=== PATIENT | female | born 1945 | race Caucasian/White ===

== ENCOUNTER → 2018-09-03 | Outpatient (REF) ==
[2018-09-03 14:37] LABS: RUBELLA IgG QUALITATIVE IMMUNE (IMMUNE)
== END ==
LOC: M LAB 13:37
PROVIDERS: ATTEND Nurse Practitioner Adult Health
DX: Z00.00 Encounter for general adult medical examination without abnormal findings (principal)

== ENCOUNTER → 2021-02-22 | Outpatient (REF) | payer MEDICARE, BC ==
[~2021-02-22] MED LIST: ATEN50TA2 PO; CALC-356 PO; CEFD1CAP8 PO; CIDA500T2 PO; ECOT81TA5 PO; FERR325T82 PO; LEVO50TA5 PO; NABU-71 PO; ROSU5TAB5 PO; VITA500T41 PO; VITMTA PO; tylenol pm PO
[2021-02-22 17:29] LABS: PLATELET COUNT, AUTOMATED 425 10^3/uL (150-450)
[2021-02-22 17:40] LABS: INR 0.93; PROTHROMBIN TIME 12.9 SECONDS (12.7-14.5)
[2021-02-22 17:41] LABS: PARTIAL THROMBOPLASTIN TIME 29.1 SECONDS (25.9-37.0)
== END ==
LOC: M LAB REF 16:45
PROVIDERS: ATTEND Internal Medicine Pulmonary Disease
DX: Z01.812 Encounter for preprocedural laboratory examination (principal); J90 Pleural effusion, not elsewhere classified

== ENCOUNTER 2021-02-24 12:32 | Day surgery (SDC) | payer MEDICARE, BC ==
[~2021-02-24] VITALS: Ht 152.4 cm; Wt 78.0 kg
[2021-02-24 13:22] LABS: BASO # 0.1 10^3/uL (0.0-0.2); BASO % 0.7 % (0.0-1.0); EOS # 0.2 10^3/uL (0.0-0.5); EOS % 1.8 % (0.0-3.0); HEMATOCRIT 39.1 % (36.0-47.0); HEMOGLOBIN 12.8 g/dl (12.0-15.5); LYMPH # 1.4 10^3/uL (1.5-5.0); LYMPH % 12.9 % (24.0-44.0); MEAN CORPUSCULAR HEMOGLOBIN 29.2 pg (27.0-33.0); MEAN CORPUSCULAR HGB CONC 32.7 g/dl (32.0-36.5); MEAN CORPUSCULAR VOLUME 89.1 fl (80.0-96.0); MONO # 0.7 10^3/uL (0.0-0.8); MONO % 6.7 % (2.0-8.0); NEUTROPHILS # 8.6 10^3/uL (1.5-8.5); NEUTROPHILS % 77.5 % (36.0-66.0); PLATELET COUNT, AUTOMATED 412 10^3/uL (150-450); RED BLOOD COUNT 4.39 10^6/uL (4.00-5.40); WHITE BLOOD COUNT 11.1 10^3/uL (4.0-10.0)
[2021-02-24 13:45] LABS: ALBUMIN 2.8 GM/DL (3.2-5.2); ALT/SGPT 30 U/L (12-78); BILIRUBIN,TOTAL 0.5 MG/DL (0.2-1.0); BLOOD UREA NITROGEN 10 MG/DL (7-18); CALCIUM LEVEL 9.2 MG/DL (8.8-10.2); CARBON DIOXIDE LEVEL 27 MEQ/L (21-32); CHLORIDE LEVEL 106 MEQ/L (98-107); CREATININE FOR GFR 0.64 MG/DL (0.55-1.30); GLOMERULAR FILTRATION RATE > 60.0 (>39); GLUCOSE, FASTING 82 MG/DL (70-100); LDH LACTATE DEHYDROGENASE 376 U/L (84-246); POTASSIUM SERUM 4.1 MEQ/L (3.5-5.1); SODIUM LEVEL 141 MEQ/L (136-145); TOTAL PROTEIN 5.9 GM/DL (6.4-8.2)
[2021-02-24] MEDS ORDERED: LIDOCAINE 1% MDV 20ML VIAL As Ordered ONE (14:00)
[2021-02-24 14:57] LABS: PH BODY FLUID 7.443 UNITS (NOT ESTABLISHED); SOURCE, BODY FLUID pH PLEURAL
--- NOTE | 2021-02-24 14:59 | REP ---
INDICATION: post thoracentesis right side. COMPARISON: 02/17/2021 TECHNIQUE: Portable FINDINGS: The technique utilized in obtaining the radiograph has magnified the cardiac silhouette and accentuated the interstitial markings. Cardiomediastinal silhouette is unchanged. The right lower lung field opacity may have decreased slightly. There is no significant change, however. Left lung field is unchanged. There are nodules status quo. IMPRESSION: Likely malignant effusion no significant change as described above. <Electronically signed by Fred Roberto > 02/24/21 [id number]
[2021-02-24 15:09] LABS: APPEARANCE, BODY FLUID HAZY (CLEAR); PLEURAL FL COLOR PALE YELLOW (COLORLESS); SOURCE, BODY FLUID PLEURAL
[2021-02-24 15:20] VITALS: BP 167/82
[2021-02-24 15:30] LABS: AMYLASE, BODY FLUID 150 U/L (NOT ESTABLISHED); CHOLESTEROL, BODY FLUID 57 MG/DL (NOT ESTABLISHED); LDH, BODY FLUID 264 U/L (NOT ESTABLISHED); SOURCE, BODY FLUID ALBUMIN PLEURAL; SOURCE, BODY FLUID AMYLASE PLEURAL; SOURCE, BODY FLUID CHOL PLEURAL; SOURCE, BODY FLUID GLUCOSE PLEURAL; SOURCE, BODY FLUID LDH PLEURAL; SOURCE, BODY FLUID TOT PROTEIN PLEURAL; SOURCE, BODY FLUID TRIG PLEURAL; TOTAL PROTEIN, BODY FLUID 3.6 G/DL (NOT ESTABLISHED); TRIGLYCERIDE, BODY FLUID 24 MG/DL (NOT ESTABLISHED)
--- NOTE | 2021-02-24 15:38 | ROOPDOC ---
[facility] Report Of Operation Report of Operation INDICATION: pleural effusion PROCEDURE: right sided US guided thoracentesis PROCEDURE PHOTOGRAPHIC PLATEMAKER: Dr Alvarado CONSENT: Consent was obtained prior to the procedure. Indications, risks, and benefits were explained at length. PROCEDURE SUMMARY: A time out was performed and the chest x-ray was reviewed, the appropriate side was confirmed and marked. My hands were washed immediately prior to the procedure. I wore a surgical cap, mask with protective eyewear, sterile gown and sterile gloves throughout the procedure. The patient was prepped and draped in a sterile manner using chlorhexidine scrub after the appropriate level was confirmed by ultrasound. 1% lidocaine was used to anesthesize the skin, subcutaneous tissue, superior aspect of the rib periosteum and parietal pleura. A 10-blade scalpel was used to nate the skin at the insertion site. A finder needle was then introduced over the superior aspect of the rib to locate the ple ural fluid; yellow colored fluid was aspirated. The needle was then introduced through the skin incision into the pleural space using negative aspiration pressure. The thoracentesis catheter was then threaded without difficulty. In total 1540cc of fluid was removed without difficulty. The catheter was then removed. No immediate complications were noted during the procedure. A post- procedure chest x-ray did not reveal pneumotyhorax, there is right base opacity/atelectasis. The fluid will be sent for cytology, cell counts and lytes Estimated blood loss is 5cc ERASTO ALVARADO MD Feb 24, 2021 15:38
== END 2021-02-24 15:31 | disposition home or self-care (01) ==
LOC: M OPP 12:32
PROVIDERS: ATTEND Internal Medicine Pulmonary Disease
DX: C34.90 Malignant neoplasm of unspecified part of unspecified bronchus or lung (principal); J91.0 Malignant pleural effusion; R05 Cough; R06.00 Dyspnea, unspecified; I31.3 Pericardial effusion (noninflammatory); E03.9 Hypothyroidism, unspecified; I10 Essential (primary) hypertension
CPT/HCPCS: 32555; 36415; 71045; 80053; 82042; 82150; 82465; 82945; 83615; 83986; 84157; 84478; 85025; 87070; 87075; 87116; 87205; 87206; 88108; 88305; 88313; 88341; 88342; 89051; U0002

== ENCOUNTER 2021-03-08 13:18 | Inpatient (IN) | payer MEDICARE, BC ==
[2021-03-08] VITALS (18 sets, daily range): BP systolic 109–148; BP diastolic 58–73
[~2021-03-08 13:18] MED LIST changes: -ACET1TAB55 PO; -ACET25TA12 PO; -DOCU100C16 PO; -OXYC-517 PO; -TRAM50TA2 PO; -VIAC1CHW PO
[2021-03-08] MEDS ORDERED: flumazeniL 0.5 MG/5 ML VIAL As Ordered ONE (13:24)
[2021-03-08] MEDS ORDERED: MIDAZOLAM INJ 2MG/2ML VIAL (J2250 PER 1MG) As Ordered ONE (13:25)
[2021-03-08] MEDS ORDERED: LIDOCAINE 1% MDV 20ML VIAL As Ordered ONE (13:26)
[2021-03-08] MEDS ORDERED: MOM 30ML SUSPENSION UDC PO PRN (14:15)
[2021-03-08] MEDS ORDERED: MAALOX 30 ML SUSP *UDC PO PRN (14:15)
--- NOTE | 2021-03-08 14:40 | HPEPDOC ---
[facility] Medical History & Physical Date of Admission Mar 08, 2021 Date of Service: Mar 08, 2021 History and Physical Chief complaint: Patient was sent in as a direct admission from pulmonologys office for shortness of breath History of present illness: Patient is a 75-year-old female with a PMHx of HTN, DLP, Hypothyroidism, Osteoarthritis, Gastric bypass (2003) who presented to the [facility] as a direct admission for shortness of breath with exertion. Patient reports that since . Shes been treated for bronchitis with multiple antibiotics and she has failed to improve. Patient had seen pulmonology and had a CT scan completed on 02/17 which revealed evidence of a large right pleural effusion, dense consolidation in the right lower lobe. Findings concer carlitos for possible underlying endobronchial lesion and lymphadenopathy. Patient underwent thoracentesis on 02/24 and fluid was sent for cytology which resulted positive for adenocarcinoma. Patient had followed up with pulmonology today and was noted to have recurrence of her right-sided pleural effusion. Patient denies any chest pain, but they do report shortness of breath with exertion. Reports a nonproductive cough. Denies any fevers or chills. Patient reports some nausea without vomiting. Denies any abdominal discomfort. Denies any constipation. Reports some diarrhea with loose/watery bowel movements. Last bowel movement was this morning. Denies any urinary discomfort. Reports a poor appetite and has experience approximately a 3 pound weight loss over one week. Past Medical History: HTN DLP Hypothyroidism Osteoarthritis Gastric bypass (2003) Hx of COVID 19 infection (03/2020); was asymptomatic Past Surgical History: Gastric bypass 2003 Right knee arthroplasty 10/2020 Hysterectomy 1989 Dilation and curettage 1988 Hernia repair Left ankle fracture s/p repair, 1978 Right foot surgery 1993 Allergies: See below Medications: See below Family History: - Father with a history of chronic kidney disease and bladder cancer - Mother with a history of coronary artery disease and chronic kidney disease - No history of malignancies Social History: - Denies the use of tobacco or illicit drugs; patient reports the social use of alcohol - Denies recent travel or sick contacts; although she did travel to [place] February 06- - Lives with - 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 No wheezing, crackles or rhonchi noted - Abdomen: Soft, Non-distended, Non-tender - Extremities: No lower extremity edema, No calf tenderness - Neuro: No focal motor or sensory deficit - Skin: No visible rashes Labs: See below Imaging: CT Chest 02/17: Large right pleural effusion and dense consolidation in the right lower lobe. The findings are concerning for possible underlying endobronchial lesion. Small pericardial effusion noted and mediastinal adenopathy with the pretracheal node measuring 2.5 cm and 2.3 cm subcarinal node. Bilateral calcified hilar nodes. Multiple nodules in the left upper lobe concerning for possible metastasis versus nodular infiltrates. CXR 03/08: Large right pleural effusion near completely opacifying the right hemithorax with underlying collapse/consolidations. EKG: See below Assessment and Plan: Shortness of breath - likely 2/2 recurrent right sided pleural effusion - likely 2/2 malignancy 2/2 adenocarcinoma - Patient presented to [facility] as a direct admission for recurrent pleural effusion - Patient recently had a thoracentesis completed on 02/24; findings were consistent with adenocarcinoma - Diminished lung sounds at right lung base, however she is saturating well on room air - Hemodynamically stable and afebrile - Imaging noted above - Currently does reveal large right-sided pleural effusion - Cardiothoracic surgery has been called on consultation and case has been discussed; will evaluate today for intervention HTN - BP well controlled - c/w Atenolol with holding parameters DLP - c/w ASA 81 and Rosuvastatin Hypothyroidism - c/w Levothyroxine Osteoarthritis - c/w Tylenol PRN Hx of COVID 19 infection - Diagnosed 03/2020 - Currently patient is asymptomatic was asymptomatic / saturating well on room air DVT prophylaxis - Will start Heparin SQ Disposition: - Anticipate to midnight stay - Awaiting clinical improvement Vital Signs Vital Signs Date Time Temp Pulse Resp B/P (MAP) Pulse Ox O2 Delivery O2 Flow Rate FiO2 03/08/21 14:28 98.3 83 20 148/71 (96) 91 Room Air Home Medications Scheduled Aspirin (Ecotrin) 81 Mg Tablet.dr, 81 MG PO DAILY Atenolol (Atenolol) 50 Mg Tablet, 50 MG PO DAILY Calcium Carbonate/Vitamin D3 (Calcium 600 mg-Vit D3 10Mcg Tb) 600 Mg-400 Tablet, 2 EACH PO DAILY Cefdinir (Cefdinir) 300 Mg Capsule, 300 MG PO BID Cyanocobalamin (Vitamin B-12) (Vitamin B-12) 500 Mcg Tablet, 500 MCG PO 3XW Ferrous Sulfate (Iron) 325 Mg Tablet, 325 MG PO BID Glucosamine/Chondr Sparrow A Sod (Cidaflex Tablet) 1 Each Tablet, 1 TAB PO DAILY Levothyroxine Sodium (Levothyroxine Sodium) 50 Mcg Tablet, 50 MCG PO DAILY Multivitamins (Thera M Plus Tablet) 1 Each Tablet, 1 TAB PO BID Nabumetone (Nabumetone) 500 Mg Tablet, 500 MG PO BID Rosuvastatin Calcium (Rosuvastatin Calcium) 5 Mg Tablet, 5 MG PO DAILY [tylenol pm] , 1,000 MG PO QHS Allergies Coded Allergies: hydrocodone (Verified Adverse Reaction, Mild, n/v, 03/08/21) oxycodone (Verified Adverse Reaction, Mild, n/v, 03/08/21) NANCY LARSEN MD Mar 08, 2021 14:39
[2021-03-08] MEDS ORDERED: ACET25TA12 PO (14:51)
[2021-03-08] MEDS ORDERED: VIAC1CHW PO (14:51)
[2021-03-08 14:52] LABS: HEMATOCRIT 42.8 % (36.0-47.0); HEMOGLOBIN 13.9 g/dl (12.0-15.5); MEAN CORPUSCULAR HEMOGLOBIN 28.5 pg (27.0-33.0); MEAN CORPUSCULAR HGB CONC 32.5 g/dl (32.0-36.5); MEAN CORPUSCULAR VOLUME 87.9 fl (80.0-96.0); PLATELET COUNT, AUTOMATED 444 10^3/uL (150-450); RED BLOOD COUNT 4.87 10^6/uL (4.00-5.40); WHITE BLOOD COUNT 14.8 10^3/uL (4.0-10.0)
[2021-03-08] MEDS ORDERED: HOME MED LIST COMPLETE! XX SCH (14:55)
[2021-03-08 15:03] LABS: INR 0.99; PROTHROMBIN TIME 13.5 SECONDS (12.7-14.5)
[2021-03-08] MEDS ORDERED: MIDAZOLAM INJ 2MG/2ML VIAL (J2250 PER 1MG) IV ONE ×2 (15:03→15:09)
[2021-03-08] MEDS ORDERED: PILL CUTTER 1 EACH XX PRN (15:25)
[2021-03-08 15:27] LABS: ALBUMIN 2.8 GM/DL (3.2-5.2); ALT/SGPT 39 U/L (12-78); BILIRUBIN,TOTAL 0.5 MG/DL (0.2-1.0); BLOOD UREA NITROGEN 14 MG/DL (7-18); CALCIUM LEVEL 9.2 MG/DL (8.8-10.2); CARBON DIOXIDE LEVEL 27 MEQ/L (21-32); CHLORIDE LEVEL 103 MEQ/L (98-107); CREATININE FOR GFR 0.78 MG/DL (0.55-1.30); GLOMERULAR FILTRATION RATE > 60.0 (>39); GLUCOSE, FASTING 99 MG/DL (70-100); POTASSIUM SERUM 4.6 MEQ/L (3.5-5.1); SODIUM LEVEL 137 MEQ/L (136-145); TOTAL PROTEIN 6.3 GM/DL (6.4-8.2)
--- NOTE | 2021-03-08 15:51 | REP ---
INDICATION: pigtail placement COMPARISON: 03/08/2021 at 12:07 p.m. TECHNIQUE: Portable AP view of the chest FINDINGS: Evaluation is somewhat limited by technique and poor inspiratory effort. Current examination now demonstrates chest tube extending to the right apex with mildly decreased right hydropneumothorax. Subtle left lower lobe airspace disease/atelectasis cannot be excluded. Visualized portions of the cardiac silhouette remains stable. Skeletal structures intact. IMPRESSION: Right chest tube placement with right hydropneumothorax demonstrating mildly decreased fluid. <Electronically signed by Abdelrahman Wang > 03/08/21 1544
--- NOTE | 2021-03-08 15:51 | ROOPDOC ---
[facility] Report Of Operation Report of Operation DATE OF PROCEDURE: 03/08/21 PREOPERATIVE DIAGNOSIS: recurrent malignant pleural effusion POSTOPERATIVE DIAGNOSIS: same PROCEDURE PERFORMED: right side PleurX catheter placement. SURGEON: Kt Alvarado ANESTHESIA: Local with IV sedation versed 2mg COMPLICATIONS: None. OPERATIVE FINDINGS: The right chest was opacified on preoperative chest x-ray, and 1L liters of serous fluid was withdrawn. There were no bleeding c omplications, and the fluid was not blood tinged. DESCRIPTION OF PROCEDURE: Procedure was done at bedside. Patient placed supine position. Intravenous sedation was administered without complications. The patient was then positioned with the head up and a roll under the right shoulder. The right chest and upper abdomen were prepped and draped in the usual sterile fashion. Lidocaine 1% was used to infiltrate two areas; one in the right upper quadrant where the tube would exit and the other along the anterior axillary line in the seventh intercostal space. A small counterincision was made in the right upper quadrant area. Through the anterior axillary line area, the pleural space was accessed by Seldinger technique. The counterincision was made around the guidewire and then the PleurX catheter was tunneled from the right upper quadrant small incision to the one overlying the ribs. A sheath introducer was then passed over the wire and then the PleurX catheter was placed through the sheath introducer. There was good return of fluid. 1 liters of serous fluid was withdrawn slowly as the small counterincision was closed with Monocryl stitch. The catheter was capped off, and sterile dressings were applied. The patient tolerated the procedure well without any complications. Sponge and needle count was correct at the end of the case. CXR is pending. KT ALVARADO MD Mar 08, 2021 15:51
[2021-03-08] MEDS ORDERED: LIDOCAINE 1% MDV 20ML VIAL SC ONE (16:20)
[2021-03-08 16:52] LABS: LDH LACTATE DEHYDROGENASE 621 U/L (84-246)
[2021-03-08 17:13] LABS: PH BODY FLUID 7.492 UNITS (NOT ESTABLISHED); SOURCE, BODY FLUID pH PLEURAL
[2021-03-08 17:20] LABS: APPEARANCE, BODY FLUID HAZY (CLEAR); PLEURAL FL COLOR YELLOW (COLORLESS); SOURCE, BODY FLUID PLEURAL
[2021-03-08 18:24] LABS: AMYLASE, BODY FLUID 169 U/L (NOT ESTABLISHED); CHOLESTEROL, BODY FLUID 65 MG/DL (NOT ESTABLISHED); LDH, BODY FLUID 400 U/L (NOT ESTABLISHED); SOURCE, BODY FLUID ALBUMIN PLEURAL; SOURCE, BODY FLUID AMYLASE PLEURAL; SOURCE, BODY FLUID CHOL PLEURAL; SOURCE, BODY FLUID GLUCOSE PLEURAL; SOURCE, BODY FLUID LDH PLEURAL; SOURCE, BODY FLUID TOT PROTEIN PLEURAL; SOURCE, BODY FLUID TRIG PLEURAL; TOTAL PROTEIN, BODY FLUID 3.9 G/DL (NOT ESTABLISHED); TRIGLYCERIDE, BODY FLUID 28 MG/DL (NOT ESTABLISHED)
[2021-03-08] MEDS: DOCUSATE SODIUM 100MG CAPSULE PO SCH ×2 (20:18→20:28)
[2021-03-08] MEDS: FERROUS SULFATE 325MG TAB PO SCH (20:19)
[2021-03-08] MEDS: ACETAMINOPHEN TAB 650MG DOSE (2X325MG) PO PRN (20:20)
[2021-03-08] MEDS: MULTIVITAMINS/MINERALS THERAP 1 TAB PO SCH (20:27)
[2021-03-08] MEDS: HEPARIN SOD (PORCINE) 5000UNITS/ML 1ML VIAL/SYRINGE SC SCH (20:28)
[2021-03-08] MEDS ORDERED: ROSUVASTATIN 10 MG TAB (CRESTOR) PO SCH (21:00)
[2021-03-08] MEDS ORDERED: atenoloL 50 MG TAB PO SCH (21:00)
[2021-03-09] VITALS: BP_SYST 106; BP_SYST 161; BP_DIAS 63; BP_DIAS 75
[2021-03-09] MEDS: ACETAMINOPHEN TAB 650MG DOSE (2X325MG) PO PRN ×2 (00:27→09:54)
[2021-03-09 04:00] VITALS: BP 105/61
[2021-03-09 04:27] LABS: BASO # 0.1 10^3/uL (0.0-0.2); BASO % 0.6 % (0.0-1.0); EOS # 0.3 10^3/uL (0.0-0.5); HEMOGLOBIN 12.2 g/dl (12.0-15.5); LYMPH # 1.7 10^3/uL (1.5-5.0); LYMPH % 13.4 % (24.0-44.0); MEAN CORPUSCULAR HEMOGLOBIN 28.5 pg (27.0-33.0); MEAN CORPUSCULAR VOLUME 86.4 fl (80.0-96.0); MONO # 1.2 10^3/uL (0.0-0.8); MONO % 9.6 % (2.0-8.0); NEUTROPHILS # 9.4 10^3/uL (1.5-8.5); NEUTROPHILS % 73.8 % (36.0-66.0); PLATELET COUNT, AUTOMATED 361 10^3/uL (150-450); RED BLOOD COUNT 4.28 10^6/uL (4.00-5.40); WHITE BLOOD COUNT 12.7 10^3/uL (4.0-10.0)
[2021-03-09 04:50] LABS: BLOOD UREA NITROGEN 16 MG/DL (7-18); CALCIUM LEVEL 9.1 MG/DL (8.8-10.2); CARBON DIOXIDE LEVEL 28 MEQ/L (21-32); CHLORIDE LEVEL 105 MEQ/L (98-107); GLOMERULAR FILTRATION RATE > 60.0 (>39); GLUCOSE, FASTING 106 MG/DL (70-100); MAGNESIUM LEVEL 1.9 MG/DL (1.8-2.4); POTASSIUM SERUM 4.5 MEQ/L (3.5-5.1); SODIUM LEVEL 138 MEQ/L (136-145)
[2021-03-09] MEDS: HEPARIN SOD (PORCINE) 5000UNITS/ML 1ML VIAL/SYRINGE SC SCH ×2 (05:35→15:30)
[2021-03-09] MEDS ORDERED: LEVOTHYROXINE 50MCG TABLET (0.05MG) PO SCH (06:00)
[2021-03-09 08:00] VITALS: BP 116/63
[2021-03-09] MEDS ORDERED: ASPIRIN 81MG ENTERIC TABLET PO SCH (09:00)
[2021-03-09] MEDS ORDERED: FLUBLOK(EGG FREE)(QUAD)INFLUENZA VACC 0.5ML SYRINGE 18YRS & OLDER IM ONE (09:00)
--- NOTE | 2021-03-09 09:48 | REP ---
INDICATION: pleural effusion COMPARISON: 03/08/2021. TECHNIQUE: PA/Lateral FINDINGS: A chest tube is seen inferiorly on the right. Previously noted large right effusion has decreased. There is consolidation in the right lung base. There is a small right apical pneumothorax. Left perihilar patchy parenchymal opacities are unchanged IMPRESSION: Right chest tube in place, small right apical pneumothorax. Consolidation right lung base. <Electronically signed by Palomo Guerra > 03/09/21 0923
[2021-03-09] MEDS: MULTIVITAMINS/MINERALS THERAP 1 TAB PO SCH (09:53)
[2021-03-09] MEDS: FERROUS SULFATE 325MG TAB PO SCH (09:53)
[2021-03-09] MEDS: DOCUSATE SODIUM 100MG CAPSULE PO SCH (09:54)
[2021-03-09 12:00] VITALS: BP 132/70
--- NOTE | 2021-03-09 12:21 | IPNPDOC ---
Date Seen The patient was seen on 03/09/21. Progress Note SUBJECTIVE: Seen examined at bedside. Saturating 95% on 1 L via nasal cannula. Denies acute shortness of breath. States discomfort at site of Pleurx catheter. Denies any chest pain palpitations nausea vomiting diarrhea. Afebrile OBJECTIVE PHYSICAL EXAMINATION: VITAL SIGNS: please see below General: NAD, comfortable HEENT: PERRLA, EOMI, sclerae clear Neck: supple, normal ROM, no JVD Respiratory: dimished breath sounds R lung base. pleurX cath in place. CVS: RRR, normal S1, S2, no murmurs Abdo: soft, no masses, no hepatosplenomegaly, BS+, no rebound tenderness Extremities: no edema, pulses 2+ MSK: no joint deformities, normal ROM Neuro: no focal neuro deficits, moving all 4 extremities, CN2-12 intact. Strength 5/5 in all 4 extremities. No nystagmus. Psych: calm, cooperative, AAO x 3 LABORATORY DATA, IMAGING STUDIES, MICROBIOLOGY: Please see below. CXR (03/09/21): IMPRESSION: Right chest tube in place, small right apical pneumothorax. Consolidation right lung base. CT Chest 02/17: Large right pleural effusion and dense consolidation in the right lower lobe. The findings are concerning for possible underlying endobronchial lesion. Small pericardial effusion noted and mediastinal adenopathy with the pretracheal node measuring 2.5 cm and 2.3 cm subcarinal node. Bilateral calcified hilar nodes. Multiple nodules in the left upper lobe concerning for possible metastasis versus nodular infiltrates. DVT prophylaxis ordered?: heparin 5000 units SC q8h. ASSESSMENT AND PLAN: Pleasant 75-year-old female with a past medical history of hypertension depressed lipidemia hypothyroidism osteoarthritis gastric bypass and recent diagnosis of lung adenocarcinoma after thoracentesis on 02/24. Patient has been complaining of shortness of breath and cough treated for bronchitis with multiple antibiotics and failure to improve. Patient was found to have a large right-sided pleural effusion via CT scan on 02/17. Patient had a Pleurx catheter placed by pulmonology on 03/08/2021. PROBLEMS: Shortness of breath - likely 2/2 recurrent right sided pleural effusion - likely 2/2 malignancy 2/2 adenocarcinoma - Patient presented to [facility] as a direct admission for recurrent pleural effusion - Patient recently had a thoracentesis completed on 02/24; findings were consistent with adenocarcinoma - Diminished lung sounds at right lung base, however she is saturating well on room air - Hemodynamically stable and afebrile - Imaging noted above - Currently does reveal large right-sided pleural effusion - PleurX catheter placed by rivet hole puncher Dr. Alvarado. - pleural fluid cultures are pending. - Thoracic surgery Dr. Nunez has been consulted, for assistance in management of pleural effusion. HTN - BP well controlled - c/w Atenolol with holding parameters DLP - c/w ASA 81 and Rosuvastatin Hypothyroidism - c/w Levothyroxine Osteoarthritis - c/w Tylenol PRN Hx of COVID 19 infection - Diagnosed 03/2020 - Currently patient is asymptomatic was asymptomatic / saturating well on room air DVT prophylaxis - Will start Heparin SQ Disposition: - Anticipate to midnight stay - Awaiting clinical improvement VS, I&O, 24H, Fishbone Vital Signs/I&O Vital Signs Date Time Temp Pulse Resp B/P (MAP) Pulse Ox O2 Delivery O2 Flow Rate FiO2 03/09/21 08:00 97.3 74 18 116/63 (80) 95 Nasal Cannula 1.0 I&O- Last 24 Hours up to 6 AM 03/09/21 05:59 Intake Total 0 ml Output Total 1125 ml Balance -1125 ml Laboratory Data 24H LABS Laboratory Tests 2 03/08/21 14:31: Nucleated Red Blood Cells % (auto) 0.0, Prothrombin Time 13.5, Prothromb Time International Ratio 0.99, Anion Gap 7L, Glomerular Filtration Rate > 60.0, Lactic Acid Level 1.4, Calcium Level 9.2, Total Bilirubin 0.5, Aspartate Amino Transf (AST/SGOT) 70H, Alanine Aminotransferase (ALT/SGPT) 39, Alkaline Phosphatase 155H, Lactate Dehydrogenase 621H, Total Protein 6.3L, Albumin 2.8L, Albumin/Globulin Ratio 0.8L, Procalcitonin 0.09 03/08/21 15:48: Coronavirus (COVID-19)(PCR) NEGATIVE, Methicillin-Resist S.aureus DNA PCR NOT DETECTED 03/08/21 15:54: Body Fluid pH 7.492, Body Fluid pH Source PLEURAL, Body Fluid WBC (Auto) 1095H, Body Fluid RBC (Auto) < 2, Body Fluid Mononuclear Cells % Auto 99.0H, Fluid Polymorphonuclear Cell % Auto 1.0H, Body Fluid Glucose Source PLEURAL, Body Fluid Glucose 103, Body Fluid Protein Source PLEURAL, Body Fluid Total Protein 3.9, Body Fluid Albumin Source PLEURAL, Body Fluid Albumin 2.0, Body Fluid LDH Source PLEURAL, Body Fluid Lactate Dehydrogenase 400, Body Fluid Amylase Source PLEURAL, Body Fluid Amylase 169, Body Fluid Cholesterol 65, Body Fluid Cholesterol Source PLEURAL, Body Fluid Triglyceride Source PLEURAL, Body Fluid Triglycerides 28, Pleural Fluid Source PLEURAL, Pleural Fluid Color YELLOW, Pleural Fluid Appearance HAZY 03/08/21 21:20: Urine Color ALEXIA, Urine Appearance HAZY, Urine pH 5.0, Urine Specific [place] 1.032, Urine Protein 1+H, Urine Glucose (UA) NEGATIVE, Urine Ketones TRACEH, Urine Blood NEGATIVE, Urine Nitrite NEGATIVE, Urine Bilirubin NEGATIVE, Urine Urobilinogen 2.0H, Urine Leukocyte Esterase 2+H, Urine WBC (Auto) 27H, Urine RBC (Auto) 5H, Urine Hyaline Casts (Auto) 7, Urine Bacteria (Auto) 1+H, Urine Squamous Epithelial Cells 2, Urine Mucus (Auto) SMALL, Urine Sperm (Auto) 03/09/21 04:09: Immature Granulocyte % (Auto) 0.6, Neutrophils (%) (Auto) 73.8H, Lymphocytes (%) (Auto) 13.4L, Monocytes (%) (Auto) 9.6H, Eosinophils (%) (Auto) 2.0, Basophils (%) (Auto) 0.6, Neutrophils # (Auto) 9.4H, Lymphocytes # (Auto) 1.7, Monocytes # (Auto) 1.2H, Eosinophils # (Auto) 0.3, Basophils # (Auto) 0.1, Nucleated Red Blood Cells % (auto) 0.0, Anion Gap 5L, Glomerular Filtration Rate > 60.0, Calcium Level 9.1, Magnesium Level 1.9 CBC/BMP Laboratory Tests 03/08/21 14:31 03/09/21 04:09 Microbiology Microbiology 03/08/21 Urine Culture, Received Pending 03/08/21 Blood Culture, Received Pending 03/08/21 Acid Fast Stain, Received Pending 03/08/21 Mycobacterial Culture, Received Pending 03/08/21 Gram Stain - Final, Resulted 03/08/21 Anaerobic Culture, Resulted Pending 03/08/21 Body Fluid Culture, Received Pending 03/08/21 Blood Culture, Received Pending POLINKEVYCH,SONAM MD Mar 09, 2021 12:21
--- NOTE | 2021-03-09 13:01 | REP ---
INDICATION: left sided pleural effusion post PleurX COMPARISON: 02/17/2021 TECHNIQUE: Axial noncontrast images from the thoracic inlet to the upper abdomen with coronal and sagittal reformations. This CT examination was performed using the following dose reduction techniques: Automated exposure control, adjustment of mA and/or kv according to the patient's size, and use of iterative reconstruction technique. FINDINGS: Chest tube at the right base is identified with complex hydropneumothorax. Large area of right-sided consolidation with air bronchograms and scattered calcifications. Innumerable bilateral pulmonary nodules and mass lesions and chronic calcified lymph nodes along with significant mediastinal and hilar adenopathy noted. With the exception of decreased right pleural fluid, the remainder of the above mentioned findings are essentially unchanged. Thoracic aorta, pulmonary vasculature, and heart/pericardium remains stable. Small pericardial effusion again noted. Musculoskeletal structures are intact and without obvious acute focal osseous abnormality. IMPRESSION: 1. Chest tube at the right base now demonstrating complex hydropneumothorax with decreased pleural fluid as compared to prior examination. 2. Remainder of the above mentioned findings including large right lower lobe presumed malignant consolidation, active adenopathy, and innumerable pulmonary nodule/mass lesions essentially unchanged. <Electronically signed by Abdelrahman Wang > 03/09/21 1257
[2021-03-09] MEDS ORDERED: OXYC-517 PO (13:03)
[2021-03-09] MEDS ORDERED: ACET1TAB55 PO (13:03)
[2021-03-09] MEDS ORDERED: DOCU100C16 PO (13:03)
--- NOTE | 2021-03-09 13:53 | DS.PDOC ---
Discharge Summary General Date of Admission Mar 08, 2021 at 13:47 Date of Discharge 03/09/21 Discharge Summary PROCEDURES PERFORMED DURING STAY: [None]. ADMITTING DIAGNOSES: Shortness of breath likely 2/2 R sided pleural effusion (malignancy, adenocarcinoma) Hx of HTN Hx of DLP Hx of Hypothyroidism Hx of Covid-19 infection DISCHARGE DIAGNOSES: Shortness of breath likely 2/2 R sided pleural effusion (malignancy, adenocarcinoma) Hx of HTN Hx of DLP Hx of Hypothyroidism Hx of Covid-19 infection COMPLICATIONS/CHIEF COMPLAINT: Recurrent Malignent Flouro-Injection. HISTORY OF PRESENT ILLNESS: Obtained from H&P: "Patient is a 75-year-old female with a PMHx of HTN, DLP, Hypothyroidism, Osteoarthritis, Gastric bypass (2003) who presented to the [facility] as a direct admission for shortness of breath with exertion. Patient reports that since . Shes been treated for bronchitis with multiple antibiotics and she has failed to improve. Patient had seen pulmonology and had a CT scan completed on 02/17 which revealed evidence of a large right pleural effusion, dense consolidation in the right lower lobe. Findings concerning for possible underlying endobronchial lesion and lymphadenopathy. Patient underwent thoracentesis on 02/24 and fluid was sent for cytology which resulted positive for adenocarcinoma. Patient had followed up with pulmonology today and was noted to have recurrence of her right-sided pleural effusion. Patient denies any chest pain, but they do report shortness of breath with exertion. Reports a nonproductive cough. Denies any fevers or chills. Patient reports some nausea without vomiting. Denies any abdominal discomfort. Denies any constipation. Reports some diarrhea with loose/watery bowel movements. Last bowel movement was this morning. Denies any urinary discomfort. Reports a poor appetite and has experience approximately a 3 pound weight loss over one week." HOSPITAL COURSE: Shortness of breath - likely 2/2 recurrent right sided pleural effusion - likely 2/2 malignancy 2/2 adenocarcinoma - Patient presented to [facility] as a direct admission for recurrent pleural effusion - Patient recently had a thoracentesis completed on 02/24; findings were consistent with adenocarcinoma - Diminished lung sounds at right lung base, however she is saturating well on room air. - Hemodynamically stable and afebrile - Imaging noted above - Currently does reveal large right-sided pleural effusion - PleurX catheter placed by health safety engineer Dr. Alvarado. - Cytology positive for malignancy. - pleural fluid cultures and AFB to followed up as outpatient. - Pulmonary service has been consulted, for assistance in management of pleural effusion. - D/w Dr. Alvarado, patient cleared for DC with outpatient follow up. No need for antibiotics per pulm service. Heme onc referral to be issues by PCP. HTN - BP well controlled - c/w Atenolol with holding parameters DLP - c/w ASA 81 and Rosuvastatin Hypothyroidism - c/w Levothyroxine Osteoarthritis - c/w Tylenol PRN Hx of COVID 19 infection - Diagnosed 03/2020 - Currently patient is asymptomatic was asymptomatic / saturating well on room air DISCHARGE MEDICATIONS: Please see below. ALLERGIES: Please see below. PHYSICAL EXAMINATION ON DISCHARGE: VITAL SIGNS: please see below General: NAD, comfortable HEENT: PERRLA, EOMI, sclerae clear Neck: supple, normal ROM, no JVD Respiratory: dimished breath sounds R lung base. pleurX cath in place. CVS: RRR, normal S1, S2, no murmurs Abdo: soft, no masses, no hepatosplenomegaly, BS+, no rebound tenderness Extremities: no edema, pulses 2+ MSK: no joint deformities, normal ROM Neuro: no focal neuro deficits, moving all 4 extremities, CN2-12 intact. Strength 5/5 in all 4 extremities. No nystagmus. Psych: calm, cooperative, AAO x 3 LABORATORY DATA: Please see below. IMAGIND echo (03/08/21): CONCLUSIONS: 1. Study is of acceptable technical quality. Underlying sinus rhythm. 2. Normal LV size with preserved LV systolic function and grade 1 diastolic dysfunction. 3. No significant valvular disease. 4. Unable to estimate central venous pressure and pulmonary artery pressure. 5. No obvious explanation for etiology of dyspnea. CXR (03/09/21): IMPRESSION: Right chest tube in place, small right apical pneumothorax. Consolidation right lung base. CT Chest 02/17: Large right pleural effusion and dense consolidation in the right lower lobe. The findings are concerning for possible underlying endobronchial lesion. Small pericardial effusion noted and mediastinal adenopathy with the pretracheal node measuring 2.5 cm and 2.3 cm subcarinal node. Bilateral calcified hilar nodes. Multiple nodules in the left upper lobe concerning for possible metastasis versus nodular infiltrates. CXR 03/08: Large right pleural effusion near completely opacifying the right hemithorax with underlying collapse/consolidations. PROGNOSIS: good ACTIVITY: [As tolerated]. DIET: as tolerated DISCHARGE PLAN: d/w Dr. Ureña, apical pneumothorax is stable, will perist after drainage of pleural effusion. Recommends DC home. To drain no more than 500 cc every 2 days from pleurX. Follow up with Dr. Springer in 1-2 weeks. DISPOSITION: DC with home health DISCHARGE INSTRUCTIONS: F/u PCP 3-5 days F/u Pulmonology in 1-2 weeks. Please obtain referral to hematology/oncology from PCP office PleurX cath to be drained every 2 days, no more than 500 cc each time If you develop worsening shortness of breath, chest pain, palpitations, fever or otherwise worsening of your symptoms, please call 911 or return to ER. ITEMS TO FOLLOW UP: AFB, cultures from thoracentesis. DISCHARGE CONDITION: [Stable]. TIME SPENT ON DISCHARGE: 35 minutes Vital Signs/I&Os Vital Signs Date Time Temp Pulse Resp B/P (MAP) Pulse Ox O2 Delivery O2 Flow Rate FiO2 03/09/21 12:00 97.8 78 18 132/70 (90) 94 Nasal Cannula 1.0 I&O- Last 24 Hours up to 6 AM 03/09/21 06:00 Intake Total 0 ml Output Total 1125 ml Balance -1125 ml Laboratory Data Labs 24H Laboratory Tests 2 03/08/21 14:31: Nucleated Red Blood Cells % (auto) 0.0, Prothrombin Time 13.5, Prothromb Time International Ratio 0.99, Anion Gap 7L, Glomerular Filtration Rate > 60.0, Lactic Acid Level 1.4, Calcium Level 9.2, Total Bilirubin 0.5, Aspartate Amino Transf (AST/SGOT) 70H, Alanine Aminotransferase (ALT/SGPT) 39, Alkaline Phosphatase 155H, Lactate Dehydrogenase 621H, Total Protein 6.3L, Albumin 2.8L, Albumin/Globulin Ratio 0.8L, Procalcitonin 0.09 03/08/21 15:48: Coronavirus (COVID-19)(PCR) NEGATIVE, Methicillin-Resist S.aureus DNA PCR NOT DETECTED 03/08/21 15:54: Body Fluid pH 7.492, Body Fluid pH Source PLEURAL, Body Fluid WBC (Auto) 1095H, Body Fluid RBC (Auto) < 2, Body Fluid Mononuclear Cells % Auto 99.0H, Fluid Polymorphonuclear Cell % Auto 1.0H, Body Fluid Glucose Source PLEURAL, Body Fluid Glucose 103, Body Fluid Protein Source PLEURAL, Body Fluid Total Protein 3.9, Body Fluid Albumin Source PLEURAL, Body Fluid Albumin 2.0, Body Fluid LDH S ource PLEURAL, Body Fluid Lactate Dehydrogenase 400, Body Fluid Amylase Source PLEURAL, Body Fluid Amylase 169, Body Fluid Cholesterol 65, Body Fluid Cholesterol Source PLEURAL, Body Fluid Triglyceride Source PLEURAL, Body Fluid Triglycerides 28, Pleural Fluid Source PLEURAL, Pleural Fluid Color YELLOW, Pleural Fluid Appearance HAZY 03/08/21 21:20: Urine Color ALEXIA, Urine Appearance HAZY, Urine pH 5.0, Urine Specific [place] 1.032, Urine Protein 1+H, Urine Glucose (UA) NEGATIVE, Urine Ketones TRACEH, Urine Blood NEGATIVE, Urine Nitrite NEGATIVE, Urine Bilirubin NEGATIVE, Urine Urobilinogen 2.0H, Urine Leukocyte Esterase 2+H, Urine WBC (Auto) 27H, Urine RBC (Auto) 5H, Urine Hyaline Casts (Auto) 7, Urine Bacteria (Auto) 1+H, Urine Squamous Epithelial Cells 2, Urine Mucus (Auto) SMALL, Urine Sperm (Auto) 03/09/21 04:09: Immature Granulocyte % (Auto) 0.6, Neutrophils (%) (Auto) 73.8H, Lymphocytes (%) (Auto) 13.4L, Monocytes (%) (Auto) 9.6H, Eosinophils (%) (Auto) 2.0, Basophils (%) (Auto) 0.6, Neutrophils # (Auto) 9.4H, Lymphocytes # (Auto) 1.7, Monocytes # (Auto) 1.2H, Eosinophils # (Auto) 0.3, Basophils # (Auto) 0.1, Nucleated Red Blood Cells % (auto) 0.0, Anion Gap 5L, Glomerular Filtration Rate > 60.0, Calcium Level 9.1, Magnesium Level 1.9 CBC/BMP Laboratory Tests 03/08/21 14:31 03/09/21 04:09 Microbiology Microbiology 03/08/21 Urine Culture, Received Pending 03/08/21 Blood Culture, Received Pending 03/08/21 Acid Fast Stain, Received Pending 03/08/21 Mycobacterial Culture, Received Pending 03/08/21 Gram Stain - Final, Resulted 03/08/21 Anaerobic Culture, Resulted Pending 03/08/21 Body Fluid Culture, Received Pending 03/08/21 Blood Culture, Received Pending Discharge Medications Scheduled Acetaminophen/Diphenhydramine (Acetaminophen Pm Caplet) 1 Each Tablet, 2 TAB PO QHS, (Reported) Alectinib HCl (Alecensa) 150 Mg Capsule, 600 MG PO BID Aspirin (Ecotrin) 81 Mg Tablet.dr, 81 MG PO DAILY, (Reported) Atenolol (Atenolol) 50 Mg Tablet, 50 MG PO QHS, (Reported) Calcium Carb/Vitamin D3/Vit K1 (Viactiv 650 mg-12.5 Mcg Chew) 1 Each Tab.chew, 2 EACH PO DAILY, (Reported) Cyanocobalamin (Vitamin B-12) (Vitamin B-12) 500 Mcg Tablet, 500 MCG PO 3XW, (Reported) MON, MON, MON Docusate Sodium (Docusate Sodium) 100 Mg Capsule, 100 MG PO BID Ferrous Sulfate (Iron) 325 Mg Tablet, 325 MG PO BID, (Reported) Glucosamine/Chondr Sparrow A Sod (Cidaflex Tablet) 1 Each Tablet, 1 TAB PO DAILY, (Reported) Levothyroxine Sodium (Levothyroxine Sodium) 50 Mcg Tablet, 50 MCG PO DAILY, (Reported) Multivitamins (Thera M Plus Tablet) 1 Each Tablet, 1 TAB PO BID, (Reported) Nabumetone (Nabumetone) 500 Mg Tablet, 500 MG PO BID, (Reported) Rosuvastatin Calcium (Rosuvastatin Calcium) 5 Mg Tablet, 5 MG PO QHS, (Reported) Scheduled PRN Acetaminophen (Acetaminophen) 325 Mg Tablet, 650 MG PO Q4H PRN for MILD PAIN or TEMP > 101 Tramadol HCl (Tramadol HCl) 50 Mg Tablet, 50 MG PO TIDP PRN for pain Miscellaneous Medications Ondansetron HCl (Ondansetron HCl) 4 Mg Tablet, (Reported) Allergies Coded Allergies: hydrocodone (Verified Adverse Reaction, Mild, n/v, 03/08/21) oxycodone (Verified Adverse Reaction, Mild, n/v, 03/08/21) SONAM CHONG MD Mar 09, 2021 13:53
[2021-03-09] MEDS ORDERED: TRAM50TA2 PO (14:44)
[2021-03-09] MEDS ORDERED: ONDANSETRON 4MG/2ML VIAL IV ONE (15:45)
--- NOTE | 2021-03-09 22:01 | ECHO ---
ECHOCARDIOGRAM DATE OF PROCEDURE: 03/09/2021 Age: 75 Gender: Female Height: 152 cm Weight: 73 kilograms REFERRING PHYSICIAN: Dr. Brian Flowers INDICATION: Dyspnea MEASUREMENTS: IVS 0.9 cm LV 4.6 cm LVPW 0.9 cm LA 3.0 cm Aorta 3.4 cm Left atrial volume index 22 Mitral E-wave velocity 50 A wave 83 E prime septal 4.9 E prime lateral 7.2\ FINDINGS: The study is of acceptable technical quality. Patient is in sinus rhythm. Left ventricle has normal size and normal systolic function with estimated EF around 60%-65%. No segmental wall motion abnormalities are appreciated. The right ventricle is also normal size and systolic function. Both atria appear normal. Aortic, mitral and tricuspid valves appear grossly normal. Pulmonic valve was poorly visualized, but also appears grossly within normal limits. No pericardial effusion is noted. Inferior vena cava is not well seen. Aortic root and aortic arch appear normal. Abdominal aorta was not well visualized. Doppler interrogation reveals competent aortic valve. There is trace mitral and trace tricuspid insufficiency. Unfortunately quality of TR jet was not sufficient to estimate pulmonary artery pressure. Trace pulmonic insufficiency is also visualized. Mitral inflow pattern and tissue Doppler imaging of mitral annulus revealed grade 1 diastolic dysfunction. CONCLUSIONS: 1. Study is of acceptable technical quality. Underlying sinus rhythm. 2. Normal LV size with preserved LV systolic function and grade 1 diastolic dysfunction. 3. No significant valvular disease. 4. Unable to estimate central venous pressure and pulmonary artery pressure. 5. No obvious explanation for etiology of dyspnea.
[2021-03-10] MEDS ORDERED: CYANOCOBALAMIN 500 MCG TAB PO SCH (09:00)
[2021-03-17] MEDS ORDERED: ONDA-83 PO (14:16)
[2021-03-19] MEDS ORDERED: ALEC150C PO (16:22)
== END 2021-03-09 17:04 | disposition home health service (06) | DRG 181 ==
LOC: M PCU 13:47
PROVIDERS: ADMIT Internal Medicine; ATTEND Family Medicine
PROC: 0W9930Z Drainage of Right Pleural Cavity with Drainage Device, Percutaneous Approach (ICD-10-PCS; principal; 2021-03-08)
DX: C34.90 Malignant neoplasm of unspecified part of unspecified bronchus or lung (principal); J90 Pleural effusion, not elsewhere classified; J91.0 Malignant pleural effusion; Z86.16 Personal history of COVID-19; I10 Essential (primary) hypertension; E03.9 Hypothyroidism, unspecified; M19.90 Unspecified osteoarthritis, unspecified site; Z79.899 Other long term (current) drug therapy; Z79.82 Long term (current) use of aspirin; Z88.5 Allergy status to narcotic agent

== ENCOUNTER → 2021-03-08 | Outpatient (CLI) | payer MEDICARE, BC ==
[~2021-03-08] MED LIST changes: +ACET1TAB55 PO; +ACET25TA12 PO; +DOCU100C16 PO; +OXYC-517 PO; +TRAM50TA2 PO; +VIAC1CHW PO
--- NOTE | 2021-03-08 12:14 | REP ---
INDICATION: PLEURAL EFFUSION, NOT ELSEWHERE CLASSIFIED COMPARISON: 02/24/2021 TECHNIQUE: PA and lateral. FINDINGS: Large right pleural effusion with underlying pulmonary parenchymal consolidations/collapse increased from prior examination. Left hemithorax suggests chronic changes including suspected calcified pleural plaques. IMPRESSION: Large right pleural effusion near completely opacifying the right hemithorax with underlying collapse/consolidations. <Electronically signed by Abdelrahman Wang > 03/08/21 1217
== END ==
LOC: M PLAIMG 11:29
DX: J90 Pleural effusion, not elsewhere classified (principal)

== ENCOUNTER → 2021-03-22 | Outpatient (CLI) | payer MEDICARE, BC ==
[~2021-03-22] MED LIST changes: +ACET1TAB55 PO; +ACET25TA12 PO; +ALEC150C PO; +DOCU100C16 PO; +ONDA-83; +OXYC-517 PO; +TRAM50TA2 PO; +VIAC1CHW PO
--- NOTE | 2021-03-22 15:06 | REP ---
INDICATION: MALIGNANT PLEURAL EFFUSION. COMPARISON: Multiple the latest 03/09/2021 TECHNIQUE: PA and lateral FINDINGS: A new opacity has developed in the medial right lung apex. Chronic left lower lobe opacities are noted and appear more dense. The right-sided thoracotomy tube is unchanged. There is no significant change in appearance the left lung. The cardiomediastinal silhouette appears stable. The osseous structures appear stable IMPRESSION: 1. New right upper lobe opacity. Consider chest CT. 2. Increased density in the right lower lobe opacity. 3. Other findings as described above. <Electronically signed by Fred Roberto > 03/22/21 [id number]
== END ==
LOC: M PLAIMG 12:17
PROVIDERS: ATTEND Internal Medicine Pulmonary Disease
DX: R06.02 Shortness of breath (principal); J91.0 Malignant pleural effusion

== ENCOUNTER → 2021-03-24 | Outpatient (CLI) | payer MEDICARE, BC ==
--- NOTE | 2021-03-24 12:56 | REP ---
INDICATION: LUNG CA, NEW MASS COMPARISON: 03/09/2021 and 11/17/2020 TECHNIQUE: Standard helical technique without intravenous contrast. FINDINGS: The mediastinum and pulmonary sierra are unchanged. There is mediastinal and hilar adenopathy status quo. There is a small pericardial effusion status quo. There is a loculated right pleural effusion which has increased. There is a right-sided thoracotomy tube the tip of which is in the right lower lobe regions status quo. There is no significant change in appearance of the imaged upper abdomen or imaged osseous structures. Evaluation of the lung christensen shows numerous spiculated left lung nodules unchanged from the prior exams. Numerous right lung nodules are again noted. Increased parenchymal density is seen in the aerated portion of the right lung which has diminished in size compared to the prior exam due to the increasing loculated effusion. There is evidence of scattered right lung subsegmental atelectatic change and focal areas of consolidation all increased from the prior exam. IMPRESSION: 1. Increased loculated right pleural effusion. 2. Evidence of patchy areas of lung consolidation on the right suspicious for atelectatic change and/or pneumonia. This should be evaluated clinically with appropriate follow-up if necessary. 3. Pulmonary metastatic disease as described above. 4. Adenopathy. 5. Right-sided thoracotomy tube. 6. Other findings as described above. <Electronically signed by Fred Roberto > 03/24/21 [id number]
== END ==
LOC: M RAD 10:38
PROVIDERS: ATTEND Internal Medicine Pulmonary Disease
DX: C34.90 Malignant neoplasm of unspecified part of unspecified bronchus or lung (principal)

== ENCOUNTER 2021-03-26 10:36 | Inpatient (IN) | payer MEDICARE, BC ==
[~2021-03-26] VITALS: Ht 152.4 cm; Wt 73.9 kg
[~2021-03-26 10:36] MED LIST changes: +CYANOCOBALAMIN 500 MCG TAB PO SCH; -ONDA-83; +ONDA-83 PO
--- OUTSIDE RECORDS SUMMARY | 2021-03-26 10:45 | CCD | Continuity of Care Document ---
Author Author Rhea ALVARADO M.D. 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 AUTM [phone] AUTM Unavailable Problems Description No Information Available Social History Type Date Description Comments Sex Unknown Tobacco Use Start: Unknown Patient has never smoked Smoking Status Reviewed: 03/22/21 Patient has never smoked Allergies and adverse reactions Active Allergies Criticality Reaction | Severity Comments Date Percocet Unable to assess criticality Nausea 02/22/2021 Vicodin Unable to assess criticality Nausea 02/22/2021 Medications Active Medications SIG Qnty Indications Ordering Provide r Date Tramadol HCL 50mg Tablets 1 tab by mouth every 8 hours as needed 30tabs J91.0 Kt Alvarado M.D. 1 Zofran 4mg Tablets 1 tab by mouth three times a day as needed 30tabs J91.0 Kt Alvarado M.D. Levothyroxine Sodium 50mcg Tablets 1 tab by mouth every day Unknown Nabumetone 500mg Tablets 1 tab by mouth twice a day Unknown Atenolol 50mg Tablets 1 tab by mouth every day Unknown Rosuvastatin Calcium 5mg Tablets 1 tab by mouth every day Unknown Glucosamine Chondroitin 1500 Complex Max imum Strength 1500Com Capsules 1 tab by mouth every day Unknown Ferrous Gluconate 324(38Fe) mg Tab lets 1 tab by mouth twice a day Unknown 000 Vitamin B-12 500mcg Tablets 1 tab by mouth three times a week Unknown Multivitamin Adults 50+ Adlt 50+ T ablets 1 tab by mouth twice a day Unknown 000 Viactiv Calcium Plus D 650-12.5-40mg-mcg Chewtabs 1 tab by mouth twice a day Unknown 0 Tylenol PM Extra Strength 500-25mg Tablets 2 tabs by mouth every day Unknown Aspirin [address] 1 tab by mouth every day Unknown Ondansetron HCL 4mg Tablets Take One Tablet By Mouth Every 6 Hours as Needed For Nausea Unknown Tramadol HCL 50mg Tablets Take One Tablet By Mouth Three Times A Day as Needed For Pain Maximum Daily Dose Unknown Immunizations CPT Code Status Date Vaccine Lot # [id number] Given 07/10/2020 Moderna Covid-19 vaccine, mRNA, LNP-S, PF, 100 mcg/ 0.5 mL [id number] Given 06/12/2020 Moderna Covid-19 vaccine, mRNA, LNP-S, PF, 100 mcg/ 0.5 mL Vital Signs Date Vital Result Comment 03/22/2021 1:23pm BP Systolic 132 mmHg BP Diastolic 72 mmHg Heart Rate 94 /min O2 % BldC Oximetry 92 % Room Air Height 61 inches 5'1" Weight 156.00 lb BMI (Body Mass Index) 29.5 kg/m2 [place] Body Weight 105 lb Weight 70.762 kg BSA (Body Surface Area) 1.70 m2 03/08/2021 12:12pm BP Systolic 102 mmHg BP Diastolic 70 mmHg Heart Rate 86 /min O2 % BldC Oximetry 92 % Room Air Height 61 inches 5'1" Weight 164.00 lb BMI (Body Mass Index) 31.0 kg/m2 [place] Body Weight 105 lb Weight 74.390 kg BSA (Body Surface Area) 1.74 m2 Results Test Acquired Date Facility Test Result H/L Range Note Laboratory test finding 02/24/2021 [facility] [address] [place] [address] [phone] Pathology Request For Service (SEE NOTE) 1 Laboratory test finding 02/24/2021 [facility] [address] [place] [address] [phone] Pathology Request For Service (SEE NOTE) 2 Laboratory test finding 02/24/2021 [facility] [address] [place] [address] [phone] Non Spa Receptionist/Cytology Req For Servi (SEE NOTE) 3 1 Addendum 1 Entered: The addendum is being issued to report additional molecular testing: PD-L1 mutation (IHC): No expression (<1%) Additional molecular testing results are pending and will be reported in an addendum. Please see the scanned documentation for the full [facility] report (DOS 03/04/2021). 03/05/2021836 Addendum Signed____ ELY HERNÁNDEZ MD 03/05/2021836 FINAL DIAGNOSIS Pleural effusion, cell block: Non-small cell carcinoma, favor adenocarcinoma. -4/TR See comment. Comment: The H&E stained slides show groups of tumor cells with pleomorphic cells, arranged in a glandular patterns. Immunostains show these tumor cells are highlighted by Vickey-EP4; they are negative for TTF-1, PAX-8 and RENETTA-3. Few background mesothelial cells are highlighted by calretinin. The differential diagnosis for metastatic adenocarcinoma is wide, however, gynecologic and breast primary are lower on the list. Lung, gastrointestinal, and pancreatic-biliary primary are not ruled out, and clinical and radiologic correlation is recommended. Per clinical history, a lung primary is suspected, and the case will be sent for molecular testing for non-small cell lung carcinoma; results to follow in an addendum. 03/01/20211106 CLINICAL DIAGNOSIS Pleural effusion 02/25/20211250 GROSS DIAGNOSIS Received 1,400 ml of yellow pleural fluid submitted for cell block. -SV 02/25/20211250 Signed ELY HERNÁNDEZ MD 03/01/20211106 2 Addendum 2 Entered: The addendum is being issued to report additional molecular testing: ALK gene mutation (FISH): POSITIVE EGFR mutations (PCR): Negative ROS1 gene mutation (FISH): Negative [id number] mutation (PCR): Negative Please see the scanned documentation for the full molecular diagnostics reports from [facility]. 03/19/2021827 Addendum Signed____ ELY HERNÁNDEZ MD 03/19/2021827 Addendum 1 Entered: 03/05/2021-0837 The addendum is being issued to report additional molecular testing: PD-L1 mutation (IHC): No expression (<1%) Additional molecular testing results are pending and will be reported in an addendum. Please see the scanned documentation for the full Integrated On[facility] report (DOS 03/04/2021). 03/05/2021836 Addendum Signed____ ELY HERNÁNDEZ MD 03/05/2021836 FINAL DIAGNOSIS Pleural effusion, cell block: Non-small cell carcinoma, favor adenocarcinoma. -4/TR See comment. Comment: The H&E stained slides show groups of tumor cells with pleomorphic cells, arranged in a glandular patterns. Immunostains show these tumor cells are highlighted by Vickey-EP4; they are negative for TTF-1, PAX-8 and RENETTA-3. Few background mesothelial cells are highlighted by calretinin. The differential diagnosis for metastatic adenocarcinoma is wide, however, gynecologic and breast primary are lower on the list. Lung, gastrointestinal, and pancreatic-biliary primary are not ruled out, and clinical and radiologic correlation is recommended. Per clinical history, a lung primary is suspected, and the case will be sent for molecular testing for non-small cell lung carcinoma; results to follow in an addendum. 03/01/20211106 CLINICAL DIAGNOSIS Pleural effusion 02/25/20211250 GROSS DIAGNOSIS Received 1,400 ml of yellow pleural fluid submitted for cell block. -SV 02/25/20211250 Signed ELY HERNÁNDEZ MD 03/01/20211106 3 SPECIMEN: Pleural fluid 1400 ml yellow SPECIMEN ADEQUACY: Satisfactory for evaluation CATEGORIZATION: Positive for Malignancy DESCRIPTIONS: Specimen consists of abundant clusters of malignant cells in a background of blood elements. COMMENTS: Also see case [id number]. 03/01/20211107 Signed DAWIT ANDUJAR CT (ASCP) 02/25/2021 0953 (Prelim) Signed ELY HERNÁNDEZ MD 03/01/20211107 Procedures Date Code Description Status 03/08/2021 79136 Office/Outpatient Established Hi gh MDM 40-54 Min Completed 02/24/2021 91734 Thoracentesis W/ Img Guidance Co mpleted 02/22/2021 67241 Office/Outpatient New Moderate M DM 45-59 Minutes Completed Medical Devices Description No Information Available Encounters Type Date Location Provider Dx Diagnosis Office Visit 03/08/2021 3:15p [facility] Melissa Alvarado M.D. C34.90 Malignant neoplasm of unsp p art of unsp bronchus or lung J91.0 Malignant pleural effusion R06.02 Shortness of breath Office Visit 02/22/2021 1:15p [facility] Melissa Alvarado M.D. J90 Pleural effusion, not elsewh ere classified Z01.812 Encounter for preprocedural laboratory examination Assessments Date Code Description Provider 03/22/2021 J91.0 Malignant pleural effusion Kt Alvarado M.D. 03/08/2021 C34.90 Malignant neoplasm o f unspecified part of unspecified bronchus or lung Kt Alvarado M.D. 03/08/2021 J91.0 Malignant pleural effusion Kt Alvarado M.D. 03/08/2021 R06.02 Shortness of breath Kt toth M.D. 02/24/2021 J90 Pleural effusion, not elsewhere classified Kt Alvarado M.D. 02/22/2021 J90 Pleural effusion, not elsewhere classified Kt Alvarado M.D. 02/22/2021 Z01.812 Encounter for preprocedural labo ratory examination Kt Alvarado M.D. Plan of Treatment 03/22/2021 - Kt Alvarado M.D.* J91.0 Malignant pleural effusion* New Medication:* Tramadol HCL 50 mg * Zofran 4 mg * New Xrays:* Ultrasound Chest, Ordered: 03/22/21 Functional Status Description No Information Available Mental Status Description No Information Available Referrals Refer to Dr Reason for Referral Status Appt Date Harlan Darnell M.D. new diagnosis stage 4 lung adenocarcinoma C losed 03/17/2021 [facility] [address] [place] [address] [phone] Kt Alvarado M.D. LARGE PLEURAL EFFUSION Closed 02/22/2021 [facility] [address] [place] [phone]
--- OUTSIDE RECORDS SUMMARY | 2021-03-26 10:45 | CCD | Continuity of Care Document ---
Author Author Rhea ALVARADO M.D. Organization Unknown Address [address] [place] [address] Phone [phone] Care Team Providers Care Coal Crusher Operator Name Role Phone Akil Gibbs D.O. AUTM [phone] AUTM Unavailable Problems Description No Information Available Social History Type Date Description Comments Sex Unknown Tobacco Use Start: Unknown Patient has never smoked Smoking Status Reviewed: 03/08/21 Patient has never smoked Allergies and adverse reactions Active Allergies Criticality Reaction | Severity Comments Date Percocet Unable to assess criticality Nausea 02/22/2021 Vicodin Unable to assess criticality Nausea 02/22/2021 Medications Active Medications SIG Qnty Indications Ordering Provide r Date Levothyroxine Sodium 50mcg Tablets 1 tab by mouth every day Unknown Nabumetone 500mg Tablets 1 tab by mouth twice a day Unknown Atenolol 50mg Tablets 1 tab by mouth every day Unknown Rosuvastatin Calcium 5mg Tablets 1 tab by mouth every day Unknown Glucosamine Chondroitin 1500 Complex Max imum Strength 1500Com Capsules tab by mouth twice a day Unknown Ferrous Gluconate 324(38Fe) mg Tab [...] 1 tab by mouth every day Unknown Immunizations CPT Code Status Date Vaccine Lot # [id number] Given 07/10/2020 Moderna Covid-19 vaccine, mRNA, LNP-S, PF, 100 mcg/ 0.5 mL 11913 Given 06/12/2020 Moderna Covid-19 vaccine, mRNA, LNP-S, PF, 100 mcg/ 0.5 mL Vital Signs Date Vital Result Comment 03/08/2021 12:12pm BP Systolic 102 mmHg BP Diastolic 70 mmHg Heart Rate 86 /min O2 % BldC Oximetry 92 % Room Air Height 61 inches 5'1" Weight 164.00 lb BMI (Body Mass Index) 31.0 kg/m2 [place] Body Weight 105 lb Weight 74.390 kg BSA (Body Surface Area) 1.74 m2 02/22/2021 12:58pm BP Systolic 124 mmHg BP Diastolic 74 mmHg Heart Rate 80 /min O2 % BldC Oximetry 92 % Room Air Height 61 inches 5'1" Weight 173.00 lb BMI (Body Mass Index) 32.7 kg/m2 [place] Body Weight 105 lb Weight 78.473 kg BSA (Body Surface Area) 1.78 m2 Results Test Acquired Date Facility Test Result H/L Range Note Laboratory test finding 02/24/2021 [facility] Main Lab [address] [place] [address] [phone] Pathology Request For Service (SEE NOTE) 1 Laboratory test finding 02/24/2021 [facility] Main Lab [address] [place] [address] [phone] Non Client Partner/Cytology Req For Servi (SEE NOTE) 2 1 Addendum 1 Entered: 40 The addendum is being issued to report [...] 02/25/20211250 Signed ELY HERNÁNDEZ MD 03/01/20211106 2 SPECIMEN: Pleural fluid 1400 ml yellow SPECIMEN ADEQUACY: Satisfactory for evaluation CATEGORIZATION: Positive for Malignancy DESCRIPTIONS: Specimen consists of abundant clusters of malignant cells in a background of blood elements. COMMENTS: Also see case [id number]. 03/01/20211107 Signed DAWIT ANDUJAR CT (ASCP) 02/25/2021 0953 (Prelim) Signed ELY HERNÁNDEZ MD 03/01/20211107 Procedures Date Code Description Status 02/24/2021 18252 Thoracentesis W/ Img Guidance Co mpleted 02/22/2021 57241 Office/Outpatient New Moderate M DM 45-59 Minutes Completed Medical Devices Description No Information Available Encounters Type Date Location Provider Dx Diagnosis Office Visit 02/22/2021 1:15p [facility] Melissa Alvarado M.D. J90 Pleural effusion, not elsewh ere classified Z01.812 Encounter for preprocedural laboratory examination Assessments Date Code Description Provider 02/24/2021 J90 Pleural effusion, not elsewhere classified Kt Alvarado M.D. 02/22/2021 J90 Pleural effusion, not elsewhere classified Kt Alvarado M.D. 02/22/2021 Z01.812 Encounter for preprocedural labo ratory examination Kt Alvarado M.D. Plan of Treatment 03/08/2021 - Kt Alvarado M.D.* * New Xrays:* Chest, 2 Views, PA & Lat, Ordered: 03/08/21 * Referral:* Harlan Darnell M.D., Hematology:Internal Med Functional Status Description No Information Available Mental Status Description No Information Available Referrals Refer to Dr Reason for Referral Status Appt Date Harlan Darnell M.D. new diagnosis stage 4 lung adenocarcinoma C reated [facility] [address] [place] [address] [phone] Kt Alvarado M.D. LARGE PLEURAL EFFUSION Closed 02/22/2021 [facility] [address] [place] [address] [phone]
--- OUTSIDE RECORDS SUMMARY | 2021-03-26 10:45 | CCD | Continuity of Care Document ---
Author Author Rhea ALVARADO M.D. Organization Unknown Address [address] [place] [address] Phone [phone] Care Team Providers Care Sales Department Clerk Name Role Phone Akil Gibbs D.O. AUTM [phone] AUTM Unavailable Problems Description No Information Available [...] CPT Code Status Date Vaccine Lot # [id number] Given 07/10/2020 Moderna Covid-19 vaccine, mRNA, LNP-S, PF, 100 mcg/ 0.5 mL 11974 Given 06/12/2020 Moderna Covid-19 vaccine, mRNA, LNP-S, PF, 100 mcg/ 0.5 mL Vital Signs Date Vital Result Comment 03/22/2021 1:23pm BP Systolic 132 mmHg BP Diastolic 72 mmHg Heart Rate 94 /min O2 % BldC Oximetry 92 % Room Air Height 61 inches 5'1" Weight 156.00 lb BMI (Body Mass Index) 29.5 kg/m2 [place] Body Weight 105 lb Weight 70.762 kg BSA (Body Surface Area) 1.70 m2 03/08/2021 12:12pm BP Systolic 102 mmHg BP Diastolic 70 mmHg Heart Rate 86 /min O2 % BldC Oximetry 92 % Room Air Height 61 inches 5'1" Weight 164.00 lb BMI (Body Mass Index) 31.0 kg/m2 [place] Body Weight 105 lb Weight 74.390 kg BSA (Body Surface Area) 1.74 m2 Results Test Acquired Date Facility Test Result H/L Range Note Laboratory test finding 02/24/2021 [facility] Main Lab [address] [place] [address] [phone] Pathology Request For Service (SEE NOTE) 1 Laboratory test finding 02/24/2021 [facility] Main Lab [address] [place] [address] [phone] Pathology Request For Service (SEE NOTE) 2 Laboratory test finding 02/24/2021 [facility] Main Lab [address] [place] [address] [phone] Non Venetian Blind Assembler/Cytology Req For Servi (SEE NOTE) 3 1 [...] (PCR): Negative ROS1 gene mutation (FISH): Negative [id number] mutation (PCR): Negative Please see the scanned documentation for the full molecular diagnostics reports from [facility]. 03/19/2021827 Addendum Signed____ ELY HERNÁNDEZ MD 03/19/2021827 [...] of blood elements. COMMENTS: Also see case [id number]. 03/01/20211107 Signed DAWIT ANDUJAR CT (ASCP) 02/25/2021 0953 (Prelim) Signed ELY HERNÁNDEZ MD 03/01/20211107 Procedures Date Code Description Status 03/22/2021 54823 Office/Outpatient Established Mo d MDM 30-39 Min Completed 03/08/2021 09544 Office/Outpatient Established Hi gh MDM 40-54 Min Completed 02/24/2021 27119 Thoracentesis W/ Img Guidance Co mpleted 02/22/2021 90892 Office/Outpatient New Moderate M DM 45-59 Minutes Completed Medical Devices Description No Information Available Encounters Type Date Location Provider Dx Diagnosis Office Visit 03/22/2021 1:00p [facility] Melissa Alvarado M.D. 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 new diagnosis stage 4 lung adenocarcinoma C losed 03/17/2021 [facility] [address] [place], [place] [phone] Kt Alvarado M.D. LARGE PLEURAL EFFUSION Closed 02/22/2021 [facility] [address] [place] [address] [phone]
--- OUTSIDE RECORDS SUMMARY | 2021-03-26 10:45 | CCD | Continuity of Care Document ---
Author Author Rhea ALVARADO M.D. Organization Unknown Address [address] [place] [address] Phone [phone] Care Team Providers Care Claims Adjuster Supervisor Name Role Phone Akil Gibbs D.O. AUTM [phone] AUTM Unavailable Problems Description No Information Available [...] CPT Code Status Date Vaccine Lot # [id number] Given 07/10/2020 Moderna Covid-19 vaccine, mRNA, LNP-S, PF, 100 mcg/ 0.5 mL 07361 Given 06/12/2020 Moderna Covid-19 vaccine, mRNA, LNP-S, PF, 100 mcg/ 0.5 mL Vital Signs Date Vital Result Comment 03/08/2021 12:12pm BP Systolic 102 mmHg BP Diastolic 70 mmHg Heart Rate 86 /min O2 % BldC Oximetry 92 % Room Air Height 61 inches 5'1" Weight 164.00 lb BMI (Body Mass Index) 31.0 kg/m2 [place] Body Weight 105 lb Weight 74.390 kg BSA (Body Surface Area) 1.74 m2 02/22/2021 12:58pm BP Systolic 124 mmHg BP Diastolic 74 mmHg Heart Rate 80 /min O2 % BldC Oximetry 92 % Room Air Height 61 inches 5'1" Weight 173.00 lb BMI (Body Mass Index) 32.7 kg/m2 [place] Body Weight 105 lb Weight 78.473 kg BSA (Body Surface Area) 1.78 m2 Results Test Acquired Date Facility Test Result H/L Range Note Laboratory test finding 02/24/2021 [facility] Main Lab [address] [place] [address] [phone] Pathology Request For Service (SEE NOTE) 1 Laboratory test finding 02/24/2021 [facility] Main Lab [address] [place] [address] [phone] Non Deputy Sheriff/Investigator/Cytology Req For Servi (SEE NOTE) 2 1 Addendum 1 Entered: 71 The addendum is being issued to report [...] of blood elements. COMMENTS: Also see case [id number]. 03/01/20211107 Signed DAWIT ANDUJAR CT (ASCP) 02/25/2021 0953 (Prelim) Signed ELY HERNÁNDEZ MD 03/01/20211107 Procedures Date Code Description Status 02/24/2021 50588 Thoracentesis W/ Img Guidance Co mpleted 02/22/2021 59628 Office/Outpatient New Moderate M DM 45-59 Minutes Completed Medical Devices Description No Information Available Encounters Type Date Location Provider Dx Diagnosis Office Visit 02/22/2021 1:15p [facility] Melissa Alvarado M.D. J90 Pleural effusion, [...] diagnosis stage 4 lung adenocarcinoma C reated [facility] [address] [place] [address] [phone] Kt Alvarado M.D. LARGE PLEURAL EFFUSION Closed 02/22/2021 [facility] [address] [place] [address] [phone]
--- OUTSIDE RECORDS SUMMARY | 2021-03-26 10:45 | CCD | Continuity of Care Document ---
Author Author Rhea ALVARADO M.D. Organization Unknown Address [address] [place] [address] Phone [phone] Care Team Providers Care Base Cloth Inspector Name Role Phone Akil Gibbs D.O. AUTM [phone] AUTM Unavailable Problems Description No Information Available [...] CPT Code Status Date Vaccine Lot # [id number] Given 07/10/2020 Moderna Covid-19 vaccine, mRNA, LNP-S, PF, 100 mcg/ 0.5 mL 83353 Given 06/12/2020 Moderna Covid-19 vaccine, mRNA, LNP-S, PF, 100 mcg/ 0.5 mL Vital Signs Date Vital Result Comment 03/08/2021 12:12pm BP Systolic 102 mmHg BP Diastolic 70 mmHg Heart Rate 86 /min O2 % BldC Oximetry 92 % Room Air Height 61 inches 5'1" Weight 164.00 lb BMI (Body Mass Index) 31.0 kg/m2 [place] Body Weight 105 lb Weight 74.390 kg BSA (Body Surface Area) 1.74 m2 02/22/2021 12:58pm BP Systolic 124 mmHg BP Diastolic 74 mmHg Heart Rate 80 /min O2 % BldC Oximetry 92 % Room Air Height 61 inches 5'1" Weight 173.00 lb BMI (Body Mass Index) 32.7 kg/m2 [place] Body Weight 105 lb Weight 78.473 kg BSA (Body Surface Area) 1.78 m2 Results Test Acquired Date Facility Test Result H/L Range Note Laboratory test finding 02/24/2021 [facility] Main Lab [address] [place] [address] [phone] Pathology Request For Service (SEE NOTE) 1 Laboratory test finding 02/24/2021 [facility] Main Lab [address] [place] [address] [phone] Non Naphthalene Still Operator/Cytology Req For Servi (SEE NOTE) 2 1 Addendum 1 Entered: 07 The addendum is being issued to report [...] of blood elements. COMMENTS: Also see case [id number]. 03/01/20211107 Signed DAWIT ANDUJAR CT (ASCP) 02/25/2021 0953 (Prelim) Signed ELY HERNÁNDEZ MD 03/01/20211107 Procedures Date Code Description Status 03/08/2021 32543 Office/Outpatient Established Ri gh MDM 40-54 Min Completed 02/24/2021 00330 Thoracentesis W/ Img Guidance Co mpleted 02/22/2021 81828 Office/Outpatient [place] M DM 45-59 Minutes Completed Medical Devices Description No Information Available Encounters Type Date Location Provider Dx Diagnosis Office Visit 03/08/2021 3:15p [facility] Melissa Alvarado M.D. 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 J90 Pleural effusion, not elsewh ere classified Z01.812 Encounter for preprocedural laboratory examination Assessments Date Code Description Provider 03/08/2021 C34.90 Malignant neoplasm o f unspecified [...] of Treatment 03/08/2021 - Kt Alvarado M.D.* C34.90 Malignant neoplasm of unspecified part of unspecified bronchus or lung * J91.0 Malignant pleural effusion * R06.02 Shortness of breath * Functional Status Description No Information Available Mental Status Description No Information Available Referrals Refer to Reason for Referral Status Appt Date Harlan Darnell M.D. new diagnosis stage 4 lung adenocarcinoma C losed 03/17/2021 [facility] [address] [place], [place] [phone] Kt Alvarado M.D. LARGE PLEURAL EFFUSION Closed 02/22/2021 [facility] [address] [place] [address] [phone]
--- OUTSIDE RECORDS SUMMARY | 2021-03-26 10:45 | CCD | Continuity of Care Document ---
Author Author Rhea ALVARADO M.D. Organization Unknown Address [address] [place] [address] Phone [phone] Care Team Providers Care Supervisor Insulation Name Role Phone Akil Gibbs D.O. AUTM [phone] AUTM Unavailable Problems Description No Information Available Social History Type Date Description Comments Sex Unknown Tobacco Use Start: Unknown Patient has never smoked Smoking Status Reviewed: 02/22/21 Patient has never smoked Allergies and adverse [...] 50+ T ablets 1 tab by mouth every day Unknown 0 Viactiv Calcium Plus D 650-12.5-40mg-mcg Chewtabs 1 tab by mouth twice a day Unknown 0 Tylenol PM Extra Strength 500-25mg Tablets 2 tabs by mouth every day Unknown Benzonatate 200mg Capsules 2 tabs by mouth three times a day Unknown Aspirin [address] 1 tab by mouth every day Unknown Immunizations CPT Code Status Date Vaccine Lot # [id number] Given 07/10/2020 Moderna Covid-19 vaccine, mRNA, LNP-S, PF, 100 mcg/ 0.5 mL 67948 Given 06/12/2020 Moderna Covid-19 vaccine, mRNA, LNP-S, PF, 100 mcg/ 0.5 mL Vital Signs Date Vital Result Comment 02/22/2021 12:58pm BP Systolic 124 mmHg BP Diastolic 74 mmHg Heart Rate 80 /min O2 % BldC Oximetry 92 % Room Air Height 61 inches 5'1" Weight 173.00 lb BMI (Body Mass Index) 32.7 kg/m2 [place] Body Weight 105 lb Weight 78.473 kg BSA (Body Surface Area) 1.78 m2 Results Test Acquired Date Facility Test Result H/L Range Note Laboratory test finding 02/24/2021 [facility] Main Lab [address] [place] [address] [phone] Pathology Request For Service (SEE NOTE) 1 Laboratory test finding 02/24/2021 [facility] Lab [address] [place] [address] [phone] Non Pecan Mallow Dipper/Cytology Req For Servi (SEE NOTE) 2 1 Addendum 1 Entered: 33 The addendum is being issued to report [...] of blood elements. COMMENTS: Also see case [id number]. 03/01/20211107 Signed DAWIT ANDUJAR CT (ASCP) 02/25/2021 0953 (Prelim) Signed ELY HERNÁNDEZ MD 03/01/20211107 Procedures Date Code Description Status 02/24/2021 12165 Thoracentesis W/ Img Guidance Co mpleted 02/22/2021 42033 Office/Outpatient New Moderate M DM 45-59 Minutes Completed Medical Devices Description No Information Available Encounters Type Date Location Provider Dx Diagnosis Office Visit 02/22/2021 1:15p [facility] Melissa Alvarado M.D. J90 Pleural effusion, not elsewh ere classified Z01.812 Encounter for preprocedural laboratory examination Assessments Date Code Description Provider 02/24/2021 J90 Pleural effusion, not elsewhere classified Kt Alvarado M.D. 02/22/2021 J90 Pleural effusion, not elsewhere classified Kt Alvarado M.D. 02/22/2021 Z01.812 Encounter for preprocedural labo ratory examination Kt Alvarado M.D. Plan of Treatment 02/22/2021 - Kt Alvarado M.D.* J90 Pleural effusion, not elsewhere classified * Z01.812 Encounter for preprocedural laboratory examination * * New Orders:* Chest Tube Thoracostomy/Thoracentesis, Scheduled: 02/24/21 * Comments:* 1. The patient was instructed not to lift or strain for 24 hours after the procedure. 2. The patient was instructed to call the office with any increased shortness of breath or chest discomfort. 3. She is to report to the closest emergency room with any sudden onset of shortness of breath or chest pain.4. The risks and benefits of the procedure were reviewed with the patient. Such risks include, but are not limited to, pneumothorax, bleeding, infection, pain and shortness of breath. * Follow up:* 1. Follow up one week after the procedure 1. Follow up one week after the procedure Functional Status Description No Information Available Mental Status Description No Information Available Referrals Refer to Reason for Referral Status Appt Date Kt Alvarado M.D. LARGE PLEURAL EFFUSION Scheduled 02/22/2021 [facility] [address] [place] [address] [phone]
--- OUTSIDE RECORDS SUMMARY | 2021-03-26 10:45 | CCD | Continuity of Care Document ---
Author Author Rhea ALVARADO M.D. Organization Unknown Address [address] [place] [address] Phone [phone] Care Team Providers Care Liquefaction Plant Operator Name Role Phone Akil Gibbs D.O. AUTM [phone] AUTM Unavailable Problems Description No Information Available [...] CPT Code Status Date Vaccine Lot # [id number] Given 07/10/2020 Moderna Covid-19 vaccine, mRNA, LNP-S, PF, 100 mcg/ 0.5 mL 23867 Given 06/12/2020 Moderna Covid-19 vaccine, mRNA, LNP-S, PF, 100 mcg/ 0.5 mL Vital Signs Date Vital Result Comment 02/22/2021 12:58pm BP Systolic 124 mmHg BP Diastolic 74 mmHg Heart Rate 80 /min O2 % BldC Oximetry 92 % Room Air Height 61 inches 5'1" Weight 173.00 lb BMI (Body Mass Index) 32.7 kg/m2 [place] Body Weight 105 lb Weight 78.473 kg BSA (Body Surface Area) 1.78 m2 Results Test Acquired Date Facility Test Result H/L Range Note Laboratory test finding 02/24/2021 [facility] Main Lab [address] [place] [address] [phone] Pathology Request For Service (SEE NOTE) 1 Laboratory test finding 02/24/2021 [facility] [address] [place] [address] [phone] Non Aerospace Mechanic/Cytology Req For Servi (SEE NOTE) 2 1 Addendum 1 Entered: 42 The addendum is being issued to report [...] of blood elements. COMMENTS: Also see case [id number]. 03/01/20211107 Signed DAWIT ANDUJAR CT (ASCP) 02/25/2021 0953 (Prelim) Signed ELY HERNÁNDEZ MD 03/01/20211107 Procedures Date Code Description Status 02/24/2021 21463 Thoracentesis W/ Img Guidance Co mpleted 02/22/2021 82920 Office/Outpatient New Moderate M DM 45-59 Minutes Completed Medical Devices Description No Information Available Encounters Type Date Location Provider Dx Diagnosis Office Visit 02/22/2021 1:15p [facility] Melissa Alvarado M.D. J90 Pleural effusion, [...] Alvarado M.D. LARGE PLEURAL EFFUSION Scheduled 02/22/2021 [facility] [address] [place] [address] [phone]
--- OUTSIDE RECORDS SUMMARY | 2021-03-26 10:45 | CCD | Continuity of Care Document ---
Author Author Rhea ALVARADO M.D. Organization Unknown Address [address] [place] [address] Phone [phone] Care Team Providers Care Cash Applications Clerk Name Role Phone Akil Gibbs D.O. AUTM [phone] AUTM Unavailable Problems Description No Information Available [...] CPT Code Status Date Vaccine Lot # [id number] Given 07/10/2020 Moderna Covid-19 vaccine, mRNA, LNP-S, PF, 100 mcg/ 0.5 mL 56043 Given 06/12/2020 Moderna Covid-19 vaccine, mRNA, LNP-S, PF, 100 mcg/ 0.5 mL Vital Signs Date Vital Result Comment 03/08/2021 12:12pm BP Systolic 102 mmHg BP Diastolic 70 mmHg Heart Rate 86 /min O2 % BldC Oximetry 92 % Room Air Height 61 inches 5'1" Weight 164.00 lb BMI (Body Mass Index) 31.0 kg/m2 [place] Body Weight 105 lb Weight 74.390 kg BSA (Body Surface Area) 1.74 m2 02/22/2021 12:58pm BP Systolic 124 mmHg BP Diastolic 74 mmHg Heart Rate 80 /min O2 % BldC Oximetry 92 % Room Air Height 61 inches 5'1" Weight 173.00 lb BMI (Body Mass Index) 32.7 kg/m2 [place] Body Weight 105 lb Weight 78.473 kg BSA (Body Surface Area) 1.78 m2 Results Test Acquired Date Facility Test Result H/L Range Note Laboratory test finding 02/24/2021 [facility] Lab [address] [place] [address] [phone] Pathology Request For Service (SEE NOTE) 1 Laboratory test finding 02/24/2021 [facility] Main Lab [address] [place] [address] [phone] Non Linotype Operator/Cytology Req For Servi (SEE NOTE) 2 1 Addendum 1 Entered: 26 The addendum is being issued to report [...] of blood elements. COMMENTS: Also see case [id number]. 03/01/20211107 Signed DAWIT ANDUJAR CT (ASCP) 02/25/2021 0953 (Prelim) Signed ELY HERNÁNDEZ MD 03/01/20211107 Procedures Date Code Description Status 02/24/2021 70344 Thoracentesis W/ Img Guidance Co mpleted 02/22/2021 12821 Office/Outpatient New Moderate M DM 45-59 Minutes [...] diagnosis stage 4 lung adenocarcinoma C reated [facility] [address] [place] [address] [phone] Kt Alvarado M.D. LARGE PLEURAL EFFUSION Closed 02/22/2021 [facility] [address] [place] [address] [phone]
--- OUTSIDE RECORDS SUMMARY | 2021-03-26 10:45 | CCD | Continuity of Care Document ---
Author Author Rhea ALVARADO M.D. Organization Unknown Address [address] [place] [address] Phone [phone] Care Team Providers Care Route Carrier Name Role Phone Akil Gibbs D.O. AUTM [phone] AUTM Unavailable Problems Description No Information Available [...] CPT Code Status Date Vaccine Lot # [id number] Given 07/10/2020 Moderna Covid-19 vaccine, mRNA, LNP-S, PF, 100 mcg/ 0.5 mL 80865 Given 06/12/2020 Moderna Covid-19 vaccine, mRNA, LNP-S, PF, 100 mcg/ 0.5 mL Vital Signs Date Vital Result Comment 03/08/2021 12:12pm BP Systolic 102 mmHg BP Diastolic 70 mmHg Heart Rate 86 /min O2 % BldC Oximetry 92 % Room Air Height 61 inches 5'1" Weight 164.00 lb BMI (Body Mass Index) 31.0 kg/m2 [place] Body Weight 105 lb Weight 74.390 kg BSA (Body Surface Area) 1.74 m2 02/22/2021 12:58pm BP Systolic 124 mmHg BP Diastolic 74 mmHg Heart Rate 80 /min O2 % BldC Oximetry 92 % Room Air Height 61 inches 5'1" Weight 173.00 lb BMI (Body Mass Index) 32.7 kg/m2 [place] Body Weight 105 lb Weight 78.473 kg BSA (Body Surface Area) 1.78 m2 Results Test Acquired Date Facility Test Result H/L Range Note Laboratory test finding 02/24/2021 [facility] Main Lab [address] [place] [address] [phone] Pathology Request For Service (SEE NOTE) 1 Laboratory test finding 02/24/2021 [facility] Main Lab [address] [place] [address] [phone] Pathology Request For Service (SEE NOTE) 2 Laboratory test finding 02/24/2021 [facility] Main Lab [address] [place] [address] [phone] Non Shaker Tender/Cytology Req For Servi (SEE NOTE) 3 1 Addendum 1 Entered: [phone] The addendum is being issued to report [...] (PCR): Negative ROS1 gene mutation (FISH): Negative [id number] mutation (PCR): Negative Please see the scanned documentation for the full molecular diagnostics reports from [facility]. 03/19/2021827 Addendum Signed_ELY GLASER MD 03/19/2021827 Addendum 1 Entered: 03/05/2021-0837 The [...] block. -SV 02/25/20211250 Signed ELY HERNÁNDEZ MD 03/01/20211 3 SPECIMEN: Pleural fluid 1400 ml yellow SPECIMEN ADEQUACY: Satisfactory for evaluation CATEGORIZATION: Positive for Malignancy DESCRIPTIONS: Specimen consists of abundant clusters of malignant cells in a background of blood elements. COMMENTS: Also see case [id number]. 03/01/2021 - [address] (ASCP) 02/25/2021 0953 (Prelim) Signed ELY HERNÁNDEZ MD 03/01/2021 1108 Procedures Date Code Description Status 03/08/2021 03062 Office/Outpatient Established Hi gh MDM 40-54 Min Completed 02/24/2021 19213 Thoracentesis W/ Img Guidance Co mpleted 02/22/2021 52004 Office/Outpatient New Moderate M DM 45-59 Minutes [...] stage 4 lung adenocarcinoma C losed 03/17/2021 [facility] [address] [place] [address] [phone] Kt Alvarado M.D. LARGE PLEURAL EFFUSION Closed 02/22/2021 [facility] [address] [place] [address] [phone]
--- OUTSIDE RECORDS SUMMARY | 2021-03-26 10:45 | CCD | Continuity of Care Document ---
Author Author Rhea ALVARADO M.D. Organization Unknown Address [address] [place] [address] Phone [phone] Care Team Providers Care Cattle Farmer Name Role Phone Akil Gibbs D.O. AUTM [phone] AUTM Unavailable Problems Description No Information Available [...] CPT Code Status Date Vaccine Lot # [id number] Given 07/10/2020 Moderna Covid-19 vaccine, mRNA, LNP-S, PF, 100 mcg/ 0.5 mL 50859 Given 06/12/2020 Moderna Covid-19 vaccine, mRNA, LNP-S, PF, 100 mcg/ 0.5 mL Vital Signs Date Vital Result Comment 02/22/2021 12:58pm BP Systolic 124 mmHg BP Diastolic 74 mmHg Heart Rate 80 /min O2 % BldC Oximetry 92 % Room Air Height 61 inches 5'1" Weight 173.00 lb BMI (Body Mass Index) 32.7 kg/m2 [place] Body Weight 105 lb Weight 78.473 kg BSA (Body Surface Area) 1.78 m2 Results Test Acquired Date Facility Test Result H/L Range Note Laboratory test finding 02/24/2021 [facility] Main Lab [address] [place] [address] [phone] Pathology Request For Service (SEE NOTE) 1 Laboratory test finding 02/24/2021 [facility] Lab [address] [place] [address] [phone] Non Field Foreman/Cytology Req For Servi (SEE NOTE) 2 1 Addendum 1 Entered: 10 The addendum is being issued to report [...] of blood elements. COMMENTS: Also see case [id number]. 03/01/20211107 Signed DAWIT ANDUJAR CT (ASCP) 02/25/2021 0953 (Prelim) Signed ELY HERNÁNDEZ MD 03/01/20211107 Procedures Date Code Description Status 02/24/2021 87040 Thoracentesis W/ Img Guidance Co mpleted 02/22/2021 03939 Office/Outpatient New Moderate M DM 45-59 Minutes Completed Medical Devices Description No Information Available Encounters Type Date Location Provider Dx Diagnosis Office Visit 02/22/2021 1:15p [facility] Melisas Alvarado M.D. J90 Pleural effusion, not elsewh [...] Alvarado M.D. LARGE PLEURAL EFFUSION Scheduled 02/22/2021 [facility] [address] [place] [address] [phone]
--- OUTSIDE RECORDS SUMMARY | 2021-03-26 10:46 | CCD | Continuity of Care Document ---
Author Author Rhea ALVARADO M.D. Organization Unknown Address [address] [place] [address] Phone [phone] Care Team Providers Care Filler Picker Name Role Phone Akil Gibbs D.O. AUTM [phone] AUTM Unavailable Problems Description No Information Available Social History Type Date Description Comments Sex Unknown Tobacco Use Start: Unknown Patient has never smoked Smoking Status Reviewed: 02/22/21 Patient has never smoked Allergies, Adverse Reactions, Alerts Active Allergies Criticality Reaction | Severity Comments [...] by mouth three times a day Unknown Cefdinir 300mg Capsules 1 tab by mouth twice a day Unknown Aspirin [address] 1 tab by mouth every day Unknown Immunizations CPT Code Status Date Vaccine Lot # [id number] Given 07/10/2020 Moderna Covid-19 vaccine, mRNA, LNP-S, PF, 100 mcg/ 0.5 mL 05313 Given 06/12/2020 Moderna Covid-19 vaccine, mRNA, LNP-S, PF, 100 mcg/ 0.5 mL Vital Signs Date Vital Result Comment 02/22/2021 12:58pm BP Systolic 124 mmHg BP Diastolic 74 mmHg Heart Rate 80 /min O2 % BldC Oximetry 92 % Room Air Height 61 inches 5'1" Weight 173.00 lb BMI (Body Mass Index) 32.7 kg/m2 [place] Body Weight 105 lb Weight 78.473 kg BSA (Body Surface Area) 1.78 m2 Results Test Acquired Date Facility Test Result H/L Range Note Laboratory test finding 02/24/2021 [facility] Main Lab [address] [place] [address] [phone] Pathology Request For Service (SEE NOTE) 1 Laboratory test finding 02/24/2021 [facility] Main Lab [address] [place] [address] [phone] Non Insurance Rater/Cytology Req For Servi (SEE NOTE) 2 Coag Panel For Procedures 02/22/2021 [facility] Main Lab [address] [place] [address] [phone] Platelet Count, Automated <pending> Partial Thromboplastin Time <pending> 1 FINAL DIAGNOSIS Pleural effusion, cell block: Non-small cell carcinoma, favor adenocarcinoma. -4/TR See comment. Comment: The H&E stained slides show groups of tumor cells with pleomorphic cells, arranged in a glandular patterns. Immunostains show these tumor cells are highlighted by Viceky-EP4; they are negative for TTF-1, PAX-8 and [...] of blood elements. COMMENTS: Also see case [id number]. 03/01/20211107 Signed DAWIT ANDUJAR CT (ASCP) 02/25/2021 0953 (Prelim) Signed ELY HERNÁNDEZ MD 03/01/20211107 Procedures Date Code Description Status 02/22/2021 01171 Office/Outpatient New Moderate M DM 45-59 Minutes Completed Medical Devices Description No Information Available Encounters Type Date Location Provider Dx Diagnosis Office Visit 02/22/2021 1:15p [facility]Th[facility] M tamara Alvarado M.D. J90 Pleural effusion, not elsewh ere classified Z01.812 Encounter for preprocedural laboratory examination Assessments Date Code Description Provider 02/22/2021 J90 Pleural effusion, not elsewhere classified Kt Alvarado M.D. 02/22/2021 Z01.812 Encounter for preprocedural labo ratory examination Kt Alvarado M.D. Plan of Treatment Future Appointment(s):* 03/08/2021 3:15 pm - Kt Alvarado M.D. at [facility]/Thoracic 02/22/2021 - Kt Alvarado M.D.* J90 Pleural [...] Alvarado M.D. LARGE PLEURAL EFFUSION Scheduled 02/22/2021 [facility] [address] [place] [address] [phone]
--- OUTSIDE RECORDS SUMMARY | 2021-03-26 10:46 | CCD | Continuity of Care Document ---
Author Author Rhea ALVARADO MD Organization Unknown Address [address] [place] [address] Phone [phone] Care Team Providers Care Asphalt Heater Tender Name Role Phone Reason, Akil Hale AUTM [phone] AUTM Unavailable Problems Description No Information Available [...] CPT Code Status Date Vaccine Lot # [id number] Given 07/10/2020 Moderna Covid-19 vaccine, mRNA, LNP-S, PF, 100 mcg/ 0.5 mL 64063 Given 06/12/2020 Moderna Covid-19 vaccine, mRNA, LNP-S, PF, 100 mcg/ 0.5 mL Vital Signs Date Vital Result Comment 02/22/2021 12:58pm BP Systolic 124 mmHg BP Diastolic 74 mmHg Heart Rate 80 /min O2 % BldC Oximetry 92 % Room Air Height 61 inches 5'1" Weight 173.00 lb BMI (Body Mass Index) 32.7 kg/m2 [place] Body Weight 105 lb Weight 78.473 kg BSA (Body Surface Area) 1.78 m2 Results Test Acquired Date Facility Test Result H/L Range Note Coag Panel For Procedures 02/22/2021 [facility] Main Lab [address] [place] [address] [phone] Platelet Count, Automated <pending> Partial Thromboplastin Time <pending> Procedures Description No Information Available Medical Devices Description No Information Available Encounters Description No Information Available Assessments Date Code Description Provider 02/22/2021 J90 Pleural effusion, not elsewhere classified Kt Alvarado MD Plan of Treatment Future Appointment(s):* 03/08/2021 3:15 pm - Kt Alvarado MD at [facility] Pulmonary/Thoracic 02/22/2021 - Kt Alvarado MD* J90 Pleural effusion, not elsewhere classified * * New Orders:* Chest Tube Thoracostomy/Thoracentesis, Ordered: 02/22/21 * Comments:* 1. The patient was instructed [...] for Referral Status Appt Date Kt Alvarado MD LARGE PLEURAL EFFUSION Scheduled [address] [place] [address] [phone]
--- OUTSIDE RECORDS SUMMARY | 2021-03-26 10:46 | CCD | Continuity of Care Document ---
Author Author Rhea ALVARADO MD Organization Unknown Address [address] [place] [address] Phone [phone] Care Team Providers Care Content Management Consultant Name Role Phone Reason, Akil Hale AUTM [phone] AUTM Unavailable Problems Description No Information Available [...] CPT Code Status Date Vaccine Lot # [id number] Given 07/10/2020 Moderna Covid-19 vaccine, mRNA, LNP-S, PF, 100 mcg/ 0.5 mL 99183 Given 06/12/2020 Moderna Covid-19 vaccine, mRNA, LNP-S, PF, 100 mcg/ 0.5 mL Vital Signs Date Vital Result Comment 02/22/2021 12:58pm BP Systolic 124 mmHg BP Diastolic 74 mmHg Heart Rate 80 /min O2 % BldC Oximetry 92 % Room Air Height 61 inches 5'1" Weight 173.00 lb BMI (Body Mass Index) 32.7 kg/m2 [place] Body Weight 105 lb Weight 78.473 kg BSA (Body Surface Area) 1.78 m2 Results Test Acquired Date Facility Test Result H/L Range Note Coag Panel For Procedures 02/22/2021 [facility] Main Lab [address] [place] [address] [phone] Platelet Count, Automated <pending> Partial Thromboplastin Time <pending> Procedures Date Code Description Status 02/22/2021 38089 Office/Outpatient New Moderate M DM 45-59 Minutes Completed Medical Devices Description No Information Available Encounters Type Date Location Provider Dx Diagnosis Office Visit 02/22/2021 1:15p [facility] Pulmonary/Thoracic M tamara Alvarado MD J90 Pleural effusion, not elsewh ere classified Z01.812 Encounter for preprocedural laboratory examination Assessments Date Code Description Provider 02/22/2021 J90 Pleural effusion, not elsewhere classified Kt Alvarado MD 02/22/2021 Z01.812 Encounter for preprocedural labo ratory examination Kt Alvarado MD Plan of Treatment Future Appointment(s):* 03/08/2021 3:15 pm - Kt Alvarado MD at [facility] Pulmonary/Thoracic 02/22/2021 - Kt Alvarado MD* J90 [...] EFFUSION Scheduled [address] [place] [address] [phone]
--- OUTSIDE RECORDS SUMMARY | 2021-03-26 10:46 | CCD | Continuity of Care Document ---
Author Author Rhea STORY MD Organization Unknown Address [address] [place] [address], [address] [place] [address] Phone [phone] Care Team Providers Care Oracle Drm Consultant Name Role Phone Reason, Akil DO AUTM [phone] Problems Active Problems Provider Date Osteoarthritis of knee Onset: 03/19/1999 Social History Type Date Description Comments Sex Unknown ETOH Use Rarely consumes alcohol Tobacco Use Start: Unknown Patient has never smoked Allergies, Adverse Reactions, Alerts Description No Known Drug Allergies Medications Active Medications SIG Qnty Indications Ordering Provide r Date Tramadol HCL 50mg Tablets 1 every 6 hours as needed pain 40tabs Z47.1 Godfrey Martinez MD 11/26/2020 Nystatin-Triamcinolone 506101-2.1Unit/GM-% Cream apply one finger tip unit to affected area bid 30gm Akil Story MD 11/16/2020 Hydrocodone-Acetaminophen 5-325mg Tablets 1-2 tabs by mouth every 4 to 6 hours as needed / post surgical pain (do not fill until 11/18) 40tabs Akil Story MD 10/27/2020 Mupirocin 2% Ointment apply a pea sized amount to the nasal passages 3 times a day for 5 days prior to surgery 22gm Akil Story MD 09/29/2020 Hibiclens 4% Liquid use in shower once daily for 5 days before surgery 1units Akil Story MD 09/29/2020 Xarelto 10mg Tablets 1 tab by mouth once daily for post op knee surgery for 14 days. 14tabs Josh Story MD 09/29/2020 Euflexxa 20mg/2ML Soln Prefill Syr cisco rt knee #1 bms/hd 4/22/2, right knee #2 bms/ag 09/24/2020, rt knee #3 bms/sh 10/01/20 M17.11 Godfrey Martinez MD 07/10/2019 Edaxsquu-Aafyraoln-IT 1% Solution Instill 2 Drops To Affected Ear S Four Times A Day For 7 Days Unknown Tylenol PM Extra Strength 500-25mg Tablets 2 by mouth every night at bedtime as needed Unknown Glucosamine Chondroitin 1500 Complex 1500Com Capsules 1 by mouth every day Unknown 000 Osteo Bi-Flex Advanced With Joint Shield Tablets Unknown Womens 50+ Advanced Capsules Unknown Vitamin B12 500mcg Tablets 1 by mouth every day Unknown Calcium 600+D 600-800 Tablets Unknown Ferrous Gluconate 324(38Fe) mg Tablets Unknown Atenolol 50mg Tablets Unknown Rosuvastatin Calcium 5mg Tablets Unknown Nabumetone 500mg Tablets 1 by mouth twice a day with meals, may increase to 2 tabs by mouth twice a day as needed Unknown Aspirin [address] 1 by mouth every day Unknown Levothyroxine Sodium 50mcg Tablets 1 by mouth every day Unknown Immunizations Description No Information Available Vital Signs Date Vital Result Comment 11/26/2020 11:04am Body Temperature 97.5 F 11/16/2020 9:48am BP Systolic 120 mmHg BP Diastolic 80 mmHg Heart Rate 39 /min Body Temperature 97.5 F Height 59.50 inches 4'11.50" Weight 170.00 lb BMI (Body Mass Index) 33.8 kg/m2 Respiratory Rate 14 /min Results Test Acquired Date Facility Test Result H/L Range Note Complete Blood Count 11/22/2020 [facility] [address] [place] [address] WBC 10.19 x10E3/uL Normal 4.0-10.5 RBC 2.80 x10E6/uL Low 4.20-5.40 Hemoglobin 8.7 g/dL Low 12.0-16.0 Hematocrit 25.9 % Low 37.0-47.0 MCV 92.5 fL Normal 81.0-99.0 MCH 31.1 pg High 27.0-31.0 MCHC 33.6 g/dL Normal 32.7-35.6 RDW 12.6 % Normal 11.5-14.0 Platelet count 236 x10E3/uL Normal 150-450 MPV 11.1 fl High 6.9-9.5 Neutrophils 66.8 % High 34-64 Lymphocytes 21.6 % Low 25-45 Monocytes 8.4 % Normal 1.7-10.6 Eosinophils 2.2 % Normal 0.4-7.0 Basophils 0.6 % Normal 0.1-2.0 Imm. Gran. 0.4 % Normal 0.1-2.0 Abs. Neutro. 6.81 x10E3/uL Normal 1.2-7.6 Abs. Lymph. 2.20 x10E3/uL Normal 1.0-3.5 Abs. Beaver. 0.86 x10E3/uL Normal 0.1-1.0 Abs. Eosin. 0.22 x10E3/uL Normal 0.1-0.7 Abs. Baso. 0.06 x10E3/uL Normal 0.0-0.1 Abs. Imm. Gran. 0.04 x10E3/uL Normal 0.0-0.1 Anrbc% 0 % Normal 0 Laboratory test finding 11/22/2020 [facility] [address] [place] [address] LMG 2.1 mg/dL Normal 1.6-2.6 Comprehensive Metabolic Prof 11/22/2020 [facility] [address] [place] [address] Glu 94 mg/dL Normal 70-110 1 BUN 12 mg/dL Normal 7-23 Cre 0.555 mg/dL Normal 0.500-1.300 GFR > 60 mL/min Normal Chloride 105 mmol/L Normal 99-110 Na 142 mmol/L Normal 136-147 Potassium 4.1 mmol/L Normal 3.5-5.1 Tco2 32 mmol/L Normal 20-33 Anion Gap 9.1 Low 10.0-20.0 CA 9.5 mg/dL Normal 8.3-10.7 Alkaline Phos 67 U/L Normal 45-117 TP 6.0 g/dL Normal 6.0-7.8 Alb 2.6 g/dL Low 3.5-5.0 2 GL 3.4 g/dL Normal 2.3-3.5 A/G 0.8 Low 1.0-2.5 T. Bilirubin 0.7 mg/dL Normal 0.1-1.1 3 Alti 12 U/L Normal 6-54 4 Ast 14 U/L Normal 6-38 5 Complete Blood Count 11/21/2020 [facility] [address] [place] [address] WBC 10.37 x10E3/uL Normal 4.0-10.5 RBC 2.83 x10E6/uL Low 4.20-5.40 Hemoglobin 8.7 g/dL Low 12.0-16.0 Hematocrit 26.6 % Low 37.0-47.0 MCV 94.0 fL Normal 81.0-99.0 MCH 30.7 pg Normal 27.0-31.0 MCHC 32.7 g/dL Normal 32.7-35.6 RDW 12.8 % Normal 11.5-14.0 Platelet count 198 x10E3/uL Normal 150-450 MPV 11.3 fl High 6.9-9.5 Neutrophils 70.3 % High 34-64 Lymphocytes 18.7 % Low 25-45 Monocytes 9.0 % Normal 1.7-10.6 Eosinophils 1.0 % Normal 0.4-7.0 Basophils 0.4 % Normal 0.1-2.0 Imm. Gran. 0.6 % Normal 0.1-2.0 Abs. Neutro. 7.30 x10E3/uL Normal 1.2-7.6 Abs. Lymph. 1.94 x10E3/uL Normal 1.0-3.5 Abs. Beaver. 0.93 x10E3/uL Normal 0.1-1.0 Abs. Eosin. 0.10 x10E3/uL Normal 0.1-0.7 Abs. Baso. 0.04 x10E3/uL Normal 0.0-0.1 Abs. Imm. Gran. 0.06 x10E3/uL Normal 0.0-0.1 Anrbc% 0 % Normal 0 Comprehensive Metabolic Prof 11/21/2020 [facility] [address] [place] [address] Glu 95 mg/dL Normal 70-110 6 BUN 11 mg/dL Normal 7-23 Cre 0.616 mg/dL Normal 0.500-1.300 GFR > 60 mL/min Normal Chloride 106 mmol/L Normal 99-110 Na 143 mmol/L Normal 136-147 Potassium 4.4 mmol/L Normal 3.5-5.1 Tco2 31 mmol/L Normal 20-33 Anion Gap 10.4 Normal 10.0-20.0 CA 8.8 mg/dL Normal 8.3-10.7 Alkaline Phos 68 U/L Normal 45-117 TP 5.4 g/dL Low 6.0-7.8 Alb 2.7 g/dL Low 3.5-5.0 7 GL 2.7 g/dL Normal 2.3-3.5 A/G 1.0 Normal 1.0-2.5 T. Bilirubin 0.6 mg/dL Normal 0.1-1.1 8 Alti 12 U/L Normal -54 9 Ast 14 U/L Normal - 10 Comprehensive Metabolic Prof 11/20/2020 [facility] [address] [place] [address] Glu 109 mg/dL Normal 70-110 11 BUN 12 mg/dL Normal 7-23 Cre 0.620 mg/dL Normal 0.500-1.300 GFR > 60 mL/min Normal Chloride 106 mmol/L Normal 99-110 Na 141 mmol/L Normal 136-147 Potassium 4.3 mmol/L Normal 3.5-5.1 Tco2 29 mmol/L Normal 20-33 Anion Gap 10.3 Normal 10.0-20.0 CA 9.0 mg/dL Normal 8.3-10.7 Alkaline Phos 65 U/L Normal 45-117 TP 5.2 g/dL Low 6.0-7.8 Alb 2.8 g/dL Low 3.5-5.0 12 GL 2.4 g/dL Normal 2.3-3.5 A/G 1.2 Normal 1.0-2.5 T. Bilirubin 0.6 mg/dL Normal 0.1-1.1 13 Alti 13 U/L Normal 6-54 14 Ast 14 U/L Normal - 15 Comprehensive Metabolic Prof 11/19/2020 [facility] [address] [place] [address] Glu 117 mg/dL High 70-110 16 BUN 15 mg/dL Normal 7-23 Cre 0.850 mg/dL Normal 0.500-1.300 GFR > 60 mL/min Normal Chloride 108 mmol/L Normal 99-110 Na 143 mmol/L Normal 136-147 Potassium 4.2 mmol/L Normal 3.5-5.1 Tco2 29 mmol/L Normal 20-33 Anion Gap 10.2 Normal 10.0-20.0 CA 8.7 mg/dL Normal 8.3-10.7 Alkaline Phos 62 U/L Normal 45-117 TP 5.1 g/dL Low 6.0-7.8 Alb 2.8 g/dL Low 3.5-5.0 17 GL 2.3 g/dL Normal 2.3-3.5 A/G 1.2 Normal 1.0-2.5 T. Bilirubin 0.5 mg/dL Normal 0.1-1.1 18 Alti 15 U/L Normal 6-54 19 Ast 14 U/L Normal 6-38 20 Laboratory test finding 11/13/[address] [address] Bretype AB NEGATIVE Normal Type&Screen 11/13/2020 [facility] [address] [place] [address] Blood Type AB NEGATIVE Normal Antibody Screen NEGATIVE Normal Laboratory test finding 11/13/[address] [address] [id number] Rheonix Negative Normal Negative 21 1 Patients taking Sulfasalazin e may have falsely depressed Glucose levels. Patients taking Sulfapyridine may have falsely elevated Glucose levels. Patients should be drawn for Glucose before the initial administration of either drug. 2 ESRD Dialysis patient Albumi n reference range: 2.9-4.4 g/dL 3 The Dimension Hyampom Total Bi lirubin is not recommended for patients undergoing treatment with eltrombopag (Promacta) due to the potential for falsely elevated results. 4 Patients taking Sulfasalazin e and/or Sulfapyridine may have falsely depressed ALT levels. Patients should be drawn for ALT before the initial administration of either drug. 5 Patients taking Sulfasalazin e and/or Sulfapyridine may have falsely depressed AST levels. Patients should be drawn for AST before the initial administration of either drug. 6 Patients taking Sulfasalazin e may have falsely depressed Glucose levels. Patients taking Sulfapyridine may have falsely elevated Glucose levels. Patients should be drawn for Glucose before the initial administration of either drug. 7 ESRD Dialysis patient Albumi n reference range: 2.9-4.4 g/dL 8 The Dimension Hyampom Total Bi lirubin is not recommended for patients undergoing treatment with eltrombopag (Promacta) due to the potential for falsely elevated results. 9 Patients taking Sulfasalazin e and/or Sulfapyridine may have falsely depressed ALT levels. Patients should be drawn for ALT before the initial administration of either drug. 10 Patients taking Sulfasalazin e and/or Sulfapyridine may have falsely depressed AST levels. Patients should be drawn for AST before the initial administration of either drug. 11 Patients taking Sulfasalazin e may have falsely depressed Glucose levels. Patients taking Sulfapyridine may have falsely elevated Glucose levels. Patients should be drawn for Glucose before the initial administration of either drug. 12 ESRD Dialysis patient Albumi n reference range: 2.9-4.4 g/dL 13 The Dimension Hyampom Total Bi lirubin is not recommended for patients undergoing treatment with eltrombopag (Promacta) due to the potential for falsely elevated results. 14 Patients taking Sulfasalazin e and/or Sulfapyridine may have falsely depressed ALT levels. Patients should be drawn for ALT before the initial administration of either drug. 15 Patients taking Sulfasalazin e and/or Sulfapyridine may have falsely depressed AST levels. Patients should be drawn for AST before the initial administration of either drug. 16 Patients taking Sulfasalazin e may have falsely depressed Glucose levels. Patients taking Sulfapyridine may have falsely elevated Glucose levels. Patients should be drawn for Glucose before the initial administration of either drug. 17 ESRD Dialysis patient Albumi n reference range: 2.9-4.4 g/dL 18 The Dimension Hyampom Total Bi lirubin is not recommended for patients undergoing treatment with eltrombopag (Promacta) due to the potential for falsely elevated results. 19 Patients taking Sulfasalazin e and/or Sulfapyridine may have falsely depressed ALT levels. Patients should be drawn for ALT before the initial administration of either drug. 20 Patients taking Sulfasalazin e and/or Sulfapyridine may have falsely depressed AST levels. Patients should be drawn for AST before the initial administration of either drug. 21 The Rheonix COVID-19 MDx Ass ay is an endpoint RT-PCR assay intended for the qualitative detection of nucleic acid from SARS-CoV-2 virus. Positive results are indicative of the presence of SARS-CoV-2 RNA; clinical correlation with patient history and other diagnostic information is necessary to determine patient infection status. Negative results do not preclude SARS-CoV-2 infection and should not be used as the sole basis for patient management decisions. The GI-View MDx Assay is only for use under the Food and Drug Administration's Emergency Use Authorization. Procedures Date Code Description Status 12/25/2020 83159 X-Ray Knee Ap & Lateral W/Obliqu es Three Views Completed 11/18/2020 50041 Arthroplasty "Total Knee" Medial & Lateral W/ Or W/O Patella Resu Completed 10/01/202015811 Inject/Drain Joint/Bursa Major C ompleted 09/24/202015615 Inject/Drain Joint/Bursa Major C ompleted 09/17/2020 20578 Office/Outpatient Established Mo d MDM 30-39 Min Completed 09/17/202073916 Inject/Drain Joint/Bursa Major C ompleted 08/07/2020 71299 Office/Outpatient Established Hi gh MDM 40-54 Min Completed 08/07/202060726 Inject/Drain Joint/Bursa Major C ompleted 07/27/2020 06359 Office/Outpatient Established Hi MDM 40-54 Min Completed Medical Devices Description No Information Available Encounters Type Date Location Provider Dx Diagnosis Office Visit 12/25/2020 1:00p [facility] Akil Story MD Z96.651 Presence of right artificial knee joint Z47.1 Aftercare following joint re placement surgery Office Visit 12/01/2020 3:00p [facility] Nurses Z48.02 Encou nter for removal of sutures Office Visit 11/26/2020 11:00a [facility] Akil Story MD Z47.1 Aftercare following joint replacement surgery Z96.651 Presence of right artificial knee joint Office Visit 11/16/2020 9:30a [facility] Rhoda Guzman PA-C Z0 1.818 Encounter for other preprocedural examination M17.11 Unilateral primary osteoarth ritis, right knee R21 Rash and other nonspecific s kin eruption Office Visit 10/01/2020 10:15a Kellysmiley Guzman PA-C M1 7.11 Unilateral primary osteoarthritis, right knee Office Visit 09/24/2020 9:00a Kellysmiley Guzman PA-C M1 7.11 Unilateral primary osteoarthritis, right knee Office Visit 09/17/2020 10:15a Kellysmiley Guzman PA-C M1 7.11 Unilateral primary osteoarthritis, right knee Office Visit 08/07/2020 1:15p Kellysmiley Story MD M17.11 Unilateral primary osteoarthritis, right knee Office Visit 07/27/2020 3:00p Kellysmiley Story PA-C M17.0 Bilateral primary osteoarthritis of knee Assessments Date Code Description Provider 12/25/2020 Z96.651 Presence of right artificial kne e joint Akil Story MD 12/25/2020 Z47.1 Aftercare following joint replac ement surgery Akil Story MD 12/01/2020 Z48.02 Encounter for removal of sutures Akil Story MD 12/01/2020 Z48.02 Encounter for removal of sutures Nurses 11/26/2020 Z47.1 Aftercare following joint replac ement surgery Akil Story MD 11/26/2020 Z96.651 Presence of right artificial kne e joint Akil Story MD 11/18/2020 M17.11 Unilateral primary osteoarthriti s, right knee Akil Story MD 11/16/2020 Z01.818 Encounter for other preprocedura l examination Rhoda Guzman PA-C 11/16/2020 M17.11 Unilateral primary osteoarthriti s, right knee Rhoda Guzman PA-C 11/16/2020 R21 Rash and other nonspecific skin eruption Rhoda Guzman PA-C 10/01/2020 M17.11 Unilateral primary osteoarthriti s, right knee Rhoda Guzman PA-C 09/24/2020 M17.11 Unilateral primary osteoarthriti s, right knee Rhoda Guzman PA-C 09/17/2020 M17.11 Unilateral primary osteoarthriti s, right knee Stephenie Story PA-C 09/17/2020 M17.11 Unilateral primary osteoarthriti s, right knee Rhoda Guzman PA-C 08/07/2020 M17.11 Unilateral primary osteoarthriti s, right knee Akil Story MD 07/27/2020 M17.0 Bilateral primary osteoarthritis of knee Stephenie Story PA-C Plan of Treatment 12/25/2020 - Akil Story MD* Z96.651 Presence of right artificial knee joint * Follow up:* 3 months with [facility] for rt knee re-check * Z47.1 Aftercare following joint replacement surgery Functional Status Description No Information Available Mental Status Description No Information Available Referrals Refer to Dr Reason for Referral Status Appt Date Stephenie Story PA-C SURGERY PER MARK[facility] AT [facility] H DEPT APPROVAL FOR RT TOTAL KNEE(12538) TO BE DONE SAME DAY TO SURGERY NT-- 11/13/20 RECEIVED WRITTEN AUTH Created [address] [place] [phone] Rhoda Guzman PA-C Right knee Euflexxa- No auth orization req. Passing to scheduling. Created [address] [place] [address] [phone]
--- OUTSIDE RECORDS SUMMARY | 2021-03-26 10:46 | CCD | Continuity of Care Document ---
Author Author Rhea ALVARADO M.D. Organization Unknown Address [address] [place] [address] Phone [phone] Care Team Providers Care Classified Advertising Clerk Name Role Phone Akil Gibbs D.O. AUTM [phone] AUTM Unavailable Problems Description No Information Available [...] CPT Code Status Date Vaccine Lot # [id number] Given 07/10/2020 Moderna Covid-19 vaccine, mRNA, LNP-S, PF, 100 mcg/ 0.5 mL 40044 Given 06/12/2020 Moderna Covid-19 vaccine, mRNA, LNP-S, PF, 100 mcg/ 0.5 mL Vital Signs Date Vital Result Comment 02/22/2021 12:58pm BP Systolic 124 mmHg BP Diastolic 74 mmHg Heart Rate 80 /min O2 % BldC Oximetry 92 % Room Air Height 61 inches 5'1" Weight 173.00 lb BMI (Body Mass Index) 32.7 kg/m2 [place] Body Weight 105 lb Weight 78.473 kg BSA (Body Surface Area) 1.78 m2 Results Test Acquired Date Facility Test Result H/L Range Note Laboratory test finding 02/24/2021 [facility] [address] [place] [address] [phone] Pathology Request For Service (SEE NOTE) 1 Laboratory test finding 02/24/2021 [facility] [address] [place] [address] [phone] Non Manager Multicultural/Cytology Req For Servi (SEE NOTE) 2 1 Addendum 1 Entered: The addendum is [...] carcinoma; results to follow in an addendum. 03/01/2021 - 1106 CLINICAL DIAGNOSIS Pleural effusion 02/25/20211250 GROSS DIAGNOSIS Received 1,400 ml of yellow pleural fluid submitted for cell block. 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 COMMENTS: Also see case [id number]. 03/01/20211107 Signed DAWIT ANDUJAR CT (ASCP) 02/25/2021 0953 (Prelim) Signed ELY HERNÁNDEZ MD 03/01/20211107 Procedures Date Code Description Status 02/24/2021 22112 Thoracentesis W/ Img Guidance Co mpleted 02/22/2021 30874 Office/Outpatient New Moderate M DM 45-59 Minutes Completed Medical Devices Description No Information Available Encounters Type Date Location Provider Dx Diagnosis Office Visit 02/22/2021 1:15p [facility] Melissa Alvarado M.D. J90 Pleural effusion, [...] Alvarado M.D. LARGE PLEURAL EFFUSION Scheduled 02/22/2021 [facility] [address] [place] [address] [phone]
--- OUTSIDE RECORDS SUMMARY | 2021-03-26 10:47 | CCD ---
Author Author [facility] Organization [facility] Address Unknown Phone Unavailable Care Team Providers Care Web Development Intern Name Role Phone Fish, B Tremaine PANTOJA Unavailable Unavailable Fish, B Tremaine PANTOJA Unavailable Unavailable Fish, B Tremaine PANTOJA Unavailable Unavailable Fish, B Tremaine PANTOJA Unavailable Unavailable Fish, B Tremaine PANTOJA Unavailable Unavailable Fish, B Tremaine PANTOJA Unavailable Unavailable Fish, B Tremaine PANTOJA Unavailable Unavailable Fish, B Tremaine PANTOJA Unavailable Unavailable Fish, B Tremaine PANTOJA Unavailable Unavailable Fish, B Tremaine PANTOJA Unavailable Unavailable Fish, B Tremaine PANTOJA Unavailable Unavailable Fish, B Tremaine PANTOJA Unavailable Unavailable Fish, B Tremaine PANTOJA Unavailable Unavailable Fish, B Tremaine PANTOJA Unavailable Unavailable Fish, B Tremaine PANTOJA Unavailable Unavailable Fish, B Tremaine PANTOJA Unavailable Unavailable Fish, B Tremaine PANTOJA Unavailable Unavailable Fish, B Tremaine PANTOJA Unavailable Unavailable Fish, B Tremaine PANTOJA Unavailable Unavailable Fish, B Tremaine PANTOJA Unavailable Unavailable Fish, B Tremaine PANTOJA Unavailable Unavailable Fish, B Tremaine PANTOJA Unavailable Unavailable Fish, B Tremaine PANTOJA Unavailable Unavailable Fish, B Tremaine PANTOJA Unavailable Unavailable Fish, B Tremaine PANTOJA Unavailable Unavailable Fish, B Tremaine PANTOJA Unavailable Unavailable Fish, B Tremaine PANTOJA Unavailable Unavailable Fish, B Tremaine PANTOJA Unavailable Unavailable Fish, B Tremaine PANTOJA Unavailable Unavailable Fish, B Tremaine PANTOJA Unavailable Unavailable Fish, B Tremaine PANTOJA Unavailable Unavailable Fish, B Tremaine PANTOJA Unavailable Unavailable Fish, B Tremaine PANTOJA Unavailable Unavailable Fish, B Tremaine PANTOJA Unavailable Unavailable Fish, B Tremaine PANTOJA Unavailable Unavailable Fish, B Tremaine PANTOJA Unavailable Unavailable Fish, B Tremaine PANTOJA Unavailable Unavailable Fish, B Tremaine PANTOJA Unavailable Unavailable Fish, B Tremaine PANTOJA Unavailable Unavailable Fish, B Tremaine PANTOJA Unavailable Unavailable Fish, B Tremaine PANTOJA Unavailable Unavailable Fish, B Tremaine PANTOJA Unavailable Unavailable Fish, B Tremaine PANTOJA Unavailable Unavailable Fish, B Tremaine PANTOJA Unavailable Unavailable Fish, B Tremaine PANTOJA Unavailable Unavailable Fish, B Tremaine PANTOJA Unavailable Unavailable Fish, B Tremaine PANTOJA Unavailable Unavailable Fish, B Tremaine PANTOJA Unavailable Unavailable Fish, B Tremaine PANTOJA Unavailable Unavailable Fish, B Tremaine PANTOJA Unavailable Unavailable Fish, B Tremaine PANTOJA Unavailable Unavailable Fish, B Tremaine PANTOJA Unavailable Unavailable Fish, B Tremaine PANTOJA Unavailable Unavailable Fish, B Tremaine PANTOJA Unavailable Unavailable Fish, B Tremaine PANTOJA Unavailable Unavailable Fish, B Tremaine PANTOJA Unavailable Unavailable Fish, [facility], PA-C Unavailable Unavailabl e Fish, [facility], PA-C Unavailable Unavailabl e Fish, [facility], PA-C Unavailable Unavailabl e Fish, [facility], PA-C Unavailable Unavailabl e Fish, [facility], PA-C Unavailable Unavailabl e Fish, [facility], PA-C Unavailable Unavailabl e Fish, [facility], PA-C Unavailable Unavailabl e Fish, [facility], PA-C Unavailable Unavailabl e Fish, [facility], PA-C Unavailable Unavailabl e Fish, [facility], PA-C Unavailable Unavailabl e Fish, [facility], PA-C Unavailable Unavailabl e Fish, [facility], PA-C Unavailable Unavailabl e Fish, [facility], PA-C Unavailable Unavailabl e Fish, [facility], PA-C Unavailable Unavailabl e Fish, [facility], PA-C Unavailable Unavailabl e Fish, [facility], PA-C Unavailable Unavailabl e Fish, [facility], PA-C Unavailable Unavailabl e Fish, Pattie Stephenie MPAS, PA-C Unavailable Unavailabl e Fish, [facility], PA-C Unavailable Unavailabl e Fish, [facility], PA-C Unavailable Unavailabl e Fish, [facility], PA-C Unavailable Unavailabl e Fish, [facility], PA-C Unavailable Unavailabl e Fish, [facility], PA-C Unavailable Unavailabl e Fish, [facility], PA-C Unavailable Unavailabl e Fish, [facility], PA-C Unavailable Unavailabl e Fish, [facility], PA-C Unavailable Unavailabl e Fish, [facility], PA-C Unavailable Unavailabl e Fish, [facility], PA-C Unavailable Unavailabl e Fish, [facility], PA-C Unavailable Unavailabl e Fish, [facility], PA-C Unavailable Unavailabl e Fish, [facility], PA-C Unavailable Unavailabl e Fish, [facility], PA-C Unavailable Unavailabl e Fish, [facility], PA-C Unavailable Unavailabl e Fish, [facility], PA-C Unavailable Unavailabl e Fish, [facility], PA-C Unavailable Unavailabl e Fish, [facility], PA-C Unavailable Unavailabl e Hadian, Mario Unavailable Unavailable Hadian, Mario Unavailable Unavailable Hadian, Mario Unavailable Unavailable Hadian, Mario Unavailable Unavailable Hadian, Mario Unavailable Unavailable Hadian, Mario Unavailable Unavailable Hadian, Mario Unavailable Unavailable Hadian, Mario Unavailable Unavailable Hadian, Mario Unavailable Unavailable Hadian, Mario Unavailable Unavailable Hadian, Mario Unavailable Unavailable Hadian, Mario Unavailable Unavailable Hadian, Mario Unavailable Unavailable Hadian, Mario Unavailable Unavailable Hadian, Mario Unavailable Unavailable Hadian, Mario Unavailable Unavailable Hadian, Mario Unavailable Unavailable Hadian, Mario Unavailable Unavailable Hadian, Mario Unavailable Unavailable Hadian, Mario Unavailable Unavailable Hadian, Mario Unavailable Unavailable Hadian, Mario Unavailable Unavailable Hadian, Mario Unavailable Unavailable Hadian, Mario Unavailable Unavailable Hadian, Mario Unavailable Unavailable Hadian, Mario Unavailable Unavailable Hadian, Mario Unavailable Unavailable Hadian, Mario Unavailable Unavailable Hadian, Mario Unavailable Unavailable Hadian, Mario Unavailable Unavailable Hadian, Mario Unavailable Unavailable Hadian, Mario Unavailable Unavailable Hadian, Mario Unavailable Unavailable Hadian, Mario Unavailable Unavailable Hadian, Mario Unavailable Unavailable Hadian, Mario Unavailable Unavailable Hadian, Mario Unavailable Unavailable Hadian, Mario Unavailable Unavailable Hadian, Mario Unavailable Unavailable Hadian, Mario Unavailable Unavailable Hadian, Mario Unavailable Unavailable Hadian, Mario Unavailable Unavailable Cathy, B Julio C FINE GRADE BULLDOZER OPERATOR Unavailable Unavailable Cathy, B Julio C FINE GRADE BULLDOZER OPERATOR Unavailable Unavailable Cathy, B Julio C FINE GRADE BULLDOZER OPERATOR Unavailable Unavailable Cathy, B Julio C FINE GRADE BULLDOZER OPERATOR Unavailable Unavailable Cathy, B Julio C FINE GRADE BULLDOZER OPERATOR Unavailable Unavailable Cathy, B Julio C FINE GRADE BULLDOZER OPERATOR Unavailable Unavailable Cathy, B Julio C FINE GRADE BULLDOZER OPERATOR Unavailable Unavailable Cathy, B Julio C FINE GRADE BULLDOZER OPERATOR Unavailable Unavailable Cathy, B Julio C FINE GRADE BULLDOZER OPERATOR Unavailable Unavailable Cathy, B Julio C FINE GRADE BULLDOZER OPERATOR Unavailable Unavailable Guzman, M Barratt PA Unavailable Unavailable Guzman, M Barratt PA Unavailable Unavailable Guzman, M Barratt PA Unavailable Unavailable Guzman, M Barratt PA Unavailable Unavailable Guzman, M Barratt PA Unavailable Unavailable Guzman, M Barratt PA Unavailable Unavailable Guzman, M Barratt PA Unavailable Unavailable Guzman, M Barratt PA Unavailable Unavailable Guzman, M Barratt PA Unavailable Unavailable Guzman, M Barratt PA Unavailable Unavailable Guzman, M Barratt PA Unavailable Unavailable Guzman, M Barratt PA Unavailable Unavailable Guzman, M Barratt PA Unavailable Unavailable Guzman, M Barratt PA Unavailable Unavailable Guzman, M Barratt PA Unavailable Unavailable Guzman, M Barratt PA Unavailable Unavailable Guzman, M Barratt PA Unavailable Unavailable Guzman, M Barratt PA Unavailable Unavailable Guzman, M Barratt PA Unavailable Unavailable Guzman, M Barratt PA Unavailable Unavailable Guzman, M Barratt PA Unavailable Unavailable Guzman, M Barratt PA Unavailable Unavailable Guzman, M Barratt PA Unavailable Unavailable Guzman, M Barratt PA Unavailable Unavailable Guzman, M Barratt PA Unavailable Unavailable Guzman, M Barratt PA Unavailable Unavailable Guzman, M Barratt PA Unavailable Unavailable Guzman, M Barratt PA Unavailable Unavailable Guzman, M Barratt PA Unavailable Unavailable Estrella MORENO MD Unavailable Unavailable Estrella MORENO MD Unavailable Unavailable [facility]_991, NA Unavailable [phone] UNKNOWN Unavailable Unavailable REASON, L EDWARD DO Unavailable Unavailable REASON, L EDWARD DO Unavailable Unavailable REASON, L EDWARD DO Unavailable Unavailable REASON, L EDWARD DO Unavailable Unavailable REASON, L EDWARD DO Unavailable Unavailable REASON, L EDWARD DO Unavailable Unavailable REASON, L EDWARD DO Unavailable Unavailable REASON, L EDWARD DO Unavailable Unavailable REASON, L EDWARD DO Unavailable Unavailable REASON, L EDWARD DO Unavailable Unavailable REASON, L EDWARD DO Unavailable Unavailable REASON, L EDWARD DO Unavailable Unavailable REASON, L EDWARD DO Unavailable Unavailable REASON, L EDWARD DO Unavailable Unavailable REASON, L EDWARD DO Unavailable Unavailable REASON, L EDWARD DO Unavailable Unavailable REASON, L EDWARD DO Unavailable Unavailable REASON, L EDWARD DO Unavailable Unavailable REASON, L EDWARD DO Unavailable Unavailable REASON, L EDWARD DO Unavailable Unavailable REASON, L EDWARD DO Unavailable Unavailable REASON, L EDWARD DO Unavailable Unavailable REASON, L EDWARD DO Unavailable Unavailable REASON, L EDWARD DO Unavailable Unavailable REASON, L EDWARD DO Unavailable Unavailable REASON, L EDWARD DO Unavailable Unavailable REASON, L EDWARD DO Unavailable Unavailable REASON, L EDWARD DO Unavailable Unavailable REASON, L EDWARD DO Unavailable Unavailable REASON, L EDWARD DO Unavailable Unavailable REASON, L EDWARD DO Unavailable Unavailable REASON, L EDWARD DO Unavailable Unavailable REASON, L EDWARD DO Unavailable Unavailable REASON, L EDWARD DO Unavailable Unavailable REASON, L EDWARD DO Unavailable Unavailable REASON, L EDWARD DO Unavailable Unavailable REASON, L EDWARD DO Unavailable Unavailable REASON, L EDWARD DO Unavailable Unavailable REASON, L EDWARD DO Unavailable Unavailable REASON, L EDWARD DO Unavailable Unavailable REASON, L EDWARD DO Unavailable Unavailable REASON, L EDWARD DO Unavailable Unavailable REASON, L EDWARD DO Unavailable Unavailable REASON, L EDWARD DO Unavailable Unavailable REASON, L EDWARD DO Unavailable Unavailable REASON, L EDWARD DO Unavailable Unavailable REASON, L EDWARD DO Unavailable Unavailable REASON, L EDWARD DO Unavailable Unavailable REASON, L EDWARD DO Unavailable Unavailable REASON, L EDWARD DO Unavailable Unavailable REASON, L EDWARD DO Unavailable Unavailable REASON, L EDWARD DO Unavailable Unavailable REASON, L EDWARD DO Unavailable Unavailable REASON, L EDWARD DO Unavailable Unavailable REASON, L EDWARD DO Unavailable Unavailable REASON, L EDWARD DO Unavailable Unavailable REASON, L EDWARD DO Unavailable Unavailable REASON, L EDWARD DO Unavailable Unavailable REASON, L EDWARD DO Unavailable Unavailable REASON, L EDWARD DO Unavailable Unavailable REASON, L EDWARD DO Unavailable Unavailable REASON, L EDWARD DO Unavailable Unavailable REASON, L EDWARD DO Unavailable Unavailable REASON, L EDWARD DO Unavailable Unavailable REASON, L EDWARD DO Unavailable Unavailable REASON, L EDWARD DO Unavailable Unavailable REASON, L EDWARD DO Unavailable Unavailable REASON, L EDWARD DO Unavailable Unavailable REASON, L EDWARD DO Unavailable Unavailable REASON, L EDWARD DO Unavailable Unavailable REASON, L EDWARD DO Unavailable Unavailable REASON, L EDWARD DO Unavailable Unavailable REASON, L EDWARD DO Unavailable Unavailable REASON, L EDWARD DO Unavailable Unavailable REASON, L EDWARD DO Unavailable Unavailable REASON, L EDWARD DO Unavailable Unavailable REASON, L EDWARD DO Unavailable Unavailable REASON, L EDWARD DO Unavailable Unavailable REASON, L EDWARD DO Unavailable Unavailable REASON, L EDWARD DO Unavailable Unavailable REASON, L EDWARD DO Unavailable Unavailable REASON, L EDWARD DO Unavailable Unavailable REASON, L EDWARD DO Unavailable Unavailable REASON, L EDWARD DO Unavailable Unavailable REASON, L EDWARD DO Unavailable Unavailable REASON, L EDWARD DO Unavailable Unavailable REASON, L EDWARD DO Unavailable Unavailable REASON, L EDWARD DO Unavailable Unavailable REASON, L EDWARD DO Unavailable Unavailable REASON, L EDWARD DO Unavailable Unavailable REASON, L EDWARD DO Unavailable Unavailable REASON, L EDWARD DO Unavailable Unavailable REASON, L EDWARD DO Unavailable Unavailable REASON, L EDWARD DO Unavailable Unavailable REASON, L EDWARD DO Unavailable Unavailable REASON, L EDWARD DO Unavailable Unavailable REASON, L EDWARD DO Unavailable Unavailable REASON, L EDWARD DO Unavailable Unavailable REASON, L EDWARD DO Unavailable Unavailable REASON, L EDWARD DO Unavailable Unavailable REASON, L EDWARD DO Unavailable Unavailable REASON, L EDWARD DO Unavailable Unavailable REASON, L EDWARD DO Unavailable Unavailable REASON, L EDWARD DO Unavailable Unavailable REASON, L EDWARD DO Unavailable Unavailable REASON, L EDWARD DO Unavailable Unavailable REASON, L EDWARD DO Unavailable Unavailable REASON, L EDWARD DO Unavailable Unavailable REASON, L EDWARD DO Unavailable Unavailable REASON, L EDWARD DO Unavailable Unavailable REASON, L EDWARD DO Unavailable Unavailable REASON, L EDWARD DO Unavailable Unavailable REASON, L EDWARD DO Unavailable Unavailable REASON, L EDWARD DO Unavailable Unavailable REASON, L EDWARD DO Unavailable Unavailable REASON, L EDWARD DO Unavailable Unavailable REASON, L EDWARD DO Unavailable Unavailable REASON, L EDWARD DO Unavailable Unavailable REASON, L EDWARD DO Unavailable Unavailable REASON, L EDWARD DO Unavailable Unavailable REASON, L EDWARD DO Unavailable Unavailable REASON, L EDWARD DO Unavailable Unavailable REASON, L EDWARD DO Unavailable Unavailable REASON, L EDWARD DO Unavailable Unavailable REASON, L EDWARD DO Unavailable Unavailable REASON, L EDWARD DO Unavailable Unavailable REASON, L EDWARD DO Unavailable Unavailable REASON, L EDWARD DO Unavailable Unavailable REASON, L EDWARD DO Unavailable Unavailable REASON, L EDWARD DO Unavailable Unavailable REASON, L EDWARD DO Unavailable Unavailable REASON, L EDWARD DO Unavailable Unavailable REASON, L EDWARD DO Unavailable Unavailable REASON, L EDWARD DO Unavailable Unavailable Re-disclosure Warning The records that you are about to access may contain information from federally-assisted alcohol or drug abuse programs. If such information is present, then the following federally mandated warning applies: This information has been disclosed to you from records protected by federal confidentiality rules (42 CFR part 2). The federal rules prohibit you from making any further disclosure of this information unless further disclosure is expressly permitted by the written consent of the person to whom it pertains or as otherwise permitted by 42 CFR part 2. A general authorization for the release of medical or other information is NOT sufficient for this purpose. The Federal rules restrict any use of the information to criminally investigate or prosecute any alcohol or drug abuse patient.The records that you are about to access may contain highly sensitive health information, the redisclosure of which is protected by Article 27-F of the [facility] Public Health law. If you continue you may have access to information: Regarding HIV / AIDS; Provided by facilities licensed or operated by the [facility] Office of Mental Health; or Provided by the [facility] Office for People With Developmental Disabilities. If such information is present, then the following [facility] mandated warning applies: This information has been disclosed to you from confidential records which are protected by state law. State law prohibits you from making any further disclosure of this information without the specific written consent of the person to whom it pertains, or as otherwise permitted by law. Any unauthorized further disclosure in violation of state law may result in a fine or fci sentence or both. A general authorization for the release of medical or other information is NOT sufficient authorization for further disc losure. Allergies and Adverse Reactions Type Description Substance Reaction Status Data Source(s ) Drug allergy No Known Drug Allergies No Known Drug Allergies [facility] Drug allergy No Known Allergies No Known Allergies [facility] Encounters Encounter Providers Location Date Indications Data Source(s ) Outpatient Attender: ERASTO Ponce/Breanne/Horace/ Rigoberto 03/22/2021 01:00:00 PM EDT [facility] ([facility] Outpatient Attender: ERASTO Ponce/Breanne/Horace/ Reindl 03/08/2021 03:15:00 PM EDT [facility] ([facility]) Outpatient Admitter: EDWARD REASON DOReferrer: AKIL TARIQ Kennedy DO 03/03/2021 12:00:00 AM EDT Malignant neoplasm of unspecified part o f unspecified bronchus or lung [facility] Malignant neoplasm of unspecified part o f unspecified bronchus or lung Outpatient Attender: ERASTO Ponce/Breanne/Horace/ Reindl 02/22/2021 01:15:00 PM EDT [facility] ([facility]) Outpatient Attender: AKIL RICCI DO ED-LAB 02/17 10:24:00 AM EDT - 02/17/2021 10:25:00 AM EDT I10 R06.02 R05 [facility] I10 R06.02 R05 Patient discharged. Office Visit Attender: Tremaine Olivera MD Physical Therapy 2020 01:00:00 PM EDT [facility] ([facility]) Office Visit Attender: NA [facility]_991 Physical Therapy 021 03:00:00 PM EDT [facility] ([facility]) Office Visit Attender: Tremaine Olivera MD Physical Therapy 2020 11:00:00 AM EDT [facility] ([facility]) Inpatient Attender: Tremaine Olivera MDAdmitter: Julio C Morgan NP ER-2EAST 11/18/2020 06:14:00 AM EDT - 11/22/2020 02:32:00 PM EDT [facility] Patient discharged. Office Visit Attender: Rhoda PERALES Physical Therapy 09:30:00 AM EDT [facility] ([facility]) Outpatient Attender: Tremaine Olivera MD ER-OPS 11/13/2020 09:30:00 AM T [facility] Outpatient Attender: Tremaine Olivera MD ER-LAB 11/13/2020 04:33:00 AM T [facility] Outpatient Attender: AKIL RICCI DO ED-LAB 10/27 09:01:00 AM EDT - 10/27/2020 09:02:00 AM EDT PRE OP [facility] PRE OP Patient discharged. Office Visit Attender: Rhoda PERALES Physical Therapy 10:15:00 AM EDT [facility] ([facility]) Office Visit Attender: Rhoda PERALES Physical Therapy 09:00:00 AM EDT [facility] ([facility]) Outpatient Attender: Rhoda PERALES Physical Therapy 10:15:00 AM EDT [facility] ([facility]) Outpatient Attender: Tremaine Olivera MD Physical Therapy 08/07/2020 1 2:15:00 PM EST [facility] ([facility]) Outpatient Attender: CAROL CPSROSELINE-LABEJN 07/30/2020 09:41:00 AM E [facility] Outpatient Attender: EDWARD REASON DO ED-LAB 07/30 09:00:00 AM EST - 07/30/2020 09:01:00 AM EST [id number] [id number] [facility] E039 [id number] [id number] Patient discharged. Outpatient Attender: Stephenie LUNA PA-C Physical Therapy 07/27/2020 02:00:00 PM EST [facility] ([facility]) Outpatient Attender: EDWARD REASON DO ED-IMAG 07/17 10:41:00 AM EST - 07/17/2020 10:42:00 AM EST SCREENING MAMMO [facility] SCREENING MAMMO [facility]2020 08:07:00 PM [facility] Outpatient Attender: Mario Gomes ED-LABPNP 02:50:00 PM EST - 04/27/2020 02:51:00 PM EST POS EXPOSURE [facility] POS EXPOSURE Patient discharged. Immunizations Vaccine Date Status Description Data Source(s) Moderna Covid-19 vaccine, mRNA, LNP-S, PF, 100 mcg/ 0. 5 mL 07/10/2020 12:15:00 PM EST completed [facility] ([facility], ) COVID-19 VACCINE Moderna 07/10/2020 12:00:00 AM EST completed [facility] Vaccine Series Complete: YESThis Data wa s Submitted to [facility] Via [employer]. COVID-19 VACCINE, MRNA-1273, LNP-S (MODERNA)/PF 07/10/2020 1 2:00:00 AM EST completed [facility] Moderna Covid-19 vaccine, mRNA, LNP-S, PF, 100 mcg/ 0. 5 mL 06/12/2020 12:15:00 PM EST completed [facility] ([facility], ) COVID-19 VACCINE, MRNA-1273, LNP-S (MODERNA)/PF 06/12/2020 1 2:00:00 AM EST completed [facility] COVID-19 VACCINE Moderna 06/12/2020 12:00:00 AM EST completed [facility] Vaccine Series Complete: NOThis Data was Submitted to [facility] Via [employer]. Medications Medication Brand Name Start Date Product Form Dose Route Admi nistrative Instructions Pharmacy Instructions Status Indications Reaction Description Data Source(s) 50 mg 03/23/2021 12:00:00 AM EDT tablet 30 TAKE ONE TABLET BY MOUTH EVERY 8 HOURS NEEDED MAXIMUM DAILY DOSE = 3 TAKE ONE TABLET BY MOUTH EVERY 8 HOURS A S NEEDED MAXIMUM DAILY DOSE = 3 SOLD: 03/23/2021 [facility] 4 mg 03/23/2021 12:00:00 AM EDT tablet 30 TAKE ONE TABLET BY MOUTH THREE TIMES A DAY NEEDED TAKE ONE TABLET BY MOUTH THREE TIMES A DAY NEEDED S OLD: 03/23/2021 [facility] tramadol hydrochloride 50 MG Oral Tablet Tramadol HCL 03/22/2021 12:00:00 AM EDT ORAL active [facility] ([facility], ) Ondansetron 4 MG Oral Tablet [Zofran] Zofran 03/22/2021 12:00:00 AM EDT ORAL active [facility] ([facility], ) 50 mg 03/09/2021 12:00:00 AM EDT tablet 15 TAKE ONE TABLET BY MOUTH THREE TIMES A DAY NEEDED FOR PAIN MAXIMUM DAILY DOSE = 3 TAKE ONE TABLET BY MOUTH THREE TIMES A DAY NEEDED FOR PAIN MAXIMUM DAILY DOSE = 3 SOLD: 03/09/2021 [facility] 300 mg 02/16/2021 12:00:00 AM EDT capsule 14 TAKE ONE CAPSULE BY MOUTH EVERY 12 HOURS TAKE ONE CAPSULE BY MOUTH EVERY 12 HOURS SOLD: 02/17/2021 [facility] 200 mg 01/29/2021 12:00:00 AM EDT capsule 60 TAKE ONE CAPSULE BY MOUTH THREE TIMES A DAY FOR COUGH OR DIRECTED TAKE ONE CAPSULE BY MOUTH THREE TIMES A DAY FOR COUGH OR DIRECTED SOLD: 01/30/2021 [facility] 200 mg 01/27/2021 12:00:00 AM EDT capsule 30 TAKE ONE CAPSULE BY MOUTH THREE TIMES A DAY FOR COUGH TAKE ONE CAPSULE BY MOUTH THREE TIMES A DAY FOR COUGH SOLD: 01/28/2021 [facility] 500 mg 01/08/2021 12:00:00 AM EDT tablet 3 TAKE ONE TABLET BY MOUTH EVERY DAY FOR 3 DAYS TAKE ONE TABLET BY MOUTH EVERY DAY FOR 3 DAYS SOLD: 01/08/2021 [facility] 500 mg 01/08/2021 12:00:00 AM EDT tablet 3 TAKE ONE TABLET BY MOUTH EVERY DAY FOR 3 DAYS TAKE ONE TABLET BY MOUTH EVERY DAY FOR 3 DAYS SOLD: 01/12/2021 [facility] 200 mg 01/08/2021 12:00:00 AM EDT capsule 30 TAKE ONE CAPSULE BY MOUTH THREE TIMES A DAY TAKE ONE CAPSULE BY MOUTH THREE TIMES A DAY SOLD: 01/08/2021 [facility] 10-100 mg/5 mL 01/08/2021 12:00:00 AM EDT liquid 240 TAKE 1-2 TEASPOONFUL BY MOUTH FOUR TIMES A DAY NEEDED FOR COUGH OR DIRECTED MAXIMUM DAILY DOSE = 8 TEASPOONFULS TAKE 1-2 TEASPOONFUL BY MOUTH FOUR TIMES A DAY NEEDED FOR COUGH OR DIRECTED MAXIMUM DAILY DOSE = 8 TEASPOONFULS SOLD: 01/22/2021 [facility] 200 mg 01/08/2021 12:00:00 AM EDT capsule 30 TAKE ONE CAPSULE BY MOUTH THREE TIMES A DAY TAKE ONE CAPSULE BY MOUTH THREE TIMES A DAY SOLD: 01/17/2021 [facility] 10-100 mg/5 mL 01/08/2021 12:00:00 AM EDT liquid 240 TAKE 1-2 TEASPOONFUL BY MOUTH FOUR TIMES A DAY NEEDED FOR COUGH OR DIRECTED MAXIMUM DAILY DOSE = 8 TEASPOONFULS TAKE 1-2 TEASPOONFUL BY MOUTH FOUR TIMES A DAY NEEDED FOR COUGH OR DIRECTED MAXIMUM DAILY DOSE = 8 TEASPOONFULS SOLD: 01/08/2021 [facility] 50 mg 12/10/2020 12:00:00 AM EDT tablet 40 TAKE ONE TABLET BY MOUTH EVERY 6 HOURS NEEDED FOR PAIN MAXIMUM DAILY DOSE = 5 TAKE ONE TABLET BY MOUTH EVERY 6 HOURS NEEDED FOR PAIN MAXIMUM DAILY DOSE = 5 SOLD: 12/11/2020 [facility] 50 mg 11/26/2020 12:00:00 AM EDT tablet 40 TAKE ONE TABLET BY MOUTH EVERY 6 HOURS NEEDED FOR PAIN MAXIMUM DAILY DOSE = 5 TAKE ONE TABLET BY MOUTH EVERY 6 HOURS NEEDED FOR PAIN MAXIMUM DAILY DOSE = 5 SOLD: 11/27/2020 [facility] tramadol hydrochloride 50 MG Oral Tablet Tramadol HCL 11/26/2020 12:00:00 AM EDT active [facility] ([facility]) 50 mg 11/22/2020 12:00:00 AM EDT tablet 20 TAKE ONE TABLET BY MOUTH EVERY 6 HOURS NEEDED FOR PAIN MAXIMUM DAILY DOSE = 4 TABLETS TAKE ONE TABLET BY MOUTH EVERY 6 HOURS NEEDED FOR PAIN MAXIMUM DAILY DOSE = 4 TABLETS SOLD: 11/22/2020 [facility] 4 mg 11/22/2020 12:00:00 AM EDT tablet 20 TAKE ONE TABLET BY MOUTH EVERY 6 HOURS NEEDED FOR NAUSEA TAKE ONE TABLET BY MOUTH EVERY 6 HOURS A S NEEDED FOR NAUSEA SOLD: 11/22/2020 [facility] Acetaminophen 325 MG / Hydrocodone Bitartrate 5 MG Ora l Tablet 5-325 mg HYDROCODONE/ACETAMINOPHEN 11/18/2020 12:00:00 AM EDT tablet 40 TAKE 1-2 TABLETS BY MOUTH EVERY 4 TO 6 HOURS NEEDED FOR POST SURGICAL PAIN MAXIMUM DAILY DOSE = EIGHT TABLETS TAKE 1-2 TABLETS BY MOUTH EVERY 4 TO 6 H OURS NEEDED FOR POST SURGICAL PAIN MAXIMUM DAILY DOSE = EIGHT TABLETS SOLD: 11/20/2020 [facility] Nystatin 789646 UNT/ML / Triamcinolone A cetonide 1 MG/ML Topical Cream 100,000- 0.1 unit/g-% NYSTATIN/TRIAMCIN 11/16/2020 12:00:00 AM EDT cream 30 APPLY TO AFFECTED AREA(S) TWO TIMES A DAY APPLY TO AFFECTED AREA(S) TWO TIMES A DAY SOLD: 11/17/2020 [facility] Nystatin 095366 UNT/ML / Triamcinolone Acetonide 1 MG/ ML Topical Cream Nystatin-Triamcinolone 11/16/2020 12:00:00 AM EDT active [facility] ([facility]) 2 % 11/12/2020 12:00:00 AM EDT ointment 22 APPLY A PEA SIZED AMOUNT TO THE NASAL PASSAGES THREE TIMES A DAY FOR 5 DAYS PRIOR TO SURGERY APPLY A PEA SIZED AMOUNT TO THE NASAL PASSAGES THREE TIMES A DAY FOR 5 DAYS PRIOR TO SURGERY SOLD: 11/13/2020 [facility] 10 mg 11/12/2020 12:00:00 AM EDT tablet 14 TAKE ONE TABLET BY MOUTH EVERY DAY FOR 14 DAYS TAKE ONE TABLET BY MOUTH EVERY DAY FOR 14 DAYS SOLD: 021 [facility] Cephalexin 500 MG Oral Capsule CEPHALEXIN 10/29/2020 12:00:00 AM EDT capsule 28 TAKE ONE TABLET BY MOUTH FOUR TIMES A DAY TAKE ONE TAB LET BY MOUTH FOUR TIMES A DAY SOLD: 10/29/2020 [facility] Betamethasone 0.5 MG/ML / Clotrimazole 10 MG/ML Topica l Cream 1-0.05 % CLOTRIMAZOLE/BETAMETHASONE DIP 10/27/2020 12:00:00 AM EDT cream 45 APPLY TOPICALLY TO LEG RASH TWICE DAILY FOR 1-2 WEEKS APPLY TOPICALLY TO LEG RASH TWICE DAILY FOR 1-2 WEEKS SOLD: 10/27/2020 [facility] Acetaminophen 325 MG / Hydrocodone Bitartrate 5 MG Ora l Tablet Hydrocodone-Acetaminophen 10/27/2020 12:00:00 AM EDT ORAL active [facility] ([facility]) Betamethasone 0.5 MG/ML / Clotrimazole 10 MG/ML Topica l Cream 1-0.05 % CLOTRIMAZOLE/BETAMETHASONE DIP 10/27/2020 12:00:00 AM EDT cream 45 APPLY TOPICALLY TO LEG RASH TWICE DAILY FOR 1-2 WEEKS APPLY TOPICALLY TO LEG RASH TWICE DAILY FOR 1-2 WEEKS SOLD: 11/08/2020 [facility] Mupirocin 0.02 MG/MG Topical Ointment Mupirocin 09/29/2020 12:00:00 AM EDT active [facility] ([facility]) chlorhexidine gluconate 40 MG/ML Medicated Liquid Soap [Hibi clens] Hibiclens 09/29/2020 12:00:00 AM EDT active [facility] ([facility]) rivaroxaban 10 MG Oral Tablet [Xarelto] Xarelto 09/29/2020 12:00:0 0 AM EDT ORAL active [facility] ([facility]) Atenolol 50 MG Oral Tablet ATENOLOL 06/23/2020 12:00:00 AM EST tablet 7 TAKE ONE TABLET BY MOUTH EVERY DAY DIRECTED TAKE ONE TABLET BY MOUTH EVERY DAY DIRECTED SOLD: 06/23/2020 [facility] 3.5-10,000-1 mg/mL-unit/mL-% 04/03/2020 12:00:00 AM EST solu tion 10 INSTILL 2 DROPS TO AFFECTED EAR(S) FOUR TIMES A DAY FOR 7 DAYS INSTILL 2 DROPS TO AFFECTED EAR(S) FOUR TIMES A DAY FOR 7 DAYS SOLD: 04/04/2020 [facility] Insurance Providers Payer name Policy type / Coverage type Policy ID Covered libertarian ID Covered libertarian's relationship to ramirez Policy Ramirez Plan Information MEDICARE A [id number] Self [id number] EXCELLUS H [id number] Self [id number] [place] 306/806 [id number] SP [id number] [place] 306/806 [id number] SP [id number] MEDICARE [id number] S [id number] [place] [id number] S [id number] BLUE CROSS [id number] S [id number] MCRB [id number] S [id number] MEDICARE [id number] S [id number] MEDICARE [id number] S [id number] [place] [id number] S [id number] [place] [id number] S [id number] MEDICARE -O/P [id number] 18 [id number] RESOLVE -O/P [id number] 18 [id number] A BCBS [place] PPO 302/307 [id number] SP [id number] MEDICARE [id number] SP [id number] Problems, Conditions, and Diagnoses Code Display Name Description Problem Type Effective Dates Data Source(s) C34.90 Malignant neoplasm of unspecified part o f unspecified bronchus or lung Malignant neoplasm of unspecified part of unspecified bronchus or lung Diagnosis 03/03/2021 08:16:00 AM [facility] I10 Essential (primary) hypertension ESSENTIAL (PRIMARY) H YPERTENSION Diagnosis 02/17/2021 10:24:00 AM EDT [facility] Z98.84 Bariatric surgery status BARIATRIC SURGERY STATUS Diag nosis 11/19/2020 05:16:00 PM EDT [facility] E78.5 Hyperlipidemia, unspecified HYPERLIPIDEMIA, UNSPECIFIE D Diagnosis 11/19/2020 05:16:00 PM EDT [facility] I10 Essential (primary) hypertension ESSENTIAL (PRIMARY) H YPERTENSION Diagnosis 11/19/2020 05:16:00 PM EDT [facility] R26.81 Unsteadiness on feet UNSTEADINESS ON FEET Diagnosis 11/19/2020 05:16:00 PM T [facility] R42 Dizziness and giddiness DIZZINESS AND GIDDINESS Diagno sis 11/19/2020 05:16:00 PM EDT [facility] G89.18 Other acute postprocedural pain OTHER ACUTE POST PROCEDURAL PAIN Diagnosis 11/19/2020 05:16:00 PM EDT [facility] T41.205A Adverse effect of unspecified general an esthetics, initial encounter ADVERSE EFFECT OF UNSP GENERAL ANESTHETICS, INIT E Diagnosis 05:16:00 PM EDT [facility] R11.0 Nausea NAUSEA Diagnosis 11/19/2020 05:16:00 PM ED T [facility] E78.00 PURE HYPERCHOLESTEROLEMIA, UNSPECIFIED P URE HYPERCHOLESTEROLEMIA, UNSPECIFIED Diagnosis 11/19/2020 05:16:00 PM EDT [facility] J84.10 Pulmonary fibrosis, unspecified PULMONARY FIBROS IS, UNSPECIFIED Diagnosis 11/13/2020 10:56:00 AM [facility] M17.11 Unilateral primary osteoarthritis, right knee UNILATERAL PRIMARY OSTEOARTHRITIS, RIGHT KNEE Diagnosis 11/13/2020 10:56:00 AM T [facility] M17.0 Bilateral primary osteoarthritis of knee BILATERAL PRIMARY OSTEOARTHRITIS OF KNEE Diagnosis 11/13/2020 10:56:00 AM T [facility] Z01.818 Encounter for other preprocedural examin ation ENCOUNTER FOR OTHER PREPROCEDURAL EXAMINATION Diagnosis 11/13/2020 10:56:00 AM [facility] Z20.822 CONTACT WITH AND (SUSPECTED) EXPOSURE TO COVID-19 CONTACT WITH AND (SUSPECTED) EXPOSURE TO COVID-19 Diagnosis 11/13/2020 04:33:00 AM [facility] Z01.812 Encounter for preprocedural laboratory e xamination ENCOUNTER FOR PREPROCEDURAL LABORATORY EXAMINATION Diagnosis 11/13/2020 04:33:00 AM [facility] Z01.810 Encounter for preprocedural cardiovascul ar examination ENCOUNTER FOR PREPROCEDURAL CARDIOVASCULAR EXAMINATION Diagnosis 10/27/2020 09:01:00 AM [facility] 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, 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 POSTSURGICAL MALABSORPTION, NOT ELSEWHERE CLASSIFIED Diagnosis 07/30/2020 09:00:00 AM [facility] E03.9 Hypothyroidism, unspecified HYPOTHYROIDISM, UNSPECIFIE D Diagnosis 07/30/2020 09:00:00 AM [facility] Z12.31 Encounter for screening mammogram for ma lignant neoplasm of breast ENCNTR SCREEN MAMMOGRAM FOR MALIGNANT NEOPLASM OF BREAST Diagnosis 10:41:00 AM [facility] Z20.828 Contact with and (suspected) exposure to other viral communicable diseases CONTACT W AND EXPOSURE TO OTH VIRAL COMMUNICABLE DISEASES Di agnosis 04/27/2020 02:50:00 PM [facility] Surgeries/Procedures Procedure Description Date Indications Data Source(s) OFFICE OUTPATIENT VISIT 25 MINUTES 03/22/2021 12:00:00 AM [facility] ([facility], ) OFFICE OUTPATIENT VISIT 40 MINUTES 03/08/2021 12:00:00 AM EDT [facility] ([facility]) Thoracentesis W/ Img Guidance 02/24/2021 12:00:00 AM E DT [facility] ([facility]) OFFICE OUTPATIENT NEW 45 MINUTES 02/22/2021 12:00:00 A M EDT [facility] ([facility], ) RADIOLOGIC EXAMINATION KNEE 3 VIEWS 12/25/2020 12:00:0 0 AM EDT [facility] ([facility]) ARTHRP KNE CONDYLE&PLATU MEDIAL&LAT CMPRTS 11/18/2020 12:00:00 AM EDT [facility] ([facility]) Replacement of Right Knee Joint with Syn thetic Substitute, Cemented, Open Approach 11/18/2020 12:00:00 AM EDT [facility] ARTHROCENTESIS ASPIR&/INJECTION MAJOR JT/BURSA 021 12:00:00 AM EDT [facility] ([facility]) ARTHROCENTESIS ASPIR&/INJECTION MAJOR JT/BURSA 021 12:00:00 AM EDT [facility] ([facility]) ARTHROCENTESIS ASPIR&/INJECTION MAJOR JT/BURSA 021 12:00:00 AM EDT [facility] ([facility]) OFFICE OUTPATIENT VISIT 25 MINUTES 09/17/2020 12:00:00 AM EDT [facility] ([facility]) ARTHROCENTESIS ASPIR&/INJECTION MAJOR JT/BURSA 021 12:00:00 AM EST [facility] ([facility]) OFFICE OUTPATIENT VISIT 40 MINUTES 08/07/2020 12:00:00 AM EST [facility] ([facility]) OFFICE OUTPATIENT VISIT 40 MINUTES 07/27/2020 12:00:00 AM EST [facility] ([facility]) [id number] SARS-COV-2 COVID-19 AMP PRB 04/27/2020 12:00:00 AM [facility] Results ID Date Data Source [id number] 03/08/2021 03:48:00 PM EDT [facility] Name Value Range Interpretation Code Description Data Rylie rce(s) Supporting Document(s) SARS coronavirus 2 RNA [Presence] in Res piratory specimen by TAMIKA with probe detection NEGATIVE [facility] This lab was ordered by [facility] a nd reported by [facility]. ID Date Data Source [id number] 03/18/2021 01:55:00 PM [facility] Anatomic Molecular Pathology ReportName: GEORGETTE GILMRN: [id number] Number: [id number] Date: 03/03/2021 00:00Received Date: 03/03/2021 09:52Physician(s): REASON,AKIL Gil,DO HERNÁNDEZ,ELY G,MDSpecimen(s) ReceivedA: Pleural effusion, Formalin Block, [id number], [facility],ALK by FISHDiagnosisTEST:ALK gene rearrangements by FISH (Fluorescence in situ Hybridization).RESULT:Percent tumor cells with ALK gene rearrangement (break- apart and/or 5'deletion) is 31%.ISCN - nuc laurence (5'ALK,3'ALK)x1~4(5'ALK sep 3'ALK x1~4)[31/100]INTERPRETATION: POSITIVE FOR ALK GENE REARRANGEMENT. 15% is used as a cut-off value: d15% is positive for ALK generearrangement while c15% is negative. ALK gene rearrangements, includingbreak apart and/or 5' deletion, can be identified in 3-7% of non-smallcell lung cancer, and are associated with better response to treatmentwith crizotinib. kg/ Electronically Signed By Palomo Prieto M.D. Attending Pathologist 03/18/2021 13:55:55Reported at [facility] [id number] [place] [address]. Gross DescriptionMETHODOLOGY:Interphase FISH is performed on paraffin embedded NSCLC utilizing the[employer] Molecular ALK Break Apart FISH Probe Kit. This is a combination,direct label, dual color detection system utilizing 2 probes: 1) 3'-ALK,300 kb, labeled with SpectrumOrange, and 2) 5'- ALK, 442 kb, labeled withSpectrumGreen. Tumor cells with no ALK rearrangements have 2 yellowsignals (fused orange and green signal). Tumor with ALK rearrangement haveseparated orange and green signal (break apart) and/or deleted greensignal (5' deletion). Hybridization is carried out as per the statedprotocol with no significant background or random probe hybridizationdetected. A total of 50 -100 interphase tumor nuclei are examined manuallyby one or two scorers, depending on initial evaluation. d15% of tumorcells with ALK gene rearrangement is called positive.This FISH Probe Kit was approved by FDA for this application and has beenvalidated in the special procedure laboratory of Department of Pathology,[facility]. This report may include one or more immunohistochemical stain results thatuse analyte specific reagents. All positive and negative controls havebeen reviewed by the attending pathologist and are satisfactory. The testswere developed and their performance characteristics determined by [facility] Pathology department. They have not been cleared or approved by the USFood and Drug Administration. The FDA has determined that such clearanceor approval is not necessary. Name Value Range Interpretation Code Description Data Rylie rce(s) Supporting Document(s) ID Date Data Source [id number] 03/11/2021 09:02:00 PM [facility] Anatomic Molecular Pathology ReportName: GEORGETTE GILMRN: [id number] Number: [id number] Date: 03/03/2021 00:00Received Date: 03/03/2021 09:57Physician(s): AKIL RICCI,ELY PENALOZA,MDSpecimen(s) ReceivedA: Pleural effusion, Formalin Block, [id number], [facility],ROS1 by FISHDiagnosisTEST:ROS1 gene rearrangements by FISH (Fluorescence in situ Hybridization).RESULT:Percent tumor cells with ROS1 gene rearrangement (break- apart and/or 5'deletion) is 2%.ISCN - nuc laurence (5'ROS1,3'ROS1)x2~4(5'ROS1 con 3'ROS1x2~4)[49/50] INTERPRETATION: NEGATIVE FOR ROS1 GENE REARRANGEMENT.15% is used as a cut-off value: d15% is positive for ROS1 generearrangements while c15% is negative. ROS1 gene rearrangements, includingbreak-apart and/or 5' deletion, can be identified in 1-2% of non-smallcell lung cancer, and are associated with better response to treatmentwith crizotinib. /kg Electronically Signed By Palomo Prieto M.D. Attending Pathologist 03/11/2021 21:02:35Reported at [facility] [address] [place] [address]. Gross DescriptionMETHODOLOGY:Interphase FISH is performed on paraffin embedded NSCLC utilizing thecombined [employer] Molecular LSI ROS1(Megan) and ROS1(Tel) ROS1 Probes: 1)3'-ROS1(Megan), 557 kb, labeled with SpectrumGreen, and 2) 5'-ROS1(Tel),317kb, labeled with SpectrumOrange. Tumor cells with no BSV8crvlrlgewkjcqc have 2 yellow signals (fused orange and green signal).Tumor cells with ROS1 rearrangement have orange and green signal(break apart) and/or deleted orange signal (5' deletion). Hybridization iscarried out as per the stated protocol with no significant background orrandom probe hybridization detected. A total of 50 -100 interphase tumornuclei are examined manually by one or two scorers, depending on initialevaluation. d15% of tumor cells with ROS1 gene rearrangement is calledpositive.This test was developed and its performance characteristics weredetermined by the [facility],and it has been authorized for clinical use by [facility]. The test has not been cleared or approved by the U.S. Food andDrug Administration. The analyte specific reagents used in this assay donot require FDA approval. REFERENCES: 1. EUSEBIA Andres, Tiffanie AT, Thejamie MF et al. Identifying and Targeting KYH2Qewt Fusions in NonSmall Cell Lung Cancer. Clin Cancer Res 2012; 18(17);27647797.2. Xavier, Baldemar AT. Novel Targets in Non-Small Cell Lung Cancer:ROS-1 and RET fusions. The Oncologist. 2013;18:865-875.This report may include one or more im munohistochemical stain results thatuse analyte specific reagents. All positive and negative controls havebeen reviewed by the attending pathologist and are satisfactory. The testswere developed and their performance characteristics determined by [facility] Pathology department. They have not been cleared or approved by the USFood and Drug Administration. The FDA has determined that such clearanceor approval is not necessary. 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 BRAF V600E in lung adenocarcinoma might be associatedwith decreased sensitivity to EGFR inhibitor such as gefitinib, andincreased response to BRAF inhibitor such as v emurafenib. The test resultis considered positive if the Ct value (mutant probe) is less than 45 andthe EPF is higher than cut-off value. If the percentage of mutant DNA isless than 10% in a background of wild-type DNA, the mutation may not bedetected by this assay. This result is an adjunct to other clinical andpathologic information for appropriate patient management.rw/kgElectronically Signed By Palomo Prieto M.D. Attending Pathologist 03/10/2021 22:06:13Reported at [facility] [id number] [place] [address]. Gross DescriptionMETHODOLO GY:BRAF V600E(1799 T>A) mutation at exon 15 is detected by real time PCRusing allele-specific TaqMan probes and performed on paraffin embeddedtissues. The tumor area is identified by the pathologist and is manuallymicrodissected. The mutant probe was labeled with a FAM-fluorophore whilethe wild-type probe with a KIKA-fluorophore. The amount of fluorescentemissions rendered by specific probe hybridization was associated theamounts of PCR products, and analyzed by [employer] Q real timeinstrument. The analytical sensitivity (or minimum percentage of mutantDNA needed) is approximately 10% given sufficient DNA input. Test development and its performance characteristics were determined bythe [facility], and has beenauthorized for clinical use by [facility]. Thetest has not been cleared or approved by the U.S. Food and DrugAdministration. The analyte specific reagents used in this assay do notrequire FDA approval. REFERENCES: 1. Dwain S, Leno Leger, et al. Detection of BRAF Y016Zyjqmulqi in colorectal cancer-comparison of automatic sequencing and realtime chemistry methodology. J Mol Diagn. 2006; 8:819881.2. Asim L, Christina LI, Tyler N, et al. BRAF mutation analysis in fineneedle aspiration (FNA) cytology of the thyroid. Diagn Mol Pathol.2006;15:367888.3. Rodrigo PK, Darshana ME, Katelin M, et al. Clinical characteristics ofpatients with lung adenocarcinomas harboring BRAF mutations. J Clin Oncol.2011;29:8703-5950.This report may include one or more immunohistochemical stain results thatuse analyte specific reagents. All positive and negative controls havebeen reviewed by the attending pathologist and are satisfactory. The testswere developed and their performance characteristics determined by [facility] Pathology department. They have not been cleared or approved by the USFood and Drug Administration. The FDA has determined that such clearanceor approval is not necessary. Name Value Range Interpretation Code Description Data Rylie rce(s) Supporting Document(s) ID Date Data Source [id number] 03/09/2021 04:16:00 PM [facility] Anatomic Molecular Pathology ReportName: GEORGETTE GILMRN: [id number] Number: [id number] Date: 03/03/2021 00:00Received Date: 03/03/2021 10:01Physician(s): REASON,EDWARD L,DO HERNÁNDEZ,ELY Brock,MDSpecimen(s) ReceivedA: Pleural effusion, Formalin Block, [id number], [facility],EGFRDiagnosisTEST: EGFR gene mutations (exon 19 deletions, L858R, G719A, T790M, S768I,exon 20 insertions, L861Q) by therascreene RGQ real-time PCR RESULTS: An EGFR mutation is not detected.INTERPRETATION: NEGATIVE FOR EGFR GENE MUTATION.This test is FDA approved and intended to be used to select p atients withnon-small cell lung cancer for whom EGFR tyrosine kinase inhibitor (TKI),such as afatinib, is indicated. Presence of exon 19 deletions, exon 80F321O or L861Q, exon 18 G719A or exon 20 S768I mutation is associated witha better response to TKI therapy. TKI therapeutic resistance of T790M andexon 20 insertions have been reported, and safety and efficacy of TKItherapy on these mutations have not been established. The results areadjuncts to other clinical and pathologic information available forevaluating the therapeutic response. Tumors that contain less than 20%mutation may not be detected in some mutation types by this assay. rw/jajElectronically Signed By Palomo Prieto M.D. Attending Pathologist 03/09/2021 16:16:55Reported at [facility] [id number] [place] [address]. Gross DescriptionMETHODOLOGY:The therascreen EGFR RGQ PCR Kit ([employer], [place], [place]) is a real-timequalitative PCR assay used on the Emergent Discovery instrument for thedetection of seven types of mutations at EGFR oncogene. The kit requiresDNA extracted from formalin-fixed paraffin-embedded (FFPE) tissue ofnon- small cell lung cancer. The tumor area is identified by the attendingpathologist and manually microdissected. The assay uses Scorpionse andARMSe (Allele Refractory Mutation System) technologies, and isFDA-approved for clinical patient care. Allele-specific amplification isachieved by ARMS which exploits the ability of Taq DNA polymerase todistinguish between a matched and a mismatched base at the 3' end of a PCRprimer. Detection of amplification is performed using Scorpions, which arebifunctional molecules containing a PCR primer covalently linked to aprobe.REFERENCES:1. Estrella Solis., Laureen Brown, Estrella Cotton. et al. EGFR-targeted therapyfor non-small cell lung cancer: focus on EGFR oncogenic mutation. Int. J. Med. Sci. 2013; 10: 320. 2. Lisette Duarte., et al. First-line gefitinib in patients withadvanced non-small cell lung cancer harboring somatic EGFR mutations. J.Clin.Oncol. 2008;15: 2442.3. Da SV, Valencia TALLEY, Wendy J et al. Epidermal growth factor receptormutations in lung cancer. Nature Review/Cancer. 2007;9549-0618.This report may include one or more immunohistochemical stain results thatuse analyte specific reagents. All positive and negative controls havebeen reviewed by the attending pathologist and are satisfactory. The testswere developed and their performance characteristics determined by [facility] Pathology department. They have not been cleared or approved by the USFood and Drug Administration. The FDA has dete rmined that such clearanceor approval is not necessary. Name Value Range Interpretation Code Description Data Rylie rce(s) Supporting Document(s) ID Date Data Source [id number] 02/24/2021 03:38:00 PM [address] [facility], [facility] Name Value Range Interpretation Code Description Data [facility] Districte(s) Supporting Document(s) Surgical pathology study Laboratory test result [facility] ([facility], ) <content>Addendum 2 Entered: 03/19/202129</content>
<content></content>
<content>The addendum is being issued to report additional molecular testing:</content>
<content>ALK gene mutation (FISH): POSITIVE</content>
<content>EGFR mutations (PCR): Negative</content>
<content>ROS1 gene mutation (FISH): Negative</content>
<content>[id number] mutation (PCR): Negative</content>
<content></content>
<content>Please see the scanned documentation for the full molecular diagnostics</content>
<content>reports from [facility] [facility]content>
<content>03/19/2021827</content>
<content>Addendum Signed__ELY SMITH MD 03/19/2021827</content>
<content> </content>
<content>Addendum 1 Entered: 03/05/2021-0837</content>
<content></content>
<content>The addendum is being issued to report additional molecular testing:</content>
<content>PD- L1 mutation (IHC): No expression (<1%)</content>
<content></content>
<content>Additional molecular testing results are pending and will be reported in</content>
<content>an addendum.</content>
<content>Please see the scanned documentation for the full Integrated Oncology</content>
<content>report (DOS 03/04/2021).</content>
<content>03/05/2021836</content>
<content> Addendum Signed_ELY GLASER MD 03/05/2021836</content>
<content> </content>
<content></content>
<content> </content>
<content>FINAL DIAGNOSIS</content>
<content></content>
<content>Pleural effusion, cell block:</content>
<content>Non-small cell carcinoma, favor adenocarcinoma. -4/TR</content>
<content>See comment.</content>
<content></content>
<content>Comment:</content>
< content>The H&E stained slides show groups of tumor cells with pleomorphic</content>
<content>cells, arranged in a glandular patterns. Immunostains show these tumor</content>
<content>cells are highlighted by Vickey-EP4; they are negative for TTF-1, PAX-8 and</content>
<content>RENETTA-3. Few background mesothelial cells are highlighted by calretinin.</content>
<content>The differential diagnosis for metastatic adenocarcinoma is wide,</content>
<content>however, gynecologic and breast primary are lower on the list. Lung,</content>
<content>gastrointestinal, and pancreatic-biliary primary are not ruled out, and</content>
<content> clinical and radiologic correlation is recommended. Per clinical</content>
<content>history, a lung primary is suspected, and the case will be sent for</content>
<content>molecular testing for non-small cell lung carcinoma; results to follow</content>
<content>in an addendum.</content>
<content>03/01/2021 - 1106</content>
<content></content>
<content>CLINICAL DIAGNOSIS</content>
<content></content>
<content>Pleural effusion</content>
<content>02/25/2021 - 1251</content>
<content></content>
<content>GROSS DIAGNOSIS</content>
<content></content>
<content>Received 1,400 ml of yellow pleural fluid submitted for cell block.</content>
<content>- SV</content>
<content>02/25/2021 - 1251</content>
<content> </content>
<content>Signed ELY HERNÁNDEZ MD 03/01/2021 1107</content>
<content></content> ID Date Data Source [id number] 02/24/2021 03:38:00 PM EDT [facility] ([facility], ) Name Value Range Interpretation Code Description Data Rylie rce(s) Supporting Document(s) Surgical pathology study Laboratory test result [facility] ([facility]) <content>Addendum 1 Entered: 03/05/2021836</content>
<content></content>
<content>The addendum is being issued to report additional molecular testing:</content>
<content>PD-L1 mutation (IHC): No expression (<1%)</content>
<content></content>
<content>Additional molecular testing results are pending and will be reported in</content>
<content>an addendum.</content>
<content>Please see the scanned documentation for the full Integrated Oncology</content>
<content>report (DOS 03/04/2021).</content>
<content>03/05/2021836</content>
<content> Addendum Signed____ ELY HERNÁNDEZ MD 03/05/2021836</content>
<content> </content>
<content></content>
<content> </content>
<content>FINAL DIAGNOSIS</content>
<content></content>
<content>Pleural effusion, cell block:</content>
<content>Non-small cell carcinoma, favor adenocarcinoma. -4/TR</content>
<content>See comment.</content>
<content></content>
<content>Comment:</content>
< content>The H&E stained slides show groups of tumor cells with pleomorphic</content>
<content>cells, arranged in a glandular patterns. Immunostains show these tumor</content>
<content>cells are highlighted by Vickey-EP4; they are negative for TTF-1, PAX-8 and</content>
<content>RENETTA-3. Few background mesothelial cells are highlighted by calretinin.</content>
<content>The differential diagnosis for metastatic adenocarcinoma is wide,</content>
<content>however, gynecologic and breast primary are lower on the list. Lung,</content>
<content>gastrointestinal, and pancreatic-biliary primary are not ruled out, and</content>
<content> clinical and radiologic correlation is recommended. Per clinical</content>
<content>history, a lung primary is suspected, and the case will be sent for</content>
<content>molecular testing for non-small cell lung carcinoma; results to follow</content>
<content>in an addendum.</content>
<content>03/01/2021 - 1106</content>
<content></content>
<content>CLINICAL DIAGNOSIS</content>
<content></content>
<content>Pleural effusion</content>
<content>02/25/2021 - 1250</content>
<content></content>
<content>GROSS DIAGNOSIS</content>
<content></content>
<content>Received 1,400 ml of yellow pleural fluid submitted for cell block.</content>
<content>- SV</content>
<content>02/25/2021 - 1251</content>
<content> </content>
<content>Signed ELY HERNÁNDEZ MD 03/01/2021 1107</content>
<content></content> ID Date Data Source [id number] 02/24/2021 03:02:00 PM ED[address] [facility], [facility] Name Value Range Interpretation Code Description Data Rylie rce(s) Supporting Document(s) Microscopic observation [Identifier] in Unspecified specimen by Non- gynecological cytology method Laboratory test result [facility] ([facility]) SPECIMEN: Pleural fluid 1400 ml yellow SPECIMEN ADEQUACY: Satisfactory for evaluation CATEGORIZATION: Positive for Malignancy DESCRIPTIONS: Specimen consists of abundant clusters of malignant cells in a background of blood elements. COMMENTS: Also see case [id number]. 03/01/2021 - [address] (ASCP) 02/25/2021 0953 (Prelim) Signed ELY HERNÁNDEZ MD 03/01/2021 1108 ID Date Data Source [id number] 02/24/2021 11:05:00 AM EDT [facility] Name Value Range Interpretation Code Description Data Rylie rce(s) Supporting Document(s) SARS coronavirus 2 RNA [Presence] in Res piratory specimen by TAMIKA with probe detection NEGATIVE [facility] This lab was ordered by [facility] a nd reported by [facility]. ID Date Data Source [id number] 02/22/2021 02:20:00 PM EDT [facility] ([facility], ) Name Value Range Interpretation Code Description Data Rylie rce(s) Supporting Document(s) Platelets [#/volume] in Blood by Automated count Laboratory test resu lt [facility] ([facility], ) aPTT in Platelet poor plasma by Coagulation assay Laboratory test res ult [facility] ([facility], ) ID Date Data Source [id number] 02/20/2021 09:10:00 AM EDT [facility] Imaging Services Department Imaging Report [address], [place] [address] %(RAD)RES..mtdd.print.filter("line") Name: GEORGETTE GIL : 1945 Age/Sex: 75F Ordering Provider: Akil Austin Reason, DO Med Rec #: [id number] Reg Status: [facility] REF Room #: Date of Service: 02/17/21 Report Number: [id number] cc:Akil Austin Reason, DO Send Report To: [id number] CT/CT Chest No Contrast Reason for exam: COUGH, SOB FINDINGS: The visualized portion of the thoracic inlet appear unremarkable. No enlarged axillary lymph nodes are identified. There are enlarged mediastinal lymph nodes in the sub carinal region measuring 2.3 cm and in the right peritracheal location measuring 2.6 cm. Calcified hilar lymph nodes are present. Trace pericardial fluid is identified. Postsurgical changes are identified at the stomach. There is suspicion for a gallstone. Remaining portions of the upper abdomen appear unremarkable. Moderate right pleural effusion with compressive atelectasis at the right lung. Multiple nodules are identified in the left lung. The largest is at the lingula measuring 1.8 cm. Second at the lingula measuring 1.5 cm. Multiple smaller nodules are also identified. Osseous structures show degenerative changes. IMPRESSION: Moderate to large right pleural effusion with dense consolidation at the right lower lobe. Concerning for underlying endobronchial lesion. Pulmonary consultation is recommended. A small pericardial effusion is identified and there is mediastinal adenopathy as discussed above. Multiple nodules are identified in the left lung, suspicious f or metastatic disease versus nodular infiltrates. REPORT DICTATED BY TERRI ACEVES, REVIEWED AND SIGNED BY DR. VALERIO While performing the above CT exam, the following dose reduction techniques wereused: *Automated exposure control *Adjustment of the mA and/or kV according to patient size *Use of iterative reconstruction technique CT Dose in mGy: Contrast Agent: Amount in ml: Method of Administration: REPORT SIGNATURE ON FILE Reported By: Terri Valerio MD <Electronically signed by Hernan Valerio MD> 02/22/21912 Dictation Date/Time: 02/19/21925 Transcribed Date/Time: 02/20/21909 Maintenance Inspector: ANURAG Name Value Range Interpretation Code Description Data Rylie rce(s) Supporting Document(s) ID Date Data Source [id number] 02/18/2021 08:05:00 AM EDT [facility] Imaging Services Department Imaging Report [address] [place] [address] %(RAD)RES..mtdd.print.filter("line") Name: GEORGETTE GIL : 1945 Age/Sex: 75F Ordering Provider: Akil Austin Reason, DO Med Rec #: [id number] Reg Status: DEP REF Room #: Date of Service: 02/17/21 Report Number: [id number] cc:Akil Austin Reason, DO Send Report To: [id number] XRP/XR Chest 2 View [Pa & Lat] Reason for exam: COUGH, SOB Comparison is made to 09/29/10. FINDINGS: There is a moderate right pleural effusion, new as compared to the prior study. Fluid occupies approximately two-thirds of the ri ght lung field. There is a nodule identified in the left lung measuring approximately 1.4 cm. ACT scan of the chest is recommended for further evaluation. IMPRESSION: Moderate right side pleural effusion occupying approximately two-thirds of the lung field. New nodule in the left lung measuring 1.[address] scan of the chest is recommended for further evaluation. REPORT DICTATED BY TERRI ACEVES, REVIEWED AND SIGNED BY DR. CRONIN. Time portable performed: Fluoroscopy time in seconds: Number of Exposures: Contrast Agent in ml: Method of Administration: REPORT SIGNATURE ON FILE Reported By: Srikanth Cronin MD <Electronically signed by Srikanth Cronin MD> 02/18/21 1242 Dictation Date/Time: 02/17/21 1107 Transcribed Date/Time: 02/18/21 0805 Maintenance Inspector: PHILZENA Name Value Range Interpretation Code Description Data Rylie rce(s) Supporting Document(s) ID Date Data Source [id number] 02/17/2021 11:50:00 AM EDT [facility] Name Value Range Interpretation Code Description Data Rylie rce(s) Supporting Document(s) Sodium 146 mmol/L 136-145 Above high normal [facility] Potassium 3.5-5.1 Normal (applies to non-numeric resul ts) [facility] Chloride 109 mmol/L 98-107 Above high normal [facility] Carbon Dioxide CO2 21-32 Normal (applies to non-numer ic results) [facility] Anion Gap 5.0-16.0 Normal (applies to non-numeric resul ts) [facility] BUN 15 mg/dL 7-18 Normal (applies to non-numeric results) [facility] Creatinine,Serum 0.7-1.2 Normal (applies to non-numeric results) [facility] GFR >60 Normal (applies to non-numeric results) [facility] Glucose Level 86 mg/dL 60-99 Normal (applies to non-numeric re sults) [facility] Reference range is only applicable when patient is fasting Note the following drug interference: Sulfasalazine Sulfapyridine Can see falsely depressed Can see falsely elevated result with up to 17% results with up to 11% decrease in measurement increase in measurement Recommend patients be collected for this test prior to administration of either drug. Calcium 8.5-10.1 Normal (applies to non-numeric resul ts) [facility] ID Date Data Source [id number] 02/17/2021 11:03:00 AM EDT [facility] Name Value Range Interpretation Code Description Data Rylie rce(s) Supporting Document(s) White Blood Count 3.5-10.5 Normal (applies to non-numeri c results) [facility] Red Blood Count 3.90-5.00 Normal (applies to non-numeric results) [facility] Hemoglobin 12.0-15.5 Below low normal [facility] Hematocrit 34.9-44.5 Normal (applies to non-numeric resul ts) [facility] Mean Corpuscular Volume 81.2-95.1 Normal (applies to non- numeric results) [facility] Mean Corpuscular Hgb 25.6-32.2 Normal (applies to non-num umang results) [facility] Mean Corpuscular Hgb Conc 32.0-36.0 Normal (applies to no n-numeric results) [facility] Red Cell Distribution Width 11.9-15.5 Normal (appli es to non-numeric results) [facility] Platelet Count 323 x10 3/uL 150-450 Normal (applies to non-numeric results) [facility] Mean Platelet Volume 9.4-12.4 Normal (applies to non-num umang results) [facility] Neutrophils% (Auto) 31.0-71.0 Normal (applies to non-nume jose results) [facility] Lymphocytes% (Auto) 20.0-55.0 Normal (applies to non-nume jose results) [facility] Monocytes% (Auto) 4.0-12.0 Normal (applies to non-numeri c results) [facility] Eosinophils% (Auto) 1.0-8.0 Normal (applies to non-nume jose results) [facility] Basophils% (Auto) 0.0-2.0 Normal (applies to non-numeri c results) [facility] Immature Granulocytes% (Auto) 0.0-2.0 Normal (denise lies to non-numeric results) [facility] Neutrophils# (Auto) 1.50-6.20 Normal (applies to non-nume jose results) [facility] Lymphocytes# (Auto) 1.20-4.00 Normal (applies to non-nume jose results) [facility] Monocytes# (Auto) 0.00-0.90 Normal (applies to non-numeri c results) [facility] Eosinophils# (Auto) 0.00-0.50 Above high normal [facility] Basophils# (Auto) 0.00-0.20 Normal (applies to non-numeri c results) [facility] Immature Granulocytes# (Auto) 0.00-7.00 No rmal (applies to non-numeric results) [facility] ID Date Data Source [id number] 11/22/2020 03:52:00 PM EDT [address] [id number] SUMMARYPATIENT NAME: GEORGETTE GIL MR#: [id number] PHYSICIAN: TREMAINE Plata M.D. FISHAUTHOR: Gigi Ortega MD DATE: #: ASURDIS DATE: 11/22/20 : [birth year]Summary of HospitalizationReason for AdmissionSevere osteoarthritis of right knee requiring right total knee replacementarthroplastyHospital Saledb87 yo F who presented to the hospital for definitive treatment of her R kneesevere osteoarthritis. Pt underwent a successful R total knee replacement. Ptwas receiving xarelto 10 mg PO daily for DVT prophylaxis. The pt did notrespond well to the percocet and morphine (as these were too heavy for her andcaused nausea). Pt did respond better to a combination of PO tramadol 50 mg q6hr PRN and IV zofran 4 mg q6 hr PRN. Pt was seen by PT/OT. Discharge wasdelayed due to the pt's nausea. On 11/22/2020 the pt was able to tolerate anoral diet and was also able to ambulate better. On Monday11/22/2020 the pt wasambulated once in the morning and once in the afternoon. During the afternoonwalk the floor nurse reported to me that the pt ambulated 36 feet (which ismore than enough to get her back and forth to the bathroom at home). Pt'ssister (who was at bedside was also in agreement that th e pt was ambulatingbetter today; 11/22/2020). Also of note, this morning when I rounded at [id number] AM, the pt told me that she would like to be discharged home today. As thept has improved function/ability today, the pt will be discharged home withfamily.I personally called the pt's pharmacy and xarelto 10 mg (14 day supply was sentby Dr. Olivera). I sent scripts for tramadol and zofran (as she responded well tothose medications). The hydrocodone (that Dr. Olivera sent to the pharmacy)should only be used as a last resort for uncontrollable pain.Procedures & Relevant StudiesStudiGlenwood City, [place] [id number] CONSULTATIONDate of : 1945 Name: GEORGETTE GIL MMedrec Number: [id number] Phys: TREMAINE OLIVERA M.D.Exam Date: 11/18/2020 Location: 2EASTProcedure: KNEEL, KNEE LIMITED Rad Numb: [id number] \\EXAM# TYPE/EXAM [id number] DX/KNEE LIMITEDDATE OF EXAMINATION: 11/18/2020 9:56 EDTHISTORY: Total knee prosthesisTECHNIQUE: 2 views right knee were obtained.FINDINGS:Total knee prosthesis is in excellent alignment. Postoperative softtissue emphysema and dorsal skin melina are noted.IMPRESSION:Total knee prosthesis.Electronically signed in PS360 by: Salena Truong M.D. 111:59 EDT Reported By: Gena TRUONG M.D.OUR RADIOLOGY DEPARTMENT IS ACCREDITED BY THE [employer] IN THE FOLLOWING MODALITIES:CT, MRI, NUCLEAR MEDICINE, PET/CT,MAMMOGRAPHY/STEREOTACTIC BIOPSY, &a mp; ULTRASOUNDCC: TREMAINE OLIVERA M.D.; REASON,EDWARD L MDProcedure Start: 11/18/20 (1010) Procedure Complete: 11/18/20 (1010)Technologist: Kandy MADDENTranscribed Date/Time: 11/18/2020 (1211)Maintenance Inspector: XPrinted Date/Time: 11/22/2020 (7561)PAGE 1 Signed Report Printed From PCIDiagnoses (Current Visit)Problem List1. Knee joint replacement status2. Hypertension3. Osteoarthritis4. Nausea after anesthesiaDiagnoses (Other)Past Pertinent History1. Knee joint replacement status2. Hypertension3. Osteoarthritis4. Nausea after anesthesiaPatient's Discharge ConditionVital Signs Vital Signs-LastResult Date TimePulse Ox 97 11/22 1401B/P 125/60 11/22 1401Temp 98.7 11/22 1401Pulse 70 11/22 1401Resp 16 11/22 1401O2 Delivery Nasal cannula 11/22 1349O2 Flow Rate 2L 11/22 1349Patient's Discharge ConditionDischarge Date 11/22/20Discharge Conditon fairDischarge DispositionHOME WITH FAMILYPhysical ExaminationGeneral Appearance no acute distress, afebrile, alert, awake, conversantHead atraumatic, normocephalicENT moist mucosal membranesNeck suppleCardiovascular regular rate, normal heart soundsRespiratory clear to auscultation, no distress, aerating well, symmetricexpansionAbdomen soft, non-tenderUrinary no flank painExtremities normal pulses, R knee dressing C/D/IMuscoskeletal limited range of motion RLE due to painNeurological alert, oriented x 3, normal speechPsych/Mental Status mood neutralPatient/Family InstructionsPrescriptionsContinue taking these medications:LEVOTHYROXINE (Synthroid*) 50 MCG [id number] MICROGRAM Orally DAILYAspirin chewable* (Children's Aspirin*) 81 MG TAB.CHEW81 MILLIGRAM Orally DAILYNABUMETONE (NABUMETONE) 500 MG [id number] MILLIGRAM Orally TWICE DAILYComments:CAN TAKE 4/ DAYROSUVASTATIN CALCIUM (CRESTOR) 5 MG TABLET5 MILLIGRAM Orally DAILYAtenolol* (Tenormin*) 50 MG [id number] MILLIGRAM Orally DAILYFERROUS GLUCONATE (FERROUS GLUC) 324 MG TABLET2 MILLIGRAM Orally DAILYCalcium Carbonate/Vitamin D3 (Calcium + Vitamin D Tablet) 1 EACH TABLET2 Orally DAILYCYANOCOBALAMIN (VITAMIN B-12) (Vitamin B-12) 500 MCG [id number] MICROGRAM Orally 3X WEEKMv-Mn/Folic Acid/Calcium/Vit K (Women's 50 Plus Multivit Tab) 1 EACH TABLET2 Orally DAILYGLUCOSAMINE/D3/BOSWELLIA LIA (Osteo Bi-Flex Caplet) 1 EACH TABLET1 TABLET Orally DAILYACETAMINOPHEN/DIPHENHYDRAMINE (Tylenol Pm Ex-Strength Caplet) 1 EACH TABLET2 TABLET Orally EVERY EVENINGStart taking the following new medications:TRAMADOL (Ultram*) 50 MG [id number] MILLIGRAM Orally EVERY 6 HOURS NEEDED not to exceed 4 tabs per dayDays = 5 Qty = 20No RefillsOndansetron HCl (ZOFRAN) 4 MG TABLET4 MILLIGRAM Orally EVERY 6 HOURS NEEDED as needed for NauseaDays = 5 Qty = 20No RefillsDischarge Activity: As to leratedDischarge diet: Low Fat/Low CholesterolFollow-upFollow up with your Primary care physician and orthopedic surgeonReferralsOrdered ReferralsNOR[facility] First availa...[address] [place] [address] -sn TO EVAL AND TREAT-PT FOR STRENGTH AND ENDURANCETime spent by provider to complete discharge > 30 minutesDATE SIGNED: 11/22/20 Electronically SignedTIME SIGNED: 1917 GIGI ORTEGA MD Name Value Range Interpretation Code Description Data Rylie rce(s) Supporting Document(s) ID Date Data Source [id number] 11/22/2020 01:57:00 PM ED[place] [address]PATIENT NAME: GEORGETTE GIL#: [id number] PHYSICIAN: TREMAINE OLIVERAACCOUNT #: [id number] ADM. DATE:PATIENT : 43 DISCH. DATE: [50}DISCHARGE SUMMARYMedical Discharge PlanNicotine Replacement TherapyPrescribed at discharge Rx for med given at LAPersonal Care InstructionsDischarge Activity: As toleratedDischarge diet: Low Fat/Low CholesterolProblem ListMedical ProblemsHyperlipidemia (Chronic)Hypertension (Chronic)Nausea after anesthesia (Acute)Osteoarthritis (Chronic)Surgical ProblemsH/O gastric bypassH/O umbilical hernia repairH/O vaginal hysterectomyKnee joint replacement status (Acute, 11/18/20)Follow Up CareFollow Up:Follow up with your Primary care physician and orthopedic surgeonPriority ItemsUrgent/Important items that need to be addressed at primary care follow-upappointmentPlease take the medicine as prescribed by your orthopedic surgeonDischarge InformationDISCHARGE INFORMATION* Thank you for [facility] and allowing us toserve you* Our Goal is to provide the highest quality of care.* This discharge information is to help you better understand your diagnosisand medication* Avoid taking jphn-cnu-pyuppbq medicines unless approved by your physician.* Take your medications as prescribed. DO NOT stop any medications unlessapproved first* Weigh yourself daily. Report any gain of 5 lbs in a week* 24 Hour Crisis HOTLINE available: Call [employer] at [phone] SMOKING CESSATION* Smoking is dangerous to your health. It delays the healing process, andworks against your medications. Not smoking will improve your health* Our hospital participates with the Opt-to-Quit program. You will be contactedafter discharge by the [facility] Smoker's Quitline for support with tobaccocessation. You have the option once contacted to refuse this service.* You can also go online to www.99Presents.Imgur. Free nicotine replacementsare available ___Attention* You should contact your follow up Physician as it is important that you lethim or her check you and report any new or remaining problems. If yourcondition worsens, follow up with your provider or visit our EmergencyD epartment. If you received pain medication, anxiety medications, musclerelaxants, or any medication that causes drowsiness, you cannot operatemachinery, power tools, or drive.END ENDDICT: 11/22/20 1357 Electronically SignedTRANS:11/22/20 1357 GIGI ORTEGA MDTRANS BY:DATE SIGNED:11/22/20TIME SIGNED: 1358REPORT COPY TO: Name Value Range Interpretation Code Description Data Rylie rce(s) Supporting Document(s) ID Date Data Source [id number] 11/22/2020 04:35:00 AM EDT [facility] Name Value Range Interpretation Code Description Data Rylie rce(s) Supporting Document(s) Glucose [Mass/volume] in Serum or Plasma 94 mg/dL 70-110 [facility] ([facility]) Patients taking Sulfasalazine may have f alsely depressed Glucose levels. Patients taking Sulfapyridine may have falsely elevated Glucose levels. Patients should be drawn for Glucose before the initial administration of either drug. Urea nitrogen [Mass/volume] in Serum or Plasma 12 mg/dL 7-23 [facility] ([facility]) Creatinine [Mass/volume] in Serum or Plasma 0.555 mg/dL 0.500-1.[address] ([facility]) Glomerular filtration rate/1.73 sq M.pre dicted [Volume Rate/Area] in Serum or Plasma by Creatinine-based formula (MDRD) Laboratory test result [facility] ([facility]) Chloride [Moles/volume] in Serum or Plasma 105 mmol/L 99-110 [facility] ([facility]) Bicarbonate [Moles/volume] in Blood 32 mmol/L 20-33 [facility] ([facility]) Sodium [Moles/volume] in Serum or Plasma 142 mmol/L 136-147 [facility] ([facility]) Potassium [Moles/volume] in Serum or Plasma 4.1 mmol/L 3.5-5.1 [facility] Anion gap in Serum or Plasma 9.1 10.0-20.0 [facility] ([facility]) CA 9.5 mg/dL 8.3-10.7 [facility] ([facility] [facility] Alkaline phosphatase [Enzymatic activity/volume] in Serum or Plasma 67 U/L 45-117 [facility] ([facility]) Protein [Mass/volume] in Serum or Plasma 6.0 g/dL 6.0-7.8 [facility] ([facility]) Albumin [Mass/volume] in Serum or Plasma 2.6 g/dL 3.5-5.0 [facility] ([facility]) ESRD Dialysis patient Albumin reference range: 2.9-4.4 g/dL Globulin [Mass/volume] in Serum by calculation 3.4 g/dL 2.3-3.5 [facility] ([facility]) Albumin/Globulin [Mass Ratio] in Serum or Plasma 0.8 1.0-2.5 [facility] ([facility]) Alanine aminotransferase [Enzymatic activity/volume] in Seru m or Plasma 12 U/L 6-54 [facility] ([facility]) Patients taking Sulfasalazine and/or Sul fapyridine may have falsely depressed ALT levels. Patients should be drawn for ALT before the initial administration of either drug. Bilirubin.total [Mass/volume] in Serum or Plasma 0.7 mg/dL 0.1-1.1 [facility] ([facility]) [employer] [facility] [place] Total Bilirubin is n ot recommended for patients undergoing treatment with eltrombopag (Promacta) due to the potential for falsely elevated results. Aspartate aminotransferase [Enzymatic activity/volume] in Serum or Plasma 14 U/L 6-38 [facility] Patients taking Sulfasalazine and/or Sul fapyridine may have falsely depressed AST levels. Patients should be drawn for AST before the initial administration of either drug. ID Date Data Source [id number] 11/22/2020 04:35:00 AM EDT [facility] ([facility]) Name Value Range Interpretation Code Description Data Rylie rce(s) Supporting Document(s) Magnesium [Mass/volume] in Serum or Plasma 2.1 mg/dL 1.6-2.6 [facility] ([facility]) ID Date Data Source [id number] 11/22/2020 04:35:00 AM EDT [facility] ([facility]) Name Value Range Interpretation Code Description Data Rylie rce(s) Supporting Document(s) Leukocytes [#/volume] in Blood by Automated count 10.19 x10E3/uL 4.0- 10.5 [facility] ([facility]) Erythrocytes [#/volume] in Blood by Automated count 2.80 x10E6/uL 4.2 0-5.40 [facility] ([facility]) Hemoglobin [Mass/volume] in Blood 8.7 g/dL 12.0-16.0 [facility] ([facility]) MCV 92.5 fL 81.0-99.0 [facility] ([facility] Hematocrit [Volume Fraction] of Blood by Automated count 25.9 % 3 7.0-47.0 [facility] ([facility]) MCH 31.1 pg 27.0-31.0 [facility] ([facility]) MCHC 33.6 g/dL 32.7-35.6 [facility] ([facility]) MPV 11.1 fl 6.9-9.5 [facility] ([facility]) Platelets [#/volume] in Blood by Automated count 236 x10E3/uL 150-450 [facility] ([facility]) RDW 12.6 % 11.5-14.0 [facility] ([facility]) Neutrophils 66.8 % 34-64 [facility]) Monocytes 8.4 % 1.7-10.6 [facility] ([facility]) Lymphocytes 21.6 % 25-45 [facility] Basophils 0.6 % 0.1-2.0 [facility] ([facility]) Eosinophils 2.2 % 0.4-7.0 [facility]) Imm. Gran. 0.4 % 0.1-2.0 [facility] Abs. Lymph. 2.20 x10E3/uL 1.0-3.5 [facility] ([facility]) Abs. Neutro. 6.81 x10E3/uL 1.2-7.6 [facility] ([facility]) Abs. Woodson. 0.86 x10E3/uL 0.1-1.0 [facility] ([facility]) Abs. Eosin. 0.22 x10E3/uL 0.1-0.7 [facility] ([facility]) Abs. Baso. 0.06 x10E3/uL 0.0-0.1 [facility] ([facility] ) Abs. Imm. Gran. 0.04 x10E3/uL 0.0-0.1 [facility] ([facility]) Laboratory test finding (navigational concept) 0 % [facility] ([facility]) ID Date Data Source [id number] 11/22/2020 05:29:00 AM EDT [facility] Name Value Range Interpretation Code Description Data Rylie rce(s) Supporting Document(s) MAGNESIUM 2.1 mg/dL 1.6-2.6 [facility] ID Date Data Source [id number] 11/22/2020 05:29:00 AM EDT [facility] Name Value Range Interpretation Code Description Data Rylie rce(s) Supporting Document(s) GLU 94 mg/dL 70-110 [facility] Patients taking Sulfasalazine may have f alsely depressedGlucose levels. Patients taking Sulfapyridine may havefalsely elevated Glucose levels. Patients should be drawnfor Glucose before the initial administration of eitherdrug. BUN 12 mg/dL 7-23 [facility] CRE 0.555 mg/dL 0.500-1.300 [facility] GFR > 60 mL/min [facility] CHLORIDE 105 mmol/L 99-110 [facility] NA 142 mmol/L 136-147 [facility] POTASSIUM 4.1 mmol/L 3.5-5.1 [facility] TCO2 32 mmol/L 20-33 [facility] ANION GAP 9.1 10.0-20.0 [facility] CA 9.5 mg/dL 8.3-10.7 [facility] ALKALINE PHOS 67 U/L 45-117 [facility] TP 6.0 g/dL 6.0-7.8 [facility] ALB 2.6 g/dL 3.5-5.0 [facility] ESRD Dialysis patient Albumin reference range: 2.9-4.4 g/dL GL 3.4 g/dL 2.3-3.5 [facility] A/G 0.8 1.0-2.5 [facility] T. BILIRUBIN 0.7 mg/dL 0.1-1.1 [facility] [employer] [facility] [place] Total Bilirubin is n ot recommended forpatients undergoing treatment with eltrombopag (Promacta)due to the potential for falsely elevated results. ALTI 12 U/L 6-54 [facility] Patients taking Sulfasalazine and/or Sul fapyridine may havefalsely depressed ALT levels. Patients should be drawn forALT before the initial administration of either drug. AST 14 U/L 6-38 [facility] Patients taking Sulfasalazine and/or Sul fapyridine may havefalsely depressed AST levels. Patients should be drawn forAST before the initial administration of either drug. ID Date Data Source [id number] 11/22/2020 05:10:00 AM EDT [facility] Name Value Range Interpretation Code Description Data Rylie rce(s) Supporting Document(s) WBC 10.19 x10E3/uL 4.0-10.5 [facility] 2.80 x10E6/uL 4.20-5.40 [facility] Hemoglobin 8.7 g/dL 12.0-16.0 [facility] Hematocrit 25.9 % 37.0-47.0 [facility] MCV 92.5 fL 81.0-99.0 [facility] MCH 31.1 pg 27.0-31.0 [facility] MCHC 33.6 g/dL 32.7-35.6 [facility] RDW 12.6 % 11.5-14.0 [facility] Platelet count 236 x10E3/uL 150-450 [facility] ital MPV 11.1 fl 6.9-9.5 [facility] Neutrophils 66.8 % 34-64 [facility] Lymphocytes 21.6 % 25-45 [facility] Monocytes 8.4 % 1.7-10.6 [facility] Eosinophils 2.2 % 0.4-7.0 [facility] Basophils 0.6 % 0.1-2.0 [facility] Imm. Gran. 0.4 % 0.1-2.0 [facility] Abs. Neutro. 6.81 x10E3/uL 1.2-7.6 [facility] Abs. Lymph. 2.20 x10E3/uL 1.0-3.5 [facility] Abs. [place]. 0.86 x10E3/uL 0.1-1.0 [facility] Abs. Eosin. 0.22 x10E3/uL 0.1-0.7 [facility] Abs. Baso. 0.06 x10E3/uL 0.0-0.1 [facility] Abs. Imm. Gran. 0.04 x10E3/uL 0.0-0.1 N [facility] spital ANRBC% 0 % 0 [facility] ID Date Data Source [id number] 11/21/2020 06:53:00 PM EDT [address] [id number] NOTEPATIENT NAME: GEORGETTE GIL PHYSICIAN: TREMAINE Plata M.D. FISHAUTHOR: Shannon PANTOJA, [facility]. DATE: MR#: [id number] NOTE DATE: 11/21/20 RM#: [id number] TIME: 185 : 44SubjectiveCC/Hx Present IllnessSevere osteoarthritis of right knee requiring right total knee replacementarthroplastyEvents Since Last EntryPt seen and examined at the bedside. Pt is feeling better today, however, sheappears to tolerate the tramadol better than the stronger narcotic medication.Attempt discharge tmr.ObjectiveVital SignsVital Signs-24 HRS11/20143 2210 2343 0130 0255Temp 98.6 98.4 97.9 99.0Pulse 88 83 71 79Resp 18 15 15 13B/P 130/60 116/59 127/59 126/60B/P MeanPulse Ox 96 87 93 95O2 Delivery Nasal cannulaO2 Flow Rate 9ONyU03611/21357 0554 0630 0820 0821Temp 98.3 98.3 98.3 98.3Pulse 82 82 90 78 78Resp 14 15 17 18B/P 125/65 125/65 132/67 125/57 125/57B/P MeanPulse Ox 94 94 95 94O2 DeliveryO2 Flow GxtqTqZ83211/21950 1055 1055 1220 1331Temp 97.0 98.3 98.3 98.3 97.9Pulse 75 69 69 70 72Resp 16 18 18 18 13B/P 119/59 136/69 136/69 143/68 129/58B/P MeanPulse Ox 96 95 95 96 95O2 DeliveryO2 Flow UowqGaG75211/21440 1448 1548 1655Temp 97.9 97.9 97.4 97.4Pulse 66 72 74 81Resp 18 18 20 17B/P 141/58 129/58 119/59 119/59B/P MeanPulse Ox 95 99 96 96O2 Delivery Nasal cannulaO2 Flow Rate 2WTaT4Uwbenz/OutputIntake/Output Summary 24 hours11/20 1900 11/21 0700Intake Total 480 500Output Total 1Balance 479 500Intake, Oral 480 500NumberUnmeasuredEmesesNumber 1UnmeasuredVoidsOutput, Urine 1Current MedicationsDocusate Sodium (Colace) 100 MG BID POHydrocodone Bitart/Acetaminophen (Vicodin 5-300 MG) 1 TAB Q4HPRN PRN POAtenolol (Tenormin) 50 MG DAILY PORivaroxaban (Xarelto) 10 MG 0600 POSodium Chloride (Saline Flush Syr(5ML)) 5 ML Q12H IVAcetaminophen (Tylenol) 650 MG Q4HPRN PRN POAcetaminophen (Tylenol) 650 MG Q4HPRN PRN POOndansetron HCl (Zofran) 4 MG Q6HPRN PRN IVSodium Chloride (Saline Flush Syr(5ML)) 5 ML QIDPRN PRN IVTramadol HCl (Ultram) 50 MG Q6HPRN PRN POExamGeneral Appearance no acute distress, alert, awake, conversantHead atraumatic, normocephalicENT moist mucosal membranesNeck suppleCardiovascular regular rate, normal heart soundsRespiratory clear to auscultation, no distress, aerating well, symmetricexpansionAbdomen soft, non-tenderUrinary no flank painExtremities normal pulses, R knee dressing C/D/IMuscoskeletal limited range of motion RLE due to painNeurological alert, oriented x 3, normal speechPsych/Mental Status mood neutralResultsLaboratory DataRecent Labs-24 hours/[id number] (136 - 147 mmol/L) 143Potassium (3.5 - 5.1 mmol/L) 4.4Chloride (99 - 110 mmol/L) 106Serum Bicarbonate (20 - 33 mmol/L) 31Anion Gap (10.0 - 20.0) 10.4BUN (7 - 23 mg/dL) 11Creatinine (0.500 - 1.300 mg/dL) 0.616Estimated GFR/1.73 m2 (mL/min) > 60Glucose (70 - 110 mg/dL) 95Calcium (8.3 - 10.7 mg/dL) 8.8Total Bilirubin (0.1 - 1.1 mg/dL) 0.6AST (6 - 38 U/L) 14ALT (6 - 54 U/L) 12Alkaline Phosphatase (45 - 117 U/L) 68Total Protein (6.0 - 7.8 g/dL) 5.4 LAlbumin (3.5 - 5.0 g/dL) 2.7 LGlobulin (2.3 - 3.5 g/dL) 2.7Albumin/Globulin Ratio (1.0 - 2.5) 1.0HematologyWBC (4.0 - 10.5 x10E3/uL) 10.37RBC (4.20 - 5.40 x10E6/uL) 2.83 LHgb (12.0 - 16.0 g/dL) 8.7 LHct (37.0 - 47.0 %) 26.6 LMCV (81.0 - 99.0 fL) 94.0MCH (27.0 - 31.0 pg) 30.7MCHC (32.7 - 35.6 g/dL) 32.7RDW (11.5 - 14.0 %) 12.8Plt Count (150 - 450 x10E3/uL) 198MPV (6.9 - 9.5 fl) 11.3 HImmature Gran % (Auto) (0.1 - 2.0 %) 0.6Neut % (Auto) (34 - 64 %) 70.3 HLymph % (Auto) (25 - 45 %) 18.7 LMono % (Auto) (1.7 - 10.6 %) 9.0Eos % (Auto) (0.4 - 7.0 %) 1.0Baso % (Auto) (0.1 - 2.0 %) 0.4Abs Immat Gran (auto) (0.0 - 0.1 x10E3/uL) 0.06Absolute Neuts (auto) (1.2 - 7.6 x10E3/uL) 7.30Absolute Lymphs (auto) (1.0 - 3.5 x10E3/uL) 1.94Absolute Monos (auto) (0.1 - 1.0 x10E3/uL) 0.93Absolute Eos (auto) (0.1 - 0.7 x10E3/uL) 0.10Absolute Basos (auto) (0.0 - 0.1 x10E3/uL) 0.04Nucleated RBC % (auto) (0 %) 0Results Reviewed labs reviewedAssessment/PlanProblem List1. Knee joint replacement statusStatus AcuteOnset Date 11/18/20A&P- Tramadol 50 mg q6 hr PRN- Zofran IV 4 mg q6 hr PRN- Xarelto 10 mg PO daily- Vicodin 5/300 mg 1 tab q4 hr PRN- Colace 100 mg PO bidLaterality: right Qualified Code: Z96.651 - Presence of right artificialknee joint2. HypertensionStatus ChronicA&P- Atenolol 50 mg PO dailyHypertension type: essential hypertension Qualified Code: I10 - Essential(primary) hypertension3. OsteoarthritisStatus ChronicA&P- Management as above4. Nausea after anesthesiaStatus AcuteA&P- Pain medicine as aboveAdditional NotesDVT prophylaxis: Xarleto as aboveResuscitation status Full codeDATE SIGNED: 11/21/20 Electronically SignedTIME SIGNED: 1912 GIGI ORTEGA MD Name Value Range Interpretation Code Description Data Rylie rce(s) Supporting Document(s) ID Date Data Source [id number] 11/21/2020 03:43:00 AM EDT [facility] ([facility] Name Value Range Interpretation Code Description Data Rylie rce(s) Supporting Document(s) Glucose [Mass/volume] in Serum or Plasma 95 mg/dL 70-110 [facility] ([facility] ) Patients taking Sulfasalazine may have f alsely depressed Glucose levels. Patients taking Sulfapyridine may have falsely elevated Glucose levels. Patients should be drawn for Glucose before the initial administration of either drug. Urea nitrogen [Mass/volume] in Serum or Plasma 11 mg/dL 7-23 [facility] ([facility] ) Glomerular filtration rate/1.73 sq M.pre dicted [Volume Rate/Area] in Serum or Plasma by Creatinine-based formula (MDRD) Laboratory test result [facility] ([facility] ) Creatinine [Mass/volume] in Serum or Plasma 0.616 mg/dL 0.500-1.300 [facility] ([facility] ) Chloride [Moles/volume] in Serum or Plasma 106 mmol/L 99-110 [facility] ([facility] ) Sodium [Moles/volume] in Serum or Plasma 143 mmol/L 136-147 [facility] ([facility] ) Potassium [Moles/volume] in Serum or Plasma 4.4 mmol/L 3.5-5.1 [facility] ([facility] ) Bicarbonate [Moles/volume] in Blood 31 mmol/L 20-33 [facility] ([facility] ) Anion gap in Serum or Plasma 10.4 10.0-20.0 [facility] ([facility] ) CA 8.8 mg/dL 8.3-10.7 [facility] Alkaline phosphatase [Enzymatic activity/volume] in Serum or Plasma 68 U/L 45-117 [facility] ([facility] ) Protein [Mass/volume] in Serum or Plasma 5.4 g/dL 6.0-7.8 [facility] ([facility] ) Globulin [Mass/volume] in Serum by calculation 2.7 g/dL 2.3-3.5 [facility] ([facility] ) Albumin [Mass/volume] in Serum or Plasma 2.7 g/dL 3.5-5.0 [facility] ([facility] ) ESRD Dialysis patient Albumin reference range: 2.9-4.4 g/dL Bilirubin.total [Mass/volume] in Serum or Plasma 0.6 mg/dL 0.1-1.1 [facility] ([facility] ) [facility] [place] Total Bilirubin is n ot recommended for patients undergoing treatment with eltrombopag (Promacta) due to the potential for falsely elevated results. Albumin/Globulin [Mass Ratio] in Serum or Plasma 1.0 1.0-2.5 [facility] ([facility] ) Aspartate aminotransferase [Enzymatic activity/volume] in Serum or Plasma 14 U/L 6-38 [facility] ([facility] ) Patients taking Sulfasalazine and/or Sul fapyridine may have falsely depressed AST levels. Patients should be drawn for AST before the initial administration of either drug. Alanine aminotransferase [Enzymatic activity/volume] in Seru m or Plasma 12 U/L 6-54 [facility] ([facility] ) Patients taking Sulfasalazine and/or Sul fapyridine may have falsely depressed ALT levels. Patients should be drawn for ALT before the initial administration of either drug. ID Date Data Source [id number] 11/21/2020 03:43:00 AM EDT [facility] ([facility] ) Name Value Range Interpretation Code Description Data Rylie rce(s) Supporting Document(s) Leukocytes [#/volume] in Blood by Automated count 10.37 x10E3/uL 4.0- 10.5 [facility] ([facility] ) Erythrocytes [#/volume] in Blood by Automated count 2.83 x10E6/uL 4.2 0-5.40 [facility] ([facility] ) Hemoglobin [Mass/volume] in Blood 8.7 g/dL 12.0-16.0 [facility] Hematocrit [Volume Fraction] of Blood by Automated count 26.6 % 3 7.0-47.0 [facility] ([facility] ) MCV 94.0 fL 81.0-99.0 [facility] ([facility] MCH 30.7 pg 27.0-31.0 [facility] ([facility]) MCHC 32.7 g/dL 32.7-35.6 [facility] ([facility]) RDW 12.8 % 11.5-14.0 [facility] ([facility]) MPV 11.3 fl 6.9-9.5 [facility] ([facility]) Platelets [#/volume] in Blood by Automated count 198 x10E3/uL 150-450 [facility] ([facility]) Neutrophils 70.3 % 34-64 [facility] Lymphocytes 18.7 % 25-45 [facility] ([facility]) Monocytes 9.0 % 1.7-10.6 [facility] ([facility]) Basophils 0.4 % 0.1-2.0 [facility] ([facility]) Eosinophils 1.0 % 0.4-7.0 [facility] ([facility]) Abs. Neutro. 7.30 x10E3/uL 1.2-7.6 [facility] ([facility]) Imm. Gran. 0.6 % 0.1-2.0 [facility] ([facility]) Abs. Lymph. 1.94 x10E3/uL 1.0-3.5 [facility] ([facility]) Abs. Woodson. 0.93 x10E3/uL 0.1-1.0 [facility] Abs. Baso. 0.04 x10E3/uL 0.0-0.1 [facility] Abs. Eosin. 0.10 x10E3/uL 0.1-0.7 [facility] ([facility]) Abs. Imm. Gran. 0.06 x10E3/uL 0.0-0.1 [facility] Laboratory test finding (navigational concept) 0 % [facility] ([facility]) ID Date Data Source [id number] 11/21/2020 05:06:00 AM EDT [facility] Name Value Range Interpretation Code Description Data Rylie rce(s) Supporting Document(s) GLU 95 mg/dL 70-110 [facility] Patients taking Sulfasalazine may have f alsely depressedGlucose levels. Patients taking Sulfapyridine may havefalsely elevated Glucose levels. Patients should be drawnfor Glucose before the initial administration of eitherdrug. BUN 11 mg/dL 7-23 [facility] CRE 0.616 mg/dL 0.500-1.300 [facility] GFR > 60 mL/min [facility] CHLORIDE 106 mmol/L 99-110 [facility] NA 143 mmol/L 136-147 [facility] POTASSIUM 4.4 mmol/L 3.5-5.1 [facility] TCO2 31 mmol/L 20-33 [facility] ANION GAP 10.4 10.0-20.0 [facility] CA 8.8 mg/dL 8.3-10.7 [facility] ALKALINE PHOS 68 U/L 45-117 [facility] TP 5.4 g/dL 6.0-7.8 [facility] ALB 2.7 g/dL 3.5-5.0 [facility] ESRD Dialysis patient Albumin reference range: 2.9-4.4 g/dL GL 2.7 g/dL 2.3-3.5 [facility] A/G 1.0 1.0-2.5 [facility] T. BILIRUBIN 0.6 mg/dL 0.1-1.1 [facility] [employer] [facility] [place] Total Bilirubin is n ot recommended forpatients undergoing treatment with eltrombopag (Promacta)due to the potential for falsely elevated results. ALTI 12 U/L 6-54 [facility] Patients taking Sulfasalazine and/or Sul fapyridine may havefalsely depressed ALT levels. Patients should be drawn forALT before the initial administration of either drug. AST 14 U/L 6-38 [facility] Patients taking Sulfasalazine and/or Sul fapyridine may havefalsely depressed AST levels. Patients should be drawn forAST before the initial administration of either drug. ID Date Data Source [id number] 11/21/2020 04:55:00 AM EDT [facility] Name Value Range Interpretation Code Description Data Rylie rce(s) Supporting Document(s) WBC 10.37 x10E3/uL 4.0-10.5 [facility] RBC 2.83 x10E6/uL 4.20-5.40 [facility] Hemoglobin 8.7 g/dL 12.0-16.0 [facility] Hematocrit 26.6 % 37.0-47.0 [facility] MCV 94.0 fL 81.0-99.0 [facility] MCH 30.7 pg 27.0-31.0 [facility] MCHC 32.7 g/dL 32.7-35.6 [facility] RDW 12.8 % 11.5-14.0 [facility] Platelet count 198 x10E3/uL 150-[address] [facility] ital MPV 11.3 fl 6.9-9.5 [facility] Neutrophils 70.3 % 34-64 [facility] Lymphocytes 18.7 % 25-45 [facility] Monocytes 9.0 % 1.7-10.6 [facility] Eosinophils 1.0 % 0.4-7.0 [facility] Basophils 0.4 % 0.1-2.0 [facility] Imm. Gran. 0.6 % 0.1-2.0 [facility] Abs. Neutro. 7.30 x10E3/uL 1.2-7.6 [facility] Abs. Lymph. 1.94 x10E3/uL 1.0-3.5 [facility] Abs. Woodson. 0.93 x10E3/uL 0.1-1.0 [facility] Abs. Eosin. 0.10 x10E3/uL 0.1-0.7 [facility] Abs. Baso. 0.04 x10E3/uL 0.0-0.1 [facility] Abs. Imm. Gran. 0.06 x10E3/uL 0.0-0.1 [facility] spital ANRBC% 0 % 0 [facility] ID Date Data Source [id number] 11/20/2020 03:32:00 PM EDT [facility] [address] [id number] NOTEPATIENT NAME: GEORGETTE GIL PHYSICIAN: TREMAINE Plata M.D. FISHAUTHOR: Julio C Morgan [employer]. DATE: MR#: [id number] NOTE DATE: 11/20/20 RM#: [id number] TIME: 1540 : 44SubjectiveCC/Hx Present IllnessPOD #2 from R TKREvents Since Last EntryContinued/persistent nausea. She was vomiting during the time of myexamination today. Discussed the case with orthopedic surgery, agreed tochange oral analgesic from oxycodone to hydrocodone. Patient receiving IVZofran for nausea and vomiting.Review of SystemsSystems reviewed and negative Constitutional, Integumentary, Eyes, ENT,Respiratory, Cardiovascular, GI, , Musculoskeletal, Derick, Endocrine,Neurology, Psych, Allergy/ImmunologyObjectiveVital SignsVital Signs-24 HRS11/19621 1706 1748 2104 2104Temp 97.9 97.7 97.7 98.5 98.5Pulse 71 73 72 75 75Resp 15 18 13 16 16B/P 115/55 124/51 124/51 121/58 121/58B/P MeanPulse Ox 95 99 96 98 98O2 DeliveryO2 Flow OyqdGsZ92311/19200 2219 2300 0147 0212Temp 98.5 98.5 98.4 98.4Pulse 70 68 71 67Resp 18 14 16 18B/P 119/64 122/57 124/60 124/60B/P MeanPulse Ox 95 95 90 95O2 Delivery Nasal cannula Nasal cannulaO2 Flow Rate 1L 3MEIDUYkR264/11/20603269 4611 0506 0508 0746Temp 98.4 97.9 98.0 98.0Pulse 70 70 68 70 73Resp 16 14 14 16B/P 124/56 119/52 108/48 108/48 106/50B/P MeanPulse Ox 95 95 95 94O2 DeliveryO2 Flow EgfmCcB030/11/20415808 6544 1059 1525Temp 98.0 98.0 97.4 97.9Pulse 72 72 70 74Resp 18 17 16 18B/P 118/45 118/45 96/58 127/52B/P MeanPulse Ox 91 91 93 92O2 DeliveryO2 Flow SoroHmT0Tgnzux/OutputIntake/Output Summary 24 hours11/19 1900 11/20 0700Intake Total 885 450Output TotalBalance 885 450Intake, Oral 880 450Intake, Tube 5IrrigantNumber 2 3UnmeasuredVoidsCurrent MedicationsHydrocodone Bitart/Acetaminophen (Vicodin 5- 300 MG) 1 TAB Q4HPRN PRN POAtenolol (Tenormin) 50 MG DAILY PORivaroxaban (Xarelto) 10 MG 0600 POSodium Chloride (Saline Flush Syr(5ML)) 5 ML Q12H IVAcetaminophen (Tylenol) 650 MG Q4HPRN PRN POAcetaminophen (Tylenol) 650 MG Q4HPRN PRN POOndansetron HCl (Zofran) 4 MG Q6HPRN PRN IVSodium Chloride (Saline Flush Syr(5ML)) 5 ML QIDPRN PRN IVTramadol HCl (Ultram) 50 MG Q6HPRN PRN POExamGeneral Appearance mild distress, observed vomitingHead atraumatic, normocephalicENT moist mucosal membranesEye AssessementR,L,Bilateral bilateralAssessment: EOMINeck no JVD, suppleCardiovascular regular rate, no murmur, no gallop, normal capillary refill,normal heart soundsRespiratory clear to auscultation, no distress, aerating well, symmetricexpansionAbdomen soft, non-tender, no distention, no organomegaly, normal bowel sounds,no guarding, no reboundUrinary no bladder distention, no flank painExtremities normal pulses, R knee dressing C/D/IMuscoskeletal limited range of motion RLE due to painNeurological alert, oriented x 3, normal speechSkin AssessmentSkin dry, intactPsych/Mental Status mood neutralResultsLaboratory DataRecent Labs-24 [id number] (136 - 147 mmol/L) 141Potassium (3.5 - 5.1 mmol/L) 4.3Chloride (99 - 110 mmol/L) 106Serum Bicarbonate (20 - 33 mmol/L) 29Anion Gap (10.0 - 20.0) 10.3BUN (7 - 23 mg/dL) 12Creatinine (0.500 - 1.300 mg/dL) 0.620Estimated GFR/1.73 m2 (mL/min) > 60Glucose (70 - 110 mg/dL) 109Calcium (8.3 - 10.7 mg/dL) 9.0Total Bilirubin (0.1 - 1.1 mg/dL) 0.6AST (6 - 38 U/L) 14ALT (6 - 54 U/L) 13Alkaline Phosphatase (45 - 117 U/L) 65Total Protein (6.0 - 7.8 g/dL) 5.2 LAlbumin (3.5 - 5.0 g/dL) 2.8 LGlobulin (2.3 - 3.5 g/dL) 2.4Albumin/Globulin Ratio (1.0 - 2.5) 1.2Results Reviewed labs reviewedAssessment/PlanProblem List1. Knee joint replacement statusStatus AcuteOnset Date 11/18/20Laterality: right Qualified Code: Z96.651 - Presence of right artificialknee joint2. HypertensionStatus ChronicHypertension type: essential hypertension Qualified Code: I10 - Essential(primary) hypertension3. OsteoarthritisStatus Chronic4. HyperlipidemiaStatus ChronicHyperlipidemia type: unspecified Qualified Code: E78.5 - Hyperlipidemia,unspecified5. Nausea after anesthesiaStatus AcuteA&PSuspect this is related to oral analgesicAgree with switching to [place] from PercocetCould also try a dose of IV TylenolResuscitation status Full codePlan discussed with patientCase discussed with case management director, nursing staff, orthopedicsVTE ProphylaxisVTE Prophylaxis: Continue with XareltoDATE SIGNED: 11/20/20 Electronically SignedTIME SIGNED: 1540 JULIO C MORGAN Name Value Range Interpretation Code Description Data Rylie rce(s) Supporting Document(s) ID Date Data Source [id number] 11/20/2020 11:01:00 AM EDT [facility] [address] PROGRESS NOTEPATIENT NAME: GEORGETTE GIL PHYSICIAN: TREMAINE Plata M.D. FISHAUTHOR: Fer Bobby. DATE: MR#: [id number] NOTE DATE: 11/20/20 RM#: [id number] TIME: 1104 : 44SubjectiveCC/Hx Present IllnessRight knee pain and nauseousnessEvents Since Last EntryPostop day #2 right total knee replacementPatient still having some pain as well as nausea vomiting issues. No chestpain or shortness of breath. She has been requiring more assistance thananticipated with normal transfers and mobility.Review of SystemsConstitutionalReports: Pain. Denies: Fever, Chills.GastrointestinalReports: nausea, vomiting.ObjectiveVital SignsVital Signs-LastResult Date TimePulse Ox 91 11/20 1006B/P 118/45 11/20 1006Temp 98.0 11/20 1006Pulse 72 11/20 1006Resp 17 11/20 1006O2 Delivery Nasal cannula 11/20 0212O2 Flow Rate 1LITER 11/20 0212Current MedicationsHydrocodone Bitart/Acetaminophen (Vicodin 5-300 MG) 1 TAB Q4HPRN PRN PO(UNVr)Atenolol (Tenormin) 50 MG DAILY PORivaroxaban (Xarelto) 10 MG 0600 POSodium Chloride (Saline Flush Syr(5ML)) 5 ML Q12H IVAcetaminophen (Tylenol) 650 MG Q4HPRN PRN POAcetaminophen (Tylenol) 650 MG Q4HPRN PRN POOndansetron HCl (Zofran) 4 MG Q6HPRN PRN IVSodium Chloride (Saline Flush Syr(5ML)) 5 ML QIDPRN PRN IVTramadol HCl (Ultram) 50 MG Q6HPRN PRN POExamGeneral Appearance On examination today, patient is seen sitting at the bedsidewith therapy. She is little slow to progress. Her dressing is dry and intactwith only a spot of bloody drainage of the inferior portion. The dressing waschanged by myself yesterday. She is neurovascular intact distally with a softnontender calf. She can plantarflex and dorsiflex ankle well active range ofmotion of the right knee is quite limited due to stiffness and discomfort. Nobelly pain but complains of nausea no chest pain and breathing nonlabored.ResultsLaboratory DataTest Result Date TimeChemistrySodium (136 - 147 mmol/L) 141 11/20 0432Potassium (3.5 - 5.1 mmol/L) 4.3 11/20 0432Chloride (99 - 110 mmol/L) 106 11/20 0432Serum Bicarbonate (20 - 33 mmol/L) 29 11/20 0432Anion Gap (10.0 - 20.0) 10.3 11/20 0432BUN (7 - 23 mg/dL) 12 11/20 0432Creatinine (0.500 - 1.300 mg/dL) 0.620 11/20 0432Estimated GFR/1.73 m2 (mL/min) > 60 11/20 0432Glucose (70 - 110 mg/dL) 109 11/20 0432Calcium (8.3 - 10.7 mg/dL) 9.0 11/20 0432Total Bilirubin (0.1 - 1.1 mg/dL) 0.6 11/20 0432AST (6 - 38 U/L) 14 11/20 0432ALT (6 - 54 U/L) 13 11/20 0432Alkaline Ph osphatase (45 - 117 U/L) 65 11/20 0432Total Protein (6.0 - 7.8 g/dL) 5.2 L 11/20 0432Albumin (3.5 - 5.0 g/dL) 2.8 L 11/20 0432Globulin (2.3 - 3.5 g/dL) 2.4 11/20 0432Albumin/Globulin Ratio (1.0 - 2.5) 1.2 11/20 0432Assessment/PlanProblem List1. Knee joint replacement statusStatus AcuteOnset Date 11/18/20A&PPostop day #2 right total knee replacementDressing dry and intact. Going to discontinue her Percocet and IV morphine.The patient is having nauseousness and difficulty participating with physicaltherapy although some of it is likely related to discomfort and stiffness someof it may be medication related. Recommended discontinuation of those andtrying just a single tablet of hydrocodone instead. She can also use regularTylenol. We will see how she does mobilizing this afternoon with physicaltherapy and make a disposition plan regarding her discharge at that point intime. I discussed the above with the patient as well as the hospitalistservice managing her care.Laterality: right Qualified Code: Z96.651 - Presence of right artificialknee jointResuscitation status Full codeDATE SIGNED: 11/20/20 Electronically SignedTIME SIGNED: 1104 DIAZ SMITH Name Value Range Interpretation Code Description Data Rylie rce(s) Supporting Document(s) ID Date Data Source [id number] 11/20/2020 04:32:00 AM EDT [facility] ([facility]) Name Value Range Interpretation Code Description Data Rylie rce(s) Supporting Document(s) Urea nitrogen [Mass/volume] in Serum or Plasma 12 mg/dL 7-23 [facility] ([facility]) Glucose [Mass/volume] in Serum or Plasma 109 mg/dL 70-110 [facility] ([facility]) Patients taking Sulfasalazine may have f alsely depressed Glucose levels. Patients taking Sulfapyridine may have falsely elevated Glucose levels. Patients should be drawn for Glucose before the initial administration of either drug. Glomerular filtration rate/1.73 sq M.pre dicted [Volume Rate/Area] in Serum or Plasma by Creatinine-based formula (MDRD) Laboratory test result [facility] ([facility]) Creatinine [Mass/volume] in Serum or Plasma 0.620 mg/dL 0.500-1.300 [facility] ([facility]) Chloride [Moles/volume] in Serum or Plasma 106 mmol/L 99-110 [facility] ([facility]) Sodium [Moles/volume] in Serum or Plasma 141 mmol/L 136-147 [facility] ([facility]) Potassium [Moles/volume] in Serum or Plasma 4.3 mmol/L 3.5-5.1 [facility] ([facility]) Bicarbonate [Moles/volume] in Blood 29 mmol/L 20-33 [facility] ([facility]) Alkaline phosphatase [Enzymatic activity/volume] in Serum or Plasma 65 U/L 45-117 [facility] ) Anion gap in Serum or Plasma 10.3 10.0-20.0 [facility] ([facility] ) CA 9.0 mg/dL 8.3-10.7 [facility] ) Albumin [Mass/volume] in Serum or Plasma 2.8 g/dL 3.5-5.0 [facility] ([facility] ) ESRD Dialysis patient Albumin reference range: 2.9-4.4 g/dL Protein [Mass/volume] in Serum or Plasma 5.2 g/dL 6.0-7.8 [facility] ([facility] ) Bilirubin.total [Mass/volume] in Serum or Plasma 0.6 mg/dL 0.1-1.1 [facility] ([facility] ) [facility] [place] Total Bilirubin is n ot recommended for patients undergoing treatment with eltrombopag (Promacta) due to the potential for falsely elevated results. Globulin [Mass/volume] in Serum by calculation 2.4 g/dL 2.3-3.5 [facility] ([facility] ) Albumin/Globulin [Mass Ratio] in Serum or Plasma 1.2 1.0-2.5 [facility] ([facility] ) Aspartate aminotransferase [Enzymatic activity/volume] in Serum or Plasma 14 U/L 6-38 [facility] Patients taking Sulfasalazine and/or Sul fapyridine may have falsely depressed AST levels. Patients should be drawn for AST before the initial administration of either drug. Alanine aminotransferase [Enzymatic activity/volume] in Seru m or Plasma 13 U/L 6-54 [facility] Patients taking Sulfasalazine and/or Sul fapyridine may have falsely depressed ALT levels. Patients should be drawn for ALT before the initial administration of either drug. ID Date Data Source [id number] 11/20/2020 05:26:00 AM EDT [facility] Name Value Range Interpretation Code Description Data Rylie rce(s) Supporting Document(s) GLU 109 mg/dL 70-110 [facility] Patients taking Sulfasalazine may have f alsely depressedGlucose levels. Patients taking Sulfapyridine may havefalsely elevated Glucose levels. Patients should be drawnfor Glucose before the initial administration of eitherdrug. BUN 12 mg/dL 7-23 [facility] CRE 0.620 mg/dL 0.500-1.300 [facility] GFR > 60 mL/min [facility] CHLORIDE 106 mmol/L 99-110 [facility] NA 141 mmol/L 136-147 [facility] POTASSIUM 4.3 mmol/L 3.5-5.1 [facility] TCO2 29 mmol/L 20-33 [facility] ANION GAP 10.3 10.0-20.0 [facility] CA 9.0 mg/dL 8.3-10.7 [facility] ALKALINE PHOS 65 U/L 45-117 [facility] TP 5.2 g/dL 6.0-7.8 [facility] ALB 2.8 g/dL 3.5-5.0 [facility] ESRD Dialysis patient Albumin reference range: 2.9-4.4 g/dL GL 2.4 g/dL 2.3-3.5 [facility] A/G 1.2 1.0-2.5 [facility] T. BILIRUBIN 0.6 mg/dL 0.1-1.1 [facility] [employer] [facility] [place] Total Bilirubin is n ot recommended forpatients undergoing treatment with eltrombopag (Promacta)due to the potential for falsely elevated results. ALTI 13 U/L 6-54 [facility] Patients taking Sulfasalazine and/or Sul fapyridine may havefalsely depressed ALT levels. Patients should be drawn forALT before the initial administration of either drug. AST 14 U/L 6-38 [facility] Patients taking Sulfasalazine and/or Sul fapyridine may havefalsely depressed AST levels. Patients should be drawn forAST before the initial administration of either drug. ID Date Data Source [id number] 11/19/2020 05:17:00 PM EDT [address] [id number] AND PHYSICALPATIENT NAME: GEORGETTE GIL MR#: [id number] PHYSICIAN: TREMAINE Plata M.D. FISHAUTHOR: Julio C Morgan DATE: 11/18/20 RM#: [id number] & PHYSICAL DATE: 11/19/20 : 44EVALUATION TIME: 1717HistoryChief Complaint/Admit Reasonsevere osteoarthritis of right knee requiring right total knee replacementarthroplastyHistory of Presenting IllnessThis is a 75-year-old female fairly independent with a past medicalhistory of hypertension, hyperlipidemia and osteoarthritis of bilateral knee.Patient presented to [facility] on November 18, 2020 to undergoa right total knee replacement arthroplasty due to severe osteoarthritis.Patient was medically evaluated postoperatively.Patient was scheduled for discharge home today however she had much difficultywith postoperative physical therapy. Her pain was reportedly a 10 out of 10.She reported dizziness and unsteadiness upon going from sitting to standing.She was mildly orthostatic. As such, she will be placed under observationtonight for continued monitoring, pain control, PT, and reevaluation in themorning for possible discharge.Past Medical/Surgical HistoryPast Medical/Surgical HistoryMedical ProblemsHyperlipidemia (Chronic)Hypertension (Chronic)Osteoarthritis (Chronic)Surgical ProblemsH/O gastric bypassH/O umbilical hernia repairH/O vaginal hysterectomyKnee joint replacement status (Acute, 11/18/20)Reconciled Home Med ListSee Reconciled Home Medication ListAllergiesCoded Allergies:No Known Drug Allergies (11/18/20)Family history Mother at age 96Due to complications of CHF. Fatherdeceased at age 93 due to end-stage renal diseaseSocial History no tobacco use, no alcohol use, no recreational drug use,retired, lives with family, marriedReconciled Home Med ListReconcile MedicationsACETAMINOPHEN/DIPHENHYDRAMINE (Tylenol Pm Ex-Strength Caplet) 2 TAB PO QPM (Reported)Aspirin chewable* (Children's Aspirin*) 81 MG PO DAILY (Reported)Atenolol* (Tenormin*) 50 MG PO DAILY (Reported)Calcium Carbonate/Vitamin D3 (Calcium + Vitamin D Tablet) 2 PO DAILY (Reported)CYANOCOBALAMIN (VITAMIN B-12) (Vitamin B-12) 500 MCG PO 3X WEEK (Reported)FERROUS GLUCONATE (FERROUS GLUC) 2 MG PO DAILY (Reported)GLUCOSAMINE/D3/BOSWELLIA LIA (Osteo Bi-Flex Caplet) 1 TAB PO DAILY (Reported)LEVOTHYROXINE (Synthroid*) 50 MCG PO DAILY (Reported)Mv-Mn/Folic Acid/Calcium/Vit K (Women's 50 Plus Multivit Tab) 2 PO DAILY (Reported)NABU METONE 500 MG PO BID (Reported)ROSUVASTATIN CALCIUM (CRESTOR) 5 MG PO DAILY (Reported)Discontinued MedicationsGlucosa Sparrow 2KCL/Chondroitin Sparrow (Glucosamine & Chondroitin Cap) 1 PO (Reported)Discontinued reason: DuplicateReview of SystemsSystems reviewed and negative Constitutional, Integumentary, Eyes, ENT,Respiratory, Cardiovascular, GI, , Musculoskeletal, Derick, Endocrine,Neurology, Psych, Allergy/ImmunologyExamVital SignsVital Signs-24 HRS/11/18117194 4283 0556 0615 0700Temp 98.0 98.0 97.9 98.0Pulse 66 71 64 67Resp 18 14 15 14B/P 114/56 111/59 111/59 104/60B/P MeanPulse Ox 94 92 96 93O2 Delivery Nasal cannula Nasal cannula Nasal cannulaO2 Flow Rate 2L 2L [id number] 5393 1015 1038 1325Temp 97.9 97.9 98.0 97.5Pulse 71 71 67 68 56Resp 14 16 16 16B/P 111/54 111/54 111/54 116/49 104/43B/P MeanPulse Ox 93 94 93 94O2 DeliveryO2 Flow [id number] 1722 1748Temp 97.9 97.7 97.7Pulse 71 73 72Resp 15 18 13B/P 115/55 124/51 124/51B/P MeanPulse Ox 95 99 96O2 DeliveryO2 Flow UvleOlR0Isbbwqgc ExaminationGeneral Appearance no acute distress, alert, awake, conversant, Patient appearsto be in mild discomfort in the knee. She is sitting in her bedside chair.Head atraumatic, normocephalicENT moist mucosal membranesNeck no JVD, suppleCardiovascular regular rate, no murmur, no gallop, normal capillary refill,normal heart soundsRespiratory clear to auscultation, no distress, aerating well, symmetricexpansionAbdomen soft, non-tender, no distention, no organomegaly, normal bowel sounds,no guarding, no reboundUrinary no bladder distention, no flank painExtremities normal pulses, RIGHT KNEE:- dressing d/c/iNeurological alert, oriented x 3, normal speechPsych/Mental Status mood neutralData ReviewLaboratory DataRecent Labs-48 hours/[id number] (136 - 147 mmol/L) 143Potassium (3.5 - 5.1 mmol/L) 4.2Chloride (99 - 110 mmol/L) 108Serum Bicarbonate (20 - 33 mmol/L) 29Anion Gap (10.0 - 20.0) 10.2BUN (7 - 23 mg/dL) 15Creatinine (0.500 - 1.300 mg/dL) 0.850Estimated GFR/1.73 m2 (mL/min) > 60Glucose (70 - 110 mg/dL) 117 HCalcium (8.3 - 10.7 mg/dL) 8.7Total Bilirubin (0.1 - 1.1 mg/dL) 0.5AST (6 - 38 U/L) 14ALT (6 - 54 U/L) 15Alkaline Phosphatase (45 - 117 U/L) 62Total Protein (6.0 - 7.8 g/dL) 5.1 LAlbumin (3.5 - 5.0 g/dL) 2.8 LGlobulin (2.3 - 3.5 g/dL) 2.3Albumin/Globulin Ratio (1.0 - 2.5) 1.1Lkyjsmm9/23/21 Xray: total knee prothesisAssessment/PlanDiagnosis/Problem1. Knee joint replacement statusStatus AcuteOnset Date 11/18/20A&PPostop day 1 from a right TKAPatient's postoperative course complicated by pain, orthostasis, inability toreceive clearance by PT for safe discharge homeShe is also quite nauseated and has no appetiteQualifiersLaterality: right Qualified Code: Z96.651 - Presence of right artificial kneejoint2. HypertensionStatus ChronicA&P-Remained stable. Will re- institute antihypertensive medicationQualifiersHypertension type: essential hy pertension Qualified Code: I10 - Essential (primary) hypertension3. OsteoarthritisStatus Chronic4. HyperlipidemiaStatus ChronicA&PResume home statin upon discharge, okay to hold for the time beingQualifiersHyperlipidemia type: unspecified Qualified Code: E78.5 - Hyperlipidemia,unspecifiedResuscitation status Full codePlan discussed with patientCase discussed with case management director, nursing staffVTE ProphylaxisVTE Prophylaxis: xareltoCQM VTE HISTORYVTE HISTORYPrior VTE? NoDATE SIGNED: 11/19/20 Electronically SignedTIME SIGNED: 1846 JULIO C JANE-C CATHY Name Value Range Interpretation Code Description Data Rylie rce(s) Supporting Document(s) ID Date Data Source [id number] 11/19/2020 09:45:00 AM EDT [address] [address] PROGRESS NOTEPATIENT NAME: GEORGETTE GIL PHYSICIAN: TREMAINE OLIVERAAUTHOR: Vipin Olivera MD. DATE: MR#: [id number] NOTE DATE: 11/19/20 RM#: [id number] TIME: 946 : 44See AddendumSubjectiveEvents Since Last EntrySeen and examined. Overall she is having a moderate amount of pain that isreasonably well controlled with her medication. She also describes somediscomfort from just having to lay in bed. She is neurovascularly intact withher leg lengths appearing symmetric. Her dressing is dry there is no sign ofDVT or calf tenderness or palpable cords.Labs are reviewed and seem to be acceptable.Postoperative x-ray was reviewed yesterday which shows a well-seated prosthesisin good position.The plan will be physical therapy pain control and discharged once she passestherapy.Assessm ent/PlanResuscitation status Full codeADDENDUM: Tremaine Olivera MD on 11/19/20 at 0950Patient may very well past therapy today. She said she was up several timesduring the night.DATE SIGNED: 11/19/20 Electronically SignedTIME SIGNED: 950 TREMAINE OLIVERA Name Value Range Interpretation Code Description Data Rylie rce(s) Supporting Document(s) ID Date Data Source [id number] 11/19/2020 04:25:00 AM EDT [facility] ([facility]) Name Value Range Interpretation Code Description Data Rylie rce(s) Supporting Document(s) Urea nitrogen [Mass/volume] in Serum or Plasma 15 mg/dL 7-23 [facility] ([facility] ) Creatinine [Mass/volume] in Serum or Plasma 0.850 mg/dL 0.500-1.300 [facility] ([facility]) Glucose [Mass/volume] in Serum or Plasma 117 mg/dL 70-110 [facility] ([facility]) Patients taking Sulfasalazine may have f alsely depressed Glucose levels. Patients taking Sulfapyridine may have falsely elevated Glucose levels. Patients should be drawn for Glucose before the initial administration of either drug. Chloride [Moles/volume] in Serum or Plasma 108 mmol/L 99-110 [facility] ([facility]) Glomerular filtration rate/1.73 sq M.pre dicted [Volume Rate/Area] in Serum or Plasma by Creatinine-based formula (MDRD) Laboratory test result [facility] ([facility]) Sodium [Moles/volume] in Serum or Plasma 143 mmol/L 136-147 [facility] ([facility] ) Potassium [Moles/volume] in Serum or Plasma 4.2 mmol/L 3.5-5.1 [facility] ([facility] ) Bicarbonate [Moles/volume] in Blood 29 mmol/L 20-33 [facility] ) CA 8.7 mg/dL 8.3-10.7 [facility] ) Anion gap in Serum or Plasma 10.2 10.0-20.0 [facility] ([facility] ) Alkaline phosphatase [Enzymatic activity/volume] in Serum or Plasma 62 U/L 45-117 [facility] ) Albumin [Mass/volume] in Serum or Plasma 2.8 g/dL 3.5-5.0 [facility] ([facility] ) ESRD Dialysis patient Albumin reference range: 2.9-4.4 g/dL Protein [Mass/volume] in Serum or Plasma 5.1 g/dL 6.0-7.8 [facility] ([facility]) Bilirubin.total [Mass/volume] in Serum or Plasma 0.5 mg/dL 0.1-1.1 [facility] ([facility]) [facility] [place] Total Bilirubin is n ot recommended for patients undergoing treatment with eltrombopag (Promacta) due to the potential for falsely elevated results. Albumin/Globulin [Mass Ratio] in Serum or Plasma 1.2 1.0-2.5 [facility] ([facility]) Globulin [Mass/volume] in Serum by calculation 2.3 g/dL 2.3-3.5 [facility] ([facility]) Aspartate aminotransferase [Enzymatic activity/volume] in Serum or Plasma 14 U/L 6-38 [facility]) Patients taking Sulfasalazine and/or Sul fapyridine may have falsely depressed AST levels. Patients should be drawn for AST before the initial administration of either drug. Alanine aminotransferase [Enzymatic activity/volume] in Seru m or Plasma 15 U/L 6-54 [facility] Patients taking Sulfasalazine and/or Sul fapyridine may have falsely depressed ALT levels. Patients should be drawn for ALT before the initial administration of either drug. ID Date Data Source [id number] 11/19/2020 04:59:00 AM EDT [facility] arianna Name Value Range Interpretation Code Description Data Rylie rce(s) Supporting Document(s) GLU 117 mg/dL 70-110 [facility] Patients taking Sulfasalazine may have f alsely depressedGlucose levels. Patients taking Sulfapyridine may havefalsely elevated Glucose levels. Patients should be drawnfor Glucose before the initial administration of eitherdrug. BUN 15 mg/dL 7-23 [facility] CRE 0.850 mg/dL 0.500-1.300 [facility] GFR > 60 mL/min [facility] CHLORIDE 108 mmol/L 99-110 [facility] NA 143 mmol/L 136-147 [facility] POTASSIUM 4.2 mmol/L 3.5-5.1 [facility] TCO2 29 mmol/L 20-33 [facility] ANION GAP 10.2 10.0-20.0 [facility] CA 8.7 mg/dL 8.3-10.7 [facility] ALKALINE PHOS 62 U/L 45-117 [facility] TP 5.1 g/dL 6.0-7.8 [facility] ALB 2.8 g/dL 3.5-5.0 [facility] ESRD Dialysis patient Albumin reference range: 2.9-4.4 g/dL GL 2.3 g/dL 2.3-3.5 [facility] A/G 1.2 1.0-2.5 [facility] T. BILIRUBIN 0.5 mg/dL 0.1-1.1 [facility] [employer] [facility] [place] Total Bilirubin is n ot recommended forpatients undergoing treatment with eltrombopag (Promacta)due to the potential for falsely elevated results. ALTI 15 U/L 6-54 [facility] Patients taking Sulfasalazine and/or Sul fapyridine may havefalsely depressed ALT levels. Patients should be drawn forALT before the initial administration of either drug. AST 14 U/L 6-38 [facility] Patients taking Sulfasalazine and/or Sul fapyridine may havefalsely depressed AST levels. Patients should be drawn forAST before the initial administration of either drug. ID Date Data Source [id number] 11/18/2020 10:13:00 PM EDT [place] [id number] CONSULT REPORTPATIENT NAME: GEORGETTE GIL MR#: [id number] PHYSICIAN: TREMAINE OLIVERACONSULTING PHYSICIAN: Young Rodrigues MDSSarkis DATE: 11/18/20 #: 2EASTCONSULTING DATE: 11/18/20 : 44EVALUATION TIME: 3HistoryReason for consultmedical management post operativelyRequested byDr. Olivera (orthopedics)Chief Complaint/Admit Reasonsevere osteoarthritis of right knee requiring right total knee replacementarthrop lastyHistory of Presenting IllnessThis is a 75-year-old female fairly independent with a past medicalhistory of hypertension, hyperlipidemia and osteoarthritis of bilateral knee.Patient presented to [facility] on November 18, 2020 to undergoa right total knee replacement arthroplasty due to severe osteoarthritis.Patient was medically evaluated postoperatively. At present time denies anyacute complaints and pain is appropriately managed. Dawkins catheter has beenremoved and has denied any urinary retention or dysuria. She continues to havesensation of her lower extremity and affected postoperative knee remainsimmobilized as per orthopedic surgery. She denies any associated chest pain,palpitations, headaches, dizziness, shortness of breath nausea or vomiting.Last bowel movement was 1 day ago. Continues to have adequate oral intake.Past Medical/Surgical HistoryPast Medical/Surgical HistoryMedical ProblemsHyperlipidemia (Chronic)Hypertension (Chronic)OsteoarthritisSurgical ProblemsH/O gastric bypassH/O umbilical hernia repairH/O vaginal hysterectomyKnee joint replacement status (Acute, 11/18/20)Reconciled Home Med ListAtenolol (Tenormin) 50 MG DAILY PORivaroxaban (Xarelto) 10 MG 0600 POSodium Chloride (Saline Flush Syr(5ML)) 5 ML Q12H IVCefazolin Sodium (Kefzol,Ancef) 2 GM 1600,0000 IVSodium Chloride (Normal Saline) 100 MLAcetaminophen (Tylenol) 650 MG Q4HPRN PRN POAcetaminophen (Tylenol) 650 MG Q4HPRN PRN POMorphine Sulfate (Morphine Sulfate) 2 MG Q2HPRN PRN IVMorphine Sulfate (Morphine Sulfate) 3 MG Q2HPRN PRN IVOndansetron HCl (Zofran) 4 MG Q6HPRN PRN IVOxycodone/Acetaminophen (Percocet) 1 TAB Q6HPRN PRN POOxycodone/Acetaminophen (Percocet) 2 TAB Q6HPRN PRN POSodium Chloride (Saline Flush Syr(5ML)) 5 ML QIDPRN PRN IVTramadol HCl (Ultram) 50 MG Q6HPRN PRN POAllergiesCoded Allergies:No Known Drug Allergies (11/18/20)Family history Mother age 96- complications of CHF. Father deceasedage 93 from endstage CKD on dialysis.Social History no tobacco use, no alcohol use, no recreational drug use,retired, [facility] ([facility]), marriedReview of SystemsConstitutionalDenies: Pain, Fever, Chills, Generalized weakness.SkinDenies: rash, swelling.EyesDenies: visual loss/blurred.ENTDenies: nasal congestion, sore throat, rhinorrhea.RespiratoryDenies: dyspnea, hemoptysis, non-productive cough.CardiovascularDenies: chest pain, dyspnea on exertion, edema, orthopnea, palpitations.GastrointestinalDenies: nausea, vomiting, abdominal pain, diarrhea, constipation.GenitorurinaryDenies: dysuria, flank pain.MusculoskeletalReports: arthritis, extremity swelling (post op right TKR).HematologyDenies: bleeding.EndocrineDenies: diabetic.ExamVital SignsVital Signs-LastResult Date TimeO2 Delivery Nasal cannula 11/18 2225O2 Flow Rate 2L 11/186Pulse Ox 94 11/18 2226B/P 114/56 11/18 222Temp 98.0 11/18 222Pulse 66 11/18 2226Resp 18 11/18 222Physical ExaminationGeneral Appearance no acute distress, alert, awake, conversant, layingcomfortably post operative day 0, in no acute distress. Answering questionsappropriately. Appears stated ageHead atraumatic, normocephalicENT moist mucosal membranesNeck no JVD, suppleCardiovascular regular rate, no murmur, no gallop, normal capillary refill,normal heart soundsRespiratory clear to auscultation, no distress, aerating well, symmetricexpansionAbdomen soft, non-tender, no distention, no organomegaly, normal bowel sounds,no guarding, no reboundUrinary no bladder distention, no flank painExtremities normal pulses, RIGHT KNEE:- dressing d/c/iNeurological alert, oriented x 3, normal speechSkin AssessmentSkin no rash, no gross abnormalitiesPsych/Mental Status mood neutralAssessment/PlanDiagnosis/Problem1. Knee joint replacement statusStatus AcuteOnset Date 11/18/20A&PPOD #0-right total knee arthroplasty-Tolerated procedure appropriately-m defer pain medication, anticoagulation and PT/OT activity level plan anddiet as per orthopedic teamQualifiersLaterality: right Qualified Code: Z96.651 - Presence of right artificial kneejoint2. HypertensionStatus ChronicA&P-Remained stable. Will reinstitute antihypertensive medication-TylenolQualifiersHypertension type: essential hypertension Qualified Code: I10 - Essential (primary) hypertension3. HyperlipidemiaStatus ChronicA&P-Remain on a low-cholesterol diet. Patient is able to reinstitute her statinmedication which is not on formulary in this facility. Patient is awareQualifiersHyperlipidemia type: unspecified Qualified Code: E78.5 - Hyperlipidemia,unspecifiedResuscitation status Full codePlan discussed with patientCase discussed with yard warehouse worker- EmDhirajvance Care Planning* [3 ] minutes of xbll-na-wrge time spent for Advance Care Planning inexplanation/discussion of Advance Directives.* Decisions reached: [FULL CODE ].VTE ProphylaxisVTE Prophylaxis: [Xarelto ].DATE SIGNED: 11/19/20 Electronically SignedTIME SIGNED: 0127 CHAPARRO RODRIGUES MD Name Value Range Interpretation Code Description Data Rylie rce(s) Supporting Document(s) ID Date Data Source [id number] 11/18/2020 12:11:00 PM EDT [facility] Exam Number: [id number] OF EXAMINATIO N: 11/18/2020 9:56 EDTHISTORY: Total knee prosthesisTECHNIQUE: 2 views right knee were obtained.FINDINGS:Total knee prosthesis is in excellent alignment. Postoperative softtissue emphysema and dorsal skin melina are noted.IMPRESSION:Total knee prosthesis.Electronically signed in PS360 by: Salena Truong M.D. 111:59 EDT Reported By: Boni TRUONG M.D. Signed By: Gena TRUONG M.D. Name Value Range Interpretation Code Description Data Rylie rce(s) Supporting Document(s) ID Date Data Source [id number] 11/18/2020 09:58:00 AM EDT [facility] [address] [address]PMOMUNSOO[place] OPERATIVE REPORTPATIENT NAME: GEORGETTE GIL MR#: [id number] PHYSICIAN: TREMAINE KILGORE: Tremaine Olivera MD DATE: RM#: [id number] DATE: PATIENT : 44Operative ReportOperative ReportOPERATION: Right total knee replacement arthroplasty.PREOPERATIVE DIAGNOSIS: Right knee osteoarthritisPOSTOPERATIVE DIAGNOSIS: Same.Surgeon: Dr. Freeman Vinyl Top Installer: Nirmal Prietonesthesia: GeneralEBL: 50PROCEDURE: Patient was seen and examined in the preoperative area. The consentwas reviewed. She was made aware of the risks and nature of the procedure.The risks include bleeding infection damage to nerves vessels persistent painwear or loosening blood clots medical problems among others.Patient was taken to the operating room placed in the supine position afterspinal anesthesia was induced. The right lower extremity was prepped anddraped in usual sterile fashion. A timeout was performed tourniquet wasinflated. A longitudinal incision was made along the anterior aspect of theknee and sharp dissection was carried down through the subcutaneous tissue. Erika performed a medial parapatellar arthrotomy per routine and everted thepatella. A portion of the fat pad was removed and a medial release wasperformed. I then flexed the knee up. The canal initiating reamer was used onthe femoral side followed by the intramedullary guide set at 5 degrees ofvalgus and a 9 mm cut. This was pinned in place and the distal femoral cut wasmade. I then sized the femur to be a 5 and the drill holes were placed in theend of the femur with the external rotation dialed in. The cutting block wassecured which fit nicely. The remaining 4 cuts were made. We then directedour attention to the tibia and the tibial retractors were placed. The tibialalignment guide was then applied with the appropriate amount of valgus andposterior slope. This was pinned in place at 4 mm off the low side. Theproximal tibia cut was made in the usual fashion and the bone was removed. Erika used a wire cutter to remove soft tissue and osteophytes from either side ofthe knee, using an osteotome to remove the osteophytes. I then used spacerblocks to determine the appropriate polyethylene thickness and a 7 polyethylenewas felt to be appropriate. There was excellent alignment and soft tissuebalance. The sulcus cut was made.I then prepared the tibial tray. A size 5 tibial tray was placed and securedto the tibia. I then drilled broached and then placed the trial components.The knee was put through a range of motion and excellent soft tissue balanceand range of motion was noted. There was full e xtension. I then freehand cutthe patella removing about 7 mm of bone. The patella was sized to be 32 mm andthe drill holes were placed in the patella the button secured for trial. I putthe knee through range of motion and the patella was tracking quite nicely. Erika placed the drill holes in the end of the femoral component. I then removethe trial components irrigated copiously as the school psychologist assistant prepared the bonecement on the back table in the modern technique. I then injected a total of40 cc of Exparel Marcaine mixture. Care was taken to aspirate beforeinjecting. I then irrigated and dried the bony surfaces cemented and thecomponents removing excess bone cement. The knee was brought out in extension.Deep irrigation was again performed and the TXA was placed in the deep wound.I then began closing with a strata fix and #1 Vicryl suture. Final deepirrigation was performed in the deep closure was completed. I then irrigatedclosed the subcutaneous tissue with 2-0 Vicryl. The patellar clamp had beenremoved when the cement had hardened. Skin was closed with melina steriledressing was applied, tourniquet deflated. Patient was taken to recovery roomin stable condition there were no known complications. The plan will beroutine postop.The school psychologist assistant was instrumental in holding retractors, mixing the bone cementand assisting in wound closure.Copy to Dr. Tremaine Lopez [facility] Provider REASON,AKIL Gil MDDATE SIGNED: 11/18/20 Electronically SignedTIME SIGNED: Franky OLIVERA Name Value Range Interpretation Code Description Data [facility] Districte(s) Supporting Document(s) ID Date Data Source [id number] 11/13/2020 12:08:00 PM EDT [facility] Exam Number: [id number] OF EXAMINATION : 11/13/2020 10:12 EDTCHEST, TWO VIEWSHISTORY: PreopTECHNIQUE: PA and lateral radiographs of the chestFINDINGS:Calcified granulomas are seen throughout both lungs. Cardiacsilhouette and pulmonary vascularity is within normal limits. Alsoseen are calcified mediastinal hilar lymph nodes. There is nopneumonia or effusion. Heart is normal in size.IMPRESSION:Findings consistent with prior granulomatous disease.Electronically signed in PS360 by: Salena Truong M.D. 111:56 EDT Reported By: Boni TRUONG M.D. Signed By: Gena TRUONG M.D. Name Value Range Interpretation Code Description Data Rylie rce(s) Supporting Document(s) ID Date Data Source [id number] 11/13/2020 11:32:00 AM EDT [facility]) Name Value Range Interpretation Code Description Data Rylie rce(s) Supporting Document(s) Laboratory test finding (navigational concept) Laboratory test result [facility] ([facility]) ID Date Data Source [id number] 11/13/2020 01:56:00 PM EDT [facility] Name Value Range Interpretation Code Description Data Rylie rce(s) Supporting Document(s) BLOOD TYPE AB NEGATIVE [facility] ID Date Data Source [id number] 11/13/2020 11:30:00 AM EDT [facility] ([facility]) Name Value Range Interpretation Code Description Data Rylie rce(s) Supporting Document(s) Blood Type Laboratory test result [facility]) Antibody Screen Laboratory test result [facility]) ID Date Data Source [id number] 11/13/2020 01:56:00 PM EDT [facility] Is patient going to surgery? Y: NHave you ever had a blood transfusion? NHave you had a blood transfusion within the last 3 months? NWhen is the date of your surgery? 11/18/20 Name Value Range Interpretation Code Description Data Rylie rce(s) Supporting Document(s) BLOOD TYPE AB NEGATIVE [facility] ANTIBODY SCREEN NEGATIVE [facility] ID Date Data Source [id number] 11/13/2020 09:30:00 AM EDT [facility] ([facility]) Name Value Range Interpretation Code Description Data Rylie rce(s) Supporting Document(s) Otbjue84 Rheonix Laboratory test result [facility] ([facility]) The Rheonix COVID-19 MDx Assay is an end point RT-PCR assay intended for the qualitative detection of nucleic acid from SARS-CoV-2 virus. Positive results are indicative of the presence of SARS-CoV-2 RNA; clinical correlation with patient history and other diagnostic information is necessary to determine patient infection status. Negative results do not preclude SARS-CoV-2 infection and should not be used as the sole basis for patient management decisions. The Rheonix MDx Assay is only for use under the Food and Drug Administration's Emergency Use Authorization. ID Date Data Source [id number] 11/13/2020 09:30:00 AM EDT [facility] Name Value Range Interpretation Code Description Data Rylie rce(s) Supporting Document(s) LCOVID-19 [facility]HE[facility] ASSAY Negative [facility] This lab was ordered by [facility] and reported by [facility]. ID Date Data Source [id number] 11/14/2020 09:12:00 AM EDT [facility] COMMENTS TO LAB: 44LAB Con't: PREOP TESTINGIs patient suspicious of Covid NShould patient be placed on Covid precautions N Name Value Range Interpretation Code Description Data Rylie rce(s) Supporting Document(s) COVID19 [facility] Negative NEGATIVE [facility] The Rheonix COVID-19 MDx Assay is an end point RT-PCR assayintended for the qualitative detection of nucleic acid [id number] virus. Positive results are indicative of thepresence of SARS-CoV-2 RNA; clinical correlation withpatient history and other diagnostic information isnecessary to determine patient infection status. Negativeresults do not preclude SARS-CoV-2 infection and should notbe used as the sole basis for patient management decisions. The Rheonix MDx Assay is only for use under the Food andDrug Administration's Emergency Use Authorization. ID Date Data Source [id number] 10/27/2020 10:39:00 AM EDT [facility] Name Value Range Interpretation Code Description Data Rylie rce(s) Supporting Document(s) Sodium 146 mmol/L 136-145 Above high normal [facility] Potassium 3.5-5.1 Above high normal [facility] Chloride 109 mmol/L 98-107 Above high normal [facility] Carbon Dioxide CO2 21-32 Normal (applies to non-numer ic results) [facility] Anion Gap 5.0-16.0 Normal (applies to non-numeric resul ts) [facility] BUN 18 mg/dL 7-18 Normal (applies to non-numeric results) [facility] Creatinine,Serum 0.7-1.2 Normal (applies to non-numeric results) [facility] GFR >60 Normal (applies to non-numeric results) [facility] Glucose Level 88 mg/dL 60-99 Normal (applies to non-numeric re sults) [facility] Reference range is only applicable when patient is fasting Note the following drug interference: Sulfasalazine Sulfapyridine Can see falsely depressed Can see falsely elevated result with up to 17% results with up to 11% decrease in measurement increase in measurement Recommend patients be collected for this test prior to administration of either drug. Calcium 8.5-10.1 Normal (applies to non-numeric resul ts) [facility] Bilirubin,Total 0.1-1.9 Normal (applies to non-numeric results) [facility] SGOT(AST) 18 U/L 15-37 Normal (applies to non-numeric resul ts) [facility] Note the following drug interference: Sulfasalazine Sulfapyridine Can see falsely depressed Can see falsely elevated result with up to 10% results with up to 10% decrease in measurement increase in measurement Recommend patients be collected for this test prior to administration of either drug. SGPT(ALT) 24 U/L 12-78 Normal (applies to non-numeric resul ts) [facility] Note the following drug interference: Sulfasalazine Sulfapyridine Can see falsely depressed Can see falsely elevated result with up to 29% results with up to 10% decrease in measurement increase in measurement Recommend patients be collected for this test prior to administration of either drug. Alkaline Phosphatase 79 U/L 38-126 Normal (applies to non-num umang results) [facility] can increase Alkaline Phosp le vels up to 2 times the normal adult value. Normal values for children and adolescents are 2 to 3 times the normal adult value. Total Protein 6.0-8.2 Normal (applies to non-numeric re sults) [facility] Albumin Level 3.4-5.0 Normal (applies to non-numeric re sults) [facility] ID Date Data Source [id number] 10/27/2020 10:24:00 AM EDT [facility] Name Value Range Interpretation Code Description Data Rylie rce(s) Supporting Document(s) Erythrocyte Sedimentation rate 10 mm/hr 0-20 N ormal (applies to non-numeric results) [facility] ID Date Data Source [id number] 10/27/2020 10:24:00 AM EDT [facility] Name Value Range Interpretation Code Description Data Rylie rce(s) Supporting Document(s) White Blood Count 3.5-10.5 Normal (applies to non-numeri c results) [facility] Red Blood Count 3.90-5.00 Normal (applies to non-numeric results) [facility] Hemoglobin 12.0-15.5 Normal (applies to non-numeric resul ts) [facility] Hematocrit 34.9-44.5 Normal (applies to non-numeric resul ts) [facility] Mean Corpuscular Volume 81.2-95.1 Normal (applies to non- numeric results) [facility] Mean Corpuscular Hgb 25.6-32.2 Normal (applies to non-num umang results) [facility] Mean Corpuscular Hgb Conc 32.0-36.0 Normal (applies to no n-numeric results) [facility] Red Cell Distribution Width 11.9-15.5 Normal (appli es to non-numeric results) [facility] Platelet Count 268 x10 3/uL 150-450 Normal (applies to non-numeric results) [facility] Mean Platelet Volume 9.4-12.4 Normal (applies to non-num umang results) [facility] Neutrophils% (Auto) 31.0-71.0 Normal (applies to non-nume jose results) [facility] Lymphocytes% (Auto) 20.0-55.0 Normal (applies to non-nume jose results) [facility] Monocytes% (Auto) 4.0-12.0 Normal (applies to non-numeri c results) [facility] Eosinophils% (Auto) 1.0-8.0 Normal (applies to non-nume jose results) [facility] Basophils% (Auto) 0.0-2.0 Normal (applies to non-numeri c results) [facility] Immature Granulocytes% (Auto) 0.0-2.0 Normal (denise lies to non-numeric results) [facility] Neutrophils# (Auto) 1.50-6.20 Normal (applies to non-nume jose results) [facility] Lymphocytes# (Auto) 1.20-4.00 Normal (applies to non-nume jose results) [facility] Monocytes# (Auto) 0.00-0.90 Normal (applies to non-numeri c results) [facility] Eosinophils# (Auto) 0.00-0.50 Normal (applies to non-nume jose results) [facility] Basophils# (Auto) 0.00-0.20 Normal (applies to non-numeri c results) [facility] Immature Granulocytes# (Auto) 0.00-7.00 No rmal (applies to non-numeric results) [facility] ID Date Data Source [id number] 10/27/2020 10:23:00 AM EDT [facility] Name Value Range Interpretation Code Description Data Rylie rce(s) Supporting Document(s) PT 9.3-11.3 Below low normal [facility] spital INR Normal (applies to non-numeric results) [facility] The use of INR is restricted to patients on stable oral anticoagulant. Therapeutic Range: 2.0 - 3.0 High Risk Range: 2.5 - 3.5 ID Date Data Source [id number] 08/05/2020 04:32:00 PM EST [facility] Name Value Range Interpretation Code Description Data Rylie rce(s) Supporting Document(s) Free Retinol(Vit A) result 32.5-78.0 Normal (applie s to non-numeric results) [facility] ADDITIONAL INFORMATIO N This test was developed and its performance characteristics determined by [facility] in a manner consistent with CLIA requirements. This test has not been cleared or approved by the U.S. Food and Drug Administration. Test Performed by: [facility] [place] [address] Calender Machine Operator: Mitch Dumont M.D. Ph.D.; CLIA# [id number] ID Date Data Source [id number] 08/05/2020 04:32:00 PM [facility] Name Value Range Interpretation Code Description Data Rylie rce(s) Supporting Document(s) Thiamine (Vitamin B1) result 267 nmol/L 70-180 Kristi y abnormal (applies to non- numeric units [facility] ADDITIONAL INFORMATIO N This test was developed and its performance characteristics determined by [facility] in a manner consistent with CLIA requirements. This test has not been cleared or approved by the U.S. Food and Drug Administration. Test Performed by: [facility] [place] [address] Calender Machine Operator: Mitch Dumont M.D. Ph.D.; CLIA# [id number] ID Date Data Source [id number] 08/05/2020 04:28:00 PM [facility] Name Value Range Interpretation Code Description Data Rylie rce(s) Supporting Document(s) Free Retinol(Vit A) result 32.5-78.0 Normal (applie s to non-numeric results) [facility] ADDITIONAL INFORMATIO N This test was developed and its performance characteristics determined by [facility] in a manner consistent with CLIA requirements. This test has not been cleared or approved by the U.S. Food and Drug Administration. Test Performed by: [place] [address] Calender Machine Operator: Mitch Dumont M.D. Ph.D.; CLIA# [id number] ID Date Data Source [id number] 08/05/2020 04:28:00 PM EST [facility] Name Value Range Interpretation Code Description Data [facility] rce(s) Supporting Document(s) Thiamine (Vitamin B1) result 267 nmol/L 70-180 Doyle [facility] ADDITIONAL INFORMATIO N This test was developed and its performance characteristics determined by [facility] in a manner consistent with CLIA requirements. This test has not been cleared or approved by the U.S. Food and Drug Administration. Test Performed by: [facility] [place] [address] Calender Machine Operator: Mitch Dumont M.D. Ph.D.; CLIA# [id number] ID Date Data Source [id number] 07/30/2020 03:07:00 PM [facility] Name Value Range Interpretation Code Description Data [facility] Districte(s) Supporting Document(s) FESAT Iron result 71 ug/dL 37-170 Normal (applies to non-numeri c results) [facility] Test Performed By: [facility] [address] [place] [address] Director: Ruben Cordoba MD FESAT TIBC result 311 ug/dL 265-497 Normal (applies to non-numeri c results) [facility] Test Performed By: [facility] [address] [place] [address] Director: Ruben Cordoba MD FESAT %Iron Saturation result 12.0-55.0 No rmal (applies to non-numeric results) [facility] Test Performed By: [facility] [address] [place] [address] Director: Ruben Cordoba MD ID Date Data Source [id number] 07/30/2020 03:07:00 PM [facility] Name Value Range Interpretation Code Description Data [facility] rce(s) Supporting Document(s) Ferritin result 105 ng/mL 11.1-264.0 Normal (applies to non-numeric results) [facility] Test Performed By: [facility] [address] [place] [address] Director: Ruben Cordoba MD ID Date Data Source [id number] 07/30/2020 03:07:00 PM [facility] Name Value Range Interpretation Code Description Data Rylie rce(s) Supporting Document(s) Vitamin B12 result 193-986 Doyle [facility] Test Performed By: [facility] [address] [place] [address] Director: Ruben Cordoba MD ID Date Data Source [id number] 07/30/2020 03:07:00 PM [facility] Name Value Range Interpretation Code Description Data Rylie rce(s) Supporting Document(s) Folate result 2.76-20.0 Doyle [facility] Test Performed By: [facility] [address] [place] [address] Director: Ruben Cordoba MD ID Date Data Source [id number] 07/30/2020 01:48:00 PM [facility] Value Range Interpretation Code Description Data Rylie rce(s) Supporting Document(s) CPK result 55 U/L 26-192 Normal (applies to non-numeric resul ts) [facility] Test Performed By: [facility] [address] [place] [address] Director: Ruben Cordoba MD ID Date Data Source [id number] 07/30/2020 10:15:00 AM [facility] Value Range Interpretation Code Description Data Rylie rce(s) Supporting Document(s) Vitamin D, Total 30.0-100.0 Normal (applies to non-numeric results) [facility] ID Date Data Source [id number] 07/30/2020 10:09:00 AM [facility] Name Value Range Interpretation Code Description Data Rylie rce(s) Supporting Document(s) Triglycerides 106 mg/dL <150 Normal (applies to non-numeric re sults) [facility] Cholesterol 171 mg/dL 100-200 Normal (applies to non-numeric resu lts) [facility] LDL Cholesterol Calculated 82 0-130 Normal (applies to n on-numeric results) [facility] HDL Cholesterol 68 mg/dL 40-60 Above high normal [facility] Cholesterol/HDL Ratio 3.6-6.7 Below low normal [facility] ID Date Data Source [id number] 07/30/2020 10:09:00 AM EST [facility] Name Value Range Interpretation Code Description Data Rylie rce(s) Supporting Document(s) Sodium 143 mmol/L 136-145 Normal (applies to non-numeric resul ts) [facility] Potassium 3.5-5.1 Normal (applies to non-numeric resul ts) [facility] Chloride 105 mmol/L 98-107 Normal (applies to non-numeric resul ts) [facility] Carbon Dioxide CO2 21-32 Normal (applies to non-numer ic results) [facility] Anion Gap 5.0-16.0 Normal (applies to non-numeric resul ts) [facility] BUN 22 mg/dL 7-18 Above high normal [facility] ospital Creatinine,Serum 0.7-1.2 Normal (applies to non-numeric results) [facility] GFR >60 Normal (applies to non-numeric results) [facility] Glucose Level 92 mg/dL 60-99 Normal (applies to non-numeric re sults) [facility] Reference range is only applicable when patient is fasting Note the following drug interference: Sulfasalazine Sulfapyridine Can see falsely depressed Can see falsely elevated result with up to 17% results with up to 11% decrease in measurement increase in measurement Recommend patients be collected for this test prior to administration of either drug. Calcium 8.5-10.1 Normal (applies to non-numeric resul ts) [facility] Bilirubin,Total 0.1-1.9 Normal (applies to non-numeric results) [facility] SGOT(AST) 19 U/L 15-37 Normal (applies to non-numeric resul ts) [facility] Note the following drug interference: Sulfasalazine Sulfapyridine Can see falsely depressed Can see falsely elevated result with up to 10% results with up to 10% decrease in measurement increase in measurement Recommend patients be collected for this test prior to administration of either drug. SGPT(ALT) 26 U/L 12-78 Normal (applies to non-numeric resul ts) [facility] Note the following drug interference: Sulfasalazine Sulfapyridine Can see falsely depressed Can see falsely elevated result with up to 29% results with up to 10% decrease in measurement increase in measurement Recommend patients be collected for this test prior to administration of either drug. Alkaline Phosphatase 86 U/L 38-126 Normal (applies to non-num umang results) [facility] can increase Alkaline Phosp le vels up to 2 times the normal adult value. Normal values for children and adolescents are 2 to 3 times the normal adult value. Total Protein 6.0-8.2 Normal (applies to non-numeric re sults) [facility] Albumin Level 3.4-5.0 Normal (applies to non-numeric re sults) [facility] ID Date Data Source [id number] 07/30/2020 10:09:00 AM EST [facility] Name Value Range Interpretation Code Description Data Rylie rce(s) Supporting Document(s) Thyroid Stimulate Hormone TSH 0.358-3.74 Above high normal [facility] ID Date Data Source [id number] 07/30/2020 10:09:00 AM [facility] Name Value Range Interpretation Code Description Data Rylie rce(s) Supporting Document(s) Free T4 (Free Thyroxine) 0.76-1.46 Normal (applies to non -numeric results) [facility] ID Date Data Source [id number] 07/30/2020 09:23:00 AM [facility] Name Value Range Interpretation Code Description Data Rylie rce(s) Supporting Document(s) White Blood Count 3.5-10.5 Normal (applies to non-numeri c results) [facility] Red Blood Count 3.90-5.00 Normal (applies to non-numeric results) [facility] Hemoglobin 12.0-15.5 Normal (applies to non-numeric resul ts) [facility] Hematocrit 34.9-44.5 Normal (applies to non-numeric resul ts) [facility] Mean Corpuscular Volume 81.2-95.1 Normal (applies to non- numeric results) [facility] Mean Corpuscular Hgb 25.6-32.2 Normal (applies to non-num umang results) [facility] Mean Corpuscular Hgb Conc 32.0-36.0 Normal (applies to no n-numeric results) [facility] Red Cell Distribution Width 11.9-15.5 Normal (appli es to non-numeric results) [facility] Platelet Count 250 x10 3/uL 150-450 Normal (applies to non-numeric results) [facility] Mean Platelet Volume 9.4-12.4 Normal (applies to non-num umang results) [facility] Neutrophils% (Auto) 31.0-71.0 Normal (applies to non-nume jose results) [facility] Lymphocytes% (Auto) 20.0-55.0 Normal (applies to non-nume jose results) [facility] Monocytes% (Auto) 4.0-12.0 Normal (applies to non-numeri c results) [facility] Eosinophils% (Auto) 1.0-8.0 Normal (applies to non-nume jose results) [facility] Basophils% (Auto) 0.0-2.0 Normal (applies to non-numeri c results) [facility] Immature Granulocytes% (Auto) 0.0-2.0 Normal (denise lies to non-numeric results) [facility] Neutrophils# (Auto) 1.50-6.20 Normal (applies to non-nume jose results) [facility] Lymphocytes# (Auto) 1.20-4.00 Normal (applies to non-nume jose results) [facility] Monocytes# (Auto) 0.00-0.90 Normal (applies to non-numeri c results) [facility] Eosinophils# (Auto) 0.00-0.50 Normal (applies to non-nume jose results) [facility] Basophils# (Auto) 0.00-0.20 Normal (applies to non-numeri c results) [facility] Immature Granulocytes# (Auto) 0.00-7.00 No rmal (applies to non-numeric results) [facility] ID Date Data Source [id number] 07/30/2020 02:35:00 PM EST [facility] Name Value Range Interpretation Code Description Data Rylie rce(s) Supporting Document(s) Iron FE Level 71 ug/dL 37-170 Normal (applies to non-numeric re sults) [facility] [address] [place] [address] Director: Ruben Cordoba MD Total Iron Binding Capacity 311 ug/dL 265-497 Norm al (applies to non-numeric results) [facility] Test Performed By: [facility] [address] [place] [address] Director: Ruben Cordoba MD %Iron Saturation 12.0-55.0 Normal (applies to non-numeric results) [facility] Test Performed By: [facility] [address] [place] [address] Director: Ruben Cordoba MD ID Date Data Source [id number] 07/30/2020 02:35:00 PM EST [facility] Name Value Range Interpretation Code Description Data Rylie rce(s) Supporting Document(s) Ferritin 105 ng/mL 11.1-264.0 Normal (applies to non-numeric resul ts) [facility] Test [facility] [address] [place] [address] Director: Ruben Cordoba MD ID Date Data Source [id number] 07/30/2020 02:35:00 PM EST [facility] Name Value Range Interpretation Code Description Data Rylie rce(s) Supporting Document(s) Vitamin B12 193-986 Above high normal [facility] Test Performed By: [facility] [address] [place] [address] Director: Ruben Cordoba MD ID Date Data Source [id number] 07/30/2020 02:35:00 PM EST [facility] Name Value Range Interpretation Code Description Data Rylie rce(s) Supporting Document(s) Folate 2.76-20.0 Above high normal [facility] Test Performed By: [facility] [address] [place] [address] Director: Ruben Cordoba MD ID Date Data Source [id number] 07/30/2020 01:27:00 PM EST [facility] Name Value Range Interpretation Code Description Data Rylie rce(s) Supporting Document(s) CPK 55 U/L 26-192 Normal (applies to non-numeric resul ts) [facility] Test Performed By: [facility] [address] [place] [address] Director: Ruben Cordoba MD ID Date Data Source [id number] 07/18/2020 11:28:00 AM [facility] Imaging Services Department Imaging Report [address] [place] [address] Name: GEORGETTE GIL : 1945 Age/Sex: 74F Ordering Provider: Akil Ricci, Med Rec #: [id number] Date of Service: 07/17/20 Report Number: [id number] cc: Edward L. Reason, DO Send Report To: [id number] MAMMOSCR/Screening Sarah Beth Silvano w Hever CAD Reason for Exam: SCREENING Patient States Last CBE: OVER 1 YEAR Is this a follow up exam: Follow up to: Patient's Flor Model Lifetime risk of developing breast cancer: 4.3% Examination is compared to 07/15/19 and 07/11/18. Craniocaudad and oblique views of the breasts were obtained and combined with Tomosynthesis views in the same projections. The breasts are composed of scattered fibroglandular densities. There is no dominant mass, suspicious clustered calcification, nor architectural distortion. IMPRESSION: NO MAMMOGRAPHIC EVIDENCE OF MALIGNANCY. YEARLY SCREENING RECOMMENDED. This mammogram was performed digitally and interpreted with the aid of ICAD, an FDA- approved, computer-aided detection system. OVERALL FINAL ASSESSMENT OF BREAST COMPOSITION: BIRADS CLASSIFICATION: B DESCRIPTION: There are scattered areas of fibroglandular density. OVERALL FINAL ASSESSMENT OF FINDINGS: BIRADS CLASSIFICATION: 2 DESCRIPTION: BENIGN. REPORT SIGNATURE ON FILE [id number] Reported By: Terri Valerio MD <Electronically signed by Hernan Valerio MD>07/20/20 0908 Dictation Date/Time: 07/17/20 1248 Transcribed Date/Time: 07/18/20 1128 Maintenance Inspector: ONESIMO Name Value Range Interpretation Code Description Data Rylie rce(s) Supporting Document(s) ID Date Data Source [id number] 05/12/2020 04:32:00 AM EST [facility] Name Value Range Interpretation Code Description Data Rylie rce(s) Supporting Document(s) SARS-CoV-2 TAMIKA result Not Detected Very abnor mal (applies to non-numeric units [facility] This nucleic acid amplification test was developed and its performance characteristics determined by [employer]. Nucleic acid amplification tests include PCR and TMA. This test has not been FDA cleared or approved. This test has been authorized by FDA under an Emergency Use Authorization (EUA). This test is only authorized for the duration of time the declaration that circumstances exist justifying the authorization of the emergency use of in vitro diagnostic tests for detection of SARS-CoV-2 virus and/or diagnosis of COVID-19 infection under section 564(b)(1) of the Act, 21 U.S.C. 360bbb-3(b) (1), unless the authorization is terminated or revoked sooner. When diagnostic testing is negative, the possibility of a false negative result should be considered in the context of a patient's recent exposures and the presence of clinical signs and symptoms consistent with COVID-19. An individual without symptoms of COVID-19 and who is not shedding SARS-CoV-2 virus would expect to have a negative (not detected) result in this assay. Performed at: [facility], [place], [place] [id number] [employer] Machine Operator: Pavithra Pruitt PhD, Phone: [phone] THIS IS A STATE REPORTABLE COMMUNICABLE DISEASE. Results called 04/29/20 174,DR ROSENTHAL read back information to [facility] ID Date Data Source [id number] 04/27/2020 02:10:00 PM EST [facility] Name Value Range Interpretation Code Description Data Rylie rce(s) Supporting Document(s) SARS coronavirus 2 RNA [facility] and reported by [employer]. ID Date Data Source [id number] 04/29/2020 06:22:00 PM [facility] Name Value Range Interpretation Code Description Data Rylie rce(s) Supporting Document(s) COVID-19 Result Not Detected Very abnormal (applies to non -numeric units [facility] Tamia Burroughs RN read back critical inform ation 04/29/20 1821 LAB.[facility] This nucleic acid amplification test was developed and its performance characteristics determined by [employer]. Nucleic acid amplification tests include PCR and TMA. This test has not been FDA cleared or approved. This test has been authorized by FDA under an Emergency Use Authorization (EUA). This test is only authorized for the duration of time the declaration that circumstances exist justifying the authorization of the emergency use of in vitro diagnostic tests for detection of SARS-CoV-2 virus and/or diagnosis of COVID-19 infection under section 564(b)(1) of the Act, 21 U.S.C. 360bbb-3(b) (1), unless the authorization is terminated or revoked sooner. When diagnostic testing is negative, the possibility of a false negative result should be considered in the context of a patient's recent exposures and the presence of clinical signs and symptoms consistent with COVID-19. An individual without sym ptoms of COVID-19 and who is not shedding SARS-CoV-2 virus would expect to have a negative (not detected) result in this assay. Performed at: [facility] [address] [facility], [place], [place] [id number] [employer] Machine Operator: Pavithra Pruitt PhD, Phone: [phone] THIS IS A STATE REPORTABLE COMMUNICABLE DISEASE. Results called 04/29/20 1278,DR ROSENTHAL read back information to [facility] Procedure Social History Code Duration Value Status Description Data Source(s ) Smoking 03/22/2021 12:00:00 AM EDT Patient has never smoked co mpleted Patient has never [facility] Vital Signs ID Date Data Source UNK Name Value Range Interpretation Code Description Data Source(s) Body mass index (BMI) [Ratio] 29.5 kg/m2 29.5 k g/m2 [facility] ([facility]) [place] body weight 105 [lb_av] 105 [lb_av] [facility] ([facility]) Body weight 70.762 kg 70.762 kg [facility] ([facility]) Body surface area Derived from formula 1.70 m2 1.70 m2 [facility] ([facility]) Systolic blood pressure 132 mm[Hg] 132 mm[Hg] [facility] ([facility]) Diastolic blood pressure 72 mm[Hg] 72 mm[Hg] [facility] ([facility]) Heart rate 94 /min 94 /min [facility] ([facility]) Oxygen saturation in Arterial blood by Pulse oximetry 92 % 92 % [facility] ([facility]) Room Air Body height 61 [in_i] 61 [in_i] [facility] ([facility]) 5'1" Body weight 156.00 [lb_av] 156.00 [lb_av] [facility] ([facility]) Systolic blood pressure 102 mm[Hg] 102 mm[Hg] [facility] ([facility]) Diastolic blood pressure 70 mm[Hg] 70 mm[Hg] [facility] ([facility]) [place] body weight 105 [lb_av] 105 [lb_av] [facility] ([facility]) Body weight 74.390 kg 74.390 kg [facility] ([facility]) Heart rate 86 /min 86 /min [facility] ([facility]) Oxygen saturation in Arterial blood by Pulse oximetry 92 % 92 % [facility] ([facility]) Room Air Body height 61 [in_i] 61 [in_i] [facility] ([facility]) 5'1" Body weight 164.00 [lb_av] 164.00 [lb_av] [facility] ([facility]) Body mass index (BMI) [Ratio] 31.0 kg/m2 31.0 k g/m2 [facility] ([facility]) Body surface area Derived from formula 1.74 m2 1.74 m2 [facility] ([facility]) Oxygen saturation in Arterial blood by Pulse oximetry 92 % 92 % [facility] ([facility]) Room Air Diastolic blood pressure 74 mm[Hg] 74 mm[Hg] [facility] ([facility]) Heart rate 80 /min 80 /min [facility] ([facility]) Body height 61 [in_i] 61 [in_i] [facility] ([facility]) 5'1" Systolic blood pressure 124 mm[Hg] 124 mm[Hg] [facility] ([facility]) Body weight 173.00 [lb_av] 173.00 [lb_av] [facility] ([facility]) Body mass index (BMI) [Ratio] 32.7 kg/m2 32.7 k g/m2 [facility] ([facility]) [place] body weight 105 [lb_av] 105 [lb_av] [facility] ([facility]) Body weight 78.473 kg 78.473 kg [facility] ([facility]) Body surface area Derived from formula 1.78 m2 1.78 m2 [facility] ([facility]) Body temperature 97.5 [degF] 97.5 [degF] [facility] ([facility]) Diastolic blood pressure 80 mm[Hg] 80 mm[Hg] [facility] ([facility]) Heart rate 39 /min 39 /min [facility] ([facility]) Body temperature 97.5 [degF] 97.5 [degF] [facility] ([facility]) Body height 59.50 [in_i] 59.50 [in_i] [facility] ([facility]) 4'11.50" Body weight 170.00 [lb_av] 170.00 [lb_av] [facility] ([facility]) Body mass index (BMI) [Ratio] 33.8 kg/m2 33.8 k g/m2 [facility] ([facility]) Systolic blood pressure 120 mm[Hg] 120 mm[Hg] [facility] ([facility]) Respiratory rate 14 /min 14 /min [facility] ( [facility]) ID Date Data Source [id number] 12/04/2020 10:57:00 AM EDT [facility] Name Value Range Interpretation Code Description Data Source(s) WEIGHT 80.45 kilos 80.45 kilos [facility] HEIGHT 151.13 centimeters 151.13 centimeter [facility]
--- NOTE | 2021-03-26 11:11 | REP ---
INDICATION: DYSPNEA/COUGH COMPARISON: 03/22/2021. TECHNIQUE: PA/Lateral FINDINGS: Loculated right pleural fluid and right lung consolidation appears stable. Left lung nodules are again noted unchanged. The visualized heart and mediastinum are unchanged. Right chest tube is unchanged. IMPRESSION: Stable right-sided loculated pleural fluid and consolidation. Stable left lung nodules. Right chest tube unchanged in position. <Electronically signed by Palomo Guerra > 03/26/21 1104
[2021-03-26] MEDS ORDERED: BISACODYL 10 MG SUPP PR PRN (11:20)
[2021-03-26] MEDS ORDERED: ACETAMINOPHEN TAB 650MG DOSE (2X325MG) PO PRN (11:20)
[2021-03-26] MEDS ORDERED: ONDANSETRON 4MG/2ML VIAL IV PRN (11:20)
[2021-03-26] MEDS ORDERED: LEVALBUTEROL 1.25 MG/0.5 ML CONCENTRATE NEB NEB PRN (11:20)
[2021-03-26] MEDS ORDERED: ALTEPLASE 2MG/2ML VIAL XX ONE (11:25)
--- OUTSIDE RECORDS SUMMARY | 2021-03-26 11:34 | CCD ---
Author Author [facility] Organization [facility] Address Unknown Phone Unavailable Care Team Providers Care Roundsman Name Role Phone Fish, B Tremaine PANTOJA Unavailable Unavailable Fish, B Tremaine PANTOJA Unavailable Unavailable Fish, B Tremaine PANTOJA Unavailable Unavailable Fish, B Tremaine PANTOJA Unavailable Unavailable Fish, B Tremaine PANTOJA Unavailable Unavailable Fish, B Tremaine PANTOJA Unavailable Unavailable Fish, B Tremaine PANTOJA Unavailable Unavailable Fish, B Tremaine PANTOJA Unavailable Unavailable Fish, B Tremaine APNTOJA Unavailable Unavailable Fish, B Tremaine PANTOJA Unavailable [...] Fish, B Tremaine PANTOJA Unavailable Unavailable Fish, [facility], PA-C Unavailable Unavailabl e Fish, [facility], PA-C Unavailable Unavailabl e Fish, [facility], PA-C Unavailable Unavailabl e Fish, [facility], PA-C Unavailable Unavailabl e Fish, [facility], PA-C Unavailable Unavailabl e Fish, [facility], PA-C Unavailable Unavailabl e Fish, [facility], PA-C Unavailable Unavailabl e Fish, [facility], PA-C Unavailable Unavailabl e Fish, [facility], PA-C Unavailable Unavailabl e Fish, [facility], PA-C Unavailable Unavailabl e Fish, [facility], PA-C Unavailable Unavailabl e Fish, [facility], PA-C Unavailable Unavailabl e Fish, [facility], PA-C Unavailable Unavailabl e Fish, [facility], PA-C Unavailable Unavailabl e Fish, [facility], PA-C Unavailable Unavailabl e Fish, [facility], PA-C Unavailable Unavailabl e Fish, [facility], PA-C Unavailable Unavailabl e Fish, Pattie Stephenie MPAS, PA-C Unavailable Unavailabl e Fish, [facility], PA-C Unavailable Unavailabl e Fish, [facility], PA-C Unavailable Unavailabl e Fish, [facility], PA-C Unavailable Unavailabl e Fish, [facility], PA-C Unavailable Unavailabl e Fish, [facility], PA-C Unavailable Unavailabl e Fish, [facility], PA-C Unavailable Unavailabl e Fish, [facility], PA-C Unavailable Unavailabl e Fish, [facility], PA-C Unavailable Unavailabl e Fish, [facility], PA-C Unavailable Unavailabl e Fish, [facility], PA-C Unavailable Unavailabl e Fish, [facility], PA-C Unavailable Unavailabl e Fish, [facility], PA-C Unavailable Unavailabl e Fish, [facility], PA-C Unavailable Unavailabl e Fish, [facility], PA-C Unavailable Unavailabl e Fish, [facility], PA-C Unavailable Unavailabl e Fish, [facility], PA-C Unavailable Unavailabl e Fish, [facility], PA-C Unavailable Unavailabl e Fish, [facility], PA-C Unavailable Unavailabl e Hadian, Mario Unavailable [...] Mario Unavailable Unavailable Cathy, B Julio C HOOP BENDING MACHINE OPERATOR Unavailable Unavailable Cathy, B Julio C HOOP BENDING MACHINE OPERATOR Unavailable Unavailable Cathy, B Julio C HOOP BENDING MACHINE OPERATOR Unavailable Unavailable Cathy, B Julio C HOOP BENDING MACHINE OPERATOR Unavailable Unavailable Cathy, B Julio C HOOP BENDING MACHINE OPERATOR Unavailable Unavailable Cathy, B Julio C HOOP BENDING MACHINE OPERATOR Unavailable Unavailable Cathy, B Julio C HOOP BENDING MACHINE OPERATOR Unavailable Unavailable Cathy, B Julio C HOOP BENDING MACHINE OPERATOR Unavailable Unavailable Cathy, B Julio C HOOP BENDING MACHINE OPERATOR Unavailable Unavailable Cathy, B Julio C HOOP BENDING MACHINE OPERATOR Unavailable Unavailable Guzman, M Barratt PA Unavailable Unavailable Guzamn, M Barratt PA Unavailable Unavailable Guzman, M [...] MORENO MD Unavailable Unavailable [facility]_991, NA Unavailable [phone] UNKNOWN Unavailable Unavailable REASON, L EDWARD DO [...] is protected by Article 27-F of the [facility] Public Health law. If you continue you may have access to information: Regarding HIV / AIDS; Provided by facilities licensed or operated by the [facility] Office of Mental Health; or Provided by the [facility] Office for People With Developmental Disabilities. If such information is present, then the following [facility] mandated warning applies: This information has been [...] law may result in a fine or senior care sentence or both. A general authorization for the release of medical or other information is NOT sufficient authorization for further disc losure. Allergies and Adverse Reactions Type Description Substance Reaction Status Data Source(s ) Drug allergy No Known Drug Allergies No Known Drug Allergies [facility] Drug allergy No Known Allergies No Known Allergies [facility] Encounters Encounter Providers Location Date Indications Data Source(s ) Outpatient Attender: ERASTO Ponce/Breanne/Horace/ Rigoberto 03/22/2021 01:00:00 PM EDT [facility] ([facility] Outpatient Attender: ERASTO Ponce/Breanne/Horace/ Reindl 03/08/2021 03:15:00 PM EDT [facility] ([facility]) Outpatient Admitter: EDWARD RADHAMES DOReferrer: AKIL TARIQ Kennedy HOLMAN 03/03/2021 12:00:00 AM EDT Malignant neoplasm of unspecified part o f unspecified bronchus or lung [facility] Malignant neoplasm of unspecified part o f unspecified bronchus or lung Outpatient Attender: ERASTO Ponce/Breanne/Horace/ Reindl 02/22/2021 01:15:00 PM EDT [facility] ([facility]) Outpatient Attender: AKIL RICCI DO ED-LAB 02/17 10:24:00 AM EDT - 02/17/2021 10:25:00 AM EDT I10 R06.02 R05 [facility] I10 R06.02 R05 Patient discharged. Office Visit Attender: Tremaine Olivera MD Physical Therapy 2020 01:00:00 PM EDT [facility] ([facility]) Office Visit Attender: NA [facility]_991 Physical Therapy 021 03:00:00 PM EDT [facility] ([facility]) Office Visit Attender: Tremaine Olivera MD Physical Therapy 2020 11:00:00 AM EDT [facility] ([facility]) Inpatient Attender: Tremaine Olivera MDAdmitter: Julio C Morgan NP ER-2EAST 11/18/2020 06:14:00 AM EDT - 11/22/2020 02:32:[address] [facility] Patient discharged. Office Visit Attender: Rhoda PERALES Physical Therapy 09:30:00 AM EDT [facility] ([facility]) Outpatient Attender: Tremaine Olivera MD ER-OPS 11/13/2020 09:30:[address] [facility] Outpatient Attender: rTemaine Olivera MD ER-LAB 11/13/2020 04:33:[address] [facility] Outpatient Attender: AKIL RICCI DO ED-LAB 10/27 09:01:00 AM EDT - 10/27/2020 09:02:00 AM EDT PRE OP [facility] PRE OP Patient discharged. Office Visit Attender: Rhoda PERALES Physical Therapy 10:15:00 AM EDT [facility] ([facility]) Office Visit Attender: Rhoda PERALES Physical Therapy 09:00:00 AM EDT [facility] ([facility]) Outpatient Attender: Rhoda PERALES Physical Therapy 10:15:00 AM EDT [facility] ([facility]) Outpatient Attender: Tremaine Olivera MD Physical Therapy 08/07/2020 1 2:15:00 PM EST [facility] ([facility]) Outpatient Attender: CAROL CPSMARGARETLABEJN 07/30/2020 09:41:00 AM E [facility] Outpatient Attender: EDWARD REASON DO ED-LAB 07/30 09:00:00 AM EST - 07/30/2020 09:01:00 AM EST E039 K912 [id number] E785 E559 Z9884 Z130 [facility] E039 K912 [id number] E785 E559 Z9884 Z130 Patient discharged. Outpatient Attender: Stephenie LUNA PA-C Physical Therapy 07/27/2020 02:00:00 PM EST [facility] ([facility]) Outpatient Attender: EDWARD REASON DO ED-IMAG 07/17 10:41:00 AM EST - 07/17/2020 10:42:00 AM EST SCREENING MAMMO [facility] SCREENING MAMMO Patient discharged. [facility]2020 08:07:00 PM [facility] Outpatient Attender: Mario Gomes ED-LABPNP 02:50:00 PM EST - 04/27/2020 02:51:00 PM EST POS EXPOSURE [facility] POS EXPOSURE Patient discharged. Immunizations Vaccine Date Status Description Data Source(s) Moderna Covid-19 vaccine, mRNA, LNP-S, PF, 100 mcg/ 0. 5 mL 07/10/2020 12:15:00 PM EST completed [facility] ([facility], ) COVID-19 VACCINE Moderna 07/10/2020 12:00:00 AM EST completed [facility] Vaccine Series Complete: YESThis Data wa s Submitted to [facility] [employer]. COVID-19 VACCINE, MRNA-1273, LNP-S (MODERNA)/PF 07/10/2020 1 2:00:00 AM EST completed [facility] Moderna Covid-19 vaccine, mRNA, LNP-S, PF, 100 mcg/ 0. 5 mL 06/12/2020 12:15:00 PM EST completed [facility] ([facility], ) COVID-19 VACCINE, MRNA-1273, LNP-S (MODERNA)/PF 06/12/2020 1 2:00:00 AM EST completed [facility] COVID-19 VACCINE Moderna 06/12/2020 12:00:00 AM EST completed [facility] Vaccine Series Complete: NOThis Data was Submitted to [facility] [employer]. Medications Medication Brand Name Start Date Product [...] 03/22/2021 12:00:00 AM EDT ORAL active [facility] ([facility], ) Ondansetron 4 MG Oral Tablet [Zofran] Zofran 03/22/2021 12:00:00 AM EDT ORAL active [facility] ([facility], ) 50 mg 03/09/2021 12:00:00 AM EDT [...] 11/26/2020 12:00:00 AM EDT active [facility] ([facility]) 50 mg 11/22/2020 12:00:00 [...] EIGHT TABLETS SOLD: 11/20/2020 [facility] Nystatin 658847 UNT/ML / Triamcinolone A cetonide 1 MG/ML Topical Cream 100,000- 0.1 unit/g-% NYSTATIN/TRIAMCIN 11/16/2020 12:00:00 AM EDT cream 30 APPLY TO AFFECTED AREA(S) TWO TIMES A DAY APPLY TO AFFECTED AREA(S) TWO TIMES A DAY SOLD: 11/17/2020 [facility] Nystatin 518008 UNT/ML / Triamcinolone Acetonide 1 MG/ ML Topical Cream Nystatin-Triamcinolone 11/16/2020 12:00:00 AM EDT active [facility] ([facility]) 2 % 11/12/2020 12:00:00 [...] MOUTH FOUR TIMES A DAY SOLD: 10/29/2020 [facility] Betamethasone 0.5 MG/ML / Clotrimazole [...] 10/27/2020 12:00:00 AM EDT ORAL active [facility] ([facility]) Betamethasone 0.5 MG/ML / [...] type / Coverage type Policy ID Covered democrat ID Covered democrat's relationship to ramirez Policy Ramirez Plan Information MEDICARE A [id number] Self [id number] EXCELLUS H [id number] Self [id number] [place] 306/806 [id number] SP [id number] [place] 306/806 [id number] SP [id number] MEDICARE [id number] S [id number] [place] [id number] S [id number] BLUE CROSS [id number] S [id number] MCRB [id number] S [id number] [id number] MEDICARE [id number] S [id number] MEDICARE [id number] S [id number] [id number] [place] [id number] S [id number] [place] [id number] S [id number] MEDICARE -O/P [id number] 18 [id number] RESOLVE -O/P [id number] 18 [id number] A BCBS [place] PPO 302/307 [id number] SP [id number] MEDICARE [id number] SP [id number] Problems, Conditions, and Diagnoses Code Display Name Description Problem Type Effective Dates Data Source(s) C34.90 Malignant neoplasm of unspecified part o f unspecified bronchus or lung Malignant neoplasm of unspecified part of unspecified bronchus or lung Diagnosis 03/03/2021 08:16:00 AM [facility] I10 Essential (primary) hypertension ESSENTIAL (PRIMARY) H YPERTENSION Diagnosis 02/17/2021 10:24:00 AM T [facility] Z98.84 Bariatric surgery status BARIATRIC SURGERY STATUS Diag nosis 11/19/2020 05:16:[address] [facility] E78.5 Hyperlipidemia, unspecified HYPERLIPIDEMIA, UNSPECIFIE D Diagnosis 11/19/2020 05:16:[address] [facility] I10 Essential (primary) hypertension ESSENTIAL (PRIMARY) H YPERTENSION Diagnosis 11/19/2020 05:16:[address] [facility] R26.81 Unsteadiness on feet UNSTEADINESS ON FEET Diagnosis 11/19/2020 05:16:00 PM [facility] R42 Dizziness and giddiness DIZZINESS AND GIDDINESS Diagno sis 11/19/2020 05:16:[address] [facility] G89.18 Other acute postprocedural pain OTHER ACUTE POST PROCEDURAL PAIN Diagnosis 11/19/2020 05:16:[address] [facility] T41.205A Adverse effect of unspecified general an esthetics, initial encounter ADVERSE EFFECT OF UNSP GENERAL ANESTHETICS, INIT E Diagnosis 05:16:[address] [facility] R11.0 Nausea NAUSEA Diagnosis 11/19/2020 05:16:00 PM ED [facility] E78.00 PURE HYPERCHOLESTEROLEMIA, UNSPECIFIED P URE HYPERCHOLESTEROLEMIA, UNSPECIFIED Diagnosis 11/19/2020 05:16:00 PM EDT [facility] J84.10 Pulmonary fibrosis, unspecified PULMONARY FIBROS IS, UNSPECIFIED Diagnosis 11/13/2020 10:56:00 AM [facility] M17.11 Unilateral primary osteoarthritis, right knee UNILATERAL PRIMARY OSTEOARTHRITIS, RIGHT KNEE Diagnosis 11/13/2020 10:56:00 AM [facility] M17.0 Bilateral primary osteoarthritis of knee BILATERAL PRIMARY OSTEOARTHRITIS OF KNEE Diagnosis 11/13/2020 10:56:00 AM T [facility] Z01.818 Encounter for other preprocedural examin ation ENCOUNTER FOR OTHER PREPROCEDURAL EXAMINATION Diagnosis 11/13/2020 10:56:00 AM [facility] Z20.822 CONTACT WITH AND (SUSPECTED) EXPOSURE TO COVID-19 CONTACT WITH AND (SUSPECTED) EXPOSURE TO COVID-19 Diagnosis 11/13/2020 04:33:00 AM [facility] Z01.812 Encounter for preprocedural laboratory e xamination ENCOUNTER FOR PREPROCEDURAL LABORATORY EXAMINATION Diagnosis 11/13/2020 04:33:00 AM [facility] Z01.810 Encounter for preprocedural cardiovascul ar examination ENCOUNTER FOR PREPROCEDURAL CARDIOVASCULAR EXAMINATION Diagnosis 10/27/2020 09:01:00 AM [facility] 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, 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 [...] OUTPATIENT VISIT 25 MINUTES 03/22/2021 12:00:00 AM [facility] ([facility], ) OFFICE OUTPATIENT VISIT 40 MINUTES 03/08/2021 12:00:00 AM EDT [facility] ([facility]) Thoracentesis W/ Img Guidance 02/24/2021 12:00:00 AM E DT [facility] ([facility]) OFFICE OUTPATIENT NEW 45 MINUTES 02/22/2021 12:00:00 A M EDT [facility] ([facility] ) RADIOLOGIC EXAMINATION KNEE 3 VIEWS 12/25/2020 12:00:0 0 AM EDT [facility] ([facility]) ARTHRP KNE CONDYLE&PLATU MEDIAL&LAT CMPRTS 11/18/2020 12:00:00 AM EDT [facility] ([facility]) Replacement of Right Knee Joint with Syn thetic Substitute, Cemented, Open Approach 11/18/2020 12:00:00 AM EDT [facility] ARTHROCENTESIS ASPIR&/INJECTION MAJOR JT/BURSA 021 12:00:00 AM EDT [facility] ([facility]) ARTHROCENTESIS ASPIR&/INJECTION MAJOR JT/BURSA 021 12:00:00 AM EDT [facility] ([facility]) ARTHROCENTESIS ASPIR&/INJECTION MAJOR JT/BURSA 021 12:00:00 AM EDT [facility] ([facility]) OFFICE OUTPATIENT VISIT 25 MINUTES 09/17/2020 12:00:00 AM EDT [facility] ([facility]) ARTHROCENTESIS ASPIR&/INJECTION MAJOR JT/BURSA 021 12:00:00 AM EST [facility] ([facility]) OFFICE OUTPATIENT VISIT 40 MINUTES 08/07/2020 12:00:00 AM EST [facility] ([facility]) OFFICE OUTPATIENT VISIT 40 MINUTES 07/27/2020 12:00:00 AM EST [facility] ([facility]) 15858 SARS-COV-2 COVID-19 AMP PRB 04/27/2020 12:00:00 AM [facility] Results ID Date Data Source [id number] 03/08/2021 03:48:00 PM EDT [facility] Name Value Range Interpretation Code Description Data Rylie rce(s) Supporting Document(s) SARS coronavirus 2 RNA [Presence] in Res piratory specimen by TAMIKA with probe detection NEGATIVE [facility] This lab was ordered by [facility] a nd reported by [facility]. ID Date Data Source [id number] 03/18/2021 01:55:00 PM [facility] Anatomic Molecular Pathology ReportName: GEORGETTE GILMRN: [id number] Number: [id number] Date: 03/03/2021 00:00Received Date: 03/03/2021 09:52Physician(s): REASON,AKIL Gil,DO HERNÁNDEZ,ELY G,MDSpecimen(s) ReceivedA: Pleural effusion, Formalin Block, [id number], [facility],ALK by FISHDiagnosisTEST:ALK gene rearrangements by FISH (Fluorescence [...] Prieto M.D. Attending Pathologist 03/18/2021 13:55:55Reported at [facility] Clinical Pathology [id number] [place] [address]. Gross DescriptionMETHODOLOGY:Interphase FISH is performed on paraffin embedded NSCLC utilizing theTrustAlert Molecular ALK Break Apart FISH Probe Kit. [...] the special procedure laboratory of Department of Pathology,[facility]. This report may include one or more immunohistochemical stain results thatuse analyte specific reagents. All positive and negative controls havebeen reviewed by the attending pathologist and are satisfactory. The testswere developed and their performance characteristics determined by [facility] Pathology department. They have not been cleared or approved by the USFood and Drug Administration. The FDA has determined that such clearanceor approval is not necessary. Name Value Range Interpretation Code Description Data Rylie rce(s) Supporting Document(s) ID Date Data Source [id number] 03/11/2021 09:02:00 PM [facility] Anatomic Molecular Pathology ReportName: GEORGETTE GILMRN: [id number] Number: [id number] Date: 03/03/2021 00:00Received Date: 03/03/2021 09:57Physician(s): AKIL RICCI,ELY PENALOZA,MDSpecimen(s) ReceivedA: Pleural effusion, Formalin Block, [id number], [facility],ROS1 by FISHDiagnosisTEST:ROS1 gene rearrangements by FISH (Fluorescence [...] Prieto M.D. Attending Pathologist 03/11/2021 21:02:35Reported at [facility] Pathology [address] [place] [address]. Gross DescriptionMETHODOLOGY:Interphase FISH is performed on paraffin embedded NSCLC utilizing thecombined Rivera Molecular LSI ROS1(Megan) and ROS1(Tel) ROS1 Probes: 1)3'-ROS1(Megan), 557 kb, labeled with SpectrumGreen, and 2) 5'-ROS1(Tel),317kb, labeled with SpectrumOrange. Tumor cells with no NNL2okqgroawlkvnlp have 2 yellow signals (fused orange and [...] and its performance characteristics weredetermined by the [facility],and it has been authorized for clinical use by [facility]. The test has not been cleared or approved by the U.S. Food andDrug Administration. The analyte specific reagents used in this assay donot require FDA approval. REFERENCES: 1. EUSEBIA Andres, Tiffanie AT, Thejamie MF et al. Identifying and Targeting DLU2Qlkj Fusions in NonSmall Cell Lung Cancer. Clin Cancer Res 2012; 18(17);31025067.2. Xavier, Baldemar AT. Novel Targets in Non-Small Cell Lung Cancer:ROS-1 and RET fusions. The Oncologist. 2013;18:865-875.This report may include one or more im munohistochemical stain results thatuse analyte specific reagents. All positive and negative controls havebeen reviewed by the attending pathologist and are satisfactory. The testswere developed and their performance characteristics determined by [facility] Pathology department. They have not been cleared or approved by the USFood and Drug Administration. The FDA has determined that such clearanceor approval is not necessary. Name Value Range Interpretation Code Description Data Rylie rce(s) Supporting Document(s) ID Date Data Source [id number] 03/10/2021 10:06:00 PM [facility] Anatomic Molecular Pathology ReportName: GEORGETTE GILMRN: [id number] Number: [id number] Date: 03/03/2021 00:00Received Date: 03/03/2021 10:21Physician(s): RADHAMES,AKIL Gil,DO HERNÁNDEZ,ELY Brock,MDSpecimen(s) ReceivedA: Pleural effusion, Formalin Block, [id number], [facility],BRAF Mutation AnalysisDiagnosisTESTS:BRAF V600E mutation (1799 T>A) at [...] Prieto M.D. Attending Pathologist 03/10/2021 22:06:13Reported at [facility] Clinical Pathology [address] [place] [address]. Gross DescriptionMETHODOLO GY:BRAF V600E(1799 T>A) mutation at [...] theamounts of PCR products, and analyzed by ImplisitGene Q real timeinstrument. The analytical sensitivity (or minimum percentage of mutantDNA needed) is approximately 10% given sufficient DNA input. Test development and its performance characteristics were determined bythe [facility], and has beenauthorized for clinical use by [facility]. Thetest has not been cleared or approved by the U.S. Food and DrugAdministration. The analyte specific reagents used in this assay do notrequire FDA approval. REFERENCES: 1. Dwain S, Leno Leger, et al. Detection of BRAF N267Wvbdajeha in colorectal cancer-comparison of automatic sequencing and realtime chemistry methodology. J Mol Diagn. 2006; 8:662626.2. Asim L, Christina LI, Tyler N, et al. BRAF mutation analysis in fineneedle aspiration (FNA) cytology of the thyroid. Diagn Mol Pathol.2006;15:734416.3. Rodrigo PK, Darshana ME, Katelin M, et al. Clinical characteristics ofpatients with lung adenocarcinomas harboring BRAF mutations. J Clin Oncol.2011;29:3018-5854.This report may include one or more immunohistochemical stain results thatuse analyte specific reagents. All positive and negative controls havebeen reviewed by the attending pathologist and are satisfactory. The testswere developed and their performance characteristics determined by [facility] Pathology department. They have not been cleared or approved by the USFood and Drug Administration. The FDA has determined that such clearanceor approval is not necessary. Name Value Range Interpretation Code Description Data Rylie rce(s) Supporting Document(s) ID Date Data Source [id number] 03/09/2021 04:16:00 PM [facility] Anatomic Molecular Pathology ReportName: GEORGETTE GILMRN: [id number] Number: [id number] Date: 03/03/2021 00:00Received Date: 03/03/2021 10:01Physician(s): REASON,EDWARD L,DO HERNÁNDEZ,ELY Brock,MDSpecimen(s) ReceivedA: Pleural effusion, Formalin Block, [id number], [facility],EGFRDiagnosisTEST: EGFR gene mutations (exon 19 deletions, L858R, [...] indicated. Presence of exon 19 deletions, exon 31X373C or L861Q, exon 18 G719A or exon [...] Prieto M.D. Attending Pathologist 03/09/2021 16:16:55Reported at [facility] Clinical Pathology [id number] [place] [address]. Gross DescriptionMETHODOLOGY:The therascreen EGFR RGQ PCR Kit (QIAGEN, [place], [place]) is a real-timequalitative PCR assay used on the [employer] instrument for thedetection of seven types of [...] factor receptormutations in lung cancer. Nature Review/Cancer. 2007;1884-9213.This report may include one or more immunohistochemical stain results thatuse analyte specific reagents. All positive and negative controls havebeen reviewed by the attending pathologist and are satisfactory. The testswere developed and their performance characteristics determined by [facility] Pathology department. They have not been cleared or approved by the USFood and Drug Administration. The FDA has dete rmined that such clearanceor approval is not necessary. Name Value Range Interpretation Code Description Data Rylie rce(s) Supporting Document(s) ID Date Data Source [id number] 02/24/2021 03:38:00 PM EDT [facility] ([facility], ) Name Value Range Interpretation Code Description Data [facility] rce(s) Supporting Document(s) Surgical pathology study Laboratory test result [facility] ([facility], ) <content>Addendum 2 Entered: 03/19/2021 6619</content>
<content></content>
<content>The addendum is being issued to report additional molecular testing:</content>
<content>ALK gene mutation (FISH): POSITIVE</content>
<content>EGFR mutations (PCR): Negative</content>
<content>ROS1 gene mutation (FISH): Negative</content>
<content>[id number] mutation (PCR): Negative</content>
<content></content>
<content>Please see the scanned documentation for the full molecular diagnostics</content>
<content>reports from [facility].</content>
<content>03/19/2021827</content>
<content>Addendum Signed_ELY GLASER MD 03/19/2021827</content>
<content> </content>
<content>Addendum 1 Entered: [...] to follow</content>
<content>in an addendum.</content>
<content>03/01/2021 - 1107</content>
<content></content>
<content>CLINICAL DIAGNOSIS</content>
<content></content>
<content>Pleural effusion</content>
<content>02/25/2021 - 1251</content>
<content></content>
<content>GROSS DIAGNOSIS</content>
<content></content>
<content>Received 1,400 ml of yellow pleural fluid submitted for cell block.</content>
<content>- SV</content>
<content>02/25/2021 - 1251</content>
<content> </content>
<content>Signed ELY HERNÁNDEZ MD 03/01/2021 1107</content>
<content></content> ID Date Data Source [id number] 02/24/2021 03:38:00 PM EDT [facility] ([facility], ) Name Value Range Interpretation Code Description Data Rylie rce(s) Supporting Document(s) Surgical pathology study Laboratory test result [facility] ([facility]) <content>Addendum 1 Entered: 03/05/2021836</content>
<content></content>
<content>The addendum [...] 03/01/2021 1107</content>
<content></content> ID Date Data Source [id number] 02/24/2021 03:02:00 PM EDT [facility] ([facility], ) Name Value Range Interpretation Code Description Data Rylie rce(s) Supporting Document(s) Microscopic observation [Identifier] in Unspecified specimen by Non- gynecological cytology method Laboratory test result [facility] ([facility]) SPECIMEN: Pleural fluid 1400 ml yellow SPECIMEN ADEQUACY: Satisfactory for evaluation CATEGORIZATION: Positive for Malignancy DESCRIPTIONS: Specimen consists of abundant clusters of malignant cells in a background of blood elements. COMMENTS: Also see case [id number]. 03/01/2021 - [address] (ASCP) 02/25/2021 0953 (Prelim) Signed ELY HERNÁNDEZ MD 03/01/2021 1108 ID Date Data Source [id number] 02/24/2021 11:05:00 AM EDT [facility] Name Value Range Interpretation Code Description Data Rylie rce(s) Supporting Document(s) SARS coronavirus 2 RNA [Presence] in Res piratory specimen by TAMIKA with probe detection NEGATIVE [facility] This lab was ordered by [facility] a nd reported by [facility]. ID Date Data Source [id number] 02/22/2021 02:20:00 PM EDT [facility] ([facility], ) Name Value Range Interpretation Code Description Data Rylie rce(s) Supporting Document(s) Platelets [#/volume] in Blood by Automated count Laboratory test resu lt [facility] ([facility], ) aPTT in Platelet poor plasma by Coagulation assay Laboratory test res ult [facility] ([facility], ) ID Date Data Source [id number] 02/20/2021 09:10:00 AM T [facility] Imaging Services Department Imaging Report [address], [place] [address] %(RAD)RES..mtdd.print.filter("line") Name: GEORGETTE GIL : 1945 Age/Sex: 75F Ordering Provider: Akil Austin Reason, DO Med Rec #: [id number] Reg Status: [facility] REF Room #: Date of Service: 02/17/21 Report Number: [id number] cc:Akil Austin Reason, DO Send Report To: [id number] CT/CT Chest No Contrast Reason for exam: [...] 02/22/21912 Dictation Date/Time: 02/19/21925 Transcribed Date/Time: 02/20/21909 Asphalt Raker: ANURAG Name Value Range Interpretation Code Description Data Rylie rce(s) Supporting Document(s) ID Date Data Source [id number] 02/18/2021 08:05:00 AM EDT [facility] Imaging Services Department Imaging Report [address] [address] %(RAD)RES..mtdd.print.filter("line") Name: GEORGETTE GIL : 1945 Age/Sex: 75F Ordering Provider: Akil Austin Reason, DO Med Rec #: [id number] Reg Status: [facility] REF Room #: Date of Service: 02/17/21 Report Number: [id number] cc:Akil Austin Reason, DO Send Report To: [id number] XRP/XR Chest 2 View [Pa & Lat] [...] Date/Time: 02/17/21 1107 Transcribed Date/Time: 02/18/21 0805 Asphalt Raker: NORA Name Value Range Interpretation Code Description Data [facility] rce(s) Supporting Document(s) ID Date Data Source [id number] 02/17/2021 11:50:00 AM EDT [facility] Name Value Range Interpretation Code Description Data Rylie rce(s) Supporting Document(s) Sodium 146 mmol/L 136-145 Above high normal [facility] Potassium 3.5-5.1 Normal (applies to non-numeric resul ts) [facility] Chloride 109 mmol/L 98-107 Above high normal [facility] Carbon Dioxide CO2 21-32 Normal (applies to non-numer ic results) [facility] Anion Gap 5.0-16.0 Normal (applies to non-numeric resul ts) [facility] BUN 15 mg/dL 7-18 Normal (applies to non-numeric results) [facility] Creatinine,Serum 0.7-1.2 Normal (applies to non-numeric results) [facility] GFR >60 Normal (applies to non-numeric results) [facility] Glucose Level 86 mg/dL 60-99 Normal (applies to non-numeric re sults) [facility] Reference range is only applicable when patient is fasting Note the following drug interference: Sulfasalazine Sulfapyridine Can see falsely depressed Can see falsely elevated result with up to 17% results with up to 11% decrease in measurement increase in measurement Recommend patients be collected for this test prior to administration of either drug. Calcium 8.5-10.1 Normal (applies to non-numeric resul ts) [facility] ID Date Data Source [id number] 02/17/2021 11:03:00 AM EDT [facility] Name Value Range Interpretation Code Description Data Rylie rce(s) Supporting Document(s) White Blood Count 3.5-10.5 Normal (applies to non-numeri c results) [facility] Red Blood Count 3.90-5.00 Normal (applies to non-numeric results) [facility] Hemoglobin 12.0-15.5 Below low normal [facility] ospital Hematocrit 34.9-44.5 Normal (applies to non-numeric resul ts) [facility] Mean Corpuscular Volume 81.2-95.1 Normal (applies to non- numeric results) [facility] Mean Corpuscular Hgb 25.6-32.2 Normal (applies to non-num umang results) [facility] Mean Corpuscular Hgb Conc 32.0-36.0 Normal (applies to no n-numeric results) [facility] Red Cell Distribution Width 11.9-15.5 Normal (appli es to non-numeric results) [facility] Platelet Count 323 x10 3/uL 150-450 Normal (applies to non-numeric results) [facility] Mean Platelet Volume 9.4-12.4 Normal (applies to non-num umang results) [facility] Neutrophils% (Auto) 31.0-71.0 Normal (applies to non-nume jose results) [facility] Lymphocytes% (Auto) 20.0-55.0 Normal (applies to non-nume jose results) [facility] Monocytes% (Auto) 4.0-12.0 Normal (applies to non-numeri c results) [facility] Eosinophils% (Auto) 1.0-8.0 Normal (applies to non-nume jose results) [facility] Basophils% (Auto) 0.0-2.0 Normal (applies to non-numeri c results) [facility] Immature Granulocytes% (Auto) 0.0-2.0 Normal (denise lies to non-numeric results) [facility] Neutrophils# (Auto) 1.50-6.20 Normal (applies to non-nume jose results) [facility] Lymphocytes# (Auto) 1.20-4.00 Normal (applies to non-nume jose results) [facility] Monocytes# (Auto) 0.00-0.90 Normal (applies to non-numeri c results) [facility] Eosinophils# (Auto) 0.00-0.50 Above high normal [facility] Basophils# (Auto) 0.00-0.20 Normal (applies to non-numeri c results) [facility] Immature Granulocytes# (Auto) 0.00-7.00 No rmal (applies to non-numeric results) [facility] ID Date Data Source [id number] 11/22/2020 03:52:00 PM EDT [address] [id number] SUMMARYPATIENT NAME: GEORGETTE GIL MR#: [id number] PHYSICIAN: TREMAINE Plata M.D. FISHAUTHOR: Gigi Ortega MD DATE: #: ASURDIS DATE: 11/22/20 : 44Summary of HospitalizationReason for AdmissionSevere osteoarthritis of right knee requiring right total knee replacementarthroplastyHospital Srynpw52 yo F who presented to the hospital [...] note, this morning when I rounded at btrubl264 AM, the pt told me that she [...] last resort for uncontrollable pain.Procedures & Relevant StudiesStudiGilberton, [place] [address]XKOVXSIARZ CONSULTATIONDate of : 1945 Name: GEORGETTE GIL MMedrec Number: [id number] Phys: TREMAINE OLIVERA M.D.Exam Date: 11/18/2020 Location: 2EASTProcedure: KNEEL, KNEE LIMITED Rad Numb: [id number] \\EXAM# TYPE/EXAM [id number] DX/KNEE LIMITEDDATE OF EXAMINATION: 11/18/2020 9:56 EDTHISTORY: Total knee prosthesisTECHNIQUE: 2 views right knee were obtained.FINDINGS:Total knee prosthesis is in excellent alignment. Postoperative softtissue emphysema and dorsal skin melina are noted.IMPRESSION:Total knee prosthesis.Electronically signed in PS360 by: Salena Truong M.D. 111:59 EDT Reported By: Gena TRUONG M.D.OUR RADIOLOGY DEPARTMENT IS ACCREDITED BY THE [employer] IN THE FOLLOWING MODALITIES:CT, MRI, NUCLEAR MEDICINE, PET/CT,MAMMOGRAPHY/STEREOTACTIC BIOPSY, &a mp; ULTRASOUNDCC: TREMAINE OLIVERA M.D.; AKIL RICCI L MDProcedure Start: 11/18/20 (1010) Procedure Complete: 11/18/20 (1010)Technologist: Kandy MADDENTranscribed Date/Time: 11/18/2020 (1211)Asphalt Raker: XPrinted Date/Time: 11/22/2020 (8010)PAGE 1 Signed Report Printed From PCIDiagnoses (Current [...] InstructionsPrescriptionsContinue taking these medications:LEVOTHYROXINE (Synthroid*) 50 MCG [id number] MICROGRAM Orally DAILYAspirin chewable* (Children's Aspirin*) 81 MG TAB.CHEW81 MILLIGRAM Orally DAILYNABUMETONE (NABUMETONE) 500 MG [id number] MILLIGRAM Orally TWICE DAILYComments:CAN TAKE 4/ DAYROSUVASTATIN CALCIUM (CRESTOR) 5 MG TABLET5 MILLIGRAM Orally DAILYAtenolol* (Tenormin*) 50 MG GMOILY93 MILLIGRAM Orally DAILYFERROUS GLUCONATE (FERROUS GLUC) 324 MG TABLET2 MILLIGRAM Orally DAILYCalcium Carbonate/Vitamin D3 (Calcium + Vitamin D Tablet) 1 EACH TABLET2 Orally DAILYCYANOCOBALAMIN (VITAMIN B-12) (Vitamin B-12) 500 MCG [id number] MICROGRAM Orally 3X WEEKMv-Mn/Folic Acid/Calcium/Vit K (Women's 50 Plus Multivit Tab) 1 EACH TABLET2 Orally DAILYGLUCOSAMINE/D3/BOSWELLIA LIA (Osteo Bi-Flex Caplet) 1 EACH TABLET1 TABLET Orally DAILYACETAMINOPHEN/DIPHENHYDRAMINE (Tylenol Pm Ex-Strength Caplet) 1 EACH TABLET2 TABLET Orally EVERY EVENINGStart taking the following new medications:TRAMADOL (Ultram*) 50 MG LBSCSE87 MILLIGRAM Orally EVERY 6 HOURS NEEDED not to exceed 4 tabs per dayDays = 5 Qty = 20No RefillsOndansetron HCl (ZOFRAN) 4 MG TABLET4 MILLIGRAM Orally EVERY 6 HOURS NEEDED as needed for NauseaDays = 5 Qty = 20No RefillsDischarge Activity: As to leratedDischarge diet: Low Fat/Low CholesterolFollow-upFollow up with your Primary care physician and orthopedic surgeonReferralsOrdered ReferralsNOR[facility] First availa...[address] [place] [address] -sn TO EVAL AND TREAT-PT FOR STRENGTH AND ENDURANCETime spent by provider to complete discharge > 30 minutesDATE SIGNED: 11/22/20 Electronically SignedTIME SIGNED: 1917 GIGI ORTEGA MD Name Value Range Interpretation Code Description Data Rylie rce(s) Supporting Document(s) ID Date Data Source [id number] 11/22/2020 01:57:00 PM EDT [facility] [id number] NAME: GEORGETTE GIL#: [id number] PHYSICIAN: TREMAINE OLIVERAACCOUNT #: [id number] ADM. DATE:PATIENT : 43 DISCH. DATE: [50}DISCHARGE SUMMARYMedical Discharge PlanNicotine Replacement TherapyPrescribed at discharge Rx for med given at VTPersonal Care InstructionsDischarge Activity: As toleratedDischarge diet: Low [...] surgeonDischarge InformationDISCHARGE INFORMATION* Thank you for [facility] and allowing us toserve you* Our Goal is to provide the highest quality of care.* This discharge information is to help you better understand your diagnosisand medication* Avoid taking mxhh-wkl-lovgzdw medicines unless approved by your physician.* Take your medications as prescribed. DO NOT stop any medications unlessapproved first* Weigh yourself daily. Report any gain of 5 lbs in a week* 24 Hour Crisis HOTLINE available: Call Re[employer] at [phone] SMOKING CESSATION* Smoking is dangerous to your health. It delays the healing process, andworks against your medications. Not smoking will improve your health* Our hospital participates with the Opt-to-Quit program. You will be contactedafter discharge by the [facility] Smoker's Quitline for support with tobaccocessation. You have the option once contacted to refuse this service.* You can also go online to [email or web address]. Free nicotine replacementsare available ___Attention* You should [...] rce(s) Supporting Document(s) ID Date Data Source [id number] 11/22/2020 04:35:00 AM EDT [facility] ([facility]) Name Value Range Interpretation Code Description Data Rylie rce(s) Supporting Document(s) Glucose [Mass/volume] in Serum or Plasma 94 mg/dL 70-110 [facility] ([facility]) Patients taking Sulfasalazine may have f alsely depressed Glucose levels. Patients taking Sulfapyridine may have falsely elevated Glucose levels. Patients should be drawn for Glucose before the initial administration of either drug. Urea nitrogen [Mass/volume] in Serum or Plasma 12 mg/dL 7-23 [facility] ([facility]) Creatinine [Mass/volume] in Serum or Plasma 0.555 mg/dL 0.500-1.300 [facility] ([facility]) Glomerular filtration rate/1.73 sq M.pre dicted [Volume Rate/Area] in Serum or Plasma by Creatinine-based formula (MDRD) Laboratory test result [facility] ([facility]) Chloride [Moles/volume] in Serum or Plasma 105 mmol/L 99-110 [facility] ([facility]) Bicarbonate [Moles/volume] in Blood 32 mmol/L 20-33 [facility] ([facility]) Sodium [Moles/volume] in Serum or Plasma 142 mmol/L 136-147 [facility] ([facility]) Potassium [Moles/volume] in Serum or Plasma 4.1 mmol/L 3.5-5.1 [facility] Anion gap in Serum or Plasma 9.1 10.0-20.0 [facility] ([facility] ) CA 9.5 mg/dL 8.3-10.7 [facility] ([facility] ) Alkaline phosphatase [Enzymatic activity/volume] in Serum or Plasma 67 U/L 45-117 [facility] Protein [Mass/volume] in Serum or Plasma 6.0 g/dL 6.0-7.8 [facility] ([facility]) Albumin [Mass/volume] in Serum or Plasma 2.6 g/dL 3.5-5.0 [facility] ([facility]) ESRD Dialysis patient Albumin reference range: 2.9-4.4 g/dL Globulin [Mass/volume] in Serum by calculation 3.4 g/dL 2.3-3.5 [facility] ([facility]) Albumin/Globulin [Mass Ratio] in Serum or Plasma 0.8 1.0-2.5 [facility] ([facility]) Alanine aminotransferase [Enzymatic activity/volume] in Seru m or Plasma 12 U/L 6-54 [facility] ([facility]) Patients taking Sulfasalazine and/or Sul fapyridine may have falsely depressed ALT levels. Patients should be drawn for ALT before the initial administration of either drug. Bilirubin.total [Mass/volume] in Serum or Plasma 0.7 mg/dL 0.1-1.1 [facility] ([facility]) [employer] [place] [facility] Total Bilirubin is n ot recommended for patients undergoing treatment with eltrombopag (Promacta) due to the potential for falsely elevated results. Aspartate aminotransferase [Enzymatic activity/volume] in Serum or Plasma 14 U/L 6-38 [facility] Patients taking Sulfasalazine and/or Sul fapyridine may have falsely depressed AST levels. Patients should be drawn for AST before the initial administration of either drug. ID Date Data Source [id number] 11/22/2020 04:35:00 AM EDT [facility] ([facility]) Name Value Range Interpretation Code Description Data Rylie rce(s) Supporting Document(s) Magnesium [Mass/volume] in Serum or Plasma 2.1 mg/dL 1.6-2.6 [facility] ([facility]) ID Date Data Source [id number] 11/22/2020 04:35:00 AM EDT [facility] ([facility]) Name Value Range Interpretation Code Description Data Rylie rce(s) Supporting Document(s) Leukocytes [#/volume] in Blood by Automated count 10.19 x10E3/uL 4.0- 10.5 [facility] ([facility]) Erythrocytes [#/volume] in Blood by Automated count 2.80 x10E6/uL 4.2 0-5.40 [facility] ([facility]) Hemoglobin [Mass/volume] in Blood 8.7 g/dL 12.0-16.0 [facility] ([facility]) MCV 92.5 fL 81.0-99.0 [facility] Hematocrit [Volume Fraction] of Blood by Automated count 25.9 % 3 7.0-47.0 [facility] ([facility]) MCH 31.1 pg 27.0-31.0 [facility] ([facility]) MCHC 33.6 g/dL 32.7-35.6 [facility] ([facility]) MPV 11.1 fl 6.9-9.5 [facility] ([facility]) Platelets [#/volume] in Blood by Automated count 236 x10E3/uL 150-450 [facility] ([facility]) RDW 12.6 % 11.5-14.0 [facility] ([facility]) Neutrophils 66.8 % 34-64 [facility]) Monocytes 8.4 % 1.7-10.6 [facility] ([facility]) Lymphocytes 21.6 % 25-45 [facility]) Basophils 0.6 % 0.1-2.0 [facility] ([facility]) Eosinophils 2.2 % 0.4-7.0 [facility] ([facility]) Imm. Gran. 0.4 % 0.1-2.0 [facility] ([facility]) Abs. Lymph. 2.20 x10E3/uL 1.0-3.5 [facility] ([facility]) Abs. Neutro. 6.81 x10E3/uL 1.2-7.6 [facility] ([facility]) Abs. Burke. 0.86 x10E3/uL 0.1-1.0 [facility] ([facility]) Abs. Eosin. 0.22 x10E3/uL 0.1-0.7 [facility] ([facility]) Abs. Baso. 0.06 x10E3/uL 0.0-0.1 [facility] ([facility] ) Abs. Imm. Gran. 0.04 x10E3/uL 0.0-0.1 [facility] (No [facility]) Laboratory test finding (navigational concept) 0 % [facility] ([facility] ) ID Date Data Source [id number] 11/22/2020 05:29:00 AM EDT [facility] Name Value Range Interpretation Code Description Data Rylie rce(s) Supporting Document(s) MAGNESIUM 2.1 mg/dL 1.6-2.6 [facility] ID Date Data Source [id number] 11/22/2020 05:29:00 AM [facility]T [facility] Name Value Range Interpretation Code Description Data Rylie rce(s) Supporting Document(s) GLU 94 mg/dL 70-110 [facility] Patients taking Sulfasalazine may have f alsely depressedGlucose levels. Patients taking Sulfapyridine may havefalsely elevated Glucose levels. Patients should be drawnfor Glucose before the initial administration of eitherdrug. BUN 12 mg/dL 7-23 [facility] CRE 0.555 mg/dL 0.500-1.300 [facility] GFR > 60 mL/min [facility] CHLORIDE 105 mmol/L 99-110 [facility] NA 142 mmol/L 136-147 [facility] POTASSIUM 4.1 mmol/L 3.5-5.1 [facility] TCO2 32 mmol/L 20-33 [facility] ANION GAP 9.1 10.0-20.0 [facility] CA 9.5 mg/dL 8.3-10.7 [facility] ALKALINE PHOS 67 U/L 45-117 [facility] TP 6.0 g/dL 6.0-7.8 [facility] ALB 2.6 g/dL 3.5-5.0 [facility] ESRD Dialysis patient Albumin reference range: 2.9-4.4 g/dL GL 3.4 g/dL 2.3-3.5 [facility] A/G 0.8 1.0-2.5 [facility] T. BILIRUBIN 0.7 mg/dL 0.1-1.1 [facility] [employer] [place] [facility] Total Bilirubin is n ot recommended forpatients undergoing treatment with eltrombopag (Promacta)due to the potential for falsely elevated results. ALTI 12 U/L 6-54 [facility] Patients taking Sulfasalazine and/or Sul fapyridine may havefalsely depressed ALT levels. Patients should be drawn forALT before the initial administration of either drug. AST 14 U/L 6-38 [facility] Patients taking Sulfasalazine and/or Sul fapyridine may havefalsely depressed AST levels. Patients should be drawn forAST before the initial administration of either drug. ID Date Data Source [id number] 11/22/2020 05:10:00 AM EDT [facility] Name Value Range Interpretation Code Description Data Rylie rce(s) Supporting Document(s) WBC 10.19 x10E3/uL 4.0-10.5 [facility] l RBC 2.80 x10E6/uL 4.20-5.40 [facility] Hemoglobin 8.7 g/dL 12.0-16.0 [facility] Hematocrit 25.9 % 37.0-47.0 [facility] MCV 92.5 fL 81.0-99.0 [facility] MCH 31.1 pg 27.0-31.[address] [facility] MCHC 33.6 g/dL 32.7-35.6 [facility] RDW 12.6 % 11.5-14.0 [facility] Platelet count 236 x10E3/uL 150-450 [facility] ital MPV 11.1 fl 6.9-9.[address] [facility] Neutrophils 66.8 % 34-[address] [facility] Lymphocytes 21.6 % 25-[address] [facility] Monocytes 8.4 % 1.7-10.6 [facility] Eosinophils 2.2 % 0.4-7.0 [facility] Basophils 0.6 % 0.1-2.0 [facility] Imm. Gran. 0.4 % 0.1-2.0 N [facility] Abs. Neutro. 6.81 x10E3/uL 1.2-7.6 [facility] Abs. Lymph. 2.20 x10E3/uL 1.0-3.5 [facility] Abs. Burke. 0.86 x10E3/uL 0.1-1.0 [facility] Abs. Eosin. 0.22 x10E3/uL 0.1-0.7 [facility] Abs. Baso. 0.06 x10E3/uL 0.0-0.1 [facility] Abs. Imm. Gran. 0.04 x10E3/uL 0.0-0.1 N [facility] spital ANRBC% 0 % 0 [facility] ID Date Data Source [id number] 11/21/2020 06:53:00 PM EDT [address] [id number] NOTEPATIENT NAME: GEORGETTE GIL PHYSICIAN: TREMAINE Plata M.D. FISHAUTHOR: Shannon PANTOJA, [facility]. DATE: MR#: [id number] NOTE DATE: 11/21/20 RM#: [id number] TIME: 185 : 44SubjectiveCC/Hx Present IllnessSevere osteoarthritis of right knee requiring right total knee replacementarthroplastyEvents Since Last EntryPt seen and examined at the bedside. Pt is feeling better today, however, sheappears to tolerate the tramadol better than the stronger narcotic medication.Attempt discharge tmr.ObjectiveVital SignsVital Signs-24 [id number] 1887 2343 0130 0255Temp 98.6 98.4 97.9 99.0Pulse 88 83 71 79Resp 18 15 15 13B/P 130/60 116/59 127/59 126/60B/P MeanPulse Ox 96 87 93 95O2 Delivery Nasal cannulaO2 Flow Rate [id number] 0554 0630 0820 0821Temp 98.3 98.3 98.3 98.3Pulse 82 82 90 78 78Resp 14 15 17 18B/P 125/65 125/65 132/67 125/57 125/57B/P MeanPulse Ox 94 94 95 94O2 DeliveryO2 Flow SvaiZlJ94211/21950 1055 1055 1220 1331Temp 97.0 98.3 98.3 98.3 97.9Pulse 75 69 69 70 72Resp 16 18 18 18 13B/P 119/59 136/69 136/69 143/68 129/58B/P MeanPulse Ox 96 95 95 96 95O2 DeliveryO2 Flow LhdqVgG43011/21440 1448 1548 1655Temp 97.9 97.9 97.4 97.4Pulse 66 72 74 81Resp 18 18 20 17B/P 141/58 129/58 119/59 119/59B/P MeanPulse Ox 95 99 96 96O2 Delivery Nasal cannulaO2 Flow Rate 7QEnE0Fjwstd/OutputIntake/Output Summary 24 hours11/20 1900 11/21 0700Intake Total [...] normal speechPsych/Mental Status mood neutralResultsLaboratory DataRecent Labs-24 [id number] (136 - 147 mmol/L) 143Potassium (3.5 - [...] rce(s) Supporting Document(s) ID Date Data Source [id number] 11/21/2020 03:43:00 AM EDT [facility] ([facility] ) Name Value Range Interpretation Code Description Data Rylie rce(s) Supporting Document(s) Glucose [Mass/volume] in Serum or Plasma 95 mg/dL 70-110 [facility] ([facility] ) Patients taking Sulfasalazine may have f alsely depressed Glucose levels. Patients taking Sulfapyridine may have falsely elevated Glucose levels. Patients should be drawn for Glucose before the initial administration of either drug. Urea nitrogen [Mass/volume] in Serum or Plasma 11 mg/dL 7-23 [facility] ([facility] ) Glomerular filtration rate/1.73 sq M.pre dicted [Volume Rate/Area] in Serum or Plasma by Creatinine-based formula (MDRD) Laboratory test result [facility] ([facility] ) Creatinine [Mass/volume] in Serum or Plasma 0.616 mg/dL 0.500-1.300 [facility] ([facility] ) Chloride [Moles/volume] in Serum or Plasma 106 mmol/L 99-110 [facility] ([facility] ) Sodium [Moles/volume] in Serum or Plasma 143 mmol/L 136-147 [facility] ([facility] ) Potassium [Moles/volume] in Serum or Plasma 4.4 mmol/L 3.5-5.1 [facility] ([facility] ) Bicarbonate [Moles/volume] in Blood 31 mmol/L 20-33 [facility] ([facility] ) Anion gap in Serum or Plasma 10.4 10.0-20.0 [facility] ([facility] ) CA 8.8 mg/dL 8.3-10.7 [facility] ([facility] ) Alkaline phosphatase [Enzymatic activity/volume] in Serum or Plasma 68 U/L 45-117 [facility] ([facility] ) Protein [Mass/volume] in Serum or Plasma 5.4 g/dL 6.0-7.8 [facility] ([facility] ) Globulin [Mass/volume] in Serum by calculation 2.7 g/dL 2.3-3.5 [facility] ([facility] ) Albumin [Mass/volume] in Serum or Plasma 2.7 g/dL 3.5-5.0 [facility] ([facility] ) ESRD Dialysis patient Albumin reference range: 2.9-4.4 g/dL Bilirubin.total [Mass/volume] in Serum or Plasma 0.6 mg/dL 0.1-1.1 [facility] ([facility] ) [facility] [place] Total Bilirubin is n ot recommended for patients undergoing treatment with eltrombopag (Promacta) due to the potential for falsely elevated results. Albumin/Globulin [Mass Ratio] in Serum or Plasma 1.0 1.0-2.5 [facility] ([facility] ) Aspartate aminotransferase [Enzymatic activity/volume] in Serum or Plasma 14 U/L 6-38 [facility] ([facility] ) Patients taking Sulfasalazine and/or Sul fapyridine may have falsely depressed AST levels. Patients should be drawn for AST before the initial administration of either drug. Alanine aminotransferase [Enzymatic activity/volume] in Seru m or Plasma 12 U/L 6-54 [facility] ([facility] ) Patients taking Sulfasalazine and/or Sul fapyridine may have falsely depressed ALT levels. Patients should be drawn for ALT before the initial administration of either drug. ID Date Data Source [id number] 11/21/2020 03:43:00 AM EDT [facility] ([facility] ) Name Value Range Interpretation Code Description Data Rylie rce(s) Supporting Document(s) Leukocytes [#/volume] in Blood by Automated count 10.37 x10E3/uL 4.0- 10.5 [facility] ([facility] ) Erythrocytes [#/volume] in Blood by Automated count 2.83 x10E6/uL 4.2 0-5.40 [facility] ([facility] ) Hemoglobin [Mass/volume] in Blood 8.7 g/dL 12.0-16.0 [facility] ([facility]) Hematocrit [Volume Fraction] of Blood by Automated count 26.6 % 3 7.0-47.0 [facility] ([facility] ) MCV 94.0 fL 81.0-99.0 [facility] ([facility] ) MCH 30.7 pg 27.0-31.0 [facility] ([facility]) MCHC 32.7 g/dL 32.7-35.6 [facility] ([facility]) RDW 12.8 % 11.5-14.0 [facility] ([facility]) MPV 11.3 fl 6.9-9.5 [facility] ([facility]) Platelets [#/volume] in Blood by Automated count 198 x10E3/uL 150-450 [facility] ([facility]) Neutrophils 70.3 % 34-64 [facility] Lymphocytes 18.7 % 25-45 [facility] ([facility]) Monocytes 9.0 % 1.7-10.6 [facility] ([facility]) Basophils 0.4 % 0.1-2.0 [facility] ([facility]) Eosinophils 1.0 % 0.4-7.0 [facility] ([facility]) Abs. Neutro. 7.30 x10E3/uL 1.2-7.6 [facility] ([facility]) Imm. Gran. 0.6 % 0.1-2.0 [facility] ([facility]) Abs. Lymph. 1.94 x10E3/uL 1.0-3.5 [facility] ([facility]) Abs. Burke. 0.93 x10E3/uL 0.1-1.0 [facility] Abs. Baso. 0.04 x10E3/uL 0.0-0.1 [facility] ([facility]) Abs. Eosin. 0.10 x10E3/uL 0.1-0.7 [facility] ([facility]) Abs. Imm. Gran. 0.06 x10E3/uL 0.0-0.1 [facility]) Laboratory test finding (navigational concept) 0 % [facility] ([facility]) ID Date Data Source [id number] 11/21/2020 05:06:00 AM EDT [facility] Name Value Range Interpretation Code Description Data Rylie rce(s) Supporting Document(s) GLU 95 mg/dL 70-[address] [facility] Patients taking Sulfasalazine may have f alsely depressedGlucose levels. Patients taking Sulfapyridine may havefalsely elevated Glucose levels. Patients should be drawnfor Glucose before the initial administration of eitherdrug. BUN 11 mg/dL 7-23 [facility] CRE 0.616 mg/dL 0.500-1.300 [facility] GFR > 60 mL/min [facility] CHLORIDE 106 mmol/L 99-110 [facility] NA 143 mmol/L 136-147 [facility] POTASSIUM 4.4 mmol/L 3.5-5.1 [facility] TCO2 31 mmol/L 20-33 [facility] ANION GAP 10.4 10.0-20.0 [facility] CA 8.8 mg/dL 8.3-10.7 [facility] ALKALINE PHOS 68 U/L 45-117 [facility] TP 5.4 g/dL 6.0-7.8 [facility] ALB 2.7 g/dL 3.5-5.0 [facility] ESRD Dialysis patient Albumin reference range: 2.9-4.4 g/dL GL 2.7 g/dL 2.3-3.5 [facility] A/G 1.0 1.0-2.5 [facility] T. BILIRUBIN 0.6 mg/dL 0.1-1.1 [facility] [employer] [place] Total Bilirubin is n ot recommended forpatients undergoing treatment with eltrombopag (Promacta)due to the potential for falsely elevated results. ALTI 12 U/L 6-54 [facility] Patients taking Sulfasalazine and/or Sul fapyridine may havefalsely depressed ALT levels. Patients should be drawn forALT before the initial administration of either drug. AST 14 U/L 6-38 [facility] Patients taking Sulfasalazine and/or Sul fapyridine may havefalsely depressed AST levels. Patients should be drawn forAST before the initial administration of either drug. ID Date Data Source [id number] 11/21/2020 04:55:00 AM EDT [facility] Name Value Range Interpretation Code Description Data Rylie rce(s) Supporting Document(s) WBC 10.37 x10E3/uL 4.0-10.5 [facility] 2.83 x10E6/uL 4.20-5.[address] [facility] Hemoglobin 8.7 g/dL 12.0-16.[address] [facility] Hematocrit 26.6 % 37.0-47.[address] [facility] MCV 94.0 fL 81.0-99.0 [facility] MCH 30.7 pg 27.0-31.[address] [facility] MCHC 32.7 g/dL 32.7-35.6 [facility] RDW 12.8 % 11.5-14.[address] [facility] Platelet count 198 x10E3/uL 150-450 [facility] ital MPV 11.3 fl 6.9-9.[address] [facility] Neutrophils 70.3 % 34-64 [facility] Lymphocytes 18.7 % 25-[address] [facility] Monocytes 9.0 % 1.7-10.[address] [facility] Eosinophils 1.0 % 0.4-7.[address] [facility] Basophils 0.4 % 0.1-2.[address] [facility] Imm. Gran. 0.6 % 0.1-2.[address] [facility] Abs. Neutro. 7.30 x10E3/uL 1.2-7.6 [facility] Abs. Lymph. 1.94 x10E3/uL 1.0-3.5 [facility] Abs. Burke. 0.93 x10E3/uL 0.1-1.0 [facility] Abs. Eosin. 0.10 x10E3/uL 0.1-0.7 [facility] Abs. Baso. 0.04 x10E3/uL 0.0-0.1 [facility] Abs. Imm. Gran. 0.06 x10E3/uL 0.0-0.1 N [facility] ANRBC% 0 % [address] [facility] ID Date Data Source [id number] 11/20/2020 03:32:00 PM EDT [facility] [address] [id number] NOTEPATIENT NAME: GEORGETTE GIL PHYSICIAN: TREMAINE Plata M.D. FISHAUTHOR: Julio C Morgan JANE-CADMelissa. DATE: MR#: [id number] NOTE DATE: 11/20/20 RM#: [id number] TIME: 1540 [...] 95 99 96 98 98O2 DeliveryO2 Flow LxncSzU31411/[id number] 2219 2300 0147 0212Temp 98.5 98.5 98.4 98.4Pulse 70 68 71 67Resp 18 14 16 18B/P 119/64 122/57 124/60 124/60B/P MeanPulse Ox 95 95 90 95O2 Delivery Nasal cannula Nasal cannulaO2 Flow Rate 1L 0CAZQRYmI104/11/[id number] 1176 0506 0508 0746Temp 98.4 97.9 98.0 98.0Pulse 70 70 68 70 73Resp 16 14 14 16B/P 124/56 119/52 108/48 108/48 106/50B/P MeanPulse Ox 95 95 95 94O2 DeliveryO2 Flow XlgfBhG434/11/20064295 5418 1059 1525Temp 98.0 98.0 97.4 97.9Pulse 72 72 70 74Resp 18 17 16 18B/P 118/45 118/45 96/58 127/52B/P MeanPulse Ox 91 91 93 92O2 DeliveryO2 Flow IamnVqM4Dnwlsn/OutputIntake/Output Summary 24 hours11/19 1900 11/20 0700Intake Total [...] dry, intactPsych/Mental Status mood neutralResultsLaboratory DataRecent Labs-24 [id number] (136 - 147 mmol/L) 141Potassium (3.5 - [...] related to oral analgesicAgree with switching to Purdy from PercocetCould also try a dose of IV TylenolResuscitation status Full codePlan discussed with patientCase discussed with case work aide, nursing staff, orthopedicsVTE ProphylaxisVTE Prophylaxis: Continue with XareltoDATE SIGNED: 11/20/20 Electronically SignedTIME SIGNED: 1540 JULIO C MORGAN Name Value Range Interpretation Code Description Data Rylie rce(s) Supporting Document(s) ID Date Data Source [id number] 11/20/2020 11:01:00 AM EDT [facility] [id number] PROGRESS NOTEPATIENT NAME: GEORGETTE GIL PHYSICIAN: TREMAINE Plata M.D. FISHAUTHOR: Fer Bobby. DATE: MR#: [id number] NOTE DATE: 11/20/20 RM#: [id number] TIME: 1104 [...] rce(s) Supporting Document(s) ID Date Data Source [id number] 11/20/2020 04:32:00 AM EDT [facility] ([facility]) Name Value Range Interpretation Code Description Data Rylie rce(s) Supporting Document(s) Urea nitrogen [Mass/volume] in Serum or Plasma 12 mg/dL 7-23 [facility] ([facility]) Glucose [Mass/volume] in Serum or Plasma 109 mg/dL 70-110 [facility] ([facility]) Patients taking Sulfasalazine may have f alsely depressed Glucose levels. Patients taking Sulfapyridine may have falsely elevated Glucose levels. Patients should be drawn for Glucose before the initial administration of either drug. Glomerular filtration rate/1.73 sq M.pre dicted [Volume Rate/Area] in Serum or Plasma by Creatinine-based formula (MDRD) Laboratory test result [facility] ([facility]) Creatinine [Mass/volume] in Serum or Plasma 0.620 mg/dL 0.500-1.300 [facility] ([facility]) Chloride [Moles/volume] in Serum or Plasma 106 mmol/L 99-110 [facility] ([facility]) Sodium [Moles/volume] in Serum or Plasma 141 mmol/L 136-147 [facility] ([facility]) Potassium [Moles/volume] in Serum or Plasma 4.3 mmol/L 3.5-5.1 [facility] ([facility]) Bicarbonate [Moles/volume] in Blood 29 mmol/L 20-33 [facility] ([facility]) Alkaline phosphatase [Enzymatic activity/volume] in Serum or Plasma 65 U/L 45-117 [facility] ([facility] ) Anion gap in Serum or Plasma 10.3 10.0-20.0 [facility] ([facility]) CA 9.0 mg/dL 8.3-10.7 [facility] ([facility] ) Albumin [Mass/volume] in Serum or Plasma 2.8 g/dL 3.5-5.0 [facility] ([facility] ) ESRD Dialysis patient Albumin reference range: 2.9-4.4 g/dL Protein [Mass/volume] in Serum or Plasma 5.2 g/dL 6.0-7.8 [facility] ([facility] ) Bilirubin.total [Mass/volume] in Serum or Plasma 0.6 mg/dL 0.1-1.1 [facility] ([facility] ) [employer] [place] Total Bilirubin is n ot recommended for patients undergoing treatment with eltrombopag (Promacta) due to the potential for falsely elevated results. Globulin [Mass/volume] in Serum by calculation 2.4 g/dL 2.3-3.5 [facility] ([facility] ) Albumin/Globulin [Mass Ratio] in Serum or Plasma 1.2 1.0-2.5 [facility] ([facility] ) Aspartate aminotransferase [Enzymatic activity/volume] in Serum or Plasma 14 U/L 6-38 [facility] ([facility] ) Patients taking Sulfasalazine and/or Sul fapyridine may have falsely depressed AST levels. Patients should be drawn for AST before the initial administration of either drug. Alanine aminotransferase [Enzymatic activity/volume] in Seru m or Plasma 13 U/L 6-54 [facility] Patients taking Sulfasalazine and/or Sul fapyridine may have falsely depressed ALT levels. Patients should be drawn for ALT before the initial administration of either drug. ID Date Data Source [id number] 11/20/2020 05:26:00 AM EDT [facility] Name Value Range Interpretation Code Description Data Rylie rce(s) Supporting Document(s) GLU 109 mg/dL 70-110 [facility] Patients taking Sulfasalazine may have f alsely depressedGlucose levels. Patients taking Sulfapyridine may havefalsely elevated Glucose levels. Patients should be drawnfor Glucose before the initial administration of eitherdrug. BUN 12 mg/dL 7-23 [facility] CRE 0.620 mg/dL 0.500-1.300 [facility] GFR > 60 mL/min [facility] CHLORIDE 106 mmol/L 99-110 [facility] NA 141 mmol/L 136-147 [facility] POTASSIUM 4.3 mmol/L 3.5-5.1 [facility] TCO2 29 mmol/L 20-33 [facility] ANION GAP 10.3 10.0-20.0 [facility] CA 9.0 mg/dL 8.3-10.7 [facility] ALKALINE PHOS 65 U/L 45-117 [facility] TP 5.2 g/dL 6.0-7.8 [facility] ALB 2.8 g/dL 3.5-5.0 [facility] ESRD Dialysis patient Albumin reference range: 2.9-4.4 g/dL GL 2.4 g/dL 2.3-3.5 [facility] A/G 1.2 1.0-2.5 [facility] T. BILIRUBIN 0.6 mg/dL 0.1-1.1 [facility] [employer] [place] Total Bilirubin is n ot recommended forpatients undergoing treatment with eltrombopag (Promacta)due to the potential for falsely elevated results. ALTI 13 U/L 6-54 [facility] Patients taking Sulfasalazine and/or Sul fapyridine may havefalsely depressed ALT levels. Patients should be drawn forALT before the initial administration of either drug. AST 14 U/L 6-38 [facility] Patients taking Sulfasalazine and/or Sul fapyridine may havefalsely depressed AST levels. Patients should be drawn forAST before the initial administration of either drug. ID Date Data Source [id number] 11/19/2020 05:17:00 PM EDT [address] [id number] AND PHYSICALPATIENT NAME: GEORGETTE GIL MR#: [id number] PHYSICIAN: TREMAINE Plata M.D. FISHAUTHOR: Julio C Morgan DATE: 11/18/20 RM#: [id number] & PHYSICAL DATE: 11/19/20 : 44EVALUATION TIME: 1717HistoryChief Complaint/Admit Reasonsevere osteoarthritis of right knee requiring right total knee replacementarthroplastyHistory of Presenting IllnessThis is a 75-year-old female fairly independent with a past medicalhistory of hypertension, hyperlipidemia and osteoarthritis of bilateral knee.Patient presented to [facility] on November 18, [facility] to undergoa right [...] Musculoskeletal, Derick, Endocrine,Neurology, Psych, Allergy/ImmunologyExamVital SignsVital Signs-24 HRS11/[id number] 8865 0556 0615 0700Temp 98.0 98.0 97.9 98.0Pulse 66 71 64 67Resp 18 14 15 14B/P 114/56 111/59 111/59 104/60B/P MeanPulse Ox 94 92 96 93O2 Delivery Nasal cannula Nasal cannula Nasal cannulaO2 Flow Rate 2L 2L [id number]/[id number] 4165 1015 1038 1325Temp 97.9 97.9 98.0 97.5Pulse 71 71 67 68 56Resp 14 16 16 16B/P 111/54 111/54 111/54 116/49 104/43B/P MeanPulse Ox 93 94 93 94O2 DeliveryO2 Flow [id number]/[id number] 0589 1748Temp 97.9 97.7 97.7Pulse 71 73 72Resp 15 18 13B/P 115/55 124/51 124/51B/P MeanPulse Ox 95 99 96O2 DeliveryO2 Flow CybmNkU6Jbsiunog ExaminationGeneral Appearance no acute distress, alert, awake, [...] speechPsych/Mental Status mood neutralData ReviewLaboratory DataRecent Labs-48 hours06/634605BcsdduiuiUzfjne (136 - 147 mmol/L) 143Potassium (3.5 - [...] 3.5 g/dL) 2.3Albumin/Globulin Ratio (1.0 - 2.5) 1.1Whqsiwi1/23/21 Xray: total knee prothesisAssessment/PlanDiagnosis/Problem1. Knee joint replacement [...] codePlan discussed with patientCase discussed with case work aide, nursing staffVTE ProphylaxisVTE Prophylaxis: xareltoCQM VTE HISTORYVTE HISTORYPrior VTE? NoDATE SIGNED: 11/19/20 Electronically SignedTIME SIGNED: 1846 JULIO C JANE-C CATHY Name Value Range Interpretation Code Description Data Rylie rce(s) Supporting Document(s) ID Date Data Source [id number] 11/19/2020 09:45:00 AM EDT [address] [id number] PROGRESS NOTEPATIENT NAME: GEORGETTE GIL PHYSICIAN: TREMAINE OLIVERAAUTHOR: Vipin Olivera MD. DATE: MR#: [id number] NOTE DATE: 11/19/20 RM#: [id number] TIME: 946 [...] rce(s) Supporting Document(s) ID Date Data Source [id number] 11/19/2020 04:25:00 AM EDT [facility] ([facility]) Name Value Range Interpretation Code Description Data Rylie rce(s) Supporting Document(s) Urea nitrogen [Mass/volume] in Serum or Plasma 15 mg/dL 7-23 [facility] ([facility]) Creatinine [Mass/volume] in Serum or Plasma 0.850 mg/dL 0.500-1.300 [facility] ([facility]) Glucose [Mass/volume] in Serum or Plasma 117 mg/dL 70-110 [facility] ([facility]) Patients taking Sulfasalazine may have f alsely depressed Glucose levels. Patients taking Sulfapyridine may have falsely elevated Glucose levels. Patients should be drawn for Glucose before the initial administration of either drug. Chloride [Moles/volume] in Serum or Plasma 108 mmol/L 99-110 [facility] ([facility]) Glomerular filtration rate/1.73 sq M.pre dicted [Volume Rate/Area] in Serum or Plasma by Creatinine-based formula (MDRD) Laboratory test result [facility] ([facility]) Sodium [Moles/volume] in Serum or Plasma 143 mmol/L 136-147 [facility] ([facility]) Potassium [Moles/volume] in Serum or Plasma 4.2 mmol/L 3.5-5.1 [facility] ([facility] ) Bicarbonate [Moles/volume] in Blood 29 mmol/L 20-33 [facility] ([facility] ) CA 8.7 mg/dL 8.3-10.7 [facility] ([facility] ) Anion gap in Serum or Plasma 10.2 10.0-20.0 [facility] ([facility]) Alkaline phosphatase [Enzymatic activity/volume] in Serum or Plasma 62 U/L 45-117 [facility] ([facility] Albumin [Mass/volume] in Serum or Plasma 2.8 g/dL 3.5-5.0 [facility] ([facility]) ESRD Dialysis patient Albumin reference range: 2.9-4.4 g/dL Protein [Mass/volume] in Serum or Plasma 5.1 g/dL 6.0-7.8 [facility] ([facility]) Bilirubin.total [Mass/volume] in Serum or Plasma 0.5 mg/dL 0.1-1.1 [facility] ([facility]) [employer] [facility] [place] Total Bilirubin is n ot recommended for patients undergoing treatment with eltrombopag (Promacta) due to the potential for falsely elevated results. Albumin/Globulin [Mass Ratio] in Serum or Plasma 1.2 1.0-2.5 [facility] ([facility]) Globulin [Mass/volume] in Serum by calculation 2.3 g/dL 2.3-3.5 [facility] ([facility]) Aspartate aminotransferase [Enzymatic activity/volume] in Serum or Plasma 14 U/L 6-38 [facility] ([facility]) Patients taking Sulfasalazine and/or Sul fapyridine may have falsely depressed AST levels. Patients should be drawn for AST before the initial administration of either drug. Alanine aminotransferase [Enzymatic activity/volume] in Seru m or Plasma 15 U/L 6-54 [facility] ([facility] Patients taking Sulfasalazine and/or Sul fapyridine may have falsely depressed ALT levels. Patients should be drawn for ALT before the initial administration of either drug. ID Date Data Source [id number] 11/19/2020 04:59:00 AM EDT [facility] Name Value Range Interpretation Code Description Data Rylie rce(s) Supporting Document(s) GLU 117 mg/dL 70-[address] [facility] Patients taking Sulfasalazine may have f alsely depressedGlucose levels. Patients taking Sulfapyridine may havefalsely elevated Glucose levels. Patients should be drawnfor Glucose before the initial administration of eitherdrug. BUN 15 mg/dL 7-23 [facility] CRE 0.850 mg/dL 0.500-1.300 [facility] GFR > 60 mL/min [facility] CHLORIDE 108 mmol/L 99-110 [facility] NA 143 mmol/L 136-147 [facility] POTASSIUM 4.2 mmol/L 3.5-5.1 [facility] TCO2 29 mmol/L 20-33 [facility] ANION GAP 10.2 10.0-20.0 [facility] CA 8.7 mg/dL 8.3-10.7 [facility] ALKALINE PHOS 62 U/L 45-117 [facility] TP 5.1 g/dL 6.0-7.8 [facility] ALB 2.8 g/dL 3.5-5.[address] [facility] ESRD Dialysis patient Albumin reference range: 2.9-4.4 g/dL GL 2.3 g/dL 2.3-3.5 [facility] A/G 1.2 1.0-2.5 [facility] T. BILIRUBIN 0.5 mg/dL 0.1-1.1 [facility] [employer] [place] Total Bilirubin is n ot recommended forpatients undergoing treatment with eltrombopag (Promacta)due to the potential for falsely elevated results. ALTI 15 U/L 6-54 [facility] Patients taking Sulfasalazine and/or Sul fapyridine may havefalsely depressed ALT levels. Patients should be drawn forALT before the initial administration of either drug. AST 14 U/L 6-38 [facility] Patients taking Sulfasalazine and/or Sul fapyridine may havefalsely depressed AST levels. Patients should be drawn forAST before the initial administration of either drug. ID Date Data Source [id number] 11/18/2020 10:13:00 PM EDT [place] [id number] CONSULT REPORTPATIENT NAME: GEORGETTE GIL MR#: [id number] PHYSICIAN: TREMAINE OLIVERACONSULTING PHYSICIAN: Young Rodrigues MDS. DATE: 11/18/20 RM#: [id number] DATE: 11/18/20 : 44EVALUATION TIME: 3HistoryReason for consultmedical management post operativelyRequested byDr. Olivera (orthopedics)Chief Complaint/Admit Reasonsevere osteoarthritis of right knee requiring right total knee replacementarthrop lastyHistory of Presenting IllnessThis is a 75-year-old female fairly independent with a past medicalhistory of hypertension, hyperlipidemia and osteoarthritis of bilateral knee.Patient presented to [facility] on November 18, 2020 to undergoa right [...] recreational drug use,retired, lives [place] family ([place]), marriedReview of SystemsConstitutionalDenies: Pain, Fever, Chills, Generalized [...] Full codePlan discussed with patientCase discussed with industrial hygiene manager- [facility] Planning* [3 ] minutes of [id number] time spent for Advance Care Planning inexplanation/discussion of Advance Directives.* Decisions reached: [FULL CODE ].VTE ProphylaxisVTE Prophylaxis: [Xarelto ].DATE SIGNED: 11/19/20 Electronically SignedTIME SIGNED: [id number] CHAPARRO RODRIGUES MD Name Value Range Interpretation Code Description Data Rylie rce(s) Supporting Document(s) ID Date Data Source [id number] 11/18/2020 12:11:00 PM EDT [place] Exam Number: [id number] OF EXAMINATIO N: 11/18/2020 9:56 EDTHISTORY: Total [...] rce(s) Supporting Document(s) ID Date Data Source [id number] 11/18/2020 09:58:00 AM EDT [place] [address] [id number] OPERATIVE REPORTPATIENT NAME: GEORGETTE GIL MR#: [id number] PHYSICIAN: TREMAINE KILGORE: Tremanie Olivera MD DATE: RM#: [id number] DATE: PATIENT : 44Operative ReportOperative ReportOPERATION: Right total knee replacement arthroplasty.PREOPERATIVE DIAGNOSIS: Right knee osteoarthritisPOSTOPERATIVE DIAGNOSIS: Same.Surgeon: Dr. Freeman Emergency Medical Technician/Driver: Nirmal Prietonesthesia: GeneralEBL: 50PROCEDURE: Patient was seen [...] the bone was removed. Erika used a olive picker to remove soft tissue and osteophytes from [...] removethe trial components irrigated copiously as the patient observation assistant prepared the bonecement on the back [...] known complications. The plan will beroutine postop.The patient observation assistant was instrumental in holding retractors, mixing the bone cementand assisting in wound closure.Copy to Dr. Tremaine Lopez [facility] Provider REASON,AKIL Gil MDDATE SIGNED: 11/18/20 Electronically SignedTIME SIGNED: 1000 TREMAINE OLIVERA Name Value Range Interpretation Code Description Data Rylie e(s) Supporting Document(s) ID Date Data Source [id number] 11/13/2020 12:08:00 PM EDT [facility] keller Exam Number: [id number] OF EXAMINATION : 11/13/2020 10:12 EDTCHEST, TWO [...] rce(s) Supporting Document(s) ID Date Data Source [id number] 11/13/2020 11:32:00 AM EDT [facility]) Name Value Range Interpretation Code Description Data Rylie rce(s) Supporting Document(s) Laboratory test finding (navigational concept) Laboratory test result [facility] ([facility]) ID Date Data Source [id number] 11/13/2020 01:56:00 PM EDT [facility] Name Value Range Interpretation Code Description Data Rylie rce(s) Supporting Document(s) BLOOD TYPE AB NEGATIVE [facility] ID Date Data Source [id number] 11/13/2020 11:30:00 AM EDT [facility] ([facility]) Name Value Range Interpretation Code Description Data Rylie rce(s) Supporting Document(s) Blood Type Laboratory test result [facility]) Antibody Screen Laboratory test result [facility]) ID Date Data Source [id number] 11/13/2020 01:56:00 PM EDT [place] [facility] Is patient going to surgery? Y: NHave you ever had a blood transfusion? NHave you had a blood transfusion within the last 3 months? NWhen is the date of your surgery? 11/18/20 Name Value Range Interpretation Code Description Data Rylie rce(s) Supporting Document(s) BLOOD TYPE AB NEGATIVE [facility] ANTIBODY SCREEN NEGATIVE N [place] [facility] ID Date Data Source [id number] 11/13/2020 09:30:00 AM EDT [facility] ([facility]) Name Value Range Interpretation Code Description Data Rylie rce(s) Supporting Document(s) [id number] Rheonix Laboratory test result [facility] ([facility]) The Rheonix COVID-19 MDx Assay is [...] Emergency Use Authorization. ID Date Data Source [id number] 11/13/2020 09:30:00 AM EDT [facility] Name Value Range Interpretation Code Description Data Rylie rce(s) Supporting Document(s) LCOVID-19 RHEONIX ASSAY Negative [facility] This lab was ordered by [facility] and reported by [facility]. ID Date Data Source [id number] 11/14/2020 09:12:00 AM EDT [facility] COMMENTS TO LAB: 44LAB Con't: PREOP TESTINGIs patient suspicious of Covid NShould patient be placed on Covid precautions N Name Value Range Interpretation Code Description Data Rylie rce(s) Supporting Document(s) COVID19 [facility] Negative NEGATIVE N [place] [facility] The Rheonix COVID-19 MDx Assay is an end point RT-PCR assayintended for the qualitative detection of nucleic acid [id number] virus. Positive results are indicative of thepresence of SARS-CoV-2 RNA; clinical correlation withpatient history and other diagnostic information isnecessary to determine patient infection status. Negativeresults do not preclude SARS-CoV-2 infection and should notbe used as the sole basis for patient management decisions. The Rheonix MDx Assay is only for use under the Food andDrug Administration's Emergency Use Authorization. ID Date Data Source [id number] 10/27/2020 10:39:00 AM EDT [facility] Name Value Range Interpretation Code Description Data Rylie rce(s) Supporting Document(s) Sodium 146 mmol/L 136-145 Above high normal [facility] Potassium 3.5-5.1 Above high normal [facility] Chloride 109 mmol/L 98-107 Above high normal [facility] Carbon Dioxide CO2 21-32 Normal (applies to non-numer ic results) [facility] Anion Gap 5.0-16.0 Normal (applies to non-numeric resul ts) [facility] BUN 18 mg/dL 7-18 Normal (applies to non-numeric results) [facility] Creatinine,Serum 0.7-1.2 Normal (applies to non-numeric results) [facility] GFR >60 Normal (applies to non-numeric results) [facility] Glucose Level 88 mg/dL 60-99 Normal (applies to non-numeric re sults) [facility] Reference range is only applicable when patient is fasting Note the following drug interference: Sulfasalazine Sulfapyridine Can see falsely depressed Can see falsely elevated result with up to 17% results with up to 11% decrease in measurement increase in measurement Recommend patients be collected for this test prior to administration of either drug. Calcium 8.5-10.1 Normal (applies to non-numeric resul ts) [facility] Bilirubin,Total 0.1-1.9 Normal (applies to non-numeric results) [facility] SGOT(AST) 18 U/L 15-37 Normal (applies to non-numeric resul ts) [facility] Note the following drug interference: Sulfasalazine Sulfapyridine Can see falsely depressed Can see falsely elevated result with up to 10% results with up to 10% decrease in measurement increase in measurement Recommend patients be collected for this test prior to administration of either drug. SGPT(ALT) 24 U/L 12-78 Normal (applies to non-numeric resul ts) [facility] Note the following drug interference: Sulfasalazine Sulfapyridine Can see falsely depressed Can see falsely elevated result with up to 29% results with up to 10% decrease in measurement increase in measurement Recommend patients be collected for this test prior to administration of either drug. Alkaline Phosphatase 79 U/L 38-126 Normal (applies to non-num umang results) [facility] can increase Alkaline Phosp le vels up to 2 times the normal adult value. Normal values for children and adolescents are 2 to 3 times the normal adult value. Total Protein 6.0-8.2 Normal (applies to non-numeric re sults) [facility] Albumin Level 3.4-5.0 Normal (applies to non-numeric re sults) [facility] ID Date Data Source [id number] 10/27/2020 10:24:00 AM EDT [facility] Name Value Range Interpretation Code Description Data Rylie rce(s) Supporting Document(s) Erythrocyte Sedimentation rate 10 mm/hr 0-20 N ormal (applies to non-numeric results) [facility] ID Date Data Source [id number] 10/27/2020 10:24:00 AM EDT [facility] Name Value Range Interpretation Code Description Data Rylie rce(s) Supporting Document(s) White Blood Count 3.5-10.5 Normal (applies to non-numeri c results) [facility] Red Blood Count 3.90-5.00 Normal (applies to non-numeric results) [facility] Hemoglobin 12.0-15.5 Normal (applies to non-numeric resul ts) [facility] Hematocrit 34.9-44.5 Normal (applies to non-numeric resul ts) [facility] Mean Corpuscular Volume 81.2-95.1 Normal (applies to non- numeric results) [facility] Mean Corpuscular Hgb 25.6-32.2 Normal (applies to non-num umang results) [facility] Mean Corpuscular Hgb Conc 32.0-36.0 Normal (applies to no n-numeric results) [facility] Red Cell Distribution Width 11.9-15.5 Normal (appli es to non-numeric results) [facility] Platelet Count 268 x10 3/uL 150-450 Normal (applies to non-numeric results) [facility] Mean Platelet Volume 9.4-12.4 Normal (applies to non-num umang results) [facility] Neutrophils% (Auto) 31.0-71.0 Normal (applies to non-nume jose results) [facility] Lymphocytes% (Auto) 20.0-55.0 Normal (applies to non-nume jose results) [facility] Monocytes% (Auto) 4.0-12.0 Normal (applies to non-numeri c results) [facility] Eosinophils% (Auto) 1.0-8.0 Normal (applies to non-nume jose results) [facility] Basophils% (Auto) 0.0-2.0 Normal (applies to non-numeri c results) [facility] Immature Granulocytes% (Auto) 0.0-2.0 Normal (denise lies to non-numeric results) [facility] Neutrophils# (Auto) 1.50-6.20 Normal (applies to non-nume jose results) [facility] Lymphocytes# (Auto) 1.20-4.00 Normal (applies to non-nume jose results) [facility] Monocytes# (Auto) 0.00-0.90 Normal (applies to non-numeri c results) [facility] Eosinophils# (Auto) 0.00-0.50 Normal (applies to non-nume jose results) [facility] Basophils# (Auto) 0.00-0.20 Normal (applies to non-numeri c results) [facility] Immature Granulocytes# (Auto) 0.00-7.00 No rmal (applies to non-numeric results) [facility] ID Date Data Source [id number] 10/27/2020 10:23:00 AM EDT [facility] Name Value Range Interpretation Code Description Data Rylie rce(s) Supporting Document(s) PT 9.3-11.3 Below low normal [facility] INR Normal (applies to non-numeric results) [facility] The use of INR is restricted to patients on stable oral anticoagulant. Therapeutic Range: 2.0 - 3.0 High Risk Range: 2.5 - 3.5 ID Date Data Source [id number] 08/05/2020 04:32:00 PM EST [facility] Name Value Range Interpretation Code Description Data Rylie rce(s) Supporting Document(s) Free Retinol(Vit A) result 32.5-78.0 Normal (applie s to non-numeric results) [facility] ADDITIONAL INFORMATIO N This test was developed and its performance characteristics determined by [facility] in a manner consistent with CLIA requirements. This test has not been cleared or approved by the U.S. Food and Drug Administration. Test Performed by: [facility] [address] [employer] Operator: Mitch Dumont M.D. Ph.D.; CLIA# [id number] ID Date Data Source [id number] 08/05/2020 04:32:00 PM EST [facility] Name Value Range Interpretation Code Description Data Rylie rce(s) Supporting Document(s) Thiamine (Vitamin B1) result 267 nmol/L 70-180 Kristi y abnormal (applies to non- numeric units [facility] ADDITIONAL INFORMATIO N This test was developed and its performance characteristics determined by [facility] in a manner consistent with CLIA requirements. This test has not been cleared or approved by the U.S. Food and Drug Administration. Test Performed by: [facility] [address] [employer] Operator: Mitch Dumont M.D. Ph.D.; CLIA# [id number] ID Date Data Source [id number] 08/05/2020 04:28:00 PM [facility] Name Value Range Interpretation Code Description Data Rylie rce(s) Supporting Document(s) Free Retinol(Vit A) result 32.5-78.0 Normal (applie s to non-numeric results) [facility] ADDITIONAL INFORMATIO N This test was developed and its performance characteristics determined by [facility] in a manner consistent with CLIA requirements. This test has not been cleared or approved by the U.S. Food and Drug Administration. Test Performed by: [place] [address] [employer] Operator: Mitch Dumont M.D. Ph.D.; CLIA# [id number] ID Date Data Source [id number] 08/05/2020 04:28:[address] [facility] Name Value Range Interpretation Code Description Data [facility] rce(s) Supporting Document(s) Thiamine (Vitamin B1) result 267 nmol/L 70-180 Doyle [facility] ADDITIONAL INFORMATIO N This test was developed and its performance characteristics determined by [facility] in a manner consistent with CLIA requirements. This test has not been cleared or approved by the U.S. Food and Drug Administration. Test Performed by: [facility] [address] [employer] Operator: Mitch Dumont M.D. Ph.D.; CLIA# [id number] ID Date Data Source [id number] 07/30/2020 03:07:00 PM [facility] Value Range Interpretation Code Description Data [facility] rce(s) Supporting Document(s) FESAT Iron result 71 ug/dL 37-170 Normal (applies to non-numeri c results) [facility] Test Performed By: [facility] [address] [place] [address] Director: Ruben Cordoba MD FESAT TIBC result 311 ug/dL 265-497 Normal (applies to non-numeri c results) [facility] Test Performed By: [facility] [address] [place] [address] Director: Ruben Cordoba MD FESAT %Iron Saturation result 12.0-55.0 No rmal (applies to non-numeric results) [facility] Test Performed By: [facility] [address] [place] [address] Director: Ruben Cordoba MD ID Date Data Source [id number] 07/30/2020 03:07:00 PM [facility] Name Value Range Interpretation Code Description Data [facility] rce(s) Supporting Document(s) Ferritin result 105 ng/mL 11.1-264.0 Normal (applies to non-numeric results) [facility] Test Performed By: [facility] [address] [place] [address] Director: Ruben Cordoba MD ID Date Data Source [id number] 07/30/2020 03:07:00 PM [facility] Value Range Interpretation Code Description Data Rylie rce(s) Supporting Document(s) Vitamin B12 result 193-986 Doyle [facility] Test Performed By: [facility] [address] [place] [address] Director: Ruben Cordoba MD ID Date Data Source [id number] 07/30/2020 03:07:00 PM [facility] Value Range Interpretation Code Description Data Rylie rce(s) Supporting Document(s) Folate result 2.76-20.0 Doyle [facility] Test Performed By: [facility] [address] [place] [address] Director: Ruben Cordoba MD ID Date Data Source [id number] 07/30/2020 01:48:00 PM [facility] Value Range Interpretation Code Description Data Rylie rce(s) Supporting Document(s) CPK result 55 U/L 26-192 Normal (applies to non-numeric resul ts) [facility] Test Performed By: [facility] [address] [place] [address] Director: Ruben Cordoba MD ID Date Data Source [id number] 07/30/2020 10:15:00 AM [facility] Value Range Interpretation Code Description Data Rylie rce(s) Supporting Document(s) Vitamin D, Total 30.0-100.0 Normal (applies to non-numeric results) [facility] ID Date Data Source [id number] 07/30/2020 10:09:00 AM [facility] Name Value Range Interpretation Code Description Data Rylie rce(s) Supporting Document(s) Triglycerides 106 mg/dL <150 Normal (applies to non-numeric re sults) [facility] Cholesterol 171 mg/dL 100-200 Normal (applies to non-numeric resu lts) [facility] LDL Cholesterol Calculated 82 0-130 Normal (applies to n on-numeric results) [facility] HDL Cholesterol 68 mg/dL 40-60 Above high normal [facility] Cholesterol/HDL Ratio 3.6-6.7 Below low normal [facility] ID Date Data Source [id number] 07/30/2020 10:09:00 AM EST [facility] Name Value Range Interpretation Code Description Data Rylie rce(s) Supporting Document(s) Sodium 143 mmol/L 136-145 Normal (applies to non-numeric resul ts) [facility] Potassium 3.5-5.1 Normal (applies to non-numeric resul ts) [facility] Chloride 105 mmol/L 98-107 Normal (applies to non-numeric resul ts) [facility] Carbon Dioxide CO2 21-32 Normal (applies to non-numer ic results) [facility] Anion Gap 5.0-16.0 Normal (applies to non-numeric resul ts) [facility] BUN 22 mg/dL 7-18 Above high normal [facility] Creatinine,Serum 0.7-1.2 Normal (applies to non-numeric results) [facility] GFR >60 Normal (applies to non-numeric results) [facility] Glucose Level 92 mg/dL 60-99 Normal (applies to non-numeric re sults) [facility] Reference range is only applicable when patient is fasting Note the following drug interference: Sulfasalazine Sulfapyridine Can see falsely depressed Can see falsely elevated result with up to 17% results with up to 11% decrease in measurement increase in measurement Recommend patients be collected for this test prior to administration of either drug. Calcium 8.5-10.1 Normal (applies to non-numeric resul ts) [facility] Bilirubin,Total 0.1-1.9 Normal (applies to non-numeric results) [facility] SGOT(AST) 19 U/L 15-37 Normal (applies to non-numeric resul ts) [facility] Note the following drug interference: Sulfasalazine Sulfapyridine Can see falsely depressed Can see falsely elevated result with up to 10% results with up to 10% decrease in measurement increase in measurement Recommend patients be collected for this test prior to administration of either drug. SGPT(ALT) 26 U/L 12-78 Normal (applies to non-numeric resul ts) [facility] Note the following drug interference: Sulfasalazine Sulfapyridine Can see falsely depressed Can see falsely elevated result with up to 29% results with up to 10% decrease in measurement increase in measurement Recommend patients be collected for this test prior to administration of either drug. Alkaline Phosphatase 86 U/L 38-126 Normal (applies to non-num umang results) [facility] can increase Alkaline Phosp le vels up to 2 times the normal adult value. Normal values for children and adolescents are 2 to 3 times the normal adult value. Total Protein 6.0-8.2 Normal (applies to non-numeric re sults) [facility] Albumin Level 3.4-5.0 Normal (applies to non-numeric re sults) [facility] ID Date Data Source [id number] 07/30/2020 10:09:00 AM EST [facility] Name Value Range Interpretation Code Description Data Rylie rce(s) Supporting Document(s) Thyroid Stimulate Hormone TSH 0.358-3.74 Above high normal [facility] ID Date Data Source [id number] 07/30/2020 10:09:00 AM [facility] Name Value Range Interpretation Code Description Data Rylie rce(s) Supporting Document(s) Free T4 (Free Thyroxine) 0.76-1.46 Normal (applies to non -numeric results) [facility] ID Date Data Source [id number] 07/30/2020 09:23:00 AM [facility] Name Value Range Interpretation Code Description Data Rylie rce(s) Supporting Document(s) White Blood Count 3.5-10.5 Normal (applies to non-numeri c results) [facility] Red Blood Count 3.90-5.00 Normal (applies to non-numeric results) [facility] Hemoglobin 12.0-15.5 Normal (applies to non-numeric resul ts) [facility] Hematocrit 34.9-44.5 Normal (applies to non-numeric resul ts) [facility] Mean Corpuscular Volume 81.2-95.1 Normal (applies to non- numeric results) [facility] Mean Corpuscular Hgb 25.6-32.2 Normal (applies to non-num umang results) [facility] Mean Corpuscular Hgb Conc 32.0-36.0 Normal (applies to no n-numeric results) [facility] Red Cell Distribution Width 11.9-15.5 Normal (appli es to non-numeric results) [facility] Platelet Count 250 x10 3/uL 150-450 Normal (applies to non-numeric results) [facility] Mean Platelet Volume 9.4-12.4 Normal (applies to non-num umang results) [facility] Neutrophils% (Auto) 31.0-71.0 Normal (applies to non-nume jose results) [facility] Lymphocytes% (Auto) 20.0-55.0 Normal (applies to non-nume jose results) [facility] Monocytes% (Auto) 4.0-12.0 Normal (applies to non-numeri c results) [facility] Eosinophils% (Auto) 1.0-8.0 Normal (applies to non-nume jose results) [facility] Basophils% (Auto) 0.0-2.0 Normal (applies to non-numeri c results) [facility] Immature Granulocytes% (Auto) 0.0-2.0 Normal (denise lies to non-numeric results) [facility] Neutrophils# (Auto) 1.50-6.20 Normal (applies to non-nume jose results) [facility] Lymphocytes# (Auto) 1.20-4.00 Normal (applies to non-nume jose results) [facility] Monocytes# (Auto) 0.00-0.90 Normal (applies to non-numeri c results) [facility] Eosinophils# (Auto) 0.00-0.50 Normal (applies to non-nume jose results) [facility] Basophils# (Auto) 0.00-0.20 Normal (applies to non-numeri c results) [facility] Immature Granulocytes# (Auto) 0.00-7.00 No rmal (applies to non-numeric results) [facility] ID Date Data Source [id number] 07/30/2020 02:35:[address] [facility] Name Value Range Interpretation Code Description Data Rylie rce(s) Supporting Document(s) Iron FE Level 71 ug/dL 37-170 Normal (applies to non-numeric re sults) [facility] Test Performed By: [facility] [address] [place] [address] Director: Ruben Cordoba MD Total Iron Binding Capacity 311 ug/dL 265-497 Norm al (applies to non-numeric results) [facility] Test Performed By: [facility] [facility] [place] [facility] [address] [place] [address] Director: Ruben Cordoba MD %Iron Saturation 12.0-55.0 Normal (applies to non-numeric results) [facility] Test Performed By: [facility] [place] [facility] [address] [place] [address] Director: Ruben Cordoba MD ID Date Data Source [id number] 07/30/2020 02:35:[address] [facility] Name Value Range Interpretation Code Description Data Rylie rce(s) Supporting Document(s) Ferritin 105 ng/mL 11.1-264.0 Normal (applies to non-numeric resul ts) [facility] By: [facility] [address] [place] [address] Director: Ruben Cordoba MD ID Date Data Source [id number] 07/30/2020 02:35:[address] [facility] Name Value Range Interpretation Code Description Data Rylie rce(s) Supporting Document(s) Vitamin B12 193-986 Above high normal [facility] Test Performed By: [facility] [address] [place] [address] Director: Ruben Cordoba MD ID Date Data Source [id number] 07/30/2020 02:35:[address] [facility] Name Value Range Interpretation Code Description Data Rylie rce(s) Supporting Document(s) Folate 2.76-20.0 Above high normal [facility] Test Performed By: [facility] [address] [place] [address] Director: Ruben Cordoba MD ID Date Data Source [id number] 07/30/2020 01:27:[address] [facility] Name Value Range Interpretation Code Description Data Rylie rce(s) Supporting Document(s) CPK 55 U/L 26-192 Normal (applies to non-numeric resul ts) [facility] Test Performed By: [facility] [address] [place] [address] Director: Ruben Cordoba MD ID Date Data Source [id number] 07/18/2020 11:28:00 AM [facility] Imaging Services Department Imaging Report [address] [place] [address] Name: GEORGETTE GIL : 1945 Age/Sex: 74F Ordering Provider: Akil Ricci, Med Rec #: [id number] Date of Service: 07/17/20 Report Number: [id number] cc: Akil Ricci DO Send Report To: [id number] [facility]AMMOS[facility]/Screening Digtl Silvano w He[facility] CAD Reason for Exam: [...] Date/Time: 07/17/20 1248 Transcribed Date/Time: 07/18/20 1128 Asphalt Raker: ONESIMO Name Value Range Interpretation Code Description Data Rylie rce(s) Supporting Document(s) ID Date Data Source [id number] 05/12/2020 04:32:[address] [facility] Name Value Range Interpretation Code Description Data Rylie rce(s) Supporting Document(s) SARS-CoV-2 TAMIKA result Not Detected Very abnor mal (applies to non-numeric units [facility] This nucleic acid amplification test was developed and its performance characteristics determined by [facility]. Nucleic acid amplification tests include PCR and [...] detected) result in this assay. Performed at: [facility], [place], [place] [id number] Rapid [employer] Operator: Pavithra Pruitt PhD, Phone: [phone] THIS IS A STATE REPORTABLE COMMUNICABLE DISEASE. Results called 04/29/20 174,DR ROSENTHAL read back information to [facility] ID Date Data Source [id number] 04/27/2020 02:10:00 PM EST [facility] Name Value Range Interpretation Code Description Data Rylie rce(s) Supporting Document(s) SARS coronavirus 2 RNA [facility] This [facility] and reported by [facility]. ID Date Data Source [id number] 04/29/2020 06:22:00 PM [facility] Name Value Range Interpretation Code Description Data Rylie rce(s) Supporting Document(s) COVID-19 Result Not Detected Very abnormal (applies to non -numeric units [facility] Tamia Burroughs RN read back critical inform ation 04/29/20 1821 [facility] This nucleic acid amplification test was developed and its performance characteristics determined by [facility]. Nucleic acid amplification tests include PCR and [...] detected) result in this assay. Performed at: [facility] [address] [facility], [place], [place] [id number] Rapid [employer] Operator: Pvaithra Pruitt PhD, Phone: [phone] THIS IS A STATE REPORTABLE COMMUNICABLE DISEASE. Results called 04/29/20 6024,DR ROSENTHAL read back information to [facility] Procedure Social History Code Duration Value Status Description Data Source(s ) Smoking 03/22/2021 12:00:00 AM EDT Patient has never smoked co mpleted Patient has never smoked [facility] ([facility]) Vital Signs ID Date Data Source UNK Name Value Range Interpretation Code Description Data Source(s) Body mass index (BMI) [Ratio] 29.5 kg/m2 29.5 k g/m2 [facility] ([facility]) [place] body weight 105 [lb_av] 105 [lb_av] [facility] ([facility]) Body weight 70.762 kg 70.762 kg [facility] ([facility]) Body surface area Derived from formula 1.70 m2 1.70 m2 [facility] ([facility]) Body height 61 [in_i] 61 [in_i] [facility] ([facility]) 5'1" Systolic blood pressure 132 mm[Hg] 132 mm[Hg] [facility] ([facility]) Diastolic blood pressure 72 mm[Hg] 72 mm[Hg] [facility] ([facility]) Heart rate 94 /min 94 /min [facility] ([facility]) Oxygen saturation in Arterial blood by Pulse oximetry 92 % 92 % [facility] ([facility]) Room Air Body weight 156.00 [lb_av] 156.00 [lb_av] [facility] ([facility]) Systolic blood pressure 102 mm[Hg] 102 mm[Hg] [facility] ([facility]) Diastolic blood pressure 70 mm[Hg] 70 mm[Hg] [facility] ([facility]) [place] body weight 105 [lb_av] 105 [lb_av] [facility] ([facility]) Body weight 74.390 kg 74.390 kg [facility] ([facility]) Body surface area Derived from formula 1.74 m2 1.74 m2 [facility] ([facility]) Heart rate 86 /min 86 /min [facility] ([facility]) Oxygen saturation in Arterial blood by Pulse oximetry 92 % 92 % [facility] ([facility]) Room Air Body height 61 [in_i] 61 [in_i] [facility] ([facility]) 5'1" Body weight 164.00 [lb_av] 164.00 [lb_av] [facility] Body mass index (BMI) [Ratio] 31.0 kg/m2 31.0 k g/m2 [facility] ([facility]) Oxygen saturation in Arterial blood by Pulse oximetry 92 % 92 % [facility] ([facility]) Room Air Diastolic blood pressure 74 mm[Hg] 74 mm[Hg] [facility] ([facility]) Heart rate 80 /min 80 /min [facility] ([facility]) Body height 61 [in_i] 61 [in_i] [facility] ([facility]) 5'1" Systolic blood pressure 124 mm[Hg] 124 mm[Hg] M [facility] ([facility]) Body weight 173.00 [lb_av] 173.00 [lb_av] [facility] ([facility]) Body mass index (BMI) [Ratio] 32.7 kg/m2 32.7 k g/m2 [facility] ([facility]) [place] body weight 105 [lb_av] 105 [lb_av] [facility] ([facility]) Body weight 78.473 kg 78.473 kg [facility] ([facility]) Body surface area Derived from formula 1.78 m2 1.78 m2 [facility] ([facility]) Body temperature 97.5 [degF] 97.5 [degF] [facility] ([facility]) Diastolic blood pressure 80 mm[Hg] 80 mm[Hg] [facility] ([facility]) Systolic blood pressure 120 mm[Hg] 120 mm[Hg] M [facility] ([facility]) Respiratory rate 14 /min 14 /min [facility] ( [facility]) Heart rate 39 /min 39 /min [facility] ([facility]) Body temperature 97.5 [degF] 97.5 [degF] [facility] ([facility]) Body height 59.50 [in_i] 59.50 [in_i] [facility] ([facility]) 4'11.50" Body weight 170.00 [lb_av] 170.00 [lb_av] [facility] ([facility]) Body mass index (BMI) [Ratio] 33.8 kg/m2 33.8 k g/m2 [facility] ID Date Data Source [id number] 12/04/2020 10:57:00 AM EDT [facility] Name Value Range Interpretation Code Description Data Source(s) WEIGHT 80.45 kilos 80.45 kilos [facility] HEIGHT 151.13 centimeters 151.13 centimeter [facility]
--- OUTSIDE RECORDS SUMMARY | 2021-03-26 11:46 | CCD ---
Author Author [facility] Organization [facility] Address Unknown Phone Unavailable Care Team Providers Care Vehicle Detailer Name Role Phone Fish, B Tremaine PANTOJA [...] Fish, B Tremaine PANTOJA Unavailable Unavailable Fish, [facility], PA-C Unavailable Unavailabl e Fish, [facility], PA-C Unavailable Unavailabl e Fish, [facility], PA-C Unavailable Unavailabl e Fish, [facility], PA-C Unavailable Unavailabl e Fish, [facility], PA-C Unavailable Unavailabl e Fish, [facility], PA-C Unavailable Unavailabl e Fish, [facility], PA-C Unavailable Unavailabl e Fish, [facility], PA-C Unavailable Unavailabl e Fish, [facility], PA-C Unavailable Unavailabl e Fish, [facility], PA-C Unavailable Unavailabl e Fish, [facility], PA-C Unavailable Unavailabl e Fish, [facility], PA-C Unavailable Unavailabl e Fish, [facility], PA-C Unavailable Unavailabl e Fish, [facility], PA-C Unavailable Unavailabl e Fish, [facility], PA-C Unavailable Unavailabl e Fish, [facility], PA-C Unavailable Unavailabl e Fish, [facility], PA-C Unavailable Unavailabl e Fish, Pattie Stephenie MPAS, PA-C Unavailable Unavailabl e Fish, [facility], PA-C Unavailable Unavailabl e Fish, [facility], PA-C Unavailable Unavailabl e Fish, [facility], PA-C Unavailable Unavailabl e Fish, [facility], PA-C Unavailable Unavailabl e Fish, [facility], PA-C Unavailable Unavailabl e Fish, [facility], PA-C Unavailable Unavailabl e Fish, [facility], PA-C Unavailable Unavailabl e Fish, [facility], PA-C Unavailable Unavailabl e Fish, [facility], PA-C Unavailable Unavailabl e Fish, [facility], PA-C Unavailable Unavailabl e Fish, [facility], PA-C Unavailable Unavailabl e Fish, [facility], PA-C Unavailable Unavailabl e Fish, [facility], PA-C Unavailable Unavailabl e Fish, [facility], PA-C Unavailable Unavailabl e Fish, [facility], PA-C Unavailable Unavailabl e Fish, [facility], PA-C Unavailable Unavailabl e Fish, [facility], PA-C Unavailable Unavailabl e Fish, [facility], PA-C Unavailable Unavailabl e Hadian, Mario Unavailable [...] Mario Unavailable Unavailable Cathy, B Julio C COMPENSATION EXPERT Unavailable Unavailable Cathy, B Julio C COMPENSATION EXPERT Unavailable Unavailable Cathy, B Julio C COMPENSATION EXPERT Unavailable Unavailable Cathy, B Julio C COMPENSATION EXPERT Unavailable Unavailable Cathy, B Julio C COMPENSATION EXPERT Unavailable Unavailable Cathy, B Julio C COMPENSATION EXPERT Unavailable Unavailable Cathy, B Julio C COMPENSATION EXPERT Unavailable Unavailable Cathy, B Julio C COMPENSATION EXPERT Unavailable Unavailable Cathy, B Julio C COMPENSATION EXPERT Unavailable Unavailable Cathy, B Julio C COMPENSATION EXPERT Unavailable Unavailable Guzman, M Barratt PA Unavailable [...] MORENO MD Unavailable Unavailable [facility]_991, NA Unavailable [phone] UNKNOWN Unavailable Unavailable REASON, L EDWARD DO [...] is protected by Article 27-F of the [facility] Public Health law. If you continue you may have access to information: Regarding HIV / AIDS; Provided by facilities licensed or operated by the [facility] Office of Mental Health; or Provided by the [facility] Office for People With Developmental Disabilities. If such information is present, then the following [facility] mandated warning applies: This information has [...] law may result in a fine or residential sentence or both. A general authorization for the release of medical or other information is NOT sufficient authorization for further disc losure. Allergies and Adverse Reactions Type Description Substance Reaction Status Data Source(s ) Drug allergy No Known Drug Allergies No Known Drug Allergies [facility] Drug allergy No Known Allergies No Known Allergies [facility] Encounters Encounter Providers Location Date Indications Data Source(s ) Outpatient Attender: ERASTO Ponce/Breanne/Horace/ Rigoberto 03/22/2021 01:00:00 PM EDT [facility] ([facility] Outpatient Attender: ERASTO Ponce/Breanne/Horace/ Reindl 03/08/2021 03:15:00 PM EDT [facility] ([facility]) Outpatient Admitter: EDWARD RADHAMES DOReferrer: AKIL TARIQ Kennedy HOLMAN 03/03/2021 12:00:00 AM EDT Malignant neoplasm of unspecified part o f unspecified bronchus or lung [facility] Malignant neoplasm of unspecified part o f unspecified bronchus or lung Outpatient Attender: ERASTO Ponce/Breanne/Horace/ Reindl 02/22/2021 01:15:00 PM EDT [facility] ([facility]) Outpatient Attender: AKIL RICCI DO ED-LAB 02/17 10:24:00 AM EDT - 02/17/2021 10:25:00 AM EDT I10 R06.02 R05 [facility] I10 R06.02 R05 Patient discharged. Office Visit Attender: Tremaine Olivera MD Physical Therapy 2020 01:00:00 PM EDT [facility] ([facility]) Office Visit Attender: NA [facility]_991 Physical Therapy 021 03:00:00 PM EDT [facility] ([facility]) Office Visit Attender: Tremaine Olivera MD Physical Therapy 2020 11:00:00 AM EDT [facility] ([facility]) Inpatient Attender: Tremaine Olivera MDAdmitter: Julio C Morgan NP ER-2EAST 11/18/2020 06:14:00 AM EDT - 11/22/2020 02:32:00 PM EDT [facility] Patient discharged. Office Visit Attender: Rhoda PERALES Physical Therapy 09:30:00 AM EDT [facility] ([facility]) Outpatient Attender: Tremaine Olivera MD ER-OPS 11/13/2020 09:30:00 AM EDT [facility] Outpatient Attender: Tremaine Olivera MD ER-LAB 11/13/2020 04:33:00 AM T [facility] Outpatient Attender: AKIL RICCI DO ED-LAB 10/27 09:01:00 AM EDT - 10/27/2020 09:02:00 AM EDT PRE OP [facility] PRE OP Patient discharged. Office Visit Attender: Rhoda PERALES Physical Therapy 10:15:00 AM EDT [facility] ([facility]) Office Visit Attender: Rhoda PERALES Physical Therapy 09:00:00 AM EDT [facility] ([facility]) Outpatient Attender: Rhoda PERALES Physical Therapy 10:15:00 AM EDT [facility] ([facility]) Outpatient Attender: Tremaine Olivera MD Physical Therapy 08/07/2020 1 2:15:00 PM EST [facility] ([facility]) Outpatient Attender: CAROL CPSMARGARETLABEJN 07/30/2020 09:41:00 AM E [facility] Outpatient Attender: EDWARD REASON DO ED-LAB 07/30 09:00:00 AM EST - 07/30/2020 09:01:00 AM EST E039 K912 [id number] E785 E559 [id number] Z130 [facility] E039 K912 [id number] E785 E559 [id number] Z130 Patient discharged. Outpatient Attender: Stephenie LUNA PA-C Physical Therapy 07/27/2020 02:00:00 PM EST [facility] ([facility]) Outpatient Attender: EDWARD REASON DO ED-IMAG 07/17 10:41:00 AM EST - 07/17/2020 10:42:00 AM EST SCREENING MAMMO [facility] SCREENING MAMMO Patient discharged. [facility]/27/2020 08:07:00 PM [facility] Outpatient Attender: Mario Gomes ED-LABPNP 02:50:00 PM EST - 04/27/2020 02:51:00 PM EST POS EXPOSURE [facility] POS EXPOSURE Patient discharged. Immunizations Vaccine Date Status Description Data Source(s) Moderna Covid-19 vaccine, mRNA, LNP-S, PF, 100 mcg/ 0. 5 mL 07/10/2020 12:15:00 PM EST completed [facility] ([facility], ) COVID-19 VACCINE Moderna 07/10/2020 12:00:00 AM EST completed [facility] Vaccine Series Complete: YESThis Data wa s Submitted to [facility] Via [employer]. COVID-19 VACCINE, MRNA-1273, LNP-S (MODERNA)/PF 07/10/2020 1 2:00:00 AM EST completed [facility] Moderna Covid-19 vaccine, mRNA, LNP-S, PF, 100 mcg/ 0. 5 mL 06/12/2020 12:15:00 PM EST completed [facility] ([facility], ) COVID-19 VACCINE, MRNA-1273, LNP-S (MODERNA)/PF 06/12/2020 1 2:00:00 AM EST completed [facility] COVID-19 VACCINE Moderna 06/12/2020 12:00:00 AM EST completed [facility] Vaccine Series Complete: NOThis Data was Submitted to [facility] Via [employer]. Medications Medication Brand Name Start Date Product [...] 03/22/2021 12:00:00 AM EDT ORAL active [facility] ([facility], ) Ondansetron 4 MG Oral Tablet [Zofran] Zofran 03/22/2021 12:00:00 AM EDT ORAL active [facility] ([facility], ) 50 mg 03/09/2021 12:00:00 AM EDT [...] 11/26/2020 12:00:00 AM EDT active [facility] ([facility]) 50 mg 11/22/2020 12:00:00 [...] EIGHT TABLETS SOLD: 11/20/2020 [facility] Nystatin 583777 UNT/ML / Triamcinolone A cetonide 1 MG/ML Topical Cream 100,000- 0.1 unit/g-% [facility]/TRIAMCIN 11/16/2020 12:00:00 AM EDT cream 30 APPLY TO AFFECTED AREA(S) TWO TIMES A DAY APPLY TO AFFECTED AREA(S) TWO TIMES A DAY SOLD: 11/17/2020 [facility] Nystatin 830947 UNT/ML / Triamcinolone Acetonide 1 MG/ ML Topical Cream Nystatin-Triamcinolone 11/16/2020 12:00:00 AM EDT active [facility] ([facility]) 2 % 11/12/2020 12:00:00 AM [...] 10/27/2020 12:00:00 AM EDT ORAL active [facility] ([facility]) Betamethasone 0.5 MG/ML / Clotrimazole [...] ramirez Policy Ramirez Plan Information MEDICARE A [id number] Self [id number] EXCELLUS H [id number] Self [id number] [place] 306/806 [id number] SP [id number] [place] 306/806 [id number] SP [id number] MEDICARE [id number] S [id number] [place] [id number] S [id number] BLUE CROSS [id number] S [id number] MCRB [id number] S [id number] [id number] MEDICARE [id number] S [id number] [id number] MEDICARE [id number] S [id number] [id number] [place] [id number] S [id number] [place] [id number] S [id number] MEDICARE -O/P [id number] 18 [id number] RESOLVE -O/P [id number] 18 [id number] A BCBS [place] PPO 302/307 [id number] SP [id number] MEDICARE [id number] SP [id number] Problems, Conditions, and Diagnoses Code Display Name Description Problem Type Effective Dates Data Source(s) C34.90 Malignant neoplasm of unspecified part o f unspecified bronchus or lung Malignant neoplasm of unspecified part of unspecified bronchus or lung Diagnosis 03/03/2021 08:16:00 AM [facility] I10 Essential (primary) hypertension ESSENTIAL (PRIMARY) H YPERTENSION Diagnosis 02/17/2021 10:24:00 AM T [facility] Z98.84 Bariatric surgery status BARIATRIC SURGERY STATUS Diag nosis 11/19/2020 05:16:00 PM EDT [facility] E78.5 Hyperlipidemia, unspecified HYPERLIPIDEMIA, UNSPECIFIE D Diagnosis 11/19/2020 05:16:00 PM EDT [facility] I10 Essential (primary) hypertension ESSENTIAL (PRIMARY) H YPERTENSION Diagnosis 11/19/2020 05:16:00 PM T [facility] R26.81 Unsteadiness on feet UNSTEADINESS ON FEET Diagnosis 11/19/2020 05:16:00 PM [facility] R42 Dizziness and giddiness DIZZINESS AND GIDDINESS Diagno sis 11/19/2020 05:16:00 PM EDT [facility] G89.18 Other acute postprocedural pain OTHER ACUTE POST PROCEDURAL PAIN Diagnosis 11/19/2020 05:16:00 PM EDT [facility] T41.205A Adverse effect of unspecified general an esthetics, initial encounter ADVERSE EFFECT OF UNSP GENERAL ANESTHETICS, INIT E Diagnosis 05:16:00 PM EDT [facility] R11.0 Nausea NAUSEA Diagnosis 11/19/2020 05:16:00 PM ED [facility] E78.00 PURE HYPERCHOLESTEROLEMIA, UNSPECIFIED P URE HYPERCHOLESTEROLEMIA, UNSPECIFIED Diagnosis 11/19/2020 05:16:00 PM EDT [facility] J84.10 Pulmonary fibrosis, unspecified PULMONARY FIBROS IS, UNSPECIFIED Diagnosis 11/13/2020 10:56:00 AM [facility] M17.11 Unilateral primary osteoarthritis, right knee UNILATERAL PRIMARY OSTEOARTHRITIS, RIGHT KNEE Diagnosis 11/13/2020 10:56:00 AM [facility] M17.0 Bilateral primary osteoarthritis of knee BILATERAL PRIMARY OSTEOARTHRITIS OF KNEE Diagnosis 11/13/2020 10:56:00 AM T [facility] Z01.818 Encounter for other preprocedural examin ation ENCOUNTER FOR OTHER PREPROCEDURAL EXAMINATION Diagnosis 11/13/2020 10:56:00 AM [facility] Z20.822 CONTACT WITH AND (SUSPECTED) EXPOSURE TO COVID-19 CONTACT WITH AND (SUSPECTED) EXPOSURE TO COVID-19 Diagnosis 11/13/2020 04:33:00 AM [facility] Z01.812 Encounter for preprocedural laboratory e xamination ENCOUNTER FOR PREPROCEDURAL LABORATORY EXAMINATION Diagnosis 11/13/2020 04:33:00 AM [facility] Z01.810 Encounter for preprocedural cardiovascul ar examination ENCOUNTER FOR PREPROCEDURAL CARDIOVASCULAR EXAMINATION Diagnosis 10/27/2020 09:01:00 AM [facility] 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, 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 POSTSURGICAL MALABSORPTION, NOT ELSEWHERE CLASSIFIED Diagnosis 07/30/2020 09:00:00 AM [facility] E03.9 Hypothyroidism, unspecified HYPOTHYROIDISM, UNSPECIFIE D Diagnosis 07/30/2020 09:00:00 AM [facility] Z12.31 Encounter for screening mammogram for ma lignant neoplasm of breast ENCNTR SCREEN MAMMOGRAM FOR MALIGNANT NEOPLASM OF BREAST Diagnosis 10:41:00 AM [facility] Z20.828 Contact with and (suspected) exposure to other viral communicable diseases CONTACT W AND EXPOSURE TO OTH VIRAL COMMUNICABLE DISEASES Di agnosis 04/27/2020 02:50:00 PM [facility] Surgeries/Procedures Procedure Description Date Indications Data Source(s) OFFICE OUTPATIENT VISIT 25 MINUTES 03/22/2021 12:00:00 AM [facility] ([facility], ) OFFICE OUTPATIENT VISIT 40 MINUTES 03/08/2021 12:00:00 AM EDT [facility] ([facility]) Thoracentesis W/ Img Guidance 02/24/2021 12:00:00 AM E DT [facility] ([facility]) OFFICE OUTPATIENT NEW 45 MINUTES 02/22/2021 12:00:00 A M EDT [facility] ([facility], ) RADIOLOGIC EXAMINATION KNEE 3 VIEWS 12/25/2020 12:00:0 0 AM EDT [facility] ([facility]) ARTHRP KNE CONDYLE&PLATU MEDIAL&LAT CMPRTS 11/18/2020 12:00:00 AM EDT [facility] ([facility]) Replacement of Right Knee Joint with Syn thetic Substitute, Cemented, Open Approach 11/18/2020 12:00:00 AM EDT [facility] ARTHROCENTESIS ASPIR&/INJECTION MAJOR JT/BURSA 021 12:00:00 AM EDT [facility] ([facility]) ARTHROCENTESIS ASPIR&/INJECTION MAJOR JT/BURSA 021 12:00:00 AM EDT [facility] ([facility]) ARTHROCENTESIS ASPIR&/INJECTION MAJOR JT/BURSA 021 12:00:00 AM EDT [facility] ([facility]) OFFICE OUTPATIENT VISIT 25 MINUTES 09/17/2020 12:00:00 AM EDT [facility] ([facility]) ARTHROCENTESIS ASPIR&/INJECTION MAJOR JT/BURSA 021 12:00:00 AM EST [facility] ([facility]) OFFICE OUTPATIENT VISIT 40 MINUTES 08/07/2020 12:00:00 AM EST [facility] ([facility]) OFFICE OUTPATIENT VISIT 40 MINUTES 07/27/2020 12:00:00 AM EST [facility] ([facility]) 10664 SARS-COV-2 COVID-19 AMP PRB 04/27/2020 12:00:00 AM [facility] Results ID Date Data Source [id number] 03/08/2021 03:48:00 PM EDT [facility] Name Value Range Interpretation Code Description Data Rylie rce(s) Supporting Document(s) SARS coronavirus 2 RNA [Presence] in Res piratory specimen by TAMIKA with probe detection NEGATIVE [facility] This lab was ordered by [facility] a nd reported by [facility]. ID Date Data Source [id number] 03/18/2021 01:55:00 PM [facility] Anatomic Molecular Pathology ReportName: GEORGETTE GILMRN: [id number] Number: [id number] Date: 03/03/2021 00:00Received Date: 03/03/2021 09:52Physician(s): REASON,AKIL Gil,DO HERNÁNDEZ,ELY G,MDSpecimen(s) ReceivedA: Pleural effusion, Formalin Block, [id number], [facility],ALK by FISHDiagnosisTEST:ALK gene rearrangements by FISH [...] Prieto M.D. Attending Pathologist 03/18/2021 13:55:55Reported at [facility] Clinical Pathology [id number] [place] [address]. Gross DescriptionMETHODOLOGY:Interphase FISH is performed on paraffin embedded NSCLC utilizing the[employer] Molecular ALK Break Apart FISH Probe Kit. [...] the special procedure laboratory of Department of Pathology,[facility]. This report may include one or more immunohistochemical stain results thatuse analyte specific reagents. All positive and negative controls havebeen reviewed by the attending pathologist and are satisfactory. The testswere developed and their performance characteristics determined by [facility]ology department. They have not been cleared or approved by the USFood and Drug Administration. The FDA has determined that such clearanceor approval is not necessary. Name Value Range Interpretation Code Description Data Rylie rce(s) Supporting Document(s) ID Date Data Source [id number] 03/11/2021 09:02:00 PM [facility] Anatomic Molecular Pathology ReportName: GEORGETTE GILMRN: [id number] Number: [id number] Date: 03/03/2021 00:00Received Date: 03/03/2021 09:57Physician(s): AKIL RICCI,ELY PENALOZA,MDSpecimen(s) ReceivedA: Pleural effusion, Formalin Block, [id number], [facility],ROS1 by FISHDiagnosisTEST:ROS1 gene rearrangements by FISH [...] Prieto M.D. Attending Pathologist 03/11/2021 21:02:35Reported at [facility] Clinical Pathology [id number] [place] [address]. Gross DescriptionMETHODOLOGY:Interphase FISH is performed on paraffin embedded NSCLC utilizing thecombined [employer] LSI ROS1(Megan) and ROS1(Tel) ROS1 Probes: 1)3'-ROS1(Megan), 557 kb, labeled with SpectrumGreen, and 2) 5'-ROS1(Tel),317kb, labeled with SpectrumOrange. Tumor cells with no LCS6yfnjsplppexkmz have 2 yellow signals (fused orange and [...] and its performance characteristics weredetermined by the [facility],and it has been authorized for clinical use by [facility]. The test has not been cleared or approved by the U.S. Food andDrug Administration. The analyte specific reagents used in this assay donot require FDA approval. REFERENCES: 1. EUSEBIA Andres, Tiffanie AT, Thejamie MF et al. Identifying and Targeting ZXG5Qmtd Fusions in NonSmall Cell Lung Cancer. Clin Cancer Res 2012; 18(17);80111260.2. Xavier, Baldemar AT. Novel Targets in Non-Small Cell Lung Cancer:ROS-1 and RET fusions. The Oncologist. 2013;18:865-875.This report may include one or more im munohistochemical stain results thatuse analyte specific reagents. All positive and negative controls havebeen reviewed by the attending pathologist and are satisfactory. The testswere developed and their performance characteristics determined by [facility]ology department. They have not been cleared or approved by the USFood and Drug Administration. The FDA has determined that such clearanceor approval is not necessary. Name Value Range Interpretation Code Description Data Rylie rce(s) Supporting Document(s) ID Date Data Source [id number] 03/10/2021 10:06:00 PM [facility] Anatomic Molecular Pathology ReportName: GEORGETTE GILMRN: [id number] Number: [id number] Date: 03/03/2021 00:00Received Date: 03/03/2021 10:21Physician(s): RADHAMES,AKIL Gil,DO HERNÁNDEZ,ELY Brock,MDSpecimen(s) ReceivedA: Pleural effusion, Formalin Block, [id number], [facility],BRAF Mutation AnalysisDiagnosisTESTS:BRAF V600E mutation (1799 T>A) [...] Prieto M.D. Attending Pathologist 03/10/2021 22:06:13Reported at [facility] Clinical Pathology [id number] [place] [address]. Gross DescriptionMETHODOLO GY:BRAF V600E(1799 T>A) mutation at [...] theamounts of PCR products, and analyzed by [employer] Q real timeinstrument. The analytical sensitivity (or minimum percentage of mutantDNA needed) is approximately 10% given sufficient DNA input. Test development and its performance characteristics were determined bythe [facility], and has beenauthorized for clinical use by [facility]. Thetest has not been cleared or approved by the U.S. Food and DrugAdministration. The analyte specific reagents used in this assay do notrequire FDA approval. REFERENCES: 1. Dwain S, Leno Leger, et al. Detection of BRAF T912Raxnhevmy in colorectal cancer-comparison of automatic sequencing and realtime chemistry methodology. J Mol Diagn. 2006; 8:198917.2. Asim L, Christina LI, Tyler N, et al. BRAF mutation analysis in fineneedle aspiration (FNA) cytology of the thyroid. Diagn Mol Pathol.2006;15:064471.3. Rodrigo PK, Darshana ME, Katelin M, et al. Clinical characteristics ofpatients with lung adenocarcinomas harboring BRAF mutations. J Clin Oncol.2011;29:6414-6854.This report may include one or more immunohistochemical stain results thatuse analyte specific reagents. All positive and negative controls havebeen reviewed by the attending pathologist and are satisfactory. The testswere developed and their performance characteristics determined by [facility]ology department. They have not been cleared or approved by the USFood and Drug Administration. The FDA has determined that such clearanceor approval is not necessary. Name Value Range Interpretation Code Description Data Rylie rce(s) Supporting Document(s) ID Date Data Source [id number] 03/09/2021 04:16:00 PM [facility] Anatomic Molecular Pathology ReportName: GEORGETTE GILMRN: [id number] Number: [id number] Date: 03/03/2021 00:00Received Date: 03/03/2021 10:01Physician(s): REASON,EDWARD L,DO HERNÁNDEZ,ELY Brock,MDSpecimen(s) ReceivedA: Pleural effusion, Formalin Block, [id number], [facility],EGFRDiagnosisTEST: EGFR gene mutations (exon 19 deletions, [...] indicated. Presence of exon 19 deletions, exon 03O318S or L861Q, exon 18 G719A or exon [...] Prieto M.D. Attending Pathologist 03/09/2021 16:16:55Reported at [facility] Clinical Pathology [id number] [place] [address]. Gross DescriptionMETHODOLOGY:The therascreen EGFR RGQ PCR Kit ([employer], [place], [place]) is a real-timequalitative PCR assay used on the [employer] instrument for thedetection of seven types of [...] factor receptormutations in lung cancer. Nature Review/Cancer. 2007;1004-8219.This report may include one or more immunohistochemical stain results thatuse analyte specific reagents. All positive and negative controls havebeen reviewed by the attending pathologist and are satisfactory. The testswere developed and their performance characteristics determined by [facility] Pathology department. They have not been cleared or approved by the USFood and Drug Administration. The FDA has dete rmined that such clearanceor approval is not necessary. Name Value Range Interpretation Code Description Data Rylie rce(s) Supporting Document(s) ID Date Data Source [id number] 02/24/2021 03:38:00 PM EDT [facility] Name Value Range Interpretation Code Description Data [facility] rce(s) Supporting Document(s) Surgical pathology study Laboratory test result [facility] <content>Addendum 2 Entered: 03/19/2021 9170</content>
<content></content>
<content>The addendum is being issued to report additional molecular testing:</content>
<content>ALK gene mutation (FISH): POSITIVE</content>
<content>EGFR mutations (PCR): Negative</content>
<content>ROS1 gene mutation (FISH): Negative</content>
<content>[id number] mutation (PCR): Negative</content>
<content></content>
<content>Please see the scanned documentation for the full molecular diagnostics</content>
<content>reports from [facility].</content>
<content>03/19/2021827</content>
<content>Addendum Signed_ELY GLASER MD 03/19/2021827</content>
[...] 03/01/2021 1107</content>
<content></content> ID Date Data Source [id number] 02/24/2021 03:38:00 PM EDT [facility] ([facility], ) Name Value Range Interpretation Code Description Data Rylie rce(s) Supporting Document(s) Surgical pathology study Laboratory test result [facility] ([facility]) <content>Addendum 1 Entered: 03/05/2021836</content>
<content></content>
<content>The addendum [...] 03/01/2021 1107</content>
<content></content> ID Date Data Source [id number] 02/24/2021 03:02:00 PM EDT [facility] ([facility], ) Name Value Range Interpretation Code Description Data Rylie rce(s) Supporting Document(s) Microscopic observation [Identifier] in Unspecified specimen by Non- gynecological cytology method Laboratory test result [facility] ([facility]) SPECIMEN: Pleural fluid 1400 ml yellow SPECIMEN ADEQUACY: Satisfactory for evaluation CATEGORIZATION: Positive for Malignancy DESCRIPTIONS: Specimen consists of abundant clusters of malignant cells in a background of blood elements. COMMENTS: Also see case [id number]. 03/01/2021 - [address] (ASCP) 02/25/2021 0953 (Prelim) Signed ELY HERNÁNDEZ MD 03/01/2021 1108 ID Date Data Source [id number] 02/24/2021 11:05:00 AM EDT [facility] Name Value Range Interpretation Code Description Data Rylie rce(s) Supporting Document(s) SARS coronavirus 2 RNA [Presence] in Res piratory specimen by TAMIKA with probe detection NEGATIVE [facility] This lab was ordered by [facility] a nd reported by [facility]. ID Date Data Source [id number] 02/22/2021 02:20:00 PM EDT [facility] ([facility], ) Name Value Range Interpretation Code Description Data Rylie rce(s) Supporting Document(s) Platelets [#/volume] in Blood by Automated count Laboratory test resu lt [facility] ([facility], ) aPTT in Platelet poor plasma by Coagulation assay Laboratory test res ult [facility] ([facility], ) ID Date Data Source [id number] 02/20/2021 09:10:00 AM T [facility] Imaging Services Department Imaging Report [address] [place], [place] [address] %(RAD)RES..mtdd.print.filter("line") Name: GEORGETTE GIL : 1945 Age/Sex: 75F Ordering Provider: Akil Austin Reason, DO Med Rec #: [id number] Reg Status: [facility] REF Room #: Date of Service: 02/17/21 Report Number: [id number] cc:Akil Austin Reason, DO Send Report To: [id number] CT/CT Chest No Contrast Reason for exam: [...] 02/22/21912 Dictation Date/Time: 02/19/21925 Transcribed Date/Time: 02/20/21909 Hot Mill Operator: ANURAG Name Value Range Interpretation Code Description Data Rylie rce(s) Supporting Document(s) ID Date Data Source [id number] 02/18/2021 08:05:00 AM EDT [facility] Imaging Services Department Imaging Report [address] [place] [address] %(RAD)RES..mtdd.print.filter("line") Name: GEORGETTE GIL : 1945 Age/Sex: 75F Ordering Provider: Akil Austin Reason, DO Med Rec #: [id number] Reg Status: [facility] REF Room #: Date of Service: 02/17/21 Report Number: [id number] cc:Akil Austin Reason, DO Send Report To: [id number] XRP/XR Chest 2 View [Pa & Lat] [...] Date/Time: 02/17/21 1107 Transcribed Date/Time: 02/18/21 0805 Hot Mill Operator: NORA Name Value Range Interpretation Code Description Data [facility] rce(s) Supporting Document(s) ID Date Data Source [id number] 02/17/2021 11:50:00 AM EDT [facility] Name Value Range Interpretation Code Description Data Rylie rce(s) Supporting Document(s) Sodium 146 mmol/L 136-145 Above high normal [facility] Potassium 3.5-5.1 Normal (applies to non-numeric resul ts) [facility] Chloride 109 mmol/L 98-107 Above high normal [facility] Carbon Dioxide CO2 21-32 Normal (applies to non-numer ic results) [facility] Anion Gap 5.0-16.0 Normal (applies to non-numeric resul ts) [facility] BUN 15 mg/dL 7-18 Normal (applies to non-numeric results) [facility] Creatinine,Serum 0.7-1.2 Normal (applies to non-numeric results) [facility] GFR >60 Normal (applies to non-numeric results) [facility] Glucose Level 86 mg/dL 60-99 Normal (applies to non-numeric re sults) [facility] Reference range is only applicable when patient is fasting Note the following drug interference: Sulfasalazine Sulfapyridine Can see falsely depressed Can see falsely elevated result with up to 17% results with up to 11% decrease in measurement increase in measurement Recommend patients be collected for this test prior to administration of either drug. Calcium 8.5-10.1 Normal (applies to non-numeric resul ts) [facility] ID Date Data Source [id number] 02/17/2021 11:03:00 AM EDT [facility] Name Value Range Interpretation Code Description Data Yrlie rce(s) Supporting Document(s) White Blood Count 3.5-10.5 Normal (applies to non-numeri c results) [facility] Red Blood Count 3.90-5.00 Normal (applies to non-numeric results) [facility] Hemoglobin 12.0-15.5 Below low normal [facility]ital Hematocrit 34.9-44.5 Normal (applies to non-numeric resul ts) [facility] Mean Corpuscular Volume 81.2-95.1 Normal (applies to non- numeric results) [facility] Mean Corpuscular Hgb 25.6-32.2 Normal (applies to non-num umang results) [facility] Mean Corpuscular Hgb Conc 32.0-36.0 Normal (applies to no n-numeric results) [facility] Red Cell Distribution Width 11.9-15.5 Normal (appli es to non-numeric results) [facility] Platelet Count 323 x10 3/uL 150-450 Normal (applies to non-numeric results) [facility] Mean Platelet Volume 9.4-12.4 Normal (applies to non-num umang results) [facility] Neutrophils% (Auto) 31.0-71.0 Normal (applies to non-nume jose results) [facility] Lymphocytes% (Auto) 20.0-55.0 Normal (applies to non-nume jose results) [facility] Monocytes% (Auto) 4.0-12.0 Normal (applies to non-numeri c results) [facility] Eosinophils% (Auto) 1.0-8.0 Normal (applies to non-nume jose results) [facility] Basophils% (Auto) 0.0-2.0 Normal (applies to non-numeri c results) [facility] Immature Granulocytes% (Auto) 0.0-2.0 Normal (denise lies to non-numeric results) [facility] Neutrophils# (Auto) 1.50-6.20 Normal (applies to non-nume jose results) [facility] Lymphocytes# (Auto) 1.20-4.00 Normal (applies to non-nume jose results) [facility] Monocytes# (Auto) 0.00-0.90 Normal (applies to non-numeri c results) [facility] Eosinophils# (Auto) 0.00-0.50 Above high normal [facility] Basophils# (Auto) 0.00-0.20 Normal (applies to non-numeri c results) [facility] Immature Granulocytes# (Auto) 0.00-7.00 No rmal (applies to non-numeric results) [facility] ID Date Data Source [id number] 11/22/2020 03:52:00 PM EDT [address] [id number] SUMMARYPATIENT NAME: GEORGETTE GIL MR#: [id number] PHYSICIAN: TREMAINE Plata M.D. FISHAUTHOR: Gigi Ortega MD DATE: #: ASURDIS DATE: 11/22/20 : [birth year]Summary of HospitalizationReason for AdmissionSevere osteoarthritis of right knee requiring right total knee replacementarthroplastyHospital Wtspkw52 yo F who presented to the hospital [...] note, this morning when I rounded at [id number] AM, the pt told me that she [...] last resort for uncontrollable pain.Procedures & Relevant StudiesStudiGreenwood, [place] [id number] CONSULTATIONDate of : 1945 Name: GEORGETTE GIL MMedrec Number: [id number] Phys: TREMAINE OLIVERA M.D.Exam Date: 11/18/2020 Location: 2EASTProcedure: KNEEL, KNEE LIMITED Rad Numb: [id number] \\EXAM# TYPE/EXAM [id number] DX/KNEE LIMITEDDATE OF EXAMINATION: 11/18/2020 9:56 EDTHISTORY: Total knee prosthesisTECHNIQUE: 2 views right knee were obtained.FINDINGS:Total knee prosthesis is in excellent alignment. Postoperative softtissue emphysema and dorsal skin melina are noted.IMPRESSION:Total knee prosthesis.Electronically signed in PS360 by: Salena Truong M.D. 111:59 EDT Reported By: Gena TRUONG M.D.OUR RADIOLOGY DEPARTMENT IS ACCREDITED BY THE [employer] IN THE FOLLOWING MODALITIES:CT, MRI, NUCLEAR MEDICINE, PET/CT,MAMMOGRAPHY/STEREOTACTIC BIOPSY, &a mp; ULTRASOUNDCC: TREMAINE OLIVERA M.D.; AKIL RICCI L MDProcedure Start: 11/18/20 (1010) Procedure Complete: 11/18/20 (1010)Technologist: Kandy MADDENTranscribed Date/Time: 11/18/2020 (1211)Hot Mill Operator: XPrinted Date/Time: 11/22/2020 (4539)PAGE 1 Signed Report Printed From PCIDiagnoses (Current [...] InstructionsPrescriptionsContinue taking these medications:LEVOTHYROXINE (Synthroid*) 50 MCG [id number] MICROGRAM Orally DAILYAspirin chewable* (Children's Aspirin*) 81 MG TAB.CHEW81 MILLIGRAM Orally DAILYNABUMETONE (NABUMETONE) 500 MG [id number] MILLIGRAM Orally TWICE DAILYComments:CAN TAKE 4/ DAYROSUVASTATIN CALCIUM (CRESTOR) 5 MG TABLET5 MILLIGRAM Orally DAILYAtenolol* (Tenormin*) 50 MG [id number] MILLIGRAM Orally DAILYFERROUS GLUCONATE (FERROUS GLUC) 324 MG TABLET2 MILLIGRAM Orally DAILYCalcium Carbonate/Vitamin D3 (Calcium + Vitamin D Tablet) 1 EACH TABLET2 Orally DAILYCYANOCOBALAMIN (VITAMIN B-12) (Vitamin B-12) 500 MCG [id number] MICROGRAM Orally 3X WEEKMv-Mn/Folic Acid/Calcium/Vit K (Women's 50 Plus Multivit Tab) 1 EACH TABLET2 Orally DAILYGLUCOSAMINE/D3/BOSWELLIA LIA (Osteo Bi-Flex Caplet) 1 EACH TABLET1 TABLET Orally DAILYACETAMINOPHEN/DIPHENHYDRAMINE (Tylenol Pm Ex-Strength Caplet) 1 EACH TABLET2 TABLET Orally EVERY EVENINGStart taking the following new medications:TRAMADOL (Ultram*) 50 MG [id number] MILLIGRAM Orally EVERY 6 HOURS NEEDED not to exceed 4 tabs per dayDays = 5 Qty = 20No RefillsOndansetron HCl (ZOFRAN) 4 MG TABLET4 MILLIGRAM Orally EVERY 6 HOURS NEEDED as needed for NauseaDays = 5 Qty = 20No RefillsDischarge Activity: As to leratedDischarge diet: Low Fat/Low CholesterolFollow-upFollow up with your Primary care physician and orthopedic surgeonReferralsOrdered ReferralsNORTHERN ST. [facility] First availa...[address] [place] [address] -sn TO EVAL AND TREAT-PT FOR STRENGTH AND ENDURANCETime spent by provider to complete discharge > 30 minutesDATE SIGNED: 11/22/20 Electronically SignedTIME SIGNED: 1917 GIGI ORTEGA MD Name Value Range Interpretation Code Description Data Rylie rce(s) Supporting Document(s) ID Date Data Source [id number] 11/22/2020 01:57:00 PM EDT [facility] [id number] NAME: GEORGETTE GIL#: [id number] PHYSICIAN: TREMAINE OLIVERAACCOUNT #: [id number] ADM. DATE:PATIENT : 43 DISCH. DATE: [50}DISCHARGE SUMMARYMedical Discharge PlanNicotine Replacement TherapyPrescribed at discharge Rx for med given at KSPersonal Care InstructionsDischarge Activity: As toleratedDischarge diet: Low [...] InformationDISCHARGE INFORMATION* Thank you for [facility] and allowing us toserve you* Our Goal is to provide the highest quality of care.* This discharge information is to help you better understand your diagnosisand medication* Avoid taking xunp-hzg-bsnltsa medicines unless approved by your physician.* Take your medications as prescribed. DO NOT stop any medications unlessapproved first* Weigh yourself daily. Report any gain of 5 lbs in a week* 24 Hour Crisis HOTLINE available: Call Reachout at [phone] SMOKING CESSATION* Smoking is dangerous to your health. It delays the healing process, andworks against your medications. Not smoking will improve your health* Our hospital participates with the Opt-to-Quit program. You will be contactedafter discharge by the [facility] Smoker's Quitline for support with tobaccocessation. You have the option once contacted to refuse this service.* You can also go online to [email or web address]. Free nicotine replacementsare available ___Attention* You [...] rce(s) Supporting Document(s) ID Date Data Source [id number] 11/22/2020 04:35:00 AM EDT [facility] ([facility]) Name Value Range Interpretation Code Description Data Rylie rce(s) Supporting Document(s) Glucose [Mass/volume] in Serum or Plasma 94 mg/dL 70-110 [facility] ([facility]) Patients taking Sulfasalazine may have f alsely depressed Glucose levels. Patients taking Sulfapyridine may have falsely elevated Glucose levels. Patients should be drawn for Glucose before the initial administration of either drug. Urea nitrogen [Mass/volume] in Serum or Plasma 12 mg/dL 7-23 [facility] ([facility]) Creatinine [Mass/volume] in Serum or Plasma 0.555 mg/dL 0.500-1.300 [facility] ([facility]) Glomerular filtration rate/1.73 sq M.pre dicted [Volume Rate/Area] in Serum or Plasma by Creatinine-based formula (MDRD) Laboratory test result [facility] ([facility]) Chloride [Moles/volume] in Serum or Plasma 105 mmol/L 99-110 [facility] ([facility]) Bicarbonate [Moles/volume] in Blood 32 mmol/L 20-33 [facility] ([facility]) Sodium [Moles/volume] in Serum or Plasma 142 mmol/L 136-147 [facility] ([facility]) Potassium [Moles/volume] in Serum or Plasma 4.1 mmol/L 3.5-5.1 [facility] Anion gap in Serum or Plasma 9.1 10.0-20.0 [facility] ([facility] ) CA 9.5 mg/dL 8.3-10.7 [facility] ([facility] ) Alkaline phosphatase [Enzymatic activity/volume] in Serum or Plasma 67 U/L 45-117 [facility] Protein [Mass/volume] in Serum or Plasma 6.0 g/dL 6.0-7.8 [facility] ([facility]) Albumin [Mass/volume] in Serum or Plasma 2.6 g/dL 3.5-5.0 [facility] ([facility]) ESRD Dialysis patient Albumin reference range: 2.9-4.4 g/dL Globulin [Mass/volume] in Serum by calculation 3.4 g/dL 2.3-3.5 [facility] ([facility]) Albumin/Globulin [Mass Ratio] in Serum or Plasma 0.8 1.0-2.5 [facility] ([facility]) Alanine aminotransferase [Enzymatic activity/volume] in Seru m or Plasma 12 U/L 6-54 [facility] ([facility]) Patients taking Sulfasalazine and/or Sul fapyridine may have falsely depressed ALT levels. Patients should be drawn for ALT before the initial administration of either drug. Bilirubin.total [Mass/volume] in Serum or Plasma 0.7 mg/dL 0.1-1.1 [facility] ([facility]) [employer] [place] Total Bilirubin is n ot recommended for patients undergoing treatment with eltrombopag (Promacta) due to the potential for falsely elevated results. Aspartate aminotransferase [Enzymatic activity/volume] in Serum or Plasma 14 U/L 6-38 [facility] Patients taking Sulfasalazine and/or Sul fapyridine may have falsely depressed AST levels. Patients should be drawn for AST before the initial administration of either drug. ID Date Data Source [id number] 11/22/2020 04:35:00 AM EDT [facility] ([facility]) Name Value Range Interpretation Code Description Data Rylie rce(s) Supporting Document(s) Magnesium [Mass/volume] in Serum or Plasma 2.1 mg/dL 1.6-2.6 [facility] ([facility]) ID Date Data Source [id number] 11/22/2020 04:35:00 AM EDT [facility] ([facility]) Name Value Range Interpretation Code Description Data Rylie rce(s) Supporting Document(s) Leukocytes [#/volume] in Blood by Automated count 10.19 x10E3/uL 4.0- 10.5 [facility] ([facility]) Erythrocytes [#/volume] in Blood by Automated count 2.80 x10E6/uL 4.2 0-5.40 [facility] ([facility]) Hemoglobin [Mass/volume] in Blood 8.7 g/dL 12.0-16.0 [facility] ([facility]) MCV 92.5 fL 81.0-99.0 [facility] Hematocrit [Volume Fraction] of Blood by Automated count 25.9 % 3 7.0-47.0 [facility] ([facility]) MCH 31.1 pg 27.0-31.0 [facility] ([facility]) MCHC 33.6 g/dL 32.7-35.6 [facility] ([facility]) MPV 11.1 fl 6.9-9.5 [facility] ([facility]) Platelets [#/volume] in Blood by Automated count 236 x10E3/uL 150-450 [facility] ([facility]) RDW 12.6 % 11.5-14.0 [facility] ([facility]) Neutrophils 66.8 % 34-64 [facility] Monocytes 8.4 % 1.7-10.6 [facility] ([facility]) Lymphocytes 21.6 % 25-45 [facility] Basophils 0.6 % 0.1-2.0 [facility] ([facility]) Eosinophils 2.2 % 0.4-7.0 [facility]) Imm. Gran. 0.4 % 0.1-2.0 [facility] Abs. Lymph. 2.20 x10E3/uL 1.0-3.5 [facility] ([facility]) Abs. Neutro. 6.81 x10E3/uL 1.2-7.6 [facility] ([facility]) Abs. [place]. 0.86 x10E3/uL 0.1-1.0 [facility] ([facility]) Abs. Eosin. 0.22 x10E3/uL 0.1-0.7 [facility] ([facility]) Abs. Baso. 0.06 x10E3/uL 0.0-0.1 [facility] ([facility] ) Abs. Imm. Gran. 0.04 x10E3/uL 0.0-0.1 [facility] (No [facility]) Laboratory test finding (navigational concept) 0 % [facility] ([facility] ) ID Date Data Source [id number] 11/22/2020 05:29:00 AM EDT [facility] Name Value Range Interpretation Code Description Data Rylie rce(s) Supporting Document(s) MAGNESIUM 2.1 mg/dL 1.6-2.6 [facility] ID Date Data Source [id number] 11/22/2020 05:29:00 AM EDT [facility] Name Value Range Interpretation Code Description Data Rylie rce(s) Supporting Document(s) GLU 94 mg/dL 70-110 [facility] Patients taking Sulfasalazine may have f alsely depressedGlucose levels. Patients taking Sulfapyridine may havefalsely elevated Glucose levels. Patients should be drawnfor Glucose before the initial administration of eitherdrug. BUN 12 mg/dL 7-23 [facility] CRE 0.555 mg/dL 0.500-1.300 [facility] GFR > 60 mL/min [facility] CHLORIDE 105 mmol/L 99-110 [facility] NA 142 mmol/L 136-147 [facility] POTASSIUM 4.1 mmol/L 3.5-5.1 [facility] TCO2 32 mmol/L 20-33 [facility] ANION GAP 9.1 10.0-20.0 [facility] CA 9.5 mg/dL 8.3-10.7 [facility] ALKALINE PHOS 67 U/L 45-117 [facility] TP 6.0 g/dL 6.0-7.8 [facility] ALB 2.6 g/dL 3.5-5.0 [facility] ESRD Dialysis patient Albumin reference range: 2.9-4.4 g/dL GL 3.4 g/dL 2.3-3.5 [facility] A/G 0.8 1.0-2.5 [facility] T. BILIRUBIN 0.7 mg/dL 0.1-1.1 [facility] [employer] [place] Total Bilirubin is n ot recommended forpatients undergoing treatment with eltrombopag (Promacta)due to the potential for falsely elevated results. ALTI 12 U/L 6-54 [facility] Patients taking Sulfasalazine and/or Sul fapyridine may havefalsely depressed ALT levels. Patients should be drawn forALT before the initial administration of either drug. AST 14 U/L 6-38 [facility] Patients taking Sulfasalazine and/or Sul fapyridine may havefalsely depressed AST levels. Patients should be drawn forAST before the initial administration of either drug. ID Date Data Source [id number] 11/22/2020 05:10:00 AM EDT [facility] Name Value Range Interpretation Code Description Data Rylie rce(s) Supporting Document(s) WBC 10.19 x10E3/uL 4.0-10.5 [facility] l RBC 2.80 x10E6/uL 4.20-5.40 [facility] Hemoglobin 8.7 g/dL 12.0-16.0 [facility] Hematocrit 25.9 % 37.0-47.0 [facility] MCV 92.5 fL 81.0-99.0 [facility] MCH 31.1 pg 27.0-31.0 [facility] MCHC 33.6 g/dL 32.7-35.6 [facility] RDW 12.6 % 11.5-14.0 [facility] Platelet count 236 x10E3/uL 150-450 [facility] ital MPV 11.1 fl 6.9-9.5 [facility] Neutrophils 66.8 % 34-64 [facility] Lymphocytes 21.6 % 25-45 [facility] Monocytes 8.4 % 1.7-10.6 [facility] Eosinophils 2.2 % 0.4-7.0 [facility] Basophils 0.6 % 0.1-2.0 [facility] Imm. Gran. 0.4 % 0.1-2.0 [facility] Abs. Neutro. 6.81 x10E3/uL 1.2-7.6 [facility] Abs. Lymph. 2.20 x10E3/uL 1.0-3.5 [facility] Abs. [place]. 0.86 x10E3/uL 0.1-1.0 [facility] Abs. Eosin. 0.22 x10E3/uL 0.1-0.7 [facility] Abs. Baso. 0.06 x10E3/uL 0.0-0.1 [facility] Abs. Imm. Gran. 0.04 x10E3/uL 0.0-0.1 N [facility] spital ANRBC% 0 % 0 [facility] ID Date Data Source [id number] 11/21/2020 06:53:00 PM EDT [address] [id number] NOTEPATIENT NAME: GEORGETTE GIL PHYSICIAN: TREMAINE Plata M.D. FISHAUTHOR: Shannon PANTOJA, [facility]. DATE: MR#: [id number] NOTE DATE: 11/21/20 RM#: [id number] TIME: 185 : 44SubjectiveCC/Hx Present IllnessSevere osteoarthritis of right knee requiring right total knee replacementarthroplastyEvents Since Last EntryPt seen and examined at the bedside. Pt is feeling better today, however, sheappears to tolerate the tramadol better than the stronger narcotic medication.Attempt discharge tmr.ObjectiveVital SignsVital Signs-24 [id number] 5576 2343 0130 0255Temp 98.6 98.4 97.9 99.0Pulse 88 83 71 79Resp 18 15 15 13B/P 130/60 116/59 127/59 126/60B/P MeanPulse Ox 96 87 93 95O2 Delivery Nasal cannulaO2 Flow Rate 0JPdZ58711/21357 0554 0630 0820 0821Temp 98.3 98.3 98.3 98.3Pulse 82 82 90 78 78Resp 14 15 17 18B/P 125/65 125/65 132/67 125/57 125/57B/P MeanPulse Ox 94 94 95 94O2 DeliveryO2 Flow WdtwTtF83711/21950 1055 1055 1220 1331Temp 97.0 98.3 98.3 98.3 97.9Pulse 75 69 69 70 72Resp 16 18 18 18 13B/P 119/59 136/69 136/69 143/68 129/58B/P MeanPulse Ox 96 95 95 96 95O2 DeliveryO2 Flow CaurReC14411/21440 1448 1548 1655Temp 97.9 97.9 97.4 97.4Pulse 66 72 74 81Resp 18 18 20 17B/P 141/58 129/58 119/59 119/59B/P MeanPulse Ox 95 99 96 96O2 Delivery Nasal cannulaO2 Flow Rate 8GXvZ3Ypxcbj/OutputIntake/Output Summary 24 hours11/20 1900 11/21 0700Intake Total [...] normal speechPsych/Mental Status mood neutralResultsLaboratory DataRecent Labs-24 hours825334XeowtlyluDtnikc (136 - 147 mmol/L) 143Potassium (3.5 - [...] rce(s) Supporting Document(s) ID Date Data Source [id number] 11/21/2020 03:43:00 AM EDT [facility] ([facility] Name Value Range Interpretation Code Description Data Rylie rce(s) Supporting Document(s) Glucose [Mass/volume] in Serum or Plasma 95 mg/dL 70-110 [facility] ([facility] ) Patients taking Sulfasalazine may have f alsely depressed Glucose levels. Patients taking Sulfapyridine may have falsely elevated Glucose levels. Patients should be drawn for Glucose before the initial administration of either drug. Urea nitrogen [Mass/volume] in Serum or Plasma 11 mg/dL 7-23 [facility] ([facility] ) Glomerular filtration rate/1.73 sq M.pre dicted [Volume Rate/Area] in Serum or Plasma by Creatinine-based formula (MDRD) Laboratory test result [facility] ([facility] ) Creatinine [Mass/volume] in Serum or Plasma 0.616 mg/dL 0.500-1.300 [facility] ([facility] ) Chloride [Moles/volume] in Serum or Plasma 106 mmol/L 99-110 [facility] ([facility] ) Sodium [Moles/volume] in Serum or Plasma 143 mmol/L 136-147 [facility] ([facility] ) Potassium [Moles/volume] in Serum or Plasma 4.4 mmol/L 3.5-5.1 [facility] ([facility] ) Bicarbonate [Moles/volume] in Blood 31 mmol/L 20-33 [facility] ([facility] ) Anion gap in Serum or Plasma 10.4 10.0-20.0 [facility] ([facility] ) CA 8.8 mg/dL 8.3-10.7 [facility] Alkaline phosphatase [Enzymatic activity/volume] in Serum or Plasma 68 U/L 45-117 [facility] ([facility] Protein [Mass/volume] in Serum or Plasma 5.4 g/dL 6.0-7.8 [facility] ([facility] ) Globulin [Mass/volume] in Serum by calculation 2.7 g/dL 2.3-3.5 [facility] ([facility] ) Albumin [Mass/volume] in Serum or Plasma 2.7 g/dL 3.5-5.0 [facility] ([facility] ) ESRD Dialysis patient Albumin reference range: 2.9-4.4 g/dL Bilirubin.total [Mass/volume] in Serum or Plasma 0.6 mg/dL 0.1-1.1 [facility] ([facility] ) The Dimension [place] Total Bilirubin is n ot recommended for patients undergoing treatment with eltrombopag (Promacta) due to the potential for falsely elevated results. Albumin/Globulin [Mass Ratio] in Serum or Plasma 1.0 1.0-2.5 [facility] ([facility] ) Aspartate aminotransferase [Enzymatic activity/volume] in Serum or Plasma 14 U/L 6-38 [facility] ([facility] Patients taking Sulfasalazine and/or Sul fapyridine may have falsely depressed AST levels. Patients should be drawn for AST before the initial administration of either drug. Alanine aminotransferase [Enzymatic activity/volume] in Seru m or Plasma 12 U/L 6-54 [facility] ([facility] ) Patients taking Sulfasalazine and/or Sul fapyridine may have falsely depressed ALT levels. Patients should be drawn for ALT before the initial administration of either drug. ID Date Data Source [id number] 11/21/2020 03:43:00 AM EDT [facility] ([facility] ) Name Value Range Interpretation Code Description Data Rylie rce(s) Supporting Document(s) Leukocytes [#/volume] in Blood by Automated count 10.37 x10E3/uL 4.0- 10.5 [facility] ([facility] ) Erythrocytes [#/volume] in Blood by Automated count 2.83 x10E6/uL 4.2 0-5.40 [facility] ([facility] ) Hemoglobin [Mass/volume] in Blood 8.7 g/dL 12.0-16.0 [facility] ([facility]) Hematocrit [Volume Fraction] of Blood by Automated count 26.6 % 3 7.0-47.0 [facility] ([facility] ) MCV 94.0 fL 81.0-99.0 [facility] ([facility] ) MCH 30.7 pg 27.0-31.0 [facility] ([facility]) MCHC 32.7 g/dL 32.7-35.6 [facility] ([facility]) RDW 12.8 % 11.5-14.0 [facility] ([facility]) MPV 11.3 fl 6.9-9.5 [facility] ([facility]) Platelets [#/volume] in Blood by Automated count 198 x10E3/uL 150-450 [facility] ([facility]) Neutrophils 70.3 % 34-64 [facility] Lymphocytes 18.7 % 25-45 [facility] ([facility]) Monocytes 9.0 % 1.7-10.6 [facility] ([facility]) Basophils 0.4 % 0.1-2.0 [facility] ([facility]) Eosinophils 1.0 % 0.4-7.0 [facility] ([facility]) Abs. Neutro. 7.30 x10E3/uL 1.2-7.6 [facility] ([facility]) Imm. Gran. 0.6 % 0.1-2.0 [facility] ([facility]) Abs. Lymph. 1.94 x10E3/uL 1.0-3.5 [facility] ([facility]) Abs. [place]. 0.93 x10E3/uL 0.1-1.0 [facility] ([facility]) Abs. Baso. 0.04 x10E3/uL 0.0-0.1 [facility] ([facility]) Abs. Eosin. 0.10 x10E3/uL 0.1-0.7 [facility] ([facility]) Abs. Imm. Gran. 0.06 x10E3/uL 0.0-0.1 [facility] Laboratory test finding (navigational concept) 0 % [facility] ([facility]) ID Date Data Source [id number] 11/21/2020 05:06:00 AM EDT [facility] Name Value Range Interpretation Code Description Data Rylie rce(s) Supporting Document(s) GLU 95 mg/dL 70-110 [facility] Patients taking Sulfasalazine may have f alsely depressedGlucose levels. Patients taking Sulfapyridine may havefalsely elevated Glucose levels. Patients should be drawnfor Glucose before the initial administration of eitherdrug. BUN 11 mg/dL 7-23 [facility] CRE 0.616 mg/dL 0.500-1.300 [facility] GFR > 60 mL/min [facility] CHLORIDE 106 mmol/L 99-110 [facility] NA 143 mmol/L 136-147 [facility] POTASSIUM 4.4 mmol/L 3.5-5.1 [facility] TCO2 31 mmol/L 20-33 [facility] ANION GAP 10.4 10.0-20.0 [facility] CA 8.8 mg/dL 8.3-10.7 [facility] ALKALINE PHOS 68 U/L 45-117 [facility] TP 5.4 g/dL 6.0-7.8 [facility] ALB 2.7 g/dL 3.5-5.0 [facility] ESRD Dialysis patient Albumin reference range: 2.9-4.4 g/dL GL 2.7 g/dL 2.3-3.5 [facility] A/G 1.0 1.0-2.5 [facility] T. BILIRUBIN 0.6 mg/dL 0.1-1.1 [facility] The Dimension [place] Total Bilirubin is n ot recommended forpatients undergoing treatment with eltrombopag (Promacta)due to the potential for falsely elevated results. ALTI 12 U/L 6-54 [facility] Patients taking Sulfasalazine and/or Sul fapyridine may havefalsely depressed ALT levels. Patients should be drawn forALT before the initial administration of either drug. AST 14 U/L 6-38 [facility] Patients taking Sulfasalazine and/or Sul fapyridine may havefalsely depressed AST levels. Patients should be drawn forAST before the initial administration of either drug. ID Date Data Source [id number] 11/21/2020 04:55:00 AM EDT [facility] Name Value Range Interpretation Code Description Data Rylie rce(s) Supporting Document(s) WBC 10.37 x10E3/uL 4.0-10.5 [facility] 2.83 x10E6/uL 4.20-5.40 [facility] Hemoglobin 8.7 g/dL 12.0-16.0 [facility] Hematocrit 26.6 % 37.0-47.0 [facility] MCV 94.0 fL 81.0-99.0 [facility] MCH 30.7 pg 27.0-31.0 [facility] MCHC 32.7 g/dL 32.7-35.6 [facility] RDW 12.8 % 11.5-14.0 [facility] Platelet count 198 x10E3/uL 150-450 [facility] ital MPV 11.3 fl 6.9-9.5 [facility] Neutrophils 70.3 % 34-64 [facility] Lymphocytes 18.7 % 25-45 [facility] Monocytes 9.0 % 1.7-10.6 [facility] Eosinophils 1.0 % 0.4-7.0 [facility] Basophils 0.4 % 0.1-2.0 [facility] Imm. Gran. 0.6 % 0.1-2.0 [facility] Abs. Neutro. 7.30 x10E3/uL 1.2-7.6 [facility] Abs. Lymph. 1.94 x10E3/uL 1.0-3.5 [facility] Abs. [place]. 0.93 x10E3/uL 0.1-1.0 [facility] Abs. Eosin. 0.10 x10E3/uL 0.1-0.7 [facility] Abs. Baso. 0.04 x10E3/uL 0.0-0.1 [facility] Abs. Imm. Gran. 0.06 x10E3/uL 0.0-0.1 [facility] spital ANRBC% 0 % 0 [facility] ID Date Data Source [id number] 11/20/2020 03:32:00 PM EDT [facility] [address] [id number] NOTEPATIENT NAME: GEORGETTE GIL PHYSICIAN: TREMAINE Plata M.D. FISHAUTHOR: Julio C Morgan JANE-CADMelissa. DATE: MR#: [id number] NOTE DATE: 11/20/20 RM#: [id number] TIME: 1540 [...] 95 99 96 98 98O2 DeliveryO2 Flow IvhbIzH75311/19200 2219 2300 0147 0212Temp 98.5 98.5 98.4 98.4Pulse 70 68 71 67Resp 18 14 16 18B/P 119/64 122/57 124/60 124/60B/P MeanPulse Ox 95 95 90 95O2 Delivery Nasal cannula Nasal cannulaO2 Flow Rate 1L 9RNOBLPmS012/11/20848955 4405 0506 0508 0746Temp 98.4 97.9 98.0 98.0Pulse 70 70 68 70 73Resp 16 14 14 16B/P 124/56 119/52 108/48 108/48 106/50B/P MeanPulse Ox 95 95 95 94O2 DeliveryO2 Flow GomiTxK872/11/20998625 7641 1059 1525Temp 98.0 98.0 97.4 97.9Pulse 72 72 70 74Resp 18 17 16 18B/P 118/45 118/45 96/58 127/52B/P MeanPulse Ox 91 91 93 92O2 DeliveryO2 Flow RimyLvZ4Enzpzs/OutputIntake/Output Summary 24 hours11/19 1900 11/20 0700Intake Total [...] dry, intactPsych/Mental Status mood neutralResultsLaboratory DataRecent Labs-24 [id number] (136 - 147 mmol/L) 141Potassium (3.5 - [...] related to oral analgesicAgree with switching to [place] from PercocetCould also try a dose of IV TylenolResuscitation status Full codePlan discussed with patientCase discussed with returned case inspector, nursing staff, orthopedicsVTE ProphylaxisVTE Prophylaxis: Continue with XareltoDATE SIGNED: 11/20/20 Electronically SignedTIME SIGNED: 1540 JULIO C MORGAN Name Value Range Interpretation Code Description Data Rylei rce(s) Supporting Document(s) ID Date Data Source [id number] 11/20/2020 11:01:00 AM EDT [facility] [id number] PROGRESS NOTEPATIENT NAME: GEORGETTE GIL PHYSICIAN: TREMAINE Plata M.D. FISHAUTHOR: Fer Bobby. DATE: MR#: [id number] NOTE DATE: 11/20/20 RM#: [id number] TIME: 1104 [...] rce(s) Supporting Document(s) ID Date Data Source [id number] 11/20/2020 04:32:00 AM EDT [facility] ([facility]) Name Value Range Interpretation Code Description Data Rylie rce(s) Supporting Document(s) Urea nitrogen [Mass/volume] in Serum or Plasma 12 mg/dL 7-23 [facility] ([facility]) Glucose [Mass/volume] in Serum or Plasma 109 mg/dL 70-110 [facility] ([facility]) Patients taking Sulfasalazine may have f alsely depressed Glucose levels. Patients taking Sulfapyridine may have falsely elevated Glucose levels. Patients should be drawn for Glucose before the initial administration of either drug. Glomerular filtration rate/1.73 sq M.pre dicted [Volume Rate/Area] in Serum or Plasma by Creatinine-based formula (MDRD) Laboratory test result [facility] ([facility]) Creatinine [Mass/volume] in Serum or Plasma 0.620 mg/dL 0.500-1.300 [facility] ([facility]) Chloride [Moles/volume] in Serum or Plasma 106 mmol/L 99-110 [facility] ([facility]) Sodium [Moles/volume] in Serum or Plasma 141 mmol/L 136-147 [facility] ([facility]) Potassium [Moles/volume] in Serum or Plasma 4.3 mmol/L 3.5-5.1 [facility] ([facility]) Bicarbonate [Moles/volume] in Blood 29 mmol/L 20-33 [facility] ([facility]) Alkaline phosphatase [Enzymatic activity/volume] in Serum or Plasma 65 U/L 45-117 [facility] ([facility] ) Anion gap in Serum or Plasma 10.3 10.0-20.0 [facility] ([facility]) CA 9.0 mg/dL 8.3-10.7 [facility] ([facility] ) Albumin [Mass/volume] in Serum or Plasma 2.8 g/dL 3.5-5.0 [facility] ([facility] ) ESRD Dialysis patient Albumin reference range: 2.9-4.4 g/dL Protein [Mass/volume] in Serum or Plasma 5.2 g/dL 6.0-7.8 [facility] ([facility] ) Bilirubin.total [Mass/volume] in Serum or Plasma 0.6 mg/dL 0.1-1.1 [facility] ([facility] ) The Dimension [place] Total Bilirubin is n ot recommended for patients undergoing treatment with eltrombopag (Promacta) due to the potential for falsely elevated results. Globulin [Mass/volume] in Serum by calculation 2.4 g/dL 2.3-3.5 [facility] ([facility] ) Albumin/Globulin [Mass Ratio] in Serum or Plasma 1.2 1.0-2.5 [facility] ([facility] ) Aspartate aminotransferase [Enzymatic activity/volume] in Serum or Plasma 14 U/L 6-38 [facility] ([facility] Patients taking Sulfasalazine and/or Sul fapyridine may have falsely depressed AST levels. Patients should be drawn for AST before the initial administration of either drug. Alanine aminotransferase [Enzymatic activity/volume] in Seru m or Plasma 13 U/L 6-54 [facility] ([facility]) Patients taking Sulfasalazine and/or Sul fapyridine may have falsely depressed ALT levels. Patients should be drawn for ALT before the initial administration of either drug. ID Date Data Source [id number] 11/20/2020 05:26:00 AM EDT [facility] Name Value Range Interpretation Code Description Data Rylie rce(s) Supporting Document(s) GLU 109 mg/dL 70-110 [facility] Patients taking Sulfasalazine may have f alsely depressedGlucose levels. Patients taking Sulfapyridine may havefalsely elevated Glucose levels. Patients should be drawnfor Glucose before the initial administration of eitherdrug. BUN 12 mg/dL 7-23 [facility] CRE 0.620 mg/dL 0.500-1.300 [facility] GFR > 60 mL/min [facility] CHLORIDE 106 mmol/L 99-110 [facility] NA 141 mmol/L 136-147 [facility] POTASSIUM 4.3 mmol/L 3.5-5.1 [facility] TCO2 29 mmol/L 20-33 [facility] ANION GAP 10.3 10.0-20.0 [facility] CA 9.0 mg/dL 8.3-10.7 [facility] ALKALINE PHOS 65 U/L 45-117 [facility] TP 5.2 g/dL 6.0-7.8 [facility] ALB 2.8 g/dL 3.5-5.0 [facility] ESRD Dialysis patient Albumin reference range: 2.9-4.4 g/dL GL 2.4 g/dL 2.3-3.5 [facility] A/G 1.2 1.0-2.5 [facility] T. BILIRUBIN 0.6 mg/dL 0.1-1.1 [facility] The Dimension [place] Total Bilirubin is n ot recommended forpatients undergoing treatment with eltrombopag (Promacta)due to the potential for falsely elevated results. ALTI 13 U/L 6-54 [facility] Patients taking Sulfasalazine and/or Sul fapyridine may havefalsely depressed ALT levels. Patients should be drawn forALT before the initial administration of either drug. AST 14 U/L 6-38 [facility] Patients taking Sulfasalazine and/or Sul fapyridine may havefalsely depressed AST levels. Patients should be drawn forAST before the initial administration of either drug. ID Date Data Source [id number] 11/19/2020 05:17:00 PM EDT [address] [id number] AND PHYSICALPATIENT NAME: GEORGETTE GIL MR#: [id number] PHYSICIAN: TREMAINE Plata M.D. FISHAUTHOR: Julio C Morgan DATE: 11/18/20 RM#: [id number] & PHYSICAL DATE: 11/19/20 : 44EVALUATION TIME: 1717HistoryChief Complaint/Admit Reasonsevere osteoarthritis of right knee requiring right total knee replacementarthroplastyHistory of Presenting IllnessThis is a 75-year-old female fairly independent with a past medicalhistory of hypertension, hyperlipidemia and osteoarthritis of bilateral knee.Patient [facility] to undergoa right [...] Musculoskeletal, Derick, Endocrine,Neurology, Psych, Allergy/ImmunologyExamVital SignsVital Signs-24 HRS11/18460048 7521 0556 0615 0700Temp 98.0 98.0 97.9 98.0Pulse 66 71 64 67Resp 18 14 15 14B/P 114/56 111/59 111/59 104/60B/P MeanPulse Ox 94 92 96 93O2 Delivery Nasal cannula Nasal cannula Nasal cannulaO2 Flow Rate 2L 2L 6MShQ57511/19611959 6098 1015 1038 1325Temp 97.9 97.9 98.0 97.5Pulse 71 71 67 68 56Resp 14 16 16 16B/P 111/54 111/54 111/54 116/49 104/43B/P MeanPulse Ox 93 94 93 94O2 DeliveryO2 Flow VomtGzT51211/19474314 3670 1748Temp 97.9 97.7 97.7Pulse 71 73 72Resp 15 18 13B/P 115/55 124/51 124/51B/P MeanPulse Ox 95 99 96O2 DeliveryO2 Flow PqnsWsN4Uaduppkx ExaminationGeneral Appearance no acute distress, alert, awake, [...] speechPsych/Mental Status mood neutralData ReviewLaboratory DataRecent Labs-48 hours06/017993MyaqmheovYsymqn (136 - 147 mmol/L) 143Potassium (3.5 - [...] 3.5 g/dL) 2.3Albumin/Globulin Ratio (1.0 - 2.5) 1.1Upoluvp7/23/21 Xray: total knee prothesisAssessment/PlanDiagnosis/Problem1. Knee joint replacement [...] Full codePlan discussed with patientCase discussed with returned case inspector, nursing staffVTE ProphylaxisVTE Prophylaxis: xareltoCQM VTE HISTORYVTE HISTORYPrior VTE? NoDATE SIGNED: 11/19/20 Electronically SignedTIME SIGNED: 1846 JULIO C JANE-C CATHY Name Value Range Interpretation Code Description Data Rylie rce(s) Supporting Document(s) ID Date Data Source [id number] 11/19/2020 09:45:00 AM EDT [address] [id number] PROGRESS NOTEPATIENT NAME: GEORGETTE GIL PHYSICIAN: TREMANIE OLIVERAAUTHOR: Vipin Olivera MD. DATE: MR#: [id number] NOTE DATE: 11/19/20 RM#: [id number] TIME: 946 [...] rce(s) Supporting Document(s) ID Date Data Source [id number] 11/19/2020 04:25:00 AM EDT [facility] ([facility]) Name Value Range Interpretation Code Description Data Rylie rce(s) Supporting Document(s) Urea nitrogen [Mass/volume] in Serum or Plasma 15 mg/dL 7-23 [facility] ([facility]) Creatinine [Mass/volume] in Serum or Plasma 0.850 mg/dL 0.500-1.300 [facility] ([facility]) Glucose [Mass/volume] in Serum or Plasma 117 mg/dL 70-110 [facility] ([facility]) Patients taking Sulfasalazine may have f alsely depressed Glucose levels. Patients taking Sulfapyridine may have falsely elevated Glucose levels. Patients should be drawn for Glucose before the initial administration of either drug. Chloride [Moles/volume] in Serum or Plasma 108 mmol/L 99-110 [facility] ([facility]) Glomerular filtration rate/1.73 sq M.pre dicted [Volume Rate/Area] in Serum or Plasma by Creatinine-based formula (MDRD) Laboratory test result [facility] ([facility]) Sodium [Moles/volume] in Serum or Plasma 143 mmol/L 136-147 [facility] ([facility]) Potassium [Moles/volume] in Serum or Plasma 4.2 mmol/L 3.5-5.1 [facility] ([facility] Bicarbonate [Moles/volume] in Blood 29 mmol/L 20-33 [facility] ([facility] CA 8.7 mg/dL 8.3-10.7 [facility] ([facility] Anion gap in Serum or Plasma 10.2 10.0-20.0 [facility] ([facility]) Alkaline phosphatase [Enzymatic activity/volume] in Serum or Plasma 62 U/L 45-117 [facility] ([facility] ) Albumin [Mass/volume] in Serum or Plasma 2.8 g/dL 3.5-5.0 [facility] ([facility]) ESRD Dialysis patient Albumin reference range: 2.9-4.4 g/dL Protein [Mass/volume] in Serum or Plasma 5.1 g/dL 6.0-7.8 [facility] ([facility]) Bilirubin.total [Mass/volume] in Serum or Plasma 0.5 mg/dL 0.1-1.1 [facility] ([facility]) The Dimension [place] Total Bilirubin is n ot recommended for patients undergoing treatment with eltrombopag (Promacta) due to the potential for falsely elevated results. Albumin/Globulin [Mass Ratio] in Serum or Plasma 1.2 1.0-2.5 [facility] ([facility]) Globulin [Mass/volume] in Serum by calculation 2.3 g/dL 2.3-3.5 [facility] ([facility]) Aspartate aminotransferase [Enzymatic activity/volume] in Serum or Plasma 14 U/L 6-38 [facility] ([facility] Patients taking Sulfasalazine and/or Sul fapyridine may have falsely depressed AST levels. Patients should be drawn for AST before the initial administration of either drug. Alanine aminotransferase [Enzymatic activity/volume] in Seru m or Plasma 15 U/L 6-54 [facility] Patients taking Sulfasalazine and/or Sul fapyridine may have falsely depressed ALT levels. Patients should be drawn for ALT before the initial administration of either drug. ID Date Data Source [id number] 11/19/2020 04:59:00 AM EDT [facility] Name Value Range Interpretation Code Description Data Rylie rce(s) Supporting Document(s) GLU 117 mg/dL 70-110 [facility] Patients taking Sulfasalazine may have f alsely depressedGlucose levels. Patients taking Sulfapyridine may havefalsely elevated Glucose levels. Patients should be drawnfor Glucose before the initial administration of eitherdrug. BUN 15 mg/dL 7-23 [facility] CRE 0.850 mg/dL 0.500-1.300 [facility] GFR > 60 mL/min [facility] CHLORIDE 108 mmol/L 99-110 [facility] NA 143 mmol/L 136-147 [facility] POTASSIUM 4.2 mmol/L 3.5-5.1 [facility] TCO2 29 mmol/L 20-33 [facility] ANION GAP 10.2 10.0-20.0 [facility] CA 8.7 mg/dL 8.3-10.7 [facility] ALKALINE PHOS 62 U/L 45-117 [facility] TP 5.1 g/dL 6.0-7.8 [facility] ALB 2.8 g/dL 3.5-5.0 [facility] ESRD Dialysis patient Albumin reference range: 2.9-4.4 g/dL GL 2.3 g/dL 2.3-3.5 [facility] A/G 1.2 1.0-2.5 [facility] T. BILIRUBIN 0.5 mg/dL 0.1-1.1 [facility] The Dimension [place] Total Bilirubin is n ot recommended forpatients undergoing treatment with eltrombopag (Promacta)due to the potential for falsely elevated results. ALTI 15 U/L 6-54 [facility] Patients taking Sulfasalazine and/or Sul fapyridine may havefalsely depressed ALT levels. Patients should be drawn forALT before the initial administration of either drug. AST 14 U/L 6-38 [facility] Patients taking Sulfasalazine and/or Sul fapyridine may havefalsely depressed AST levels. Patients should be drawn forAST before the initial administration of either drug. ID Date Data Source [id number] 11/18/2020 10:13:00 PM EDT [place] [id number] CONSULT REPORTPATIENT NAME: GEORGETTE GIL MR#: [id number] PHYSICIAN: TREMAINE OLIVERACONSULTING PHYSICIAN: Young Rodrigues MDS. DATE: 11/18/20 RM#: [id number] DATE: 11/18/20 : 44EVALUATION TIME: 3HistoryReason for consultmedical management post operativelyRequested byDr. Olivera (orthopedics)Chief Complaint/Admit Reasonsevere osteoarthritis of right knee requiring right total knee replacementarthrop lastyHistory of Presenting IllnessThis is a 75-year-old female fairly independent with a past medicalhistory of hypertension, hyperlipidemia and osteoarthritis of bilateral knee.Patient presented to [facility] on [facility], [facility] to undergoa right [...] recreational drug use,retired, lives with family ([place] [facility]), marriedReview of SystemsConstitutionalDenies: Pain, Fever, Chills, [...] Full codePlan discussed with patientCase discussed with ged preparation teacher- EmilyAdvance Care Planning* [3 ] minutes of ahrs-st-lewh time spent for Advance Care Planning inexplanation/discussion of Advance Directives.* Decisions reached: [FULL CODE ].VTE ProphylaxisVTE Prophylaxis: [Xarelto ].DATE SIGNED: 11/19/20 Electronically SignedTIME SIGNED: 0127 CHAPARRO RODRIGUES MD Name Value Range Interpretation Code Description Data Rylie rce(s) Supporting Document(s) ID Date Data Source [id number] 11/18/2020 12:11:00 PM EDT [facility] Ex[facility] Number: [id number] OF EXAMINATIO N: 11/18/2020 9:56 EDTHISTORY: Total [...] rce(s) Supporting Document(s) ID Date Data Source [id number] 11/18/2020 09:58:00 AM EDT [facility] [address] [id number] OPERATIVE REPORTPATIENT NAME: GEORGETTE GIL MR#: [id number] PHYSICIAN: TREMAINE KILGORE: Tremaine Olivera MD DATE: RM#: [id number] DATE: PATIENT : 44Operative ReportOperative ReportOPERATION: Right total knee replacement arthroplasty.PREOPERATIVE DIAGNOSIS: Right knee osteoarthritisPOSTOPERATIVE DIAGNOSIS: Same.Surgeon: Dr. Freeman Surg Nurse: Nirmal Prietonesthesia: GeneralEBL: 50PROCEDURE: Patient was seen [...] the bone was removed. Erika used a production line worker to remove soft tissue and osteophytes from [...] removethe trial components irrigated copiously as the assistant plant manager prepared the bonecement on the back table [...] known complications. The plan will beroutine postop.The assistant plant manager was instrumental in holding retractors, mixing the bone cementand assisting in wound closure.Copy to Dr. Tremaine Lopez [facility] Provider REASON,AKIL Gil MDDATE SIGNED: 11/18/20 Electronically SignedTIME SIGNED: 1000 TREMAINE OLIVERA Name Value Range Interpretation Code Description Data Rylie e(s) Supporting Document(s) ID Date Data Source [id number] 11/13/2020 12:08:00 PM EDT [facility] Exam Number: [id number] OF EXAMINATION : 11/13/2020 10:12 EDTCHEST, TWO [...] rce(s) Supporting Document(s) ID Date Data Source [id number] 11/13/2020 11:32:00 AM EDT [facility] ([facility]) Name Value Range Interpretation Code Description Data Rylie rce(s) Supporting Document(s) Laboratory test finding (navigational concept) Laboratory test result [facility] ([facility]) ID Date Data Source [id number] 11/13/2020 01:56:00 PM EDT [facility] Name Value Range Interpretation Code Description Data Rylie rce(s) Supporting Document(s) BLOOD TYPE AB NEGATIVE [facility] ID Date Data Source [id number] 11/13/2020 11:30:00 AM EDT [facility] ([facility]) Name Value Range Interpretation Code Description Data Rylie rce(s) Supporting Document(s) Blood Type Laboratory test result [facility] ([facility]) Antibody Screen Laboratory test result [facility] ([facility]) ID Date Data Source [id number] 11/13/2020 01:56:00 PM EDT [facility] Is patient going to surgery? Y: NHave you ever had a blood transfusion? NHave you had a blood transfusion within the last 3 months? NWhen is the date of your surgery? 11/18/20 Name Value Range Interpretation Code Description Data Rylie rce(s) Supporting Document(s) BLOOD TYPE AB NEGATIVE [facility] ANTIBODY SCREEN NEGATIVE N [facility] ID Date Data Source [id number] 11/13/2020 09:30:00 AM EDT [facility] ([facility]) Name Value Range Interpretation Code Description Data Rylie rce(s) Supporting Document(s) [id number] [employer] Laboratory test result [facility] ([facility]) The Rheonix COVID-19 MDx Assay is an [...] Emergency Use Authorization. ID Date Data Source [id number] 11/13/2020 09:30:00 AM EDT [facility] Name Value Range Interpretation Code Description Data Rylie rce(s) Supporting Document(s) LCOVID-[address] [facility] This lab was ordered by [facility] and reported by [facility]. ID Date Data Source [id number] 11/14/2020 09:12:00 AM EDT [facility] COMMENTS TO LAB: 44LAB Con't: PREOP TESTINGIs patient suspicious of Covid NShould patient be placed on Covid precautions N Name Value Range Interpretation Code Description Data Rylie rce(s) Supporting Document(s) COVID19 RHEONIX Negative NEGATIVE N [facility] The Rheonix COVID-19 MDx Assay is an end point RT-PCR assayintended for the qualitative detection of nucleic acid dsleQYUP-FlP-1 virus. Positive results are indicative of thepresence of SARS-CoV-2 RNA; clinical correlation withpatient history and other diagnostic information isnecessary to determine patient infection status. Negativeresults do not preclude SARS-CoV-2 infection and should notbe used as the sole basis for patient management decisions. The Rheonix MDx Assay is only for use under the Food andDrug Administration's Emergency Use Authorization. ID Date Data Source [id number] 10/27/2020 10:39:00 AM EDT [facility] Name Value Range Interpretation Code Description Data Rylie rce(s) Supporting Document(s) Sodium 146 mmol/L 136-145 Above high normal [facility] Potassium 3.5-5.1 Above high normal [facility] ospital Chloride 109 mmol/L 98-107 Above high normal [facility] Carbon Dioxide CO2 21-32 Normal (applies to non-numer ic results) [facility] Anion Gap 5.0-16.0 Normal (applies to non-numeric resul ts) [facility] BUN 18 mg/dL 7-18 Normal (applies to non-numeric results) [facility] Creatinine,Serum 0.7-1.2 Normal (applies to non-numeric results) [facility] GFR >60 Normal (applies to non-numeric results) [facility] Glucose Level 88 mg/dL 60-99 Normal (applies to non-numeric re sults) [facility] Reference range is only applicable when patient is fasting Note the following drug interference: Sulfasalazine Sulfapyridine Can see falsely depressed Can see falsely elevated result with up to 17% results with up to 11% decrease in measurement increase in measurement Recommend patients be collected for this test prior to administration of either drug. Calcium 8.5-10.1 Normal (applies to non-numeric resul ts) [facility] Bilirubin,Total 0.1-1.9 Normal (applies to non-numeric results) [facility] SGOT(AST) 18 U/L 15-37 Normal (applies to non-numeric resul ts) [facility] Note the following drug interference: Sulfasalazine Sulfapyridine Can see falsely depressed Can see falsely elevated result with up to 10% results with up to 10% decrease in measurement increase in measurement Recommend patients be collected for this test prior to administration of either drug. SGPT(ALT) 24 U/L 12-78 Normal (applies to non-numeric resul ts) [facility] Note the following drug interference: Sulfasalazine Sulfapyridine Can see falsely depressed Can see falsely elevated result with up to 29% results with up to 10% decrease in measurement increase in measurement Recommend patients be collected for this test prior to administration of either drug. Alkaline Phosphatase 79 U/L 38-126 Normal (applies to non-num umang results) [facility] can increase Alkaline Phosp le vels up to 2 times the normal adult value. Normal values for children and adolescents are 2 to 3 times the normal adult value. Total Protein 6.0-8.2 Normal (applies to non-numeric re sults) [facility] Albumin Level 3.4-5.0 Normal (applies to non-numeric re sults) [facility] ID Date Data Source [id number] 10/27/2020 10:24:00 AM EDT [facility] Name Value Range Interpretation Code Description Data Rylie rce(s) Supporting Document(s) Erythrocyte Sedimentation rate 10 mm/hr 0-20 N ormal (applies to non-numeric results) [facility] ID Date Data Source [id number] 10/27/2020 10:24:00 AM EDT [facility] Name Value Range Interpretation Code Description Data Rylie rce(s) Supporting Document(s) White Blood Count 3.5-10.5 Normal (applies to non-numeri c results) [facility] Red Blood Count 3.90-5.00 Normal (applies to non-numeric results) [facility] Hemoglobin 12.0-15.5 Normal (applies to non-numeric resul ts) [facility] Hematocrit 34.9-44.5 Normal (applies to non-numeric resul ts) [facility] Mean Corpuscular Volume 81.2-95.1 Normal (applies to non- numeric results) [facility] Mean Corpuscular Hgb 25.6-32.2 Normal (applies to non-num umang results) [facility] Mean Corpuscular Hgb Conc 32.0-36.0 Normal (applies to no n-numeric results) [facility] Red Cell Distribution Width 11.9-15.5 Normal (appli es to non-numeric results) [facility] Platelet Count 268 x10 3/uL 150-450 Normal (applies to non-numeric results) [facility] Mean Platelet Volume 9.4-12.4 Normal (applies to non-num umang results) [facility] Neutrophils% (Auto) 31.0-71.0 Normal (applies to non-nume jose results) [facility] Lymphocytes% (Auto) 20.0-55.0 Normal (applies to non-nume jose results) [facility] Monocytes% (Auto) 4.0-12.0 Normal (applies to non-numeri c results) [facility] Eosinophils% (Auto) 1.0-8.0 Normal (applies to non-nume jose results) [facility] Basophils% (Auto) 0.0-2.0 Normal (applies to non-numeri c results) [facility] Immature Granulocytes% (Auto) 0.0-2.0 Normal (denise lies to non-numeric results) [facility] Neutrophils# (Auto) 1.50-6.20 Normal (applies to non-nume jose results) [facility] Lymphocytes# (Auto) 1.20-4.00 Normal (applies to non-nume jose results) [facility] Monocytes# (Auto) 0.00-0.90 Normal (applies to non-numeri c results) [facility] Eosinophils# (Auto) 0.00-0.50 Normal (applies to non-nume jose results) [facility] Basophils# (Auto) 0.00-0.20 Normal (applies to non-numeri c results) [facility] Immature Granulocytes# (Auto) 0.00-7.00 No rmal (applies to non-numeric results) [facility] ID Date Data Source [id number] 10/27/2020 10:23:00 AM EDT [facility] Name Value Range Interpretation Code Description Data Rylie rce(s) Supporting Document(s) PT 9.3-11.3 Below low normal [facility] spital INR Normal (applies to non-numeric results) [facility] The use of INR is restricted to patients on stable oral anticoagulant. Therapeutic Range: 2.0 - 3.0 High Risk Range: 2.5 - 3.5 ID Date Data Source [id number] 08/05/2020 04:32:00 PM EST [facility] Name Value Range Interpretation Code Description Data Rylie rce(s) Supporting Document(s) Free Retinol(Vit A) result 32.5-78.0 Normal (applie s to non-numeric results) [facility] ADDITIONAL INFORMATIO N This test was developed and its performance characteristics determined by [facility] in a manner consistent with CLIA requirements. This test has not been cleared or approved by the U.S. Food and Drug Administration. Test Performed by: [facility] [place] [address] Perlite Grinder: Mitch Dumont M.D. Ph.D.; CLIA# [id number] ID Date Data Source [id number] 08/05/2020 04:32:00 PM EST [facility] Name Value Range Interpretation Code Description Data Rylie rce(s) Supporting Document(s) Thiamine (Vitamin B1) result 267 nmol/L 70-180 Kristi y abnormal (applies to non- numeric units [facility] ADDITIONAL INFORMATIO N This test was developed and its performance characteristics determined by [facility] in a manner consistent with CLIA requirements. This test has not been cleared or approved by the U.S. Food and Drug Administration. Test Performed by: [facility] [place] [address] [employer] Grinder: Mitch Dumont M.D. Ph.D.; CLIA# [id number] ID Date Data Source [id number] 08/05/2020 04:28:00 PM [facility] Name Value Range Interpretation Code Description Data Rylie rce(s) Supporting Document(s) Free Retinol(Vit A) result 32.5-78.0 Normal (applie s to non-numeric results) [facility] ADDITIONAL INFORMATIO N This test was developed and its performance characteristics determined by [facility] in a manner consistent with CLIA requirements. This test has not been cleared or approved by the U.S. Food and Drug Administration. Test Performed by: [place] [address] [employer] Grinder: Mitch Dumont M.D. Ph.D.; CLIA# [id number] ID Date Data Source [id number] 08/05/2020 04:28:00 PM EST [facility] Name Value Range Interpretation Code Description Data [facility] rce(s) Supporting Document(s) Thiamine (Vitamin B1) result 267 nmol/L 70-180 Doyle [facility] ADDITIONAL INFORMATIO N This test was developed and its performance characteristics determined by [facility] in a manner consistent with CLIA requirements. This test has not been cleared or approved by the U.S. Food and Drug Administration. Test Performed by: [facility] [place] [address] Perl[employer] Grinder: Mitch Dumont M.D. Ph.D.; CLIA# [id number] ID Date Data Source [id number] 07/30/2020 03:07:00 PM [facility] Value Range Interpretation Code Description Data [facility] rce(s) Supporting Document(s) FESAT Iron result 71 ug/dL 37-170 Normal (applies to non-numeri c results) [facility] Test Performed By: [facility] [address] [place] [address] Director: Ruben Cordoba MD FESAT TIBC result 311 ug/dL 265-497 Normal (applies to non-numeri c results) [facility] Test Performed By: [facility] [address] [place] [address] Director: Ruben Cordoba MD FESAT %Iron Saturation result 12.0-55.0 No rmal (applies to non-numeric results) [facility] Test Performed By: [facility] [address] [place] [address] Director: Ruben Cordoba MD ID Date Data Source [id number] 07/30/2020 03:07:00 PM [facility] Name Value Range Interpretation Code Description Data [facility] rce(s) Supporting Document(s) Ferritin result 105 ng/mL 11.1-264.0 Normal (applies to non-numeric results) [facility] Test Performed By: [facility] [address] [place] [address] Director: Ruben Cordoba MD ID Date Data Source [id number] 07/30/2020 03:07:00 PM [facility] Value Range Interpretation Code Description Data Rylie rce(s) Supporting Document(s) Vitamin B12 result 193-986 Doyle [facility] Test Performed By: [facility] [address] [place] [address] Director: Ruben Cordoba MD ID Date Data Source [id number] 07/30/2020 03:07:00 PM [facility] Value Range Interpretation Code Description Data Rylie rce(s) Supporting Document(s) Folate result 2.76-20.0 Doyle [facility] Test Performed By: [facility] [address] [place] [address] Director: Ruben Cordoba MD ID Date Data Source [id number] 07/30/2020 01:48:00 PM [facility] Value Range Interpretation Code Description Data Rylie rce(s) Supporting Document(s) CPK result 55 U/L 26-192 Normal (applies to non-numeric resul ts) [facility] Test Performed By: [facility] [address] [place] [address] Director: Ruben Cordoba MD ID Date Data Source [id number] 07/30/2020 10:15:00 AM [facility] Value Range Interpretation Code Description Data Rylie rce(s) Supporting Document(s) Vitamin D, Total 30.0-100.0 Normal (applies to non-numeric results) [facility] ID Date Data Source [id number] 07/30/2020 10:09:00 AM [facility] Name Value Range Interpretation Code Description Data Rylie rce(s) Supporting Document(s) Triglycerides 106 mg/dL <150 Normal (applies to non-numeric re sults) [facility] Cholesterol 171 mg/dL 100-200 Normal (applies to non-numeric resu lts) [facility] LDL Cholesterol Calculated 82 0-130 Normal (applies to n on-numeric results) [facility] HDL Cholesterol 68 mg/dL 40-60 Above high normal [facility] Cholesterol/HDL Ratio 3.6-6.7 Below low normal [facility] ID Date Data Source [id number] 07/30/2020 10:09:00 AM EST [facility] Name Value Range Interpretation Code Description Data Rylie rce(s) Supporting Document(s) Sodium 143 mmol/L 136-145 Normal (applies to non-numeric resul ts) [facility] Potassium 3.5-5.1 Normal (applies to non-numeric resul ts) [facility] Chloride 105 mmol/L 98-107 Normal (applies to non-numeric resul ts) [facility] Carbon Dioxide CO2 21-32 Normal (applies to non-numer ic results) [facility] Anion Gap 5.0-16.0 Normal (applies to non-numeric resul ts) [facility] BUN 22 mg/dL 7-18 Above high normal [facility] ospital Creatinine,Serum 0.7-1.2 Normal (applies to non-numeric results) [facility] GFR >60 Normal (applies to non-numeric results) [facility] Glucose Level 92 mg/dL 60-99 Normal (applies to non-numeric re sults) [facility] Reference range is only applicable when patient is fasting Note the following drug interference: Sulfasalazine Sulfapyridine Can see falsely depressed Can see falsely elevated result with up to 17% results with up to 11% decrease in measurement increase in measurement Recommend patients be collected for this test prior to administration of either drug. Calcium 8.5-10.1 Normal (applies to non-numeric resul ts) [facility] Bilirubin,Total 0.1-1.9 Normal (applies to non-numeric results) [facility] SGOT(AST) 19 U/L 15-37 Normal (applies to non-numeric resul ts) [facility] Note the following drug interference: Sulfasalazine Sulfapyridine Can see falsely depressed Can see falsely elevated result with up to 10% results with up to 10% decrease in measurement increase in measurement Recommend patients be collected for this test prior to administration of either drug. SGPT(ALT) 26 U/L 12-78 Normal (applies to non-numeric resul ts) [facility] Note the following drug interference: Sulfasalazine Sulfapyridine Can see falsely depressed Can see falsely elevated result with up to 29% results with up to 10% decrease in measurement increase in measurement Recommend patients be collected for this test prior to administration of either drug. Alkaline Phosphatase 86 U/L 38-126 Normal (applies to non-num umang results) [facility] can increase Alkaline Phosp le vels up to 2 times the normal adult value. Normal values for children and adolescents are 2 to 3 times the normal adult value. Total Protein 6.0-8.2 Normal (applies to non-numeric re sults) [facility] Albumin Level 3.4-5.0 Normal (applies to non-numeric re sults) [facility] ID Date Data Source [id number] 07/30/2020 10:09:00 AM EST [facility] Name Value Range Interpretation Code Description Data Rylie rce(s) Supporting Document(s) Thyroid Stimulate Hormone TSH 0.358-3.74 Above high normal [facility] ID Date Data Source [id number] 07/30/2020 10:09:00 AM [facility] Name Value Range Interpretation Code Description Data Rylie rce(s) Supporting Document(s) Free T4 (Free Thyroxine) 0.76-1.46 Normal (applies to non -numeric results) [facility] ID Date Data Source [id number] 07/30/2020 09:23:00 AM [facility] Name Value Range Interpretation Code Description Data Rylie rce(s) Supporting Document(s) White Blood Count 3.5-10.5 Normal (applies to non-numeri c results) [facility] Red Blood Count 3.90-5.00 Normal (applies to non-numeric results) [facility] Hemoglobin 12.0-15.5 Normal (applies to non-numeric resul ts) [facility] Hematocrit 34.9-44.5 Normal (applies to non-numeric resul ts) [facility] Mean Corpuscular Volume 81.2-95.1 Normal (applies to non- numeric results) [facility] Mean Corpuscular Hgb 25.6-32.2 Normal (applies to non-num umang results) [facility] Mean Corpuscular Hgb Conc 32.0-36.0 Normal (applies to no n-numeric results) [facility] Red Cell Distribution Width 11.9-15.5 Normal (appli es to non-numeric results) [facility] Platelet Count 250 x10 3/uL 150-450 Normal (applies to non-numeric results) [facility] Mean Platelet Volume 9.4-12.4 Normal (applies to non-num umang results) [facility] Neutrophils% (Auto) 31.0-71.0 Normal (applies to non-nume jose results) [facility] Lymphocytes% (Auto) 20.0-55.0 Normal (applies to non-nume jose results) [facility] Monocytes% (Auto) 4.0-12.0 Normal (applies to non-numeri c results) [facility] Eosinophils% (Auto) 1.0-8.0 Normal (applies to non-nume jose results) [facility] Basophils% (Auto) 0.0-2.0 Normal (applies to non-numeri c results) [facility] Immature Granulocytes% (Auto) 0.0-2.0 Normal (denise lies to non-numeric results) [facility] Neutrophils# (Auto) 1.50-6.20 Normal (applies to non-nume jose results) [facility] Lymphocytes# (Auto) 1.20-4.00 Normal (applies to non-nume jose results) [facility] Monocytes# (Auto) 0.00-0.90 Normal (applies to non-numeri c results) [facility] Eosinophils# (Auto) 0.00-0.50 Normal (applies to non-nume jose results) [facility] Basophils# (Auto) 0.00-0.20 Normal (applies to non-numeri c results) [facility] Immature Granulocytes# (Auto) 0.00-7.00 No rmal (applies to non-numeric results) [facility] ID Date Data Source [id number] 07/30/2020 02:35:00 PM EST [facility] Name Value Range Interpretation Code Description Data Rylie rce(s) Supporting Document(s) Iron FE Level 71 ug/dL 37-170 Normal (applies to non-numeric re sults) [facility] Test Performed By: [facility] [address] [place] [address] Director: Ruben Cordoba MD Total Iron Binding Capacity 311 ug/dL 265-497 Norm al (applies to non-numeric results) [facility] Test Performed By: [facility] [address] [place] [address] Director: Ruben Cordoba MD %Iron Saturation 12.0-55.0 Normal (applies to non-numeric results) [facility] Test Performed By: [facility] [address] [place] [address] Director: Ruben Cordoba MD ID Date Data Source [id number] 07/30/2020 02:35:00 PM EST [facility] Name Value Range Interpretation Code Description Data Rylie rce(s) Supporting Document(s) Ferritin 105 ng/mL 11.1-264.0 Normal (applies to non-numeric resul ts) [facility] [address] [place] [address] Director: Ruben Cordoba MD ID Date Data Source [id number] 07/30/2020 02:35:00 PM EST [facility] Name Value Range Interpretation Code Description Data Rylie rce(s) Supporting Document(s) Vitamin B12 193-986 Above high normal [facility] Test [facility] By: [facility] [address] [place] [address] Director: Ruben Cordoba MD ID Date Data Source [id number] 07/30/2020 02:35:00 PM EST [facility] Name Value Range Interpretation Code Description Data Rylie rce(s) Supporting Document(s) Folate 2.76-20.[address] [facility] Test [facility] By: [facility] [address] [place] [address] Director: Ruben Cordoba MD ID Date Data Source [id number] 07/30/2020 01:27:00 PM EST [facility] Name Value Range Interpretation Code Description Data Rylie rce(s) Supporting Document(s) CPK 55 U/L 26-192 Normal (applies to non-numeric resul ts) [facility] Test Performed By: [facility] [address] [place] [address] Director: Ruben Cordoba MD ID Date Data Source [id number] 07/18/2020 11:28:00 AM [facility] Imaging Services Department Imaging Report [address] [place] [address] Name: GEORGETTE GIL : 1945 Age/Sex: 74F Ordering Provider: Akil Ricci, Med Rec #: [id number] Date of Service: 07/17/20 Report Number: [id number] cc: Akil Ricci DO Send Report To: [id number] MAMMOSCR/Screening Digtl Silvano w Hever CAD Reason [...] Date/Time: 07/17/20 1248 Transcribed Date/Time: 07/18/20 1128 [employer] Operator: ONESIMO Name Value Range Interpretation Code Description Data Rylie rce(s) Supporting Document(s) ID Date Data Source [id number] 05/12/2020 04:32:00 AM EST [facility] Name Value Range Interpretation Code Description Data Rylie rce(s) Supporting Document(s) SARS-CoV-2 TAMIKA result Not Detected Very abnor mal (applies to non-numeric units [facility] This nucleic acid amplification test was developed and its performance characteristics determined by [facility]. Nucleic acid amplification tests include PCR and [...] detected) result in this assay. Performed at: [facility], [place], [place] [id number] Perlite Grinder: Pavithra Pruitt PhD, Phone: [phone] THIS IS A STATE REPORTABLE COMMUNICABLE DISEASE. Results called 04/29/20 174,DR ROSENTHAL read back information to [facility] ID Date Data Source [id number] 04/27/2020 02:10:[address] [facility] Name Value Range Interpretation Code Description Data Rylie rce(s) Supporting Document(s) SARS coronavirus [address] [facility] reported by [employer]. ID Date Data Source [id number] 04/29/2020 06:22:00 PM [facility] Name Value Range Interpretation Code Description Data Rylie rce(s) Supporting Document(s) COVID-19 Result Not Detected Very abnormal (applies to non -numeric units [facility] Tamia Burroughs RN read back critical inform ation 04/29/20 1821 [facility] [place] This nucleic acid amplification test was developed and its performance characteristics determined by [facility]. Nucleic acid amplification tests include PCR and [...] detected) result in this assay. Performed at: [facility] [address] [facility], [place], [place] [id number] Perlite Grinder: Pavithra Pruitt PhD, Phone: [phone] THIS IS A STATE REPORTABLE COMMUNICABLE DISEASE. Results called 04/29/20 5256,DR ROSENTHAL read back information to [facility] Procedure Social History Code Duration Value Status Description Data Source(s ) Smoking 03/22/2021 12:00:00 AM EDT Patient has never smoked co mpleted Patient has never smoked [facility] ([facility], ) Vital Signs ID Date Data Source UNK Name Value Range Interpretation Code Description Data Source(s) Body mass index (BMI) [Ratio] 29.5 kg/m2 29.5 k g/m2 [facility] ([facility]) Body weight 70.762 kg 70.762 kg [facility] ([facility]) Carter body weight 105 [lb_av] 105 [lb_av] [facility] Body surface area Derived from formula 1.70 m2 1.70 m2 [facility] ([facility]) Body height 61 [in_i] 61 [in_i] [facility] ([facility]) 5'1" Systolic blood pressure 132 mm[Hg] 132 mm[Hg] [facility] ([facility]) Diastolic blood pressure 72 mm[Hg] 72 mm[Hg] [facility] ([facility]) Heart rate 94 /min 94 /min [facility] ([facility]) Oxygen saturation in Arterial blood by Pulse oximetry 92 % 92 % [facility] ([facility]) Room Air Body weight 156.00 [lb_av] 156.00 [lb_av] [facility] ([facility]) Systolic blood pressure 102 mm[Hg] 102 mm[Hg] M [facility] ([facility]) Diastolic blood pressure 70 mm[Hg] 70 mm[Hg] [facility] ([facility]) Heart rate 86 /min 86 /min [facility] ([facility]) Oxygen saturation in Arterial blood by Pulse oximetry 92 % 92 % [facility] ([facility]) Room Air Body height 61 [in_i] 61 [in_i] [facility] ([facility]) 5'1" Body weight 164.00 [lb_av] 164.00 [lb_av] [facility] ([facility]) Body mass index (BMI) [Ratio] 31.0 kg/m2 31.0 k g/m2 [facility] ([facility]) Carter body weight 105 [lb_av] 105 [lb_av] [facility] ([facility]) Body weight 74.390 kg 74.390 kg [facility] ([facility]) Body surface area Derived from formula 1.74 m2 1.74 m2 [facility] ([facility]) Oxygen saturation in Arterial blood by Pulse oximetry 92 % 92 % [facility] ([facility]) Room Air Diastolic blood pressure 74 mm[Hg] 74 mm[Hg] [facility] ([facility]) Heart rate 80 /min 80 /min [facility] ([facility]) Body height 61 [in_i] 61 [in_i] [facility] ([facility]) 5'1" Carter body weight 105 [lb_av] 105 [lb_av] [facility] ([facility]) Body weight 78.473 kg 78.473 kg [facility] ([facility]) Body surface area Derived from formula 1.78 m2 1.78 m2 [facility] ([facility]) Systolic blood pressure 124 mm[Hg] 124 mm[Hg] [facility] Body weight 173.00 [lb_av] 173.00 [lb_av] [facility] ([facility]) Body mass index (BMI) [Ratio] 32.7 kg/m2 32.7 k g/m2 [facility] ([facility]) Body temperature 97.5 [degF] 97.5 [degF] [facility] ([facility]) Diastolic blood pressure 80 mm[Hg] 80 mm[Hg] [facility] ([facility]) Heart rate 39 /min 39 /min [facility] ([facility]) Body temperature 97.5 [degF] 97.5 [degF] [facility] ([facility]) Body height 59.50 [in_i] 59.50 [in_i] [facility] ([facility]) 4'11.50" Body weight 170.00 [lb_av] 170.00 [lb_av] [facility] ([facility]) Body mass index (BMI) [Ratio] 33.8 kg/m2 33.8 k g/m2 [facility] ([facility]) Systolic blood pressure 120 mm[Hg] 120 mm[Hg] M [facility] ([facility]) Respiratory rate 14 /min 14 /min [facility] ( [facility]) ID Date Data Source [id number] 12/04/2020 10:57:00 AM EDT [facility] Name Value Range Interpretation Code Description Data Source(s) WEIGHT 80.45 kilos 80.45 kilos [facility] HEIGHT 151.13 centimeters 151.13 centimeter [facility]
[2021-03-26] MEDS ORDERED: ALEC150C PO (11:50)
[2021-03-26] MEDS ORDERED: ACET1TAB55 PO (11:50)
[2021-03-26] MEDS ORDERED: MM S100C PO (11:54)
[2021-03-26] MEDS ORDERED: TRAM50TA2 PO (11:54)
[2021-03-26] MEDS ORDERED: MED NOTE (11:54)
[2021-03-26] MEDS ORDERED: HOME MED LIST COMPLETE! XX SCH (11:55)
[2021-03-26 11:59] LABS: BASO # 0.2 10^3/uL (0.0-0.2); BASO % 0.8 % (0.0-1.0); EOS # 0.5 10^3/uL (0.0-0.5); EOS % 2.5 % (0.0-3.0); HEMOGLOBIN 11.2 g/dl (12.0-15.5); LYMPH # 1.4 10^3/uL (1.5-5.0); LYMPH % 7.4 % (24.0-44.0); MEAN CORPUSCULAR HEMOGLOBIN 28.6 pg (27.0-33.0); MEAN CORPUSCULAR HGB CONC 32.9 g/dl (32.0-36.5); MONO # 1.3 10^3/uL (0.0-0.8); NEUTROPHILS # 15.3 10^3/uL (1.5-8.5); PLATELET COUNT, AUTOMATED 649 10^3/uL (150-450); RED BLOOD COUNT 3.91 10^6/uL (4.00-5.40); WHITE BLOOD COUNT 18.9 10^3/uL (4.0-10.0)
[2021-03-26 12:08] LABS: INR 1.22; PROTHROMBIN TIME 15.8 SECONDS (12.7-14.5)
[2021-03-26 12:10] LABS: PARTIAL THROMBOPLASTIN TIME 33.1 SECONDS (25.9-37.0)
[2021-03-26 12:39] LABS: RSV AMPLIFICATION NEGATIVE (NEGATIVE)
[2021-03-26 12:55] LABS: ALT/SGPT 38 U/L (12-78); BILIRUBIN,DIRECT 0.1 MG/DL (0.0-0.2); BILIRUBIN,TOTAL 0.3 MG/DL (0.2-1.0); BLOOD UREA NITROGEN 15 MG/DL (7-18); CALCIUM LEVEL 9.2 MG/DL (8.8-10.2); CARBON DIOXIDE LEVEL 27 MEQ/L (21-32); CHLORIDE LEVEL 102 MEQ/L (98-107); CREATININE FOR GFR 0.79 MG/DL (0.55-1.30); GLOMERULAR FILTRATION RATE > 60.0 (>39); GLUCOSE, FASTING 108 MG/DL (70-100); POTASSIUM SERUM 4.6 MEQ/L (3.5-5.1); SODIUM LEVEL 136 MEQ/L (136-145); TOTAL PROTEIN 5.6 GM/DL (6.4-8.2)
[2021-03-26] MEDS ORDERED: KCL 20MEQ IN D5/NS 1000ML 1,000 ML IV SCH (13:00)
[2021-03-26] MEDS ORDERED: PILL CUTTER 1 EACH XX PRN (13:05)
[2021-03-26] MEDS ORDERED: traMADol 50 MG TAB PO PRN (14:30)
[2021-03-26 14:41] VITALS: BP 134/71
[2021-03-26] MEDS: LEVALBUTEROL 1.25 MG/0.5 ML CONCENTRATE NEB NEB SCH ×2 (15:22→19:44)
--- NOTE | 2021-03-26 15:53 | CR.PDOC ---
General Date of Consultation: Mar 26, 2021 Consultation REASON FOR PULMONOLOGY CONSULTATION/CHIEF COMPLAINT: Shortness of breath HISTORY OF PRESENT ILLNESS: 75-year-old female who has a recent diagnosis of stage IV lung adenocarcinoma currently on targeted therapy for ALK mutation, hypertension, dyslipidemia, hypothyroidism who is presenting to the hospital for worsening shortness of breath over the past 2 weeks. Approximately 1 month ago the patient was found to have large right-sided pleural effusion which was drained and was found to have positive malignant cells. She had recurrence of this large pleural effusion approximately 1 week later and she subsequently had a right Pleurx catheter placed. The Pleurx catheter was draining properly until about 1 week ago it stopped draining suddenly and patient started to develop worsening shortness of breath again. CT scan done as outpatient revealed a multiloculated right lung pleural effusion with a right lower lobe mass. The patient is being admitted for intrapleural alteplase and attempt to lyse these loculations and facilitate drainage. 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 ALLERGIES: Please see below. HOME MEDICATIONS: Please see below. REVIEW OF SYSTEMS: CONSTITUTIONAL: Denies fever, chills, night sweats, weight loss EYES: No blurring of vision or redness. ENT: No sore throat. No epistaxis. No tinnitus. CARDIOVASCULAR: No palpitations. RESPIRATORY: See HPI, dry cough, pleuritic chest pain GASTROINTESTINAL: No nausea, vomiting, or diarrhea. GENITOURINARY: No frequency, urgency, nocturia. No hematuria or dysuria. MUSCULOSKELETAL: No arthralgias or myalgias. INTEGUMENTARY: No rash or swelling NEUROLOGIC: No headache. No numbness or tingling of the extremities. No weakness. PSYCHIATRIC: No confusion or mood changes. ENDOCRINE: No fatigue, no goiter. HEMATOLOGICAL: No bleeding. No petechiae. No bruising. PHYSICAL EXAMINATION: VITAL SIGNS: Please see below. GENERAL APPEARANCE: Alert and awake. HEENT: no thyromegaly, trachea midline, PERRLA. normal mucous membranes RESPIRATORY: Reduced breath sounds on the right, Pleurx catheter in place, clean dry and intact CARDIOVASCULAR: +s1 s2, no murmurs. ABDOMEN: nontender, not distended, +BS EXTREMITIES: no edema or erythema. palpable distal pulses SKIN: no rash, no purpura NEUROLOGICAL: no sensory or motor deficits, orientedx3. LABS/IMAGING: WBC count is 18.9 which is down from 21.8 on 04/17/2021. Chest x-ray 03/26/2021 stable right sided loculated pleural effusion and consolidation. Stable left lung nodules. Right chest tube unchanged in position. ASSESSMENT: 1. Recurrent malignant pleural effusion status post right-sided Pleurx catheter complicated by development of pleural loculations and subsequent nondraining catheter. 2. Stage IV lung adenocarcinoma, with ALK mutation currently on targeted therapy. PLAN: * Will inject 6 mg intrapleural alteplase and will attempt drainage 4 hours lat er * Chest x-ray tomorrow morning. May need additional alteplase if there is no improvement in chest x-ray. * Continue with home medications and can use tramadol as needed for pain. * DVT prophylaxis * Pulmonary will follow Thank you for the courtsey of this consult. Please text me on Vocera for any q uestions or concerns. Kt Alvarado MD Pulmonary/Critical Care Vital Signs/I&O Vital Signs Date Time Temp Pulse Resp B/P (MAP) Pulse Ox O2 Delivery O2 Flow Rate FiO2 03/26/21 15:13 20 03/26/21 14:41 97.6 91 134/71 (92) 94 Nasal Cannula 2.0 Laboratory Data Labs 24H Laboratory Tests 2 03/26/21 11:32: Immature Granulocyte % (Auto) 1.3, Neutrophils (%) (Auto) 81.0H, Lymphocytes (%) (Auto) 7.4L, Monocytes (%) (Auto) 7.0, Eosinophils (%) (Auto) 2.5, Basophils (%) (Auto) 0.8, Neutrophils # (Auto) 15.3H, Lymphocytes # (Auto) 1.4L, Monocytes # (Auto) 1.3H, Eosinophils # (Auto) 0.5, Basophils # (Auto) 0.2, Nucleated Red Blood Cells % (auto) 0.0, Prothrombin Time 15.8H, Prothromb Time International Ratio 1.22, Activated Partial Thromboplast Time 33.1, Anion Gap 7L, Glomerular Filtration Rate > 60.0, Lactic Acid Level 1.2, Calcium Level 9.2, Total Bilirubin 0.3, Direct Bilirubin 0.1, Aspartate Amino Transf (AST/SGOT) 62H, Alanine Aminotransferase (ALT/SGPT) 38, Alkaline Phosphatase 272H, Total Protein 5.6L, Albumin 2.0L, Albumin/Globulin Ratio 0.6L, Coronavirus (COVID-19)(PCR) NEGATIVE, Influenza Type A (RT-PCR) NEGATIVE, Influenza Type B (RT-PCR) NEGATIVE, Respiratory Syncytial Virus (PCR) NEGATIVE CBC/BMP Laboratory Tests 03/26/21 11:32 Allergies Coded Allergies: hydrocodone (Verified Adverse Reaction, Mild, n/v, 03/08/21) oxycodone (Verified Adverse Reaction, Mild, n/v, 03/08/21) Home Medications Scheduled Acetaminophen/Diphenhydramine (Acetaminophen Pm Caplet) 1 Each Tablet, 2 TAB PO QHS, (Reported) Alectinib HCl (Alecensa) 150 Mg Capsule, 600 MG PO BID, (Reported) JUST PICKED UP TODAY, WANTED HER TO START IT TODAY Aspirin (Ecotrin) 81 Mg Tablet.dr, 81 MG PO DAILY, (Reported) Atenolol (Atenolol) 50 Mg Tablet, 50 MG PO DAILY, (Reported) Calcium Carb/Vitamin D3/Vit K1 (Viactiv 650 mg-12.5 Mcg Chew) 1 Each Tab.chew, 2 EACH PO DAILY, (Reported) Cyanocobalamin (Vitamin B-12) (Vitamin B-12) 500 Mcg Tablet, 500 MCG PO 3XW, (Reported) MON, MON, MON Docusate Sodium (Stool Softener) 100 Mg Capsule, 100 MG PO BID, (Reported) Ferrous Sulfate (Iron) 325 Mg Tablet, 325 MG PO BID, (Reported) Glucosamine/Chondr Sparrow A Sod (Cidaflex Tablet) 1 Each Tablet, 1 TAB PO DAILY, (R eported) Levothyroxine Sodium (Levothyroxine Sodium) 50 Mcg Tablet, 50 MCG PO DAILY, (Reported) Multivitamins (Thera M Plus Tablet) 1 Each Tablet, 1 TAB PO DAILY, (Reported) Rosuvastatin Calcium (Rosuvastatin Calcium) 5 Mg Tablet, 5 MG PO QHS, (Reported) Scheduled PRN Acetaminophen (Acetaminophen) 325 Mg Tablet, 650 MG PO Q4H PRN for PAIN LEVEL 1- 4, (Reported) Ondansetron HCl (Ondansetron HCl) 4 Mg Tablet, 4 MG PO TID PRN for NAUSEA OR VOMITING, (Reported) Tramadol HCl (Tramadol HCl) 50 Mg Tablet, 50 MG PO Q8H PRN for pain, (Reported) Miscellaneous Medications [Med Note] , (Reported) SPOKE WITH KT ALVARADO MD Mar 26, 2021 15:53
[2021-03-26 16:00] VITALS: BP 123/57
[2021-03-26] MEDS ORDERED: LevoFLOXacin IV 750 MG in IV 1 EA IV SCH (17:00)
--- NOTE | 2021-03-26 17:00 | HPEPDOC ---
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 Darnell that she will begin tomorrow as its delivered to her home today, who reports minimal pleurX recently and worsening SOB and on reporting it to her rn pacu, was directed to the ED for admission and evaluation by thoracic surgery for a loculated effusion and will be admitted for tPA and drainage to hopefully restore function of pleurX. She also has a history of DLP, Hypothyroidism, Osteoarthritis, Gastric bypass (2003) who presented to the [facility] as a direct admission for shortness of breath with exertion. Patient denies any chest pain but had shortness of breath with exertion with a nonproductive cough. She denies any recent fevers or chills. She has some episodic nausea but no emesis and denies abdominal discomfort. In the ED, she was hemodynamically stable and was saturating 89% on room air and placed on 2L NC. CXR showed a loculated R pleural effusion and lung consolidation was stable from prior, as well as previously noted left lung nodules, and R sided pleurX in place. WBC was 18.9 down from 21.8 on 03/17, hgb 11.2, platelets 649 and Cr was 0.79. She is now being admitted to medicine with thoracic surgery on consult with plan for intrapleural alteplase and drainage. I discussed her leukocytosis with Dr. Alvarado and if it would warrant empiric antibiotic coverage for potential pneumonia and he recommended holding off antibiotics at this time as she clinically is not c/w ongoing bacterial PNA but agrees with infectious workup and pleural studies. Past Medical History: Stage IV NSCLC w/ a malignant pleural effusion with pleurX in place HTN DLP Hypothyroidism Osteoarthritis Gastric bypass (2003) Hx of COVID 19 infection (03/2020); was asymptomatic Past Surgical History: Gastric bypass 2003 Right knee arthroplasty 10/2020 Hysterectomy 1989 Dilation and curettage 1988 Hernia repair 1980s Left ankle fracture s/p repair, 1978 Right foot surgery 1993 Allergies: See below Medications: See below Family History: Father: Had CKD and bladder cancer Mother: Had CAD and CKD Social History: Never smoker or history of tobacco use. did smoke and had second hand tobacco exposure Denies the use of illicit drugs Social use of alcohol Lives at home with Review of Systems: 10 point review of systems complete, all negative otherwise stated in HPI Physical exam: Vitals: please see below General: Sitting up in bed, ppeaking in full sentences, on 2L NC, no labored breathing HEENT: NCAT, PERRLA, EOMI, MMM Cardiac: RRR, +S1S2, no noted murmurs, rubs or gallops Pulm: Diminished right lung sounds, better air movement at the apices, left lung with adequate air movement. PleurX site with c/d/i dressing, no surrounding erythema Abdomen: Normoactive bowel sounds, soft, NTND Extremities: No lower extremity edema, No calf tenderness, 2+ DP pulses Neuro: No focal motor or sensory deficit, CN 3-12 intact, speech without dysarthria Labs: reviewed above Imagin/29 CXR: Loculated right pleural fluid and right lung consolidation appears stable. Left lung nodules are again noted unchanged. The visualized heart and mediastinum are unchanged. Right chest tube is unchanged. IMPRESSION: Stable right-sided loculated pleural fluid and consolidation. Stable left lung nodules. Right chest tube unchanged in position. 03/24 CT chest (done in the outpatient setting): The mediastinum and pulmonary sierra are unchanged. There is mediastinal and hilar adenopathy status quo. There is a small pericardial effusion status quo. There is a loculated right pleural effusion which has increased. There is a right-sided thoracotomy tube the tip of which is in the right lower lobe regions status quo. There is no significant change in appearance of the imaged upper abdomen or im aged osseous structures. Evaluation of the lung christensen shows numerous spiculated left lung nodules unchanged from the prior exams. Numerous right lung nodules are again noted. Increased parenchymal density is seen in the aerated portion of the right lung which has diminished in size compared to the prior exam due to the increasing loculated effusion. There is evidence of scattered right lung subsegmental atelectatic change and focal areas of consolidation all increased from the prior exam. IMPRESSION: 1. Increased loculated right pleural effusion. 2. Evidence of patchy areas of lung consolidation on the right suspicious for atelectatic change and/or pneumonia. This should be evaluated clinically with appropriate follow-up if necessary. 3. Pulmonary metastatic disease as described above. 4. Adenopathy. 5. Right-sided thoracotomy tube. 6. Other findings as described above. 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 Darnell that she will begin tomorrow as its delivered to her home today, who reports minimal pleurX recently and worsening SOB and on reporting it to her rn pacu, was directed to the ED for admissi on and evaluation by thoracic surgery for a loculated effusion and will be admitted for tPA and drainage to hopefully restore function of pleurX as well as evaluation for potential infection. Shortness of breath - likely 2/2 recurrent right sided pleural effusion i/s/o loculated effusion with PleurX not draining. - Hemodynamically stable and afebrile, on discussion with pulm, he had low suspicion of bacterial PNA and recommended holding off empiric antibiotics while performing infectious studies. Pleural fluid will be sent for analysis, procalcitonin - Imaging noted above, thoracic surgery has been consulted and case has been discussed, pending alteplase and drainage Stave IV NSCLC: - Patient of Dr. Darnell, alectinib is arriving today in the mail, to begin immediately per Dr. Darnell's clinic note. Patient reports that sister will bring it tomorrow at which point we will begin her treatment - Has recurrent malignant effusion for which she has the pleurX that has been c/b loculations pending alteplase and drainage - Pain management with home tramadol PRN HTN - BP well controlled - c/w Atenolol with holding parameters HLD - c/w ASA 81 and Rosuvastatin Hypothyroidism - c/w Levothyroxine Osteoarthritis - c/w Tylenol PRN DVT prophylaxis -Heparin SQ BID Disposition: pending clinical improvement, PT Vital Signs Vital Signs Date Time Temp Pulse Resp B/P (MAP) Pulse Ox O2 Delivery O2 Flow Rate FiO2 03/26/21 15:13 20 03/26/21 14:41 97.6 91 134/71 (92) 94 Nasal Cannula 2.0 Laboratory Data Labs 24H Laboratory Tests 2 03/26/21 11:32: Immature Granulocyte % (Auto) 1.3, Neutrophils (%) (Auto) 81.0H, Lymphocytes (%) (Auto) 7.4L, Monocytes (%) (Auto) 7.0, Eosinophils (%) (Auto) 2.5, Basophils (%) (Auto) 0.8, Neutrophils # (Auto) 15.3H, Lymphocytes # (Auto) 1.4L, Monocytes # (Auto) 1.3H, Eosinophils # (Auto) 0.5, Basophils # (Auto) 0.2, Nucleated Red Blood Cells % (auto) 0.0, Prothrombin Time 15.8H, Prothromb Time International Ratio 1.22, Activated Partial Thromboplast Time 33.1, Anion Gap 7L, Glomerular Filtration Rate > 60.0, Lactic Acid Level 1.2, Calcium Level 9.2, Total Bilirubin 0.3, Direct Bilirubin 0.1, Aspartate Amino Transf (AST/SGOT) 62H, Al anine Aminotransferase (ALT/SGPT) 38, Alkaline Phosphatase 272H, Total Protein 5.6L, Albumin 2.0L, Albumin/Globulin Ratio 0.6L, Coronavirus (COVID-19)(PCR) NEGATIVE, Influenza Type A (RT-PCR) NEGATIVE, Influenza Type B (RT-PCR) NEGATIVE, Respiratory Syncytial Virus (PCR) NEGATIVE CBC/BMP Laboratory Tests 03/26/21 11:32 Home Medications Scheduled Acetaminophen/Diphenhydramine (Acetaminophen Pm Caplet) 1 Each Tablet, 2 TAB PO QHS Alectinib HCl (Alecensa) 150 Mg Capsule, 600 MG PO BID JUST PICKED UP TODAY, WANTED HER TO START IT TODAY Aspirin (Ecotrin) 81 Mg Tablet.dr 81 MG PO DAILY Atenolol (Atenolol) 50 Mg Tablet, 50 MG PO DAILY Calcium Carb/Vitamin D3/Vit K1 (Viactiv 650 mg-12.5 Mcg Chew) 1 Each Tab.chew, 2 EACH PO DAILY Cyanocobalamin (Vitamin B-12) (Vitamin B-12) 500 Mcg Tablet, 500 MCG PO 3XW MON, WED, FRI Docusate Sodium (Stool Softener) 100 Mg Capsule, 100 MG PO BID Ferrous Sulfate (Iron) 325 Mg Tablet, 325 MG PO BID Glucosamine/Chondr Sparrow A Sod (Cidaflex Tablet) 1 Each Tablet, 1 TAB PO DAILY Levothyroxine Sodium (Levothyroxine Sodium) 50 Mcg Tablet, 50 MCG PO DAILY Multivitamins (Thera M Plus Tablet) 1 Each Tablet, 1 TAB PO DAILY Rosuvastatin Calcium (Rosuvastatin Calcium) 5 Mg Tablet, 5 MG PO QHS Scheduled PRN Acetaminophen (Acetaminophen) 325 Mg Tablet, 650 MG PO Q4H PRN for PAIN LEVEL 1- 4 Ondansetron HCl (Ondansetron HCl) 4 Mg Tablet, 4 MG PO TID PRN for NAUSEA OR VOMITING Tramadol HCl (Tramadol HCl) 50 Mg Tablet, 50 MG PO Q8H PRN for pain Miscellaneous Medications [Med Note] SPOKE WITH Allergies Coded Allergies: hydrocodone (Verified Adverse Reaction, Mild, n/v, 03/08/21) oxycodone (Verified Adverse Reaction, Mild, n/v, 03/08/21) A-FIB/CHADSVASC A-FIB History Current/History of A-Fib/PAF?: No Current PO Anticoag Therapy: No Age/Risk Factor Scoring CHADSVASC: CHADSVASC Response (Comments) Value Age Risk Factor Age >/= 75 years old 2 Gender Risk Factor Female 1 Hx of CHF No 0 Hx of HTN Yes 1 Hx of Stroke/TIA/or VTE No 0 Hx of Diabetes No 0 Hx of Vascular Disease Yes 1 Total 5 Treatment Treatment ordered: NONE Reason Anticoagulant not given: Not indicated/Loaxl6mgpo SIMEON MARCUS MD Mar 26, 2021 17:00
[2021-03-26] MEDS ORDERED: KETOROLAC 30 MG/ML 1ML VIAL IV SCH (18:00)
[2021-03-26] MEDS ORDERED: KETOROLAC 30 MG/ML 1ML VIAL IV ONE (18:45)
--- NOTE | 2021-03-26 19:07 | ECGEPIP ---
[facility] - ED Test Date: 2021-03-26 Pat Name: GEORGETTE GIL Department: Room: [place] [address] Gender: Female [employer] Consultant: EDDIE : [id number] Requested By: Sree Choudhury Order Number: [id number] Reading MD: Yuridia Finley Measurements Intervals [place] Rate: 79 P: 37 SD: 146 QRS: -6 QRSD: 72 T: 33 QT: 392 QTc: 449 Interpretive Statements Normal sinus rhythm NSTTW abnormalities No prior Electronically Signed on 03-26-2021 19:07:18 EDT by Yuridia Finley
[2021-03-26 20:00] VITALS: BP 110/54
[2021-03-26] MEDS: HEPARIN SOD (PORCINE) 5000UNITS/ML 1ML VIAL/SYRINGE SC SCH (20:55)
[2021-03-26] MEDS: DOCUSATE SODIUM 100MG CAPSULE PO SCH (20:55)
[2021-03-26] MEDS: FERROUS SULFATE 325MG TAB PO SCH (20:55)
[2021-03-26] MEDS ORDERED: ROSUVASTATIN 10 MG TAB (CRESTOR) PO SCH (21:00)
[2021-03-26] MEDS ORDERED: ALECTINIB 150 MG PO SCH (21:00)
[2021-03-27] VITALS: BP 111/55
[2021-03-27] MEDS: LEVALBUTEROL 1.25 MG/0.5 ML CONCENTRATE NEB NEB SCH ×2 (02:04→07:53)
[2021-03-27 04:00] VITALS: BP 109/58
[2021-03-27 05:23] LABS: BASO # 0.2 10^3/uL (0.0-0.2); EOS # 0.4 10^3/uL (0.0-0.5); EOS % 2.4 % (0.0-3.0); HEMATOCRIT 30.9 % (36.0-47.0); LYMPH # 1.6 10^3/uL (1.5-5.0); LYMPH % 9.8 % (24.0-44.0); MEAN CORPUSCULAR HEMOGLOBIN 28.2 pg (27.0-33.0); MEAN CORPUSCULAR HGB CONC 32.4 g/dl (32.0-36.5); MEAN CORPUSCULAR VOLUME 87.3 fl (80.0-96.0); MONO # 1.5 10^3/uL (0.0-0.8); NEUTROPHILS # 12.5 10^3/uL (1.5-8.5); NEUTROPHILS % 76.3 % (36.0-66.0); RED BLOOD COUNT 3.54 10^6/uL (4.00-5.40); WHITE BLOOD COUNT 16.4 10^3/uL (4.0-10.0)
[2021-03-27 05:35] LABS: PLATELET COUNT, AUTOMATED 546 10^3/uL (150-450)
[2021-03-27 05:43] LABS: BLOOD UREA NITROGEN 15 MG/DL (7-18); CARBON DIOXIDE LEVEL 27 MEQ/L (21-32); CHLORIDE LEVEL 103 MEQ/L (98-107); CREATININE FOR GFR 0.78 MG/DL (0.55-1.30); GLOMERULAR FILTRATION RATE > 60.0 (>39); GLUCOSE, FASTING 99 MG/DL (70-100); POTASSIUM SERUM 4.3 MEQ/L (3.5-5.1); SODIUM LEVEL 137 MEQ/L (136-145)
[2021-03-27] MEDS ORDERED: LEVOTHYROXINE 50MCG TABLET (0.05MG) PO SCH (06:00)
[2021-03-27 08:00] VITALS: BP 118/58
[2021-03-27] MEDS ORDERED: ASPIRIN 81MG ENTERIC TABLET PO SCH (09:00)
[2021-03-27] MEDS ORDERED: MULTIVITAMINS/MINERALS THERAP 1 TAB PO SCH (09:00)
[2021-03-27] MEDS ORDERED: PANTOPRAZOLE 40MG TAB (PROTONIX) PO SCH (09:00)
[2021-03-27] MEDS ORDERED: atenoloL 50 MG TAB PO SCH (09:00)
[2021-03-27] MEDS ORDERED: MOM 30ML SUSPENSION UDC PO SCH (09:00)
--- NOTE | 2021-03-27 09:29 | REP ---
INDICATION: pleural effusion. COMPARISON: PA and lateral chest, 03/26/2021. TECHNIQUE: Upright PA and lateral chest images were obtained. FINDINGS: There is a large partially loculated right pleural effusion. There is a right-sided thoracostomy tube unchanged. There is extensive airspace disease or atelectasis in the right lung, consistent with atelectasis or pneumonia. There are ill-defined nodules in the midlung zone on the left, suspicious for metastatic disease, unchanged. The visualized cardiomediastinal silhouette is unchanged. IMPRESSION: Large partially loculated right pleural effusion with significant compressive atelectasis or pneumonia of the right lung. Left lung nodules unchanged. Right thoracostomy tube unchanged. <Electronically signed by Leon Fernandes > 03/27/21 [id number]
[2021-03-27] MEDS: HEPARIN SOD (PORCINE) 5000UNITS/ML 1ML VIAL/SYRINGE SC SCH (09:44)
[2021-03-27] MEDS: DOCUSATE SODIUM 100MG CAPSULE PO SCH (09:44)
[2021-03-27] MEDS: FERROUS SULFATE 325MG TAB PO SCH (09:47)
[2021-03-27 09:48] VITALS: BP 118/58
[2021-03-27 12:00] VITALS: BP 108/65
--- NOTE | 2021-03-27 12:50 | IPNPDOC ---
Text Note Date of Service The patient was seen on 03/27/21. NOTE SUBJECTIVE: -No acute events OBJECTIVE: Vitals: please see below General: Sitting up in bed, speaking in full sentences, on room air HEENT: NCAT, PERRLA, EOMI, MMM Cardiac: RRR, +S1S2, no noted murmurs, rubs or gallops Pulm: Diminished right lung sounds, better air movement at the apices, left lung with adequate air movement. Abdomen: Normoactive bowel sounds, soft, NTND Extremities: No lower extremity edema, No calf tenderness, 2+ DP pulses Neuro: No focal motor or sensory deficit, CN 3-12 intact, speech without dysarthria Labs: reviewed WBC 16.4 Hgb 10 platelets 546 N a137 K 4.3 Cr 0.78 procal 0.41 Imagin/29 CXR: Loculated right pleural fluid and right lung consolidation appears stable. Left lung nodules are again noted unchanged. The visualized heart and mediastinum are unchanged. Right chest tube is unchanged. IMPRESSION: Stable right-sided loculated pleural fluid and consolidation. Stable left lung nodules. Right chest tube unchanged in position. 03/24 CT chest (done in the outpatient setting): The mediastinum and pulmonary sierra are unchanged. There is mediastinal and hilar adenopathy status quo. There is a small pericardial effusion status quo. There is a loculated right pleural effusion which has increased. There is a right-sided thoracotomy tube the tip of which is in the right lower lobe regions status quo. There is no significant change in appearance of the imaged upper abdomen or imaged osseous structures. Evaluation of the lung christensen shows numerous spiculated left lung nodules unchanged from the prior exams. Numerous right lung nodules are again noted. Increased parenchymal density is seen in the aerated portion of the right lung which has diminished in size compared to the prior exam due to the increasing loculated effusion. There is evidence of scattered right lung subsegmental atelectatic change and focal areas of consolidation all increased from the prior exam. IMPRESSION: 1. Increased loculated right pleural effusion. 2. Evidence of patchy areas of lung consolidation on the right suspicious for atelectatic change and/or pneumonia. This should be evaluated clinically with appropriate follow-up if necessary. 3. Pulmonary metastatic disease as described above. 4. Adenopathy. 5. Right-sided thoracotomy tube. 6. Other findings as described above. 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 Darnell that she will begin tomorrow as its delivered to her home today, who reports minimal pleurX recently and worsening SOB and on reporting it to her physical design engineer, was directed to the ED for admission and evaluation by thoracic surgery for a loculated effusion and will be admitted for tPA and drainage to hopefully restore function of pleurX as well as evaluation for potential infection. Shortness of breath - likely 2/2 recurrent right sided pleural effusion i/s/o loculated effusion with PleurX not draining. - Hemodynamically stable and afebrile, on discussion with pulm, he had low suspicion of bacterial PNA and recommended holding off empiric antibiotics while performing infectious studies. Pleural fluid will be sent for analysis - Procal was 0.41 - Imaging noted above, Pulm consulted s/p alteplase and drainage but without satisfactory results. On discussion she has 3 non-communicating collections. Pulm will discuss findings, optionsnad risk vs. benefit of drainage efforts Stave IV NSCLC: - Patient of Dr. Darnell, starting alectinib today per Dr. Darnell's clinic note. - Has recurrent malignant effusion for which she has the pleurX that has been c/b loculations and non-communicating collections, pulm consulted - Pain management with home tramadol PRN HTN - BP well controlled - c/w Atenolol with holding parameters HLD - c/w ASA 81 and Rosuvastatin Hypothyroidism - c/w Levothyroxine Osteoarthritis - c/w Tylenol PRN DVT prophylaxis -Heparin SQ BID Disposition: pending clinical improvement, PT/OT, pulm onboard VS,Andre, I+O VS, Andre, I+O Laboratory Tests 03/26/21 11:32 03/27/21 05:07 Vital Signs Date Time Temp Pulse Resp B/P (MAP) Pulse Ox O2 Delivery O2 Flow Rate FiO2 03/27/21 09:48 98 118/58 03/27/21 08:00 97.2 18 91 Nasal Cannula 2.0 I&O- Last 24 Hours up to 6 AM 03/27/21 06:00 Intake Total 30 ml Output Total 0 ml Balance 30 ml SIMEON MARCUS MD Mar 27, 2021 11:13
--- NOTE | 2021-03-27 15:40 | IPNPDOC ---
Text Note Date of Service The patient was seen on 03/27/21. PULMONOLOGY PROGRESS NOTE: SUBJECTIVE: Patient seen and examined at bedside today. She still complains of some shortness of breath however she is able to speak in full sentences, and she is able to lay flat. She still has some cough that is nonproductive. 6 mg of alteplase was injected intrapleural yesterday with only 150 cc of pleural fluid drainage afterward. All other ROS are negative except as mentioned above PHYSICAL EXAMINATION: VITAL SIGNS: Please see below. GENERAL APPEARANCE: Alert and awake. HEENT: no thyromegaly, trachea midline, PERRLA. normal mucous membranes RESPIRATORY: Reduced breath sounds on right, Pleurx catheter in position clean dry and intact dressing. CARDIOVASCULAR: +s1 s2, no murmurs. ABDOMEN: nontender, not distended, +BS EXTREMITIES: no edema or erythema. palpable distal pulses SKIN: no rash, no purpura NEUROLOGICAL: no sensory or motor deficits, orientedx3. PERTINENT LABS/IMAGING: Chest x-ray from today with grossly unchanged appearance in right-sided loculated pleural effusion. ASSESSMENT: 1. Recurrent malignant pleural effusion status post right-sided Pleurx catheter complicated by development of pleural loculations and subsequent nondraining catheter. Status post intrapleural TPA without successful drainage. 2. Stage IV lung adenocarcinoma, with ALK mutation currently on targeted therapy. PLAN: * I spoke to the patient in length regarding the next options for managing her recurrent malignant pleural effusion. I offered for her to stay inpatient and have IR do CT-guided placement of pigtail catheters in the loculated areas. There are 2 pockets that would need to be drained and that would require 2 different temporary chest tubes. After successful drainage of those loculations we could then inject talc slurry for pleurodesis. I told the patient that she would likely be in the hospital for approximately 1 week or longer. In addition I outlined that even after drainage of these loculations her shortness of breath may not be significantly improved as likely her right lung mass is what is mainly contributing to her dyspnea. At this time she is refusing any more inpatient treatment for her pleural effusion and she will continue to follow up with me as an outpatient. Likely she will have removal of her Pleurx catheter on outpatient basis. * From pulmonary standpoint she can be discharged with outpatient pulmonary follow-up Erasto Alvarado MD Pulmonary/Critical Care VS,Andre, I+O VS, Andre, I+O Laboratory Tests 03/27/21 05:07 Vital Signs Date Time Temp Pulse Resp B/P (MAP) Pulse Ox O2 Delivery O2 Flow Rate FiO2 03/27/21 12:00 98.0 81 18 108/65 (79) 92 Nasal Cannula 2.0 I&O- Last 24 Hours up to 6 AM 03/27/21 06:00 Intake Total 230 ml Output Total 150 ml Balance 80 ml ERASTO ALVARADO MD Mar 27, 2021 15:40
--- NOTE | 2021-03-27 15:41 | DS.PDOC ---
Discharge Summary General Date of Admission Mar 26, 2021 at 11:18 Date of Discharge 03/27/2021 Attending Physician: SIMEON MARCUS MD Specialist/Consultants [facility] Discharge Summary PROCEDURES PERFORMED DURING STAY: intrapleural alteplase and drainage. 03/26/2021 ADMITTING DIAGNOSES: Dyspnea, with mild hypoxemia DISCHARGE DIAGNOSES: Dyspnea, with mild hypoxemia 2/2 Recurrent malignant pleural effusion Loculated 3 non communicating pleural effusion collections Stage IV NSCLC w/ a malignant pleural effusion with pleurX in place HTN DLP Hypothyroidism Osteoarthritis Gastric bypass (2003) Hx of COVID 19 infection (03/2020); was asymptomatic COMPLICATIONS/CHIEF COMPLAINT: Recurrent Pleural Effussion On Right. HISTORY OF PRESENT ILLNESS: 75-year-old W with a recent diagnosis of stage IV NSCLC c/b malignant pleural effusion s/p pleurX w/ instruction to drain it Q48H, recently prescribed alectinib, an ALK inhibitor, by Dr. Darnell that she began today (03/27) who reported minimal pleurX recently and worsening SOB and on reporting it to her community services officer, was directed to the ED for admission and evaluation by for a loculated effusion with plan for admission for tPA pleurolysis and drainage to hopefully restore function of pleurX. She also has a history of DLP, Hypothyroidism, Osteoarthritis, Gastric bypass (2003) who presented to the [facility] as a direct admission for shortness of breath with exertion. Patient denies any chest pain but had shortness of breath with exertion with a nonproductive cough. She denied any recent fevers or chills. She has some episodic nausea but no emesis and denied abdominal discomfort. HOSPITAL COURSE: In the ED, she was hemodynamically stable and was saturating 89% on room air and placed on 2L NC. CXR showed a loculated R pleural effusion and lung consolidation was stable from prior, as well as previously noted left lung nodules, and R sided pleurX in place. WBC was 18.9 down from 21.8 on 03/17, hgb 11.2, platelets 649 and Cr was 0.79. She was admitted to medicine with pu lmonology on consult with plan for intrapleural alteplase and drainage. I discussed her leukocytosis with Dr. Alvarado and if it would warrant empiric antibiotic coverage for potential pneumonia and he recommended holding off antibiotics at this time as she clinically is not c/w ongoing bacterial PNA but agreed with infectious workup and pleural studies. Her pleurolysis technically helped only on of the 3 small collections as imaging showed 3 non-communicating collections. There was a discussion between Dr. Alvarado and Dr. Nunez that the aggressive approach would be to have pigtail catheter placed by IR for drainage of the pockets in the correct locations vs. continued monitoring while starting cancer treatment. She opted for monitoring for now as she was back on room air and felt a bit better and is now being discharged home to follow up closely with Dr. Alvarado, Dr. Darnell as she begins alectinib today and PCP as well. DISCHARGE MEDICATIONS: Please see below. ALLERGIES: Please see below. PHYSICAL EXAMINATION ON DISCHARGE: VITAL SIGNS: Please see below. Vitals: please see below General: Sitting up in bed, speaking in full sentences, on room air HEENT: NCAT, PERRLA, EOMI, MMM Cardiac: RRR, +S1S2, no noted murmurs, rubs or gallops Pulm: Diminished right lung sounds, better air movement at the apices, left lung with adequate air movement. Breathing comfortably on room air Abdomen: Normoactive bowel sounds, soft, NTND Extremities: No lower extremity edema, No calf tenderness, 2+ DP pulses Neuro: No focal motor or sensory deficit, CN 3-12 intact, speech without dys arthria LABORATORY DATA: Please see below. IMAGIN/29 CXR: Loculated right pleural fluid and right lung consolidation appears stable. Left lung nodules are again noted unchanged. The visualized heart and mediastinum are unchanged. Right chest tube is unchanged. IMPRESSION: Stable right-sided loculated pleural fluid and consolidation. Stable left lung nodules. Right chest tube unchanged in position. 03/24 CT chest (done in the outpatient setting): The mediastinum and pulmonary sierra are unchanged. There is mediastinal and hilar adenopathy status quo. There is a small pericardial effusion status quo. There is a loculated right pleural effusion which has increased. There is a right-sided thoracotomy tube the tip of which is in the right lower lobe regions status quo. There is no significant change in appearance of the imaged upper abdomen or imaged osseous structures. Evaluation of the lung christensen shows numerous spiculated left lung nodules unchanged from the prior exams. Numerous right lung nodules are again noted. Increased parenchymal density is seen in the aerated portion of the right lung which has diminished in size compared to the prior exam due to the increasing loculated effusion. There is evidence of scattered right lung subsegmental atelectatic change and focal areas of consolidation all increased from the prior exam. IMPRESSION: 1. Increased loculated right pleural effusion. 2. Evidence of patchy areas of lung consolidation on the right suspicious for atelectatic change and/or pneumonia. This should be evaluated clinically with appropriate follow-up if necessary. 3. Pulmonary metastatic disease as described above. 4. Adenopathy. 5. Right-sided thoracotomy tube. 6. Other findings as described above. PROGNOSIS: Fair ACTIVITY: As tolerated DIET: Regular DISCHARGE PLAN: Home with close pulmonology, oncology and PCP follow up within 7d DISPOSITION: Home DISCHARGE INSTRUCTIONS: Home with close pulmonology, oncology and PCP follow up within 7d ITEMS TO FOLLOWUP ON ON OUTPATIENT: Lung CA Pleural effusion DISCHARGE CONDITION: Stable TIME SPENT ON DISCHARGE: 46 minutes. Vital Signs/I&Os Vital Signs Date Time Temp Pulse Resp B/P (MAP) Pulse Ox O2 Delivery O2 Flow Rate FiO2 03/27/21 12:00 98.0 81 18 108/65 (79) 92 Nasal Cannula 2.0 I&O- Last 24 Hours up to 6 AM 03/27/21 06:00 Intake Total 230 ml Output Total 150 ml Balance 80 ml Laboratory Data Labs 24H Laboratory Tests 2 03/27/21 05:07: Immature Granulocyte % (Auto) 1.5, Neutrophils (%) (Auto) 76.3H, Lymphocytes (%) (Auto) 9.8L, Monocytes (%) (Auto) 9.0H, Eosinophils (%) (Auto) 2.4, Basophils (%) (Auto) 1.0, Neutrophils # (Auto) 12.5H, Lymphocytes # (Auto) 1.6, Monocytes # (Auto) 1.5H, Eosinophils # (Auto) 0.4, Basophils # (Auto) 0.2, Nucleated Red Blood Cells % (auto) 0.0, Anion Gap 7L, Glomerular Filtration Rate > 60.0, Calcium Level 9.0 CBC/BMP Laboratory Tests 03/27/21 05:07 Discharge Medications Scheduled Acetaminophen/Diphenhydramine (Acetaminophen Pm Caplet) 1 Each Tablet, 2 TAB PO QHS, (Reported) Alectinib HCl (Alecensa) 150 Mg Capsule, 600 MG PO BID, (Reported) JUST PICKED UP TODAY, DR WANTED HER TO START IT TODAY Aspirin (Ecotrin) 81 Mg Tablet., 81 MG PO DAILY, (Reported) Atenolol (Atenolol) 50 Mg Tablet, 50 MG PO DAILY, (Reported) Calcium Carb/Vitamin D3/Vit K1 (Viactiv 650 mg-12.5 Mcg Chew) 1 Each Tab.chew, 2 EACH PO DAILY, (Reported) Cyanocobalamin (Vitamin B-12) (Vitamin B-12) 500 Mcg Tablet, 500 MCG PO 3XW, (Reported) MON, MON, MON Docusate Sodium (Stool Softener) 100 Mg Capsule, 100 MG PO BID, (Reported) Ferrous Sulfate (Iron) 325 Mg Tablet, 325 MG PO BID, (Reported) Glucosamine/Chondr Sparrow A Sod (Cidaflex Tablet) 1 Each Tablet, 1 TAB PO DAILY, (Reported) Levothyroxine Sodium (Levothyroxine Sodium) 50 Mcg Tablet, 50 MCG PO DAILY, (Reported) Multivitamins (Thera M Plus Tablet) 1 Each Tablet, 1 TAB PO DAILY, (Reported) Rosuvastatin Calcium (Rosuvastatin Calcium) 5 Mg Tablet, 5 MG PO QHS, (Reported) Scheduled PRN Acetaminophen (Acetaminophen) 325 Mg Tablet, 650 MG PO Q4H PRN for PAIN LEVEL 1- 4, (Reported) Ondansetron HCl (Ondansetron HCl) 4 Mg Tablet, 4 MG PO TID PRN for NAUSEA OR VOMITING, (Reported) Tramadol HCl (Tramadol HCl) 50 Mg Tablet, 50 MG PO Q8H PRN for pain, (Reported) Miscellaneous Medications [Med Note] , (Reported) SPOKE WITH Allergies Coded Allergies: hydrocodone (Verified Adverse Reaction, Mild, n/v, 03/08/21) oxycodone (Verified Adverse Reaction, Mild, n/v, 03/08/21) SIMEON MARCUS MD Mar 27, 2021 15:41
== END 2021-03-27 16:22 | disposition home or self-care (01) | DRG 181 ==
LOC: M ED 10:36 → M ED INP 11:18 → ENRESERV 13:47 → M PCU 14:10
PROVIDERS: ADMIT Internal Medicine; ATTEND Internal Medicine
DX: C34.90 Malignant neoplasm of unspecified part of unspecified bronchus or lung (principal); J91.0 Malignant pleural effusion; I10 Essential (primary) hypertension; E03.9 Hypothyroidism, unspecified; M19.90 Unspecified osteoarthritis, unspecified site; Z79.82 Long term (current) use of aspirin; Z79.899 Other long term (current) drug therapy; Z88.5 Allergy status to narcotic agent

== ENCOUNTER → 2021-04-05 | Outpatient (CLI) | payer MEDICARE, BC ==
[~2021-04-05] MED LIST changes: -CYANOCOBALAMIN 500 MCG TAB PO SCH; +MED NOTE; +MM S100C PO; +NABU-71
--- NOTE | 2021-04-06 14:37 | REP ---
INDICATION: STAGING RUL LUNG CANCER C34.11. COMPARISON: None. TECHNIQUE: Following the injection of 8.96 mCi of FDG-18 scans were obtained from the head through the mid thighs FINDINGS: In the right infrahilar region there are 3 focal areas of hypermetabolism the largest measuring approximately 15 mm in diameter. These have increased SUVs with the largest area having a SUV of 3.97. Additionally, there are multiple areas of increased uptake along the pleura at the right lung base and in the right lower lobe with a maximum SUV of approximately 6.7. Incidental findings on the nondiagnostic CT accompanying this examination show a very large gallstone. Additionally the drainage catheter in the right chest drains most of the fluid from the right lower chest though there is some loculated fluid in the upper right chest. IMPRESSION: Abnormal areas of uptake in the right infrahilar region and along the right pleura of the lower right chest. <Electronically signed by Bernardo Gurbbs > 04/06/21 [id number]
== END ==
LOC: M PLARAD 11:49
PROVIDERS: ATTEND Specialist
DX: C34.11 Malignant neoplasm of upper lobe, right bronchus or lung (principal)
CPT/HCPCS: 78815; A9552

== ENCOUNTER → 2021-04-19 | Outpatient (CLI) | payer MEDICARE, BC ==
[~2021-04-19] MED LIST changes: +PROHANCE 279.3MG/ML 15ML VIAL As Ordered ONE
--- NOTE | 2021-04-19 16:54 | REPVR ---
PROCEDURE INFORMATION: Exam: MR Head Without and With Contrast Exam date and time: 04/19/2021 1:51 PM Age: 75 years old Clinical indication: Condition or disease; Cancer and other: Lung cancer/ mets; History of cancer (specify primary cancer site): ; Additional info: Lung CA / mets TECHNIQUE: Imaging protocol: MR of the head without and with intravenous contrast. Contrast material: PROHANCE; Contrast volume: 14 ml; Contrast route: INTRAVENOUS (IV); COMPARISON: PT PET/CT Skull/mid thigh 04/05/2021 1:44 PM FINDINGS: Brain: Mild scattered nonspecific T2/FLAIR hyperintensities of the periventricular and deep subcortical white matter, most likely secondary to chronic small vessel ischemic change. No intracranial hemorrhage or extra-axial fluid collection. No evidence of mass effect or midline shift. No restricted diffusion to suggest acute infarct. No abnormal intracranial enhancement. Cerebral ventricles: Mild prominence of the ventricles and sulci, likely attributed to parenchymal volume loss. Bones/joints: Unremarkable. Paranasal sinuses: Normal as visualized. No acute sinusitis. Mastoid air cells: No mastoid effusion. Orbital cavity: Unremarkable. Soft tissues: Unremarkable. IMPRESSION: 1. No acute intracranial pathology. No evidence of metastatic disease to the brain. 2. Chronic findings, as above. Electronically signed by: Min Donahue On 04/19/2021 16:53:49 PM
== END ==
LOC: M RAD 12:18
PROVIDERS: ATTEND Specialist
DX: C34.90 Malignant neoplasm of unspecified part of unspecified bronchus or lung (principal)
CPT/HCPCS: 70553; A9576

== ENCOUNTER 2021-04-28 06:33 | Day surgery (SDC) | payer MEDICARE, BC ==
[~2021-04-28] VITALS: Ht 152.4 cm; Wt 76.2 kg
[~2021-04-28 06:33] MED LIST changes: -PROHANCE 279.3MG/ML 15ML VIAL As Ordered ONE
--- OUTSIDE RECORDS SUMMARY | 2021-04-28 06:38 | CCD | Continuity of Care Document ---
Author Author Rhea ALVARADO M.D. Organization Unknown Address [address] [place] [address] Phone [phone] Care Team Providers Care Carding Utility Tender Name Role Phone Akil Gibbs D.O. AUTM [phone] AUTM Unavailable Problems Description No Information Available Social History Type Date Description Comments Sex Unknown Tobacco Use Start: Unknown Patient has never smoked Smoking Status Reviewed: 04/14/21 Patient has never smoked Allergies and adverse reactions Active Allergies Criticality Reaction | Severity Comments Date Percocet Unable to assess criticality Nausea 02/22/2021 Vicodin Unable to assess criticality Nausea 02/22/2021 Medications Active Medications SIG Qnty Indications Ordering Provide r Date Tramadol HCL 50mg Tablets 1 tab by mouth every 8 hours as needed Reference #: [id number] 30tabs J91.0 Kt Alvarado M.D. 03/22/2021 Zofran 4mg Tablets 1 tab by mouth three times a day as needed 30tabs J91.0 Kt Alvarado M.D. Levothyroxine Sodium 50mcg Tablets 1 tab by mouth every day Unknown Nabumetone 500mg Tablets 1 tab by mouth every day Unknown Atenolol 50mg Tablets 1 tab by mouth every day Unknown Rosuvastatin Calcium 5mg Tablets 1 tab by mouth every day Unknown Ferrous Gluconate 324(38Fe) mg Tab lets 1 tab by mouth twice a day Unknown Vitamin B-12 500mcg Tablets 1 tab by mouth three times a week Unknown Multivitamin Adults 50+ Adlt 50+ T ablets 1 tab by mouth twice a day Unknown 000 Viactiv Calcium Plus D 650-12.5-40mg-mcg Chewtabs 1 tab by mouth twice a day Unknown [address] 1 tab by mouth every day Unknown Senna 1 tab by mouth every day Unknown Alecensa 150mg Capsules 4 tabs by mouth twice a day Unknown Immunizations CPT Code Status Date Vaccine Lot # [id number] Given 07/10/2020 Moderna Covid-19 vaccine, mRNA, LNP-S, PF, 100 mcg/ 0.5 mL 64433 Given 06/12/2020 Moderna Covid-19 vaccine, mRNA, LNP-S, PF, 100 mcg/ 0.5 mL Vital Signs Date Vital Result Comment 04/14/2021 3:02pm BP Systolic 140 mmHg BP Diastolic 70 mmHg Heart Rate 78 /min O2 % BldC Oximetry 94 % Room Air Height 61 inches 5'1" Weight 184.00 lb BMI (Body Mass Index) 34.8 kg/m2 [place] Body Weight 105 lb Weight 83.462 kg BSA (Body Surface Area) 1.82 m2 03/22/2021 1:23pm BP Systolic 132 mmHg BP Diastolic 72 mmHg Heart Rate 94 /min O2 % BldC Oximetry 92 % Room Air Height 61 inches 5'1" Weight 156.00 lb BMI (Body Mass Index) 29.5 kg/m2 [place] Body Weight 105 lb Weight 70.762 kg BSA (Body Surface Area) 1.70 m2 Results Test Acquired Date Facility Test Result H/L Range Note Laboratory test finding 02/24/2021 [facility] Main Lab [address] [place] [address] [id number] [phone] Pathology Request For Service (SEE NOTE) 1 Laboratory test finding 02/24/2021 [facility] Lab [address] [place] [address] [phone] Pathology Request For Service (SEE NOTE) 2 Laboratory test finding 02/24/2021 [facility] Main Lab [address] [place] [address] [phone] Non Implementation Project Coordinator/Cytology Req For Servi (SEE NOTE) 3 Acid Fast Smear & Culture(Afb) Sendout 02/24/2021 [facility] Main Lab 0 [place] [id number] [phone] Afb Smear Testing performe <SEE NOTE> 4 Afb Culture Testing performe <SEE NOTE> 5 1 Addendum 1 Entered: 021-2251 The addendum is being issued to report [...] (PCR): Negative ROS1 gene mutation (FISH): Negative [id number] mutation (PCR): Negative Please see the scanned documentation for the full molecular diagnostics reports from [facility]. 03/19/2021827 Addendum Signed____ ELY HERNÁNDEZ MD 03/19/2021827 [...] of blood elements. COMMENTS: Also see case [id number]. 03/01/20211107 Signed DAWIT ANDUJAR CT (ASCP) 02/25/2021 0953 (Prelim) Signed ELY HERNÁNDEZ MD 03/01/20211107 4 Testing performed at [facility] ce lab . Report copy to follow on a separate form. 04/12/21 REF LAB#:[id number] Due to limited sensitivity, smear results should be used as an adjunct in evaluating patient tuberculosis status. Cultural examination is highly recommended for clinical diagnosis. AFB sm REF LAB concentra NEGATIVE 5 Testing performed at [facility] ce lab . Report copy to follow on a separate form. 04/12/21 REF LAB#:[id number] FULL REPORT IN LAB NOTES (eCW and Medent). No Acid-Fast Bacilli Isolated after 6 Weeks. Procedures Date Code Description Status 04/14/2021 18987 Office/Outpatient Established Mo d MDM 30-39 Min Completed 03/22/2021 14214 Office/Outpatient Established Mo d MDM 30-39 Min Completed 03/08/2021 79524 Office/Outpatient Established Hi gh MDM 40-54 Min Completed 02/24/2021 23795 Thoracentesis W/ Img Guidance Co mpleted 02/22/2021 62968 Office/Outpatient New Moderate M DM 45-59 Minutes Completed Medical Devices Description No Information Available Encounters Type Date Location Provider Dx Diagnosis Office Visit 04/14/2021 3:15p [facility] Melissa Alvarado M.D. J91.0 Malignant pleural effusion C34.90 Malignant neoplasm of unsp p art of unsp bronchus or lung Office Visit 03/22/2021 1:00p [facility] Melissa [...] laboratory examination Assessments Date Code Description Provider 04/14/2021 J91.0 Malignant pleural effusion Kt Alvarado M.D. 04/14/2021 C34.90 Malignant neoplasm o f unspecified part of unspecified bronchus or lung Kt Alvarado M.D. 03/22/2021 J91.0 Malignant pleural effusion Kt Alvarado [...] Z01.812 Encounter for preprocedural labo ratory examination tK Alvarado M.D. Plan of Treatment 04/14/2021 - Kt Alvarado M.D.* J91.0 Malignant pleural effusion * C34.90 Malignant neoplasm of unspecified part of unspecified bronchus or lung * * New Xrays:* Chest, 2 Views, PA & Lat, Ordered: 04/14/21 * New Orders:* PleurX Catheter Removal, Ordered: 04/14/21 * Follow up:* Will have Pleurx catheter removed then fup 1 week after with CXR prior Functional Status Description No Information Available Mental Status Description No Information Available Referrals Refer to Reason for Referral Status Appt Date Harlan Darnell M.D. new diagnosis stage 4 lung adenocarcinoma C losed 03/17/2021 [facility] [address] [place], [place] [phone] Kt Alvarado M.D. LARGE PLEURAL EFFUSION Closed 02/22/2021 [facility] [address] [place] [id number] [phone]
--- OUTSIDE RECORDS SUMMARY | 2021-04-28 06:38 | CCD | Continuity of Care Document ---
Author Author Rhea ALVARADO M.D. Organization Unknown Address [address] [place] [address] Phone [phone] Care Team Providers Care Assistant In Nursing Name Role Phone Akil Gibbs D.O. AUTM [phone] AUTM Unavailable Problems Description No Information Available [...] every 8 hours as needed Reference #: [id number] 30tabs J91.0 Kt Alvarado M.D. 03/22/2021 Zofran [...] CPT Code Status Date Vaccine Lot # [id number] Given 07/10/2020 Moderna Covid-19 vaccine, mRNA, LNP-S, PF, 100 mcg/ 0.5 mL 96191 Given 06/12/2020 Moderna Covid-19 vaccine, mRNA, LNP-S, PF, 100 mcg/ 0.5 mL Vital Signs Date Vital Result Comment 04/14/2021 3:02pm BP Systolic 140 mmHg BP Diastolic 70 mmHg Heart Rate 78 /min O2 % BldC Oximetry 94 % Room Air Height 61 inches 5'1" Weight 184.00 lb BMI (Body Mass Index) 34.8 kg/m2 [place] Body Weight 105 lb Weight 83.462 kg BSA (Body Surface Area) 1.82 m2 03/22/2021 1:23pm BP Systolic 132 mmHg BP Diastolic 72 mmHg Heart Rate 94 /min O2 % BldC Oximetry 92 % Room Air Height 61 inches 5'1" Weight 156.00 lb BMI (Body Mass Index) 29.5 kg/m2 [place] Body Weight 105 lb Weight 70.762 kg BSA (Body Surface Area) 1.70 m2 Results Test Acquired Date Facility Test Result H/L Range Note Laboratory test finding 02/24/2021 [facility] Main Lab [address] [place] [address] [phone] Pathology Request For Service (SEE NOTE) 1 Laboratory test finding 02/24/2021 [facility] Lab 0 [place] [address] [phone] Pathology Request For Service (SEE NOTE) 2 Laboratory test finding 02/24/2021 [facility] Main Lab [address] [place] [address] [phone] Non Export Clerk/Cytology Req For Servi (SEE NOTE) 3 Acid Fast Smear & Culture(Afb) Sendout 02/24/2021 [facility] Main Lab [address] [place] [phone] Afb Smear Testing performe <SEE NOTE> 4 Afb Culture Testing performe <SEE NOTE> 5 1 Addendum 1 Entered: 021-3716 The addendum is being issued to report [...] (PCR): Negative ROS1 gene mutation (FISH): Negative [id number] mutation (PCR): Negative Please see the scanned documentation for the full molecular diagnostics reports from [facility]. 03/19/2021827 Addendum Signed____ ELY HERNÁNDEZ MD [...] of blood elements. COMMENTS: Also see case [id number]. 03/01/20211107 Signed DAWIT ANDUJAR CT (ASCP) 02/25/2021 0953 (Prelim) Signed ELY HERNÁNDEZ MD 03/01/20211107 4 Testing performed at [facility] ce lab . Report copy to follow on a separate form. 04/12/21 REF LAB#:[id number] Due to limited sensitivity, smear results should be used as an adjunct in evaluating patient tuberculosis status. Cultural examination is highly recommended for clinical diagnosis. AFB sm REF LAB concentra NEGATIVE 5 Testing performed at [facility] ce lab . Report copy to follow on a separate form. 04/12/21 REF LAB#:[id number] FULL REPORT IN LAB NOTES (eCW and Medent). No Acid-Fast Bacilli Isolated after 6 Weeks. Procedures Date Code Description Status 04/14/2021 62434 Office/Outpatient Established Mo d MDM 30-39 Min Completed 03/22/2021 93196 Office/Outpatient Established Mo d MDM 30-39 Min Completed 03/08/2021 48189 Office/Outpatient Established Hi gh MDM 40-54 Min Completed 02/24/2021 75370 Thoracentesis W/ Img Guidance Co mpleted 02/22/2021 82321 Office/Outpatient New Moderate M DM 45-59 Minutes Completed Medical Devices Description No Information Available Encounters Type Date Location Provider Dx Diagnosis Office Visit 04/14/2021 3:15p [facility] Melissa Alvarado M.D. J91.0 Malignant pleural effusion C34.90 Malignant neoplasm of unsp p art of unsp bronchus or lung Office Visit 03/22/2021 1:00p [facility] Melissa Alvarado M.D. J91.0 Malignant pleural [...] examination Kt Alvarado M.D. Plan of Treatment 04/14/2021 - [...] stage 4 lung adenocarcinoma C losed 03/17/2021 [facility] [address] [place], [place] [phone] Kt Alvarado M.D. LARGE PLEURAL EFFUSION Closed 02/22/2021 [facility] [address] [place] [phone]
--- OUTSIDE RECORDS SUMMARY | 2021-04-28 06:39 | CCD | Continuity of Care Document ---
Author Author Rhea ALVARADO M.D. Organization Unknown Address [address] [place] [address] Phone [phone] Care Team Providers Care Director Of Food And Nutrition Services Name Role Phone Akil Gibbs D.O. AUTM [phone] AUTM Unavailable Problems Description No Information Available [...] every 8 hours as needed Reference #: [id number] 30tabs J91.0 Kt Alvarado M.D. 03/22/2021 Zofran [...] CPT Code Status Date Vaccine Lot # [id number] Given 07/10/2020 Moderna Covid-19 vaccine, mRNA, LNP-S, PF, 100 mcg/ 0.5 mL 20983 Given 06/12/2020 Moderna Covid-19 vaccine, mRNA, LNP-S, PF, 100 mcg/ 0.5 mL Vital Signs Date Vital Result Comment 04/14/2021 3:02pm BP Systolic 140 mmHg BP Diastolic 70 mmHg Heart Rate 78 /min O2 % BldC Oximetry 94 % Room Air Height 61 inches 5'1" Weight 184.00 lb BMI (Body Mass Index) 34.8 kg/m2 [place] Body Weight 105 lb Weight 83.462 kg BSA (Body Surface Area) 1.82 m2 03/22/2021 1:23pm BP Systolic 132 mmHg BP Diastolic 72 mmHg Heart Rate 94 /min O2 % BldC Oximetry 92 % Room Air Height 61 inches 5'1" Weight 156.00 lb BMI (Body Mass Index) 29.5 kg/m2 [place] Body Weight 105 lb Weight 70.762 kg BSA (Body Surface Area) 1.70 m2 Results Test Acquired Date Facility Test Result H/L Range Note Laboratory test finding 02/24/2021 [facility] Main Lab [address] [place] [address] [phone] Pathology Request For Service (SEE NOTE) 1 Laboratory test finding 02/24/2021 [facility] Lab 0 [place] [address] [phone] Pathology Request For Service (SEE NOTE) 2 Laboratory test finding 02/24/2021 [facility] Main Lab [address] [place] [address] [phone] Non Resolution Specialist/Cytology Req For Servi (SEE NOTE) 3 Acid Fast Smear & Culture(Afb) Sendout 02/24/2021 [facility] Main Lab [address] [place] 8852806 [phone] Afb Smear Testing performe <SEE NOTE> 4 Afb Culture Testing performe <SEE NOTE> 5 1 Addendum 1 Entered: 021-1495 The addendum is being issued to report [...] (PCR): Negative ROS1 gene mutation (FISH): Negative [id number] mutation (PCR): Negative Please see the scanned documentation for the full molecular diagnostics reports from [facility]. 03/19/2021827 Addendum Signed____ ELY HERNÁNDEZ MD [...] of blood elements. COMMENTS: Also see case [id number]. 03/01/20211107 Signed DAWIT ANDUJAR CT (ASCP) 02/25/2021 0953 (Prelim) Signed ELY HERNÁNDEZ MD 03/01/20211107 4 Testing performed at [facility] ce lab . Report copy to follow on a separate form. 04/12/21 REF LAB#:[id number] Due to limited sensitivity, smear results should be used as an adjunct in evaluating patient tuberculosis status. Cultural examination is highly recommended for clinical diagnosis. AFB sm REF LAB concentra NEGATIVE 5 Testing performed at [facility] ce lab . Report copy to follow on a separate form. 04/12/21 REF LAB#:[id number] FULL REPORT IN LAB NOTES (eCW and Medent). No Acid-Fast Bacilli Isolated after 6 Weeks. Procedures Date Code Description Status 03/22/2021 74642 Office/Outpatient Established Mo d MDM 30-39 Min Completed 03/08/2021 61777 Office/Outpatient Established Hi gh MDM 40-54 Min Completed 02/24/2021 81538 Thoracentesis W/ Img Guidance Co mpleted 02/22/2021 54705 Office/Outpatient New Moderate M DM 45-59 Minutes Completed Medical Devices Description No Information Available Encounters Type Date Location Provider Dx Diagnosis Office Visit 03/22/2021 1:00p [facility] arco Campitelli, M.D. J91.0 Malignant pleural effusion Office Visit 03/08/2021 3:15p [facility] Melissa Alvarado M.D. C34.90 Malignant neoplasm of unsp p art of unsp bronchus or lung J91.0 Malignant pleural effusion R06.02 Shortness of breath Office Visit 02/22/2021 1:15p [facility] Melissa Alvarado M.D. J90 Pleural effusion, [...] stage 4 lung adenocarcinoma C losed 03/17/2021 [facility] [address] [place] [address] [phone] Kt Alvarado M.D. LARGE PLEURAL EFFUSION Closed 02/22/2021 [facility] [address] [place] [address] [phone]
--- OUTSIDE RECORDS SUMMARY | 2021-04-28 06:39 | CCD | Continuity of Care Document ---
Author Author Rhea ALVARADO M.D. Organization Unknown Address [address] [place] [address] Phone [phone] Care Team Providers Care S3B Multi Sensor Operator Name Role Phone Akil Gibbs D.O. AUTM [phone] AUTM Unavailable Problems Description No Information Available [...] every 8 hours as needed Reference #: [id number] 30tabs J91.0 Kt Alvarado M.D. 03/22/2021 Zofran [...] CPT Code Status Date Vaccine Lot # [id number] Given 07/10/2020 Moderna Covid-19 vaccine, mRNA, LNP-S, PF, 100 mcg/ 0.5 mL 82645 Given 06/12/2020 Moderna Covid-19 vaccine, mRNA, LNP-S, PF, 100 mcg/ 0.5 mL Vital Signs Date Vital Result Comment 04/14/2021 3:02pm BP Systolic 140 mmHg BP Diastolic 70 mmHg Heart Rate 78 /min O2 % BldC Oximetry 94 % Room Air Height 61 inches 5'1" Weight 184.00 lb BMI (Body Mass Index) 34.8 kg/m2 [place] Body Weight 105 lb Weight 83.462 kg BSA (Body Surface Area) 1.82 m2 03/22/2021 1:23pm BP Systolic 132 mmHg BP Diastolic 72 mmHg Heart Rate 94 /min O2 % BldC Oximetry 92 % Room Air Height 61 inches 5'1" Weight 156.00 lb BMI (Body Mass Index) 29.5 kg/m2 [place] Body Weight 105 lb Weight 70.762 kg BSA (Body Surface Area) 1.70 m2 Results Test Acquired Date Facility Test Result H/L Range Note Laboratory test finding 02/24/2021 [facility] Main Lab [address] [place] [address] [phone] Pathology Request For Service (SEE NOTE) 1 Laboratory test finding 02/24/2021 [facility] Lab 0 [place] [address] [phone] Pathology Request For Service (SEE NOTE) 2 Laboratory test finding 02/24/2021 [facility] Main Lab [address] [place] [address] [phone] Non Stitching Machine Feeder Or Offbearer/Cytology Req For Servi (SEE NOTE) 3 Acid Fast Smear & Culture(Afb) Sendout 02/24/2021 [facility] Main Lab [address] [place] 4463410 [phone] Afb Smear Testing performe <SEE NOTE> 4 Afb Culture Testing performe <SEE NOTE> 5 1 Addendum 1 Entered: 021-2142 The addendum is being issued to report [...] (PCR): Negative ROS1 gene mutation (FISH): Negative [id number] mutation (PCR): Negative Please see the scanned documentation for the full molecular diagnostics reports from [facility]. 03/19/2021827 Addendum Signed____ ELY HERNÁNDEZ MD [...] of blood elements. COMMENTS: Also see case [id number]. 03/01/20211107 Signed DAWIT ANDUJAR CT (ASCP) 02/25/2021 0953 (Prelim) Signed ELY HERNÁNDEZ MD 03/01/20211107 4 Testing performed at [facility] ce lab . Report copy to follow on a separate form. 04/12/21 REF LAB#:[id number] Due to limited sensitivity, smear results should be used as an adjunct in evaluating patient tuberculosis status. Cultural examination is highly recommended for clinical diagnosis. AFB sm REF LAB concentra NEGATIVE 5 Testing performed at [facility] lab . Report copy to follow on a separate form. 04/12/21 REF LAB#:[id number] FULL REPORT IN LAB NOTES (eCW and Medent). No Acid-Fast Bacilli Isolated after 6 Weeks. Procedures Date Code Description Status 03/22/2021 04351 Office/Outpatient Established Mo d MDM 30-39 Min Completed 03/08/2021 16062 Office/Outpatient Established Hi gh MDM 40-54 Min Completed 02/24/2021 77765 Thoracentesis W/ Img Guidance Co mpleted 02/22/2021 04261 Office/Outpatient New Moderate M DM 45-59 Minutes Completed Medical Devices Description No Information Available Encounters Type Date Location Provider Dx Diagnosis Office Visit 03/22/2021 1:00p [facility] M arco Campitelli, M.D. J91.0 Malignant pleural effusion Office Visit 03/08/2021 3:15p [facility] Melissa [...] stage 4 lung adenocarcinoma C losed 03/17/2021 [facility] [address] [place] [address] [phone] Kt Alvarado M.D. LARGE PLEURAL EFFUSION Closed 02/22/2021 [facility] [address] [place] [address] [phone]
--- OUTSIDE RECORDS SUMMARY | 2021-04-28 06:39 | CCD | Continuity of Care Document ---
Author Author Rhea ALVARADO M.D. Organization Unknown Address [address], [address] [place] [address] Phone [phone] Care Team Providers Care Biological Sciences Professor Name Role Phone Akil Gibbs D.O. AUTM [phone] AUTM Unavailable Problems Description No Information Available [...] every 8 hours as needed Reference #: [id number] 30tabs J91.0 Kt Alvarado M.D. 03/22/2021 Zofran [...] CPT Code Status Date Vaccine Lot # 97041 Given 07/10/2020 Moderna Covid-19 vaccine, mRNA, LNP-S, PF, 100 mcg/ 0.5 mL 05086 Given 06/12/2020 Moderna Covid-19 vaccine, mRNA, LNP-S, PF, 100 mcg/ 0.5 mL Vital Signs Date Vital Result Comment 04/14/2021 3:02pm BP Systolic 140 mmHg BP Diastolic 70 mmHg Heart Rate 78 /min O2 % BldC Oximetry 94 % Room Air Height 61 inches 5'1" Weight 184.00 lb BMI (Body Mass Index) 34.8 kg/m2 [place] Body Weight 105 lb Weight 83.462 kg BSA (Body Surface Area) 1.82 m2 03/22/2021 1:23pm BP Systolic 132 mmHg BP Diastolic 72 mmHg Heart Rate 94 /min O2 % BldC Oximetry 92 % Room Air Height 61 inches 5'1" Weight 156.00 lb BMI (Body Mass Index) 29.5 kg/m2 [place] Body Weight 105 lb Weight 70.762 kg BSA (Body Surface Area) 1.70 m2 Results Test Acquired Date Facility Test Result H/L Range Note Laboratory test finding 02/24/2021 [facility] Main Lab [address] [place] [address] [phone] Pathology Request For Service (SEE NOTE) 1 Laboratory test finding 02/24/2021 [facility] Lab [address] [place] [address] [phone] Pathology Request For Service (SEE NOTE) 2 Laboratory test finding 02/24/2021 [facility] Main Lab [address] [place] [address] [phone] Non Superintendent Terminal/Cytology Req For Servi (SEE NOTE) 3 Acid Fast Smear & Culture(Afb) Sendout 02/24/2021 [facility] Main Lab [address] [place] 6283251 [phone] Afb Smear Testing performe <SEE NOTE> 4 Afb Culture Testing performe <SEE NOTE> 5 1 Addendum 1 Entered: 021-5739 The addendum is being issued to report [...] (PCR): Negative ROS1 gene mutation (FISH): Negative [id number] mutation (PCR): Negative Please see the scanned documentation for the full molecular diagnostics reports from [facility]. 03/19/2021827 Addendum Signed____ ELY HERNÁNDEZ [...] of blood elements. COMMENTS: Also see case [id number]. 03/01/20211107 Signed DAWIT ANDUJAR CT (ASCP) 02/25/2021 0953 (Prelim) Signed ELY HERNÁNDEZ MD 03/01/20211107 4 Testing performed at [facility] ce lab . Report copy to follow on a separate form. 04/12/21 REF LAB#:[id number] Due to limited sensitivity, smear results should be used as an adjunct in evaluating patient tuberculosis status. Cultural examination is highly recommended for clinical diagnosis. AFB sm REF LAB concentra NEGATIVE 5 Testing performed at [facility] ce lab . Report copy to follow on a separate form. 04/12/21 REF LAB#:[id number] FULL REPORT IN LAB NOTES (eCW and Medent). No Acid-Fast Bacilli Isolated after 6 Weeks. Procedures Date Code Description Status 03/22/2021 96888 Office/Outpatient Established Mo d MDM 30-39 Min Completed 03/08/2021 61567 Office/Outpatient Established Hi gh MDM 40-54 Min Completed 02/24/2021 65339 Thoracentesis W/ Img Guidance Co mpleted 02/22/2021 16849 Office/Outpatient New Moderate M DM 45-59 Minutes Completed Medical Devices Description No Information Available Encounters Type Date Location Provider Dx Diagnosis Office Visit 03/22/2021 1:00p [facility] arco Campitelli, M.D. J91.0 Malignant pleural effusion Office Visit 03/08/2021 3:15p [facility] Melissa Alvarado M.D. C34.90 Malignant neoplasm of unsp p art of unsp bronchus or lung J91.0 Malignant pleural effusion R06.02 Shortness of breath Office Visit 02/22/2021 1:15p [facility] Melissa Alvarado M.D. J90 Pleural effusion, [...] stage 4 lung adenocarcinoma C losed 03/17/2021 [facility] [address] [place] [address] [phone] Kt Alvarado M.D. LARGE PLEURAL EFFUSION Closed 02/22/2021 [facility] [address] [place] [address] [phone]
--- OUTSIDE RECORDS SUMMARY | 2021-04-28 06:40 | CCD ---
Author Author [facility] Organization [facility] Address Unknown Phone Unavailable Care Team Providers Care Occupational Psychologist Name Role Phone Fish, B Tremaine PANTOJA Unavailable Unavailable Fish, B Tremaine PANTOJA Unavailable Unavailable Fish, B Tremaine PANTOJA Unavailable Unavailable Fish, B Tremanie PANTOJA Unavailable Unavailable Fish, B Tremaine PANTOJA [...] Tremaine PANTOJA Unavailable Unavailable Fish, B Tremaine PANOTJA Unavailable Unavailable Fish, B Tremaine PANTOJA Unavailable [...] Fish, B Tremaine PANTOJA Unavailable Unavailable Fish, [facility], PA-C Unavailable Unavailabl e Fish, [facility], PA-C Unavailable Unavailabl e Fish, [facility], PA-C Unavailable Unavailabl e Fish, [facility], PA-C Unavailable Unavailabl e Fish, [facility], PA-C Unavailable Unavailabl e Fish, [facility], PA-C Unavailable Unavailabl e Fish, [facility], PA-C Unavailable Unavailabl e Fish, [facility], PA-C Unavailable Unavailabl e Fish, [facility], PA-C Unavailable Unavailabl e Fish, [facility], PA-C Unavailable Unavailabl e Fish, [facility], PA-C Unavailable Unavailabl e Fish, [facility], PA-C Unavailable Unavailabl e Fish, [facility], PA-C Unavailable Unavailabl e Fish, [facility], PA-C Unavailable Unavailabl e Fish, [facility], PA-C Unavailable Unavailabl e Fish, [facility], PA-C Unavailable Unavailabl e Fish, [facility], PA-C Unavailable Unavailabl e Fish, Pattie Stephenie MPAS, PA-C Unavailable Unavailabl e Fish, [facility], PA-C Unavailable Unavailabl e Fish, [facility], PA-C Unavailable Unavailabl e Fish, [facility], PA-C Unavailable Unavailabl e Fish, [facility], PA-C Unavailable Unavailabl e Fish, [facility], PA-C Unavailable Unavailabl e Fish, [facility], PA-C Unavailable Unavailabl e Fish, [facility], PA-C Unavailable Unavailabl e Fish, [facility], PA-C Unavailable Unavailabl e Fish, [facility], PA-C Unavailable Unavailabl e Fish, [facility], PA-C Unavailable Unavailabl e Fish, [facility], PA-C Unavailable Unavailabl e Fish, [facility], PA-C Unavailable Unavailabl e Fish, [facility], PA-C Unavailable Unavailabl e Fish, [facility], PA-C Unavailable Unavailabl e Fish, [facility], PA-C Unavailable Unavailabl e Fish, [facility], PA-C Unavailable Unavailabl e Fish, [facility], PA-C Unavailable Unavailabl e Fish, [facility], PA-C Unavailable Unavailabl e Cathy, B Julio C [employer] Unavailable Unavailable Cathy, B Julio C [employer] Unavailable Unavailable Cathy, B Julio C [employer]ER Unavailable Unavailable Cathy, B Julio C [employer]BLE [employer]ER Unavailable Unavailable Cathy, B Julio C [employer]BLE CLE[employer]ER Unavailable Unavailable Cathy, B Julio C [employer]BLE CLE[employer]ER Unavailable Unavailable Cathy, B Julio C MARBLE CLEANER Unavailable Unavailable Cathy, B Julio C MARBLE CLEANER Unavailable Unavailable Cathy, B Julio C MARBLE CLE[employer]ER Unavailable Unavailable Cathy, B Julio C [employer] Unavailable Unavailable Melissa Guzman PA Unavailable Unavailable Melissa Guzman PA Unavailable Unavailable Melissa Guzman PA Unavailable Unavailable Melissa Guzman PA Unavailable Unavailable Melissa Guzman PA Unavailable Unavailable Melissa Guzman PA Unavailable Unavailable Melissa Guzman PA Unavailable Unavailable Melissa Guzman PA Unavailable Unavailable Melissa Guzman PA Unavailable Unavailable Melissa Guzman PA Unavailable Unavailable Melissa Guzman PA Unavailable Unavailable Melissa Guzman PA Unavailable Unavailable Guzman, M Barratt PA [...] Unavailable Guzman, M Barratt PA Unavailable Unavailable Hadian, Mario Unavailable Unavailable Hadian, Mario Unavailable Unavailable Hadian, Mario Unavailable Unavailable Hadian, Mario Unavailable Unavailable Hadian, Mario Unavailable Unavailable Hadian, Mario Unavailable Unavailable Hadian, Mario Unavailable Unavailable Hadian, Mario Unavailable Unavailable Hadian, Amrio Unavailable Unavailable Hadian, Mario Unavailable Unavailable Hadian, [...] Mario Unavailable Unavailable Hadian, Mario Unavailable Unavailable Estrella MORENO MD Unavailable Unavailable Estrella MORENO MD Unavailable Unavailable Estrella MORENO MD Unavailable Unavailable [facility]_[id number], NA Unavailable [phone] UNKNOWN Unavailable Unavailable REASON, L EDWARD DO [...] is protected by Article 27-F of the [facility] Public Health law. If you continue you may have access to information: Regarding HIV / AIDS; Provided by facilities licensed or operated by the [facility] Office of Mental Health; or Provided by the [facility] Office for People With Developmental Disabilities. If such information is present, then the following [facility] mandated warning applies: This information has [...] law may result in a fine or retirement sentence or both. A general authorization for the release of medical or other information is NOT sufficient authorization for further disc losure. Allergies and Adverse Reactions Type Description Substance Reaction Status Data Source(s ) Drug allergy No Known Drug Allergies No Known Drug Allergies [facility] Drug allergy No Known Allergies No Known Allergies [facility] Encounters Encounter Providers Location Date Indications Data Source(s ) Outpatient Attender: ERASTO Ponce/Breanne/Horace/ Rigoberto 04/14/2021 02:15:00 PM EST [facility] ([facility] Outpatient Attender: ERASTO Ponce/Breanne/Horace/ Reindl 03/22/2021 01:00:00 PM EDT [facility] ([facility]) Outpatient Attender: ERASTO Ponce/[place]/Horace/ Reindl 03/08/2021 03:15:00 PM EDT [facility] ([facility]) Outpatient Admitter: AKIL RICCI DOReferrer: DANIELHEATHER CHANDNI Benavides DO 03/03/2021 12:00:00 AM EDT Malignant neoplasm of unspecified part o f unspecified bronchus or lung [facility] Malignant neoplasm of unspecified part o f unspecified bronchus or lung Outpatient Attender: ERASTO Ponce/[place]/Horace/ Reindl 02/22/2021 01:15:00 PM EDT [facility] ([facility]) Outpatient Attender: AKIL RICCI DO ED-LAB 02/17 10:24:00 AM EDT - 02/17/2021 10:25:00 AM EDT I10 R06.[address] [facility] I10 R06.02 R05 Patient discharged. Office Visit Attender: Tremaine Olivera MD Physical Therapy 2020 01:00:00 PM EDT [facility] ([facility]) Office Visit Attender: STUART BLOUNT_991 Physical Therapy 021 03:00:00 PM EDT [facility] ([facility]) Office Visit Attender: Tremaine Olivera MD Physical Therapy 2020 11:00:00 AM EDT [facility] ([facility]) Inpatient Attender: Tremaine Olivera MDAdmitter: Julio C Morgan NP ER-2EAST 11/18/2020 06:14:00 AM EDT - 11/22/2020 02:32:00 PM EDT [facility] Patient discharged. Office Visit Attender: Rhoda PERALES Physical Therapy 09:30:00 AM EDT [facility] ([facility]) Outpatient Attender: Tremaine Olivera MD ER-OPS 11/13/2020 09:30:00 AM T [facility] Outpatient Attender: Tremaine Olivera MD ER-LAB 11/13/2020 04:33:00 AM [facility] Outpatient Attender: EDWARD REASON DO ED-LAB 10/27 09:01:00 AM EDT - 10/27/2020 09:02:00 AM EDT PRE OP [facility] PRE OP Patient discharged. Office Visit Attender: Rhoda PERALES Physical Therapy 10:15:00 AM EDT [facility] ([facility]) Office Visit Attender: Rhoda PERALES Physical Therapy 09:00:00 AM EDT [facility] ([facility]) Outpatient Attender: Rhoda PERALES Physical Therapy 10:15:00 AM EDT [facility] ([facility]) Outpatient Attender: Tremaine Olivera MD Physical Therapy 08/07/2020 1 2:15:00 PM EST [facility] ([facility]) Outpatient Attender: UNKNOWN CPSCAORT-LABEJN 07/30/2020 09:41:00 AM E [facility] Outpatient Attender: EDWARD REASON DO ED-LAB 07/30 09:00:00 AM EST - 07/30/2020 09:01:00 AM EST E039 K912 [id number] E559 [id number] Z[address] [facility] E039 K912 [id number] E785 E559 [id number] Z130 Patient discharged. Outpatient Attender: Stephenie LUNA PA-C Physical Therapy 07/27/2020 02:00:00 PM EST [facility] ([facility]) Outpatient Attender: EDWARD REASON DO ED-IMAG 07/17 10:41:00 AM EST - 07/17/2020 10:42:00 AM [facility] SCREENING MAMMO Patient discharged. Outpatient CPSCAORT-LABEJN 04/27/2020 08:07:00 PM [facility] Outpatient Attender: Mario Gomes ED-LABPNP 02:50:00 PM EST - 04/27/2020 02:51:00 PM EST POS EXPOSURE [facility] POS EXPOSURE Patient discharged. Immunizations Vaccine Date Status Description Data Source(s) Moderna Covid-19 vaccine, mRNA, LNP-S, PF, 100 mcg/ 0. 5 mL 07/10/2020 12:15:00 PM EST completed [facility] ([facility], ) COVID-19 VACCINE Moderna 07/10/2020 12:00:00 AM EST completed [facility] Vaccine Series Complete: YESThis Data wa s Submitted to [facility] Via [employer]. COVID-19 VACCINE, MRNA-1273, LNP-S (MODERNA)/PF 07/10/2020 1 2:00:00 AM EST completed [facility] Moderna Covid-19 vaccine, mRNA, LNP-S, PF, 100 mcg/ 0. 5 mL 06/12/2020 12:15:00 PM EST completed [facility] ([facility], ) COVID-19 VACCINE, MRNA-1273, LNP-S (MODERNA)/PF 06/12/2020 1 2:00:00 AM EST completed [facility] COVID-19 VACCINE Moderna 06/12/2020 12:00:00 AM EST completed [facility] Vaccine Series Complete: NOThis Data was Submitted to [facility] Via [employer]. Medications Medication Brand Name Start Date Product Form Dose Route Admi nistrative Instructions Pharmacy Instructions Status Indications Reaction Description Data Source(s) 4 mg 04/14/2021 12:00:00 AM EST tablet 30 TAKE ONE TABLET BY MOUTH THREE TIMES A DAY NEEDED TAKE ONE TABLET BY MOUTH THREE TIMES A DAY NEEDED S OLD: 04/16/2021 [facility] 50 mg 04/14/2021 12:00:00 AM EST tablet 30 TAKE 1 TABLET BY MOUTH EVERY 8 HOURS NEEDED MAXIMUM DAILY DOSE = 3 TABLETS TAKE 1 TABLET BY MOUTH EVERY 8 HOURS NEEDED MAXIMUM DAILY DOSE = 3 TABLETS SOLD: 04/16/2021 [facility] 50 mg 03/23/2021 12:00:00 AM EDT tablet [...] 03/22/2021 12:00:00 AM EDT ORAL active [facility] ([facility], ) Ondansetron 4 MG Oral Tablet [Zofran] Zofran 03/22/2021 12:00:00 AM EDT ORAL active [facility] ([facility], ) 50 mg 03/09/2021 12:00:00 AM EDT [...] 11/26/2020 12:00:00 AM EDT active [facility] ([facility] 50 mg 11/22/2020 12:00:00 AM EDT tablet [...] EIGHT TABLETS SOLD: 11/20/2020 [facility] Nystatin 748582 UNT/ML / Triamcinolone A cetonide 1 MG/ML Topical Cream 100,000- 0.1 unit/g-% [facility]/TRIAMCIN 11/16/2020 12:00:00 AM EDT cream 30 APPLY TO AFFECTED AREA(S) TWO TIMES A DAY APPLY TO AFFECTED AREA(S) TWO TIMES A DAY SOLD: 11/17/2020 [facility] Nystatin 391631 UNT/ML / Triamcinolone Acetonide 1 MG/ ML Topical Cream Nystatin-Triamcinolone 11/16/2020 12:00:00 AM EDT active [facility] ([facility]) 2 % 11/12/2020 12:00:00 AM [...] MOUTH EVERY DAY FOR 14 DAYS SOLD: [facility] Cephalexin 500 MG Oral Capsule [...] 10/27/2020 12:00:00 AM EDT ORAL active [facility] ([facility]) Betamethasone 0.5 MG/ML / Clotrimazole 10 MG/ML Topica l Cream 1-0.05 % CLOTRIMAZOLE/BETAMETHASONE DIP 10/27/2020 12:00:00 AM EDT cream 45 APPLY TOPICALLY TO LEG RASH TWICE DAILY FOR 1-2 WEEKS APPLY TOPICALLY TO LEG RASH TWICE DAILY FOR 1-2 WEEKS SOLD: 11/08/2020 [facility] Mupirocin 0.02 MG/MG Topical Ointment Mupirocin 09/29/2020 12:00:00 AM EDT active [facility] chlorhexidine gluconate 40 MG/ML Medicated Liquid Soap [Hibi clens] Hibiclens 09/29/2020 12:00:00 AM EDT active [facility] ([facility]) rivaroxaban 10 MG Oral Tablet [Xarelto] Xarelto 09/29/2020 12:00:0 0 AM EDT ORAL active [facility] ([facility]) Atenolol 50 MG Oral [...] type / Coverage type Policy ID Covered republican ID Covered republican's relationship to ramirez Policy Ramirez Plan Information MEDICARE A [id number] Self [id number] EXCELL H [id number] Self [id number] [place] 306/[id number] SP [id number] [place] 306/806 [id number] SP [id number] MEDICARE [id number] S [id number] [place] [id number] S [id number] BLUE CROSS [id number] S [id number] [id number] [id number] S [id number] MEDICARE [id number] S [id number] MEDICARE [id number] S [id number] [place] [employer] [id number] S [id number] [place] [employer] [place] [id number] S [id number] MEDICARE -O/P [id number] RESOLVE -O/P [id number] 18 [id number] A [place] PPO 302/307 [id number] SP [id number] MEDICARE [id number] SP [id number] Problems, Conditions, and Diagnoses Code Display Name Description Problem Type Effective Dates Data Source(s) C34.90 Malignant neoplasm of unspecified part o f unspecified bronchus or lung Malignant neoplasm of unspecified part of unspecified bronchus or lung Diagnosis 03/03/2021 08:16:00 AM [facility] I10 Essential (primary) hypertension ESSENTIAL (PRIMARY) H YPERTENSION Diagnosis 02/17/2021 10:24:00 AM [facility] Z98.84 Bariatric surgery status BARIATRIC SURGERY STATUS Diag nosis 11/19/2020 05:16:00 PM [facility] E78.5 Hyperlipidemia, unspecified HYPERLIPIDEMIA, UNSPECIFIE D Diagnosis 11/19/2020 05:16:00 PM [facility] I10 Essential (primary) hypertension ESSENTIAL (PRIMARY) H YPERTENSION Diagnosis 11/19/2020 05:16:00 PM [facility] R26.81 Unsteadiness on feet UNSTEADINESS ON FEET Diagnosis 11/19/2020 05:16:00 PM [facility] R42 Dizziness and giddiness DIZZINESS AND GIDDINESS Diagno sis 11/19/2020 05:16:00 PM EDT [facility] G89.18 Other acute postprocedural pain OTHER ACUTE POST PROCEDURAL PAIN Diagnosis 11/19/2020 05:16:00 PM T [facility] T41.205A Adverse effect of unspecified general an esthetics, initial encounter ADVERSE EFFECT OF UNSP GENERAL ANESTHETICS, INIT E Diagnosis 05:16:00 PM EDT [facility] R11.0 Nausea NAUSEA Diagnosis 11/19/2020 05:16:00 PM ED T [facility] E78.00 PURE HYPERCHOLESTEROLEMIA, UNSPECIFIED P URE HYPERCHOLESTEROLEMIA, UNSPECIFIED Diagnosis 11/19/2020 05:16:00 PM EDT [facility] J84.10 Pulmonary fibrosis, unspecified PULMONARY FIBROS IS, UNSPECIFIED Diagnosis 11/13/2020 10:56:00 AM [facility] M17.11 Unilateral primary osteoarthritis, right knee UNILATERAL PRIMARY OSTEOARTHRITIS, RIGHT KNEE Diagnosis 11/13/2020 10:56:00 AM T [facility] M17.0 Bilateral primary osteoarthritis of knee BILATERAL PRIMARY OSTEOARTHRITIS OF KNEE Diagnosis 11/13/2020 10:56:00 AM T [facility] Z01.818 Encounter for other preprocedural examin ation ENCOUNTER FOR OTHER PREPROCEDURAL EXAMINATION Diagnosis 11/13/2020 10:56:00 AM [facility] Z20.822 CONTACT WITH AND (SUSPECTED) EXPOSURE TO COVID-19 CONTACT WITH AND (SUSPECTED) EXPOSURE TO COVID-19 Diagnosis 11/13/2020 04:33:00 AM [facility] Z01.812 Encounter for preprocedural laboratory e xamination ENCOUNTER FOR PREPROCEDURAL LABORATORY EXAMINATION Diagnosis 11/13/2020 04:33:00 AM [facility] 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 POSTSURGICAL MALABSORPTION, NOT ELSEWHERE CLASSIFIED Diagnosis 07/30/2020 09:00:00 AM [facility] E03.9 Hypothyroidism, unspecified HYPOTHYROIDISM, UNSPECIFIE D Diagnosis 07/30/2020 09:00:00 AM [facility] Z12.31 Encounter for screening mammogram for ma lignant neoplasm of breast ENCNTR SCREEN MAMMOGRAM FOR MALIGNANT NEOPLASM OF BREAST Diagnosis 10:41:00 AM [facility] Z20.828 Contact with and (suspected) exposure to other viral communicable diseases CONTACT W AND EXPOSURE TO OTH VIRAL COMMUNICABLE DISEASES Di agnosis 04/27/2020 02:50:00 PM [facility] Surgeries/Procedures Procedure Description Date Indications Data Source(s) OFFICE OUTPATIENT VISIT 25 MINUTES 04/14/2021 12:00:00 AM EST [facility] ([facility], ) OFFICE OUTPATIENT VISIT 25 MINUTES 03/22/2021 12:00:00 AM EDT [facility] ([facility]) OFFICE OUTPATIENT VISIT 40 MINUTES 03/08/2021 12:00:00 AM EDT [facility] ([facility], ) Thoracentesis W/ Img Guidance 02/24/2021 12:00:00 AM E DT [facility] ([facility], ) OFFICE OUTPATIENT NEW 45 MINUTES 02/22/2021 12:00:00 A M EDT [facility] ([facility], ) RADIOLOGIC EXAMINATION KNEE 3 VIEWS 12/25/2020 [...] MAJOR JT/BURSA 021 12:00:00 AM EDT [facility] ([facility]) OFFICE OUTPATIENT VISIT 25 MINUTES 09/17/2020 12:00:00 AM EDT [facility] ([facility]) ARTHROCENTESIS ASPIR&/INJECTION MAJOR JT/BURSA 021 12:00:00 AM EST [facility] ([facility]) OFFICE OUTPATIENT VISIT 40 MINUTES 08/07/2020 12:00:00 AM EST [facility] ([facility] OFFICE OUTPATIENT VISIT 40 MINUTES 07/27/2020 12:00:00 AM [facility] [id number] SARS-COV-2 COVID-19 AMP PRB 04/27/2020 12:00:00 AM [facility] Results ID Date Data Source [id number] 03/26/2021 11:32:00 AM EDT [facility] Name Value Range Interpretation Code Description Data Rylie rce(s) Supporting Document(s) SARS coronavirus 2 RNA [Presence] in Res piratory specimen by TAMIKA with probe detection NEGATIVE [facility] This lab was ordered by [facility] a nd reported by [facility]. ID Date Data Source [id number] 03/08/2021 03:48:00 PM EDT [facility] Name Value Range Interpretation Code Description Data Rylie rce(s) Supporting Document(s) SARS coronavirus 2 RNA [Presence] in Res piratory specimen by TAMIKA with probe detection NEGATIVE [facility] This lab was ordered by [facility] a nd reported by [facility]. ID Date Data Source [id number] 03/18/2021 01:55:00 PM EDT [facility] Anatomic Molecular Pathology ReportName: GEORGETTE GILMRN: [id number] Number: [id number] Date: 03/03/2021 00:00Received Date: 03/03/2021 09:52Physician(s): RADHAMES,AKIL Gil,ELY PENALOZA,MDSpecimen(s) ReceivedA: Pleural effusion, Formalin Block, [id number], [facility],ALK by FISHDiagnosisTEST:ALK gene rearrangements by [...] Prieto M.D. Attending Pathologist 03/18/2021 13:55:55Reported at [facility] [address] [place] [address]. Gross DescriptionMETHODOLOGY:Interphase FISH is performed on paraffin embedded NSCLC utilizing theRentMonitor Molecular ALK Break Apart FISH Probe Kit. [...] the special procedure laboratory of Department of Pathology,[facility]. This report may include one or more immunohistochemical stain results thatuse analyte specific reagents. All positive and negative controls havebeen reviewed by the attending pathologist and are satisfactory. The testswere developed and their performance characteristics determined by [facility] Pathology department. They have not been cleared or approved by the USFood and Drug Administration. The FDA has determined that such clearanceor approval is not necessary. Name Value Range Interpretation Code Description Data Rylie rce(s) Supporting Document(s) ID Date Data Source [id number] 03/11/2021 09:02:00 PM [facility] Anatomic Molecular Pathology ReportName: GEORGETTE GILMRN: [id number] Number: [id number] Date: 03/03/2021 00:00Received Date: 03/03/2021 09:57Physician(s): REASON,AKIL L,DO HERNÁNDEZ,ELY G,MDSpecimen(s) ReceivedA: Pleural effusion, Formalin Block, [phone], [facility],ROS1 by FISHDiagnosisTEST:ROS1 gene rearrangements by [...] Prieto M.D. Attending Pathologist 03/11/2021 21:02:35Reported at [facility] [address] [place] [address]. Gross DescriptionMETHODOLOGY:Interphase FISH is performed on paraffin embedded NSCLC utilizing thecombined Rivera Molecular LSI ROS1(Megan) and ROS1(Tel) ROS1 Probes: 1)3'-ROS1(Megan), 557 kb, labeled with SpectrumGreen, and 2) 5'-ROS1(Tel),317kb, labeled with SpectrumOrange. Tumor cells with no SZY7rrudwqcdgwswne have 2 yellow signals (fused orange and [...] and its performance characteristics weredetermined by the [facility],and it has been authorized for clinical use by [facility]. The test has not been cleared or approved by the U.S. Food andDrug Administration. The analyte specific reagents used in this assay donot require FDA approval. REFERENCES: 1. EUSEBIA Andres, Tiffanie AT, Zachary ARTIS et al. Identifying and Targeting LML1Upeb Fusions in NonSmall Cell Lung Cancer. Clin Cancer Res 2012; 18(17);19535088.2. Xavier, Baldemar AT. Novel Targets in Non-Small Cell Lung Cancer:ROS-1 and RET fusions. The Oncologist. 2013;18:865-875.This report may include one or more im munohistochemical stain results thatuse analyte specific reagents. All positive and negative controls havebeen reviewed by the attending pathologist and are satisfactory. The testswere developed and their performance characteristics determined by [facility] Pathology department. They have not been cleared or approved by the USFood and Drug Administration. The FDA has determined that such clearanceor approval is not necessary. Name Value Range Interpretation Code Description Data Rylie rce(s) Supporting Document(s) ID Date Data Source [id number] 03/10/2021 10:06:00 PM [facility] Anatomic Molecular Pathology ReportName: GEORGETTE GILMRN: [id number] Number: [id number] Date: 03/03/2021 00:00Received Date: 03/03/2021 10:21Physician(s): REASON,AKIL Gil,DO HERNÁNDEZ,ELY Brock,MDSpecimen(s) ReceivedA: Pleural effusion, Formalin Block, [id number], [facility],BRAF Mutation AnalysisDiagnosisTESTS:BRAF V600E mutation (1799 [...] Prieto M.D. Attending Pathologist 03/10/2021 22:06:13Reported at [facility] [address] [place] [address]. Gross DescriptionMETHODOLO GY:BRAF V600E(1799 T>A) mutation at [...] theamounts of PCR products, and analyzed by [employer] Solutions[employer] Q real timeinstrument. The analytical sensitivity (or minimum percentage of mutantDNA needed) is approximately 10% given sufficient DNA input. Test development and its performance characteristics were determined bythe [facility], and has beenauthorized for clinical use by [facility]. Thetest has not been cleared or approved by the U.S. Food and DrugAdministration. The analyte specific reagents used in this assay do notrequire FDA approval. REFERENCES: 1. [place] Lacey Alenda C, et al. Detection of BRAF R546Tryhzslbv in colorectal cancer-comparison of automatic sequencing and realtime chemistry methodology. J Mol Diagn. 2006; 8:126960.2. Asim L, Christina TJ, Tyler N, et al. BRAF mutation analysis in fineneedle aspiration (FNA) cytology of the thyroid. Diagn Mol Pathol.2006;15:181393.3. Rodrigo PK, Darshana ME, Katelin M, et al. Clinical characteristics ofpatients with lung adenocarcinomas harboring BRAF mutations. J Clin Oncol.2011;29:9501-6624.This report may include one or more immunohistochemical stain results thatuse analyte specific reagents. All positive and negative controls havebeen reviewed by the attending pathologist and are satisfactory. The testswere developed and their performance characteristics determined by [facility] Pathology department. They have not been cleared or approved by the USFood and Drug Administration. The FDA has determined that such clearanceor approval is not necessary. Name Value Range Interpretation Code Description Data Rylie rce(s) Supporting Document(s) ID Date Data Source [id number] 03/09/2021 04:16:00 PM [facility] Anatomic Molecular Pathology ReportName: GEORGETTE GILMRN: [id number] Number: [id number] Date: 03/03/2021 00:00Received Date: 03/03/2021 10:01Physician(s): AKIL RICCI DO VYAS, SHIKHAR G,MDSpecimen(s) ReceivedA: Pleural effusion, Formalin Block, [id number], [facility],EGFRDiagnosisTEST: EGFR gene mutations (exon 19 [...] indicated. Presence of exon 19 deletions, exon 43R479H or L861Q, exon 18 G719A or exon [...] Prieto M.D. Attending Pathologist 03/09/2021 16:16:55Reported at [facility] [address] [place] [address]. Gross DescriptionMETHODOLOGY:The therascreen EGFR RGQ PCR Kit ([employer], [place], [place]) is a real-timequalitative PCR assay used on the [employer] instrument for thedetection of seven types of [...] J. Med. Sci. 2013; 10: 320. 2. Nila Duarte, et al. First-line gefitinib in patients withadvanced non-small cell lung cancer harboring somatic EGFR mutations. J.Clin.Oncol. 2008;15: 2442.3. Roberson SV, [place] DW, Wendy J et al. Epidermal growth factor receptormutations in lung cancer. Nature Review/Cancer. 2007;0267-9871.This report may include one or more immunohistochemical stain results thatuse analyte specific reagents. All positive and negative controls havebeen reviewed by the attending pathologist and are satisfactory. The testswere developed and their performance characteristics determined by [facility] Pathology department. They have not been cleared or approved by the USFood and Drug Administration. The FDA has dete rmined that such clearanceor approval is not necessary. Name Value Range Interpretation Code Description Data Rylie rce(s) Supporting Document(s) ID Date Data Source [id number] 02/24/2021 03:38:00 PM EDT [facility] ([facility], ) Name Value Range Interpretation Code Description Data Rylie rce(s) Supporting Document(s) Surgical pathology study [facility] <content>Addendum 2 Entered: 03/19/2021827</content>
<content></content>
<content>The addendum is being issued to report additional molecular testing:</content>
<content>ALK gene mutation (FISH): POSITIVE</content>
<content>EGFR mutations (PCR): Negative</content>
<content>ROS1 gene mutation (FISH): Negative</content>
<content>[id number] mutation (PCR): Negative</content>
<content></content>
<content>Please see the scanned documentation for the full molecular diagnostics</content>
<content>reports from [facility].</content>
<content>03/19/2021827</content>
<content>Addendum Signed____ ELY HERNÁNDEZ MD 03/19/2021827</content>
<content> </content>
<content>Addendum 1 Entered: 03/05/2021-0837</content>
<content></content>
<content>The addendum is being issued to report additional molecular testing:</content>
<content>PD- L1 mutation (IHC): No expression (<1%)</content>
<content></content>
<content>Additional molecular testing results are pending and will be reported in</content>
<content>an addendum.</content>
<content>Please see the scanned documentation for the full Integrated Oncology</content>
<content>report (DOS 03/04/2021).</content>
<content>03/05/2021 - 37</content>
<content> Addendum Signed____ ELY HERNÁNDEZ MD 03/05/2021836</content>
[...] carcinoma; results to follow</content>
<content>in an addendum.</content>
<content>03/01/20211106</content>
<content></content>
<content>CLINICAL DIAGNOSIS</content>
<content></content>
<content>Pleural effusion</content>
<content>02/25/20211250</content>
<content></content>
<content>GROSS DIAGNOSIS</content>
<content></content>
<content>Received 1,400 ml of yellow pleural fluid submitted for cell block.</content>
<content>- SV</content>
<content>02/25/20211250</content>
<content> </content>
<content>Signed ELY HERNÁNDEZ MD 03/01/20211106</content>
<content></content> ID Date Data Source [id number] 02/24/2021 03:38:00 PM EDT [facility] Name Value Range Interpretation Code Description Data Rylie rce(s) Supporting Document(s) Surgical pathology study Laboratory test result [facility] ([facility], ) <content>Addendum 1 Entered: 03/05/2021836</content>
<content></content>
<content>The addendum is being issued to report additional molecular testing:</content>
<content>PD-L1 mutation (IHC): No expression (<1%)</content>
<content></content>
<content>Additional molecular testing results are pending and will be reported in</content>
<content>an addendum.</content>
<content>Please see the scanned documentation for the full Integrated Oncology</content>
<content>report (DOS 03/04/2021).</content>
<content>03/05/2021 - 836</content>
<content> Addendum Signed____ ELY HERNÁNDEZ MD 03/05/2021836</content>
[...] for cell block.</content>
<content>- SV</content>
<content>02/25/2021 - 1250</content>
<content> </content>
<content>Signed ELY HERNÁNDEZ MD 03/01/20211106</content>
<content></content> ID Date Data Source [id number] 02/24/2021 03:02:00 PM EDT [facility] ([facility]) Name Value Range Interpretation Code Description Data Rylie rce(s) Supporting Document(s) Microscopic observation [Identifier] in Unspecified specimen by Non- gynecological cytology method Laboratory test result [facility] ([facility]) SPECIMEN: Pleural fluid 1400 ml yellow SPECIMEN ADEQUACY: Satisfactory for evaluation CATEGORIZATION: Positive for Malignancy DESCRIPTIONS: Specimen consists of abundant clusters of malignant cells in a background of blood elements. COMMENTS: Also see case [id number]. 03/01/2021 - [address] (ASCP) 02/25/2021 0953 (Prelim) Signed ELY HERNÁNDEZ MD 03/01/2021 1108 ID Date Data Source [id number] 02/24/2021 02:30:00 PM EDT [facility] ([facility]) Name Value Range Interpretation Code Description Data Rylie rce(s) Supporting Document(s) Afb Smear Laboratory test result [facility] ([facility]) Testing performed at reference lab . Rep ort copy to follow on a separate form. 04/12/21 REF LAB#:[id number] Due to limited sensitivity, smear results should be used as an adjunct in evaluating patient tuberculosis status. Cultural examination is highly recommended for clinical diagnosis. AFB sm REF LAB concentra NEGATIVE Afb Culture Laboratory test result [facility] ([facility]) Testing performed at reference lab . Rep ort copy to follow on a separate form. 04/12/21 REF LAB#:[phone] FULL REPORT IN LAB NOTES ([facility] No Acid-Fast Bacilli Isolated after 6 Weeks. ID Date Data Source [id number] 02/24/2021 11:05:00 AM EDT [facility] Name Value Range Interpretation Code Description Data Rylie rce(s) Supporting Document(s) SARS coronavirus 2 RNA [Presence] in Res piratory specimen by TAMIKA with probe detection NEGATIVE [facility] This lab was ordered by [facility] a nd reported by [facility]. ID Date Data Source [id number] 02/22/2021 02:20:00 PM EDT [facility] ([facility]) Name Value Range Interpretation Code Description Data Rylie rce(s) Supporting Document(s) Platelets [#/volume] in Blood by Automated count Laboratory test resu lt [facility] ([facility]) aPTT in Platelet poor plasma by Coagulation assay Laboratory test res ult [facility] ([facility]) ID Date Data Source [id number] 02/20/2021 09:10:00 AM EDT [facility] Imaging Services Department Imaging Report [address], [place] [address] %(RAD)RES..mtdd.print.filter("line") Name: GEORGETTE GIL : 1945 Age/Sex: 75F Ordering Provider: Akil Austin Reason, DO Med Rec #: [id number] Reg Status: DEP REF Room #: Date of Service: 02/17/21 Report Number: [id number] cc:Akil Austin Reason, DO Send Report To: [id number] CT/CT Chest No Contrast Reason for exam: [...] versus nodular infiltrates. REPORT DICTATED BY TERRI YOLA, REVIEWED AND SIGNED BY DR. VALERIO While [...] 02/22/21912 Dictation Date/Time: 02/19/21925 Transcribed Date/Time: 02/20/21909 Fisher Hand Line: ANURAG Name Value Range Interpretation Code Description Data Rylie rce(s) Supporting Document(s) ID Date Data Source [id number] 02/18/2021 08:05:00 AM EDT [facility] Imaging Services Department Imaging Report [address], [place] [address] %(RAD)RES..mtdd.print.filter("line") Name: GEORGETTE GIL : 1945 Age/Sex: 75F Ordering Provider: Akil Austin Reason, DO Med Rec #: [id number] Reg Status: DEP REF Room #: Date of Service: 02/17/21 Report Number: [id number] cc:Akil Austin Reason, DO Send Report To: [id number] XRP/XR Chest 2 View [Pa & Lat] [...] Date/Time: 02/17/21 1107 Transcribed Date/Time: 02/18/21 0805 Fisher Hand Line: NORA Name Value Range Interpretation Code Description Data [facility] rce(s) Supporting Document(s) ID Date Data Source [id number] 02/17/2021 11:50:00 AM EDT [facility] Name Value Range Interpretation Code Description Data Rylie rce(s) Supporting Document(s) Sodium 146 mmol/L 136-145 Above high normal [facility] Potassium 3.5-5.1 Normal (applies to non-numeric resul ts) [facility] Chloride 109 mmol/L 98-107 Above high normal [facility] Carbon Dioxide CO2 21-32 Normal (applies to non-numer ic results) [facility] Anion Gap 5.0-16.0 Normal (applies to non-numeric resul ts) [facility] BUN 15 mg/dL 7-18 Normal (applies to non-numeric results) [facility] Creatinine,Serum 0.7-1.2 Normal (applies to non-numeric results) [facility] GFR >60 Normal (applies to non-numeric results) [facility] Glucose Level 86 mg/dL 60-99 Normal (applies to non-numeric re sults) [facility] Reference range is only applicable when patient is fasting Note the following drug interference: Sulfasalazine Sulfapyridine Can see falsely depressed Can see falsely elevated result with up to 17% results with up to 11% decrease in measurement increase in measurement Recommend patients be collected for this test prior to administration of either drug. Calcium 8.5-10.1 Normal (applies to non-numeric resul ts) [facility] ID Date Data Source [id number] 02/17/2021 11:03:00 AM EDT [facility] Name Value Range Interpretation Code Description Data Rylie rce(s) Supporting Document(s) White Blood Count 3.5-10.5 Normal (applies to non-numeri c results) [facility] Red Blood Count 3.90-5.00 Normal (applies to non-numeric results) [facility] Hemoglobin 12.0-15.5 Below low normal [facility]ital Hematocrit 34.9-44.5 Normal (applies to non-numeric resul ts) [facility] Mean Corpuscular Volume 81.2-95.1 Normal (applies to non- numeric results) [facility] Mean Corpuscular Hgb 25.6-32.2 Normal (applies to non-num umang results) [facility] Mean Corpuscular Hgb Conc 32.0-36.0 Normal (applies to no n-numeric results) [facility] Red Cell Distribution Width 11.9-15.5 Normal (appli es to non-numeric results) [facility] Platelet Count 323 x10 3/uL 150-450 Normal (applies to non-numeric results) [facility] Mean Platelet Volume 9.4-12.4 Normal (applies to non-num umang results) [facility] Neutrophils% (Auto) 31.0-71.0 Normal (applies to non-nume jose results) [facility] Lymphocytes% (Auto) 20.0-55.0 Normal (applies to non-nume jose results) [facility] Monocytes% (Auto) 4.0-12.0 Normal (applies to non-numeri c results) [facility] Eosinophils% (Auto) 1.0-8.0 Normal (applies to non-nume jose results) [facility] Basophils% (Auto) 0.0-2.0 Normal (applies to non-numeri c results) [facility] Immature Granulocytes% (Auto) 0.0-2.0 Normal (denise lies to non-numeric results) [facility] Neutrophils# (Auto) 1.50-6.20 Normal (applies to non-nume jose results) [facility] Lymphocytes# (Auto) 1.20-4.00 Normal (applies to non-nume jose results) [facility] Monocytes# (Auto) 0.00-0.90 Normal (applies to non-numeri c results) [facility] Eosinophils# (Auto) 0.00-0.50 Above high normal [facility] Basophils# (Auto) 0.00-0.20 Normal (applies to non-numeri c results) [facility] Immature Granulocytes# (Auto) 0.00-7.00 No rmal (applies to non-numeric results) [facility] ID Date Data Source [id number] 11/22/2020 03:52:00 PM EDT [address] [id number] SUMMARYPATIENT NAME: GEORGETTE GIL MR#: [id number] PHYSICIAN: TREMAINE Plata M.D. FISHAUTHOR: Gigi Ortega MD DATE: RM#: ASURDISCHARGE DATE: 11/22/20 : [birth year]Summary of HospitalizationReason for AdmissionSevere osteoarthritis of right knee requiring right total knee replacementarthroplastyHospital Licvyz8 yo F who presented to the hospital [...] note, this morning when I rounded at AM, the pt told me that she [...] last resort for uncontrollable pain.Procedures & Relevant StudiesStudiesCULBERTSON, [place] [id number] CONSULTATIONDate of : 1945 Name: GEORGETTE GIL MMedrec Number: [id number] Phys: TREMAINE OLIVERA M.D.Exam Date: 11/18/2020 Location: 2EASTProcedure: KNEEL, KNEE LIMITED Rad Numb: [id number] \\EXAM# TYPE/EXAM [id number] DX/KNEE LIMITEDDATE OF EXAMINATION: 11/18/2020 9:56 EDTHISTORY: Total knee prosthesisTECHNIQUE: 2 views right knee were obtained.FINDINGS:Total knee prosthesis is in excellent alignment. Postoperative softtissue emphysema and dorsal skin melina are noted.IMPRESSION:Total knee prosthesis.Electronically signed in PS360 by: Salena Truong M.D. 111:59 EDT Reported By: Gena TRUONG M.D.OUR RADIOLOGY DEPARTMENT IS ACCREDITED BY THE [employer] COLLEGEOF RADIOLOGY IN THE FOLLOWING MODALITIES:CT, MRI, NUCLEAR MEDICINE, PET/CT,MAMMOGRAPHY/STEREOTACTIC BIOPSY, &a mp; ULTRASOUNDCC: TREMAINE OLIVERA M.D.; AKIL RICCI MDProcedure Start: 11/18/20 (1010) Procedure Complete: 11/18/20 (1010)Technologist: Kandy MADDENTranscribed Date/Time: 11/18/2020 (1211)Fisher Hand Line: XPrinted Date/Time: 11/22/2020 (5230)PAGE 1 Signed Report Printed From PCIDiagnoses (Current [...] InstructionsPrescriptionsContinue taking these medications:LEVOTHYROXINE (Synthroid*) 50 MCG OILXUB75 MICROGRAM Orally DAILYAspirin chewable* (Children's Aspirin*) 81 MG TAB.CHEW81 MILLIGRAM Orally DAILYNABUMETONE (NABUMETONE) 500 MG [id number] MILLIGRAM Orally TWICE DAILYComments:CAN TAKE 4/ DAYROSUVASTATIN CALCIUM (CRESTOR) 5 MG TABLET5 MILLIGRAM Orally DAILYAtenolol* (Tenormin*) 50 MG RGKDCB71 MILLIGRAM Orally DAILYFERROUS GLUCONATE (FERROUS GLUC) 324 MG TABLET2 MILLIGRAM Orally DAILYCalcium Carbonate/Vitamin D3 (Calcium + Vitamin D Tablet) 1 EACH TABLET2 Orally DAILYCYANOCOBALAMIN (VITAMIN B-12) (Vitamin B-12) 500 MCG [id number] MICROGRAM Orally 3X WEEKMv-Mn/Folic Acid/Calcium/Vit K (Women's 50 Plus Multivit Tab) 1 EACH TABLET2 Orally DAILYGLUCOSAMINE/D3/BOSWELLIA LIA (Osteo Bi-Flex Caplet) 1 EACH TABLET1 TABLET Orally DAILYACETAMINOPHEN/DIPHENHYDRAMINE (Tylenol Pm Ex-Strength Caplet) 1 EACH TABLET2 TABLET Orally EVERY EVENINGStart taking the following new medications:TRAMADOL (Ultram*) 50 MG WFZKVC70 MILLIGRAM Orally EVERY 6 HOURS NEEDED not to exceed 4 tabs per dayDays = 5 Qty = 20No RefillsOndansetron HCl (ZOFRAN) 4 MG TABLET4 MILLIGRAM Orally EVERY 6 HOURS NEEDED as needed for NauseaDays = 5 Qty = 20No RefillsDischarge Activity: As to leratedDischarge diet: Low Fat/Low CholesterolFollow-upFollow up with your Primary care physician and orthopedic surgeonReferralsOrdered Referrals[facility] First availa...[address] [place] [address] - TO EVAL AND TREAT-PT FOR STRENGTH AND ENDURANCETime spent by provider to complete discharge > 30 minutesDATE SIGNED: 11/22/20 Electronically SignedTIME SIGNED: 1917 GIGI ORTEGA MD Name Value Range Interpretation Code Description Data Rylie rce(s) Supporting Document(s) ID Date Data Source [id number] 11/22/2020 01:57:00 PM EDT Jim [address] [id number] NAME: GEORGETTE GIL#: [id number] PHYSICIAN: TREMAINE OLIVERAACCOUNT #: [id number] ADM. DATE:PATIENT : 43 DISCH. DATE: [50}DISCHARGE SUMMARYMedical Discharge PlanNicotine Replacement TherapyPrescribed at discharge Rx for med [facility] Care InstructionsDischarge Activity: As toleratedDischarge diet: Low [...] surgeonDischarge InformationDISCHARGE INFORMATION* Thank you for choosing [facility] and allowing us toserve you* Our Goal is to provide the highest quality of care.* This discharge information is to help you better understand your diagnosisand medication* Avoid taking rdje-wbc-yofsnnj medicines unless approved by your physician.* Take your medications as prescribed. DO NOT stop any medications unlessapproved first* Weigh yourself daily. Report any gain of 5 lbs in a week* 24 Hour Crisis HOTLINE available: Call [employer] at [phone] SMOKING CESSATION* Smoking is dangerous to your health. It delays the healing process, andworks against your medications. Not smoking will improve your health* Our hospital participates with the Opt-to-Quit program. You will be contactedafter discharge by the [facility] Smoker's Quitline for support with tobaccocessation. You have the option once contacted to refuse this service.* You can also go online to [email or web address]. Free nicotine replacementsare available ___Attention* You should [...] rce(s) Supporting Document(s) ID Date Data Source [id number] 11/22/2020 04:35:00 AM EDT [facility] Name Value Range Interpretation [...] in Serum or Plasma 0.555 mg/dL 0.500-1.300 [facility] ([facility]) Glomerular filtration rate/1.73 sq M.pre dicted [Volume Rate/Area] in Serum or Plasma by Creatinine-based formula (MDRD) Laboratory test result [facility] ([facility]) Chloride [Moles/volume] in Serum or Plasma 105 mmol/L 99-110 [facility] ([facility]) Bicarbonate [Moles/volume] in Blood 32 mmol/L 20-33 [facility] ([facility]) Sodium [Moles/volume] in Serum or Plasma 142 mmol/L 136-147 [facility] ([facility]) Potassium [Moles/volume] in Serum or Plasma 4.1 mmol/L 3.5-5.1 [facility] ([facility]) Anion gap in Serum or Plasma 9.1 10.0-20.0 [facility] ([facility] ) CA 9.5 mg/dL 8.3-10.7 [facility] ([facility] ) Alkaline phosphatase [Enzymatic activity/volume] in Serum or Plasma 67 U/L 45-117 [facility] ([facility] ) Protein [Mass/volume] in Serum or Plasma 6.0 g/dL 6.0-7.8 [facility] ([facility] ) Albumin [Mass/volume] in Serum or Plasma 2.6 g/dL 3.5-5.0 [facility] ([facility]) ESRD Dialysis patient Albumin reference range: 2.9-4.4 g/dL Globulin [Mass/volume] in Serum by calculation 3.4 g/dL 2.3-3.5 [facility] ([facility]) Albumin/Globulin [Mass Ratio] in Serum or Plasma 0.8 1.0-2.5 [facility] ([facility]) Alanine aminotransferase [Enzymatic activity/volume] in Seru m or Plasma 12 U/L 6-54 [facility] ([facility]) Patients taking Sulfasalazine and/or Sul fapyridine may have falsely depressed ALT levels. Patients should be drawn for ALT before the initial administration of either drug. Bilirubin.total [Mass/volume] in Serum or Plasma 0.7 mg/dL 0.1-1.1 [facility] ([facility] ) The Dimension [place] Total Bilirubin is n ot recommended for patients undergoing treatment with eltrombopag (Promacta) due to the potential for falsely elevated results. Aspartate aminotransferase [Enzymatic activity/volume] in Serum or Plasma 14 U/L 6-38 [facility] ([facility] ) Patients taking Sulfasalazine and/or Sul fapyridine may have falsely depressed AST levels. Patients should be drawn for AST before the initial administration of either drug. ID Date Data Source [id number] 11/22/2020 04:35:00 AM EDT [facility] ([facility] ) Name Value Range Interpretation Code Description Data Rylie rce(s) Supporting Document(s) Magnesium [Mass/volume] in Serum or Plasma 2.1 mg/dL 1.6-2.6 [facility] ([facility] ) ID Date Data Source [id number] 11/22/2020 04:35:00 AM EDT [facility] ([facility]) Name Value Range Interpretation Code Description Data Rylie rce(s) Supporting Document(s) Leukocytes [#/volume] in Blood by Automated count 10.19 x10E3/uL 4.0- 10.5 [facility] ([facility]) Erythrocytes [#/volume] in Blood by Automated count 2.80 x10E6/uL 4.2 0-5.40 [facility] ([facility]) Hemoglobin [Mass/volume] in Blood 8.7 g/dL 12.0-16.0 [facility] ([facility]) MCV 92.5 fL 81.0-99.0 [facility] Hematocrit [Volume Fraction] of Blood by Automated count 25.9 % 3 7.0-47.0 [facility] ([facility]) MCH 31.1 pg 27.0-31.0 [facility] ([facility]) MCHC 33.6 g/dL 32.7-35.6 [facility] ([facility] MPV 11.1 fl 6.9-9.5 [facility] ([facility]) Platelets [#/volume] in Blood by Automated count 236 x10E3/uL 150-450 [facility] ([facility]) RDW 12.6 % 11.5-14.0 [facility] ([facility]) Neutrophils 66.8 % 34-64 [facility] ([facility]) Monocytes 8.4 % 1.7-10.6 [facility] Lymphocytes 21.6 % 25-45 [facility] ([facility]) Basophils 0.6 % 0.1-2.0 [facility] ([facility]) Eosinophils 2.2 % 0.4-7.0 [facility] ([facility]) Imm. Gran. 0.4 % 0.1-2.0 [facility] ([facility]) Abs. Lymph. 2.20 x10E3/uL 1.0-3.5 [facility] ([facility]) Abs. Neutro. 6.81 x10E3/uL 1.2-7.6 [facility] ([facility]) Abs. Allen. 0.86 x10E3/uL 0.1-1.0 [facility] ([facility]) Abs. Eosin. 0.22 x10E3/uL 0.1-0.7 [facility] ([facility]) Abs. Baso. 0.06 x10E3/uL 0.0-0.1 [facility] ([facility]) Abs. Imm. Gran. 0.04 x10E3/uL 0.0-0.1 [facility] ([facility]) Laboratory test finding (navigational concept) 0 % [facility] ([facility]) ID Date Data Source [id number] 11/22/2020 05:29:00 AM EDT [facility] Name Value Range Interpretation Code Description Data Rylie rce(s) Supporting Document(s) MAGNESIUM 2.1 mg/dL 1.6-2.6 [facility] ID Date Data Source [id number] 11/22/2020 05:29:00 AM EDT [facility] Name Value Range Interpretation Code Description Data Rylie rce(s) Supporting Document(s) GLU 94 mg/dL 70-110 [facility] Patients taking Sulfasalazine may have f alsely depressedGlucose levels. Patients taking Sulfapyridine may havefalsely elevated Glucose levels. Patients should be drawnfor Glucose before the initial administration of eitherdrug. BUN 12 mg/dL 7-23 [facility] CRE 0.555 mg/dL 0.500-1.300 [facility] GFR > 60 mL/min [facility] CHLORIDE 105 mmol/L 99-110 [facility] NA 142 mmol/L 136-147 [facility] POTASSIUM 4.1 mmol/L 3.5-5.1 [facility] TCO2 32 mmol/L 20-33 [facility] ANION GAP 9.1 10.0-20.0 L [facility] CA 9.5 mg/dL 8.3-10.7 [facility] ALKALINE PHOS 67 U/L 45-117 [facility] TP 6.0 g/dL 6.0-7.8 [facility] ALB 2.6 g/dL 3.5-5.0 [facility] ESRD Dialysis patient Albumin reference range: 2.9-4.4 g/dL GL 3.4 g/dL 2.3-3.5 [facility] A/G 0.8 1.0-2.5 [facility] T. BILIRUBIN 0.7 mg/dL 0.1-1.1 [facility] The Dimension [place] Total Bilirubin is n ot recommended forpatients undergoing treatment with eltrombopag (Promacta)due to the potential for falsely elevated results. ALTI 12 U/L 6-54 [facility] Patients taking Sulfasalazine and/or Sul fapyridine may havefalsely depressed ALT levels. Patients should be drawn forALT before the initial administration of either drug. AST 14 U/L 6-38 [facility] Patients taking Sulfasalazine and/or Sul fapyridine may havefalsely depressed AST levels. Patients should be drawn forAST before the initial administration of either drug. ID Date Data Source [id number] 11/22/2020 05:10:00 AM EDT [facility] Name Value Range Interpretation Code Description Data Rylie rce(s) Supporting Document(s) WBC 10.19 x10E3/uL 4.0-10.5 [facility] l RBC 2.80 x10E6/uL 4.20-5.40 [facility] Hemoglobin 8.7 g/dL 12.0-16.0 [facility] Hematocrit 25.9 % 37.0-47.0 [facility] MCV 92.5 fL 81.0-99.0 [facility] MCH 31.1 pg 27.0-31.0 H [facility] MCHC 33.6 g/dL 32.7-35.6 [facility] RDW 12.6 % 11.5-14.0 [facility] Platelet count 236 x10E3/uL 150-450 [facility] ital MPV 11.1 fl 6.9-9.5 H [facility] Neutrophils 66.8 % 34-64 H [facility] Lymphocytes 21.6 % 25-45 L [facility] Monocytes 8.4 % 1.7-10.6 [facility] Eosinophils 2.2 % 0.4-7.0 [facility] Basophils 0.6 % 0.1-2.0 [facility] Imm. Gran. 0.4 % 0.1-2.0 N [facility] Abs. Neutro. 6.81 x10E3/uL 1.2-7.6 N [facility] Abs. Lymph. 2.20 x10E3/uL 1.0-3.5 N [facility] Abs. Allen. 0.86 x10E3/uL 0.1-1.0 N [facility] Abs. Eosin. 0.22 x10E3/uL 0.1-0.7 N [facility] Abs. Baso. 0.06 x10E3/uL 0.0-0.1 [facility] Abs. Imm. Gran. 0.04 x10E3/uL 0.0-0.1 [facility] spital ANRBC% 0 % 0 [facility] ID Date Data Source [id number] 11/21/2020 06:53:00 PM EDT [address] [id number] NOTEPATIENT NAME: GEORGETTE GIL PHYSICIAN: TREMAINE Plata M.D. FISHAUTHOR: Shannon PANTOJA, [facility]. DATE: MR#: [id number] NOTE DATE: 11/21/20 RM#: [id number] TIME: 1858 : 44SubjectiveCC/Hx Present IllnessSevere osteoarthritis of right knee requiring right total knee replacementarthroplastyEvents Since Last EntryPt seen and examined at the bedside. Pt is feeling better today, however, sheappears to tolerate the tramadol better than the stronger narcotic medication.Attempt discharge tmr.ObjectiveVital SignsVital Signs-24 HRS11/[id number] 1345 2343 0130 0255Temp 98.6 98.4 97.9 99.0Pulse 88 83 71 79Resp 18 15 15 13B/P 130/60 116/59 127/59 126/60B/P MeanPulse Ox 96 87 93 95O2 Delivery Nasal cannulaO2 Flow Rate 1KOoW05611/21357 0554 0630 0820 0821Temp 98.3 98.3 98.3 98.3Pulse 82 82 90 78 78Resp 14 15 17 18B/P 125/65 125/65 132/67 125/57 125/57B/P MeanPulse Ox 94 94 95 94O2 DeliveryO2 Flow CabgAbR99411/21950 1055 1055 1220 1331Temp 97.0 98.3 98.3 98.3 97.9Pulse 75 69 69 70 72Resp 16 18 18 18 13B/P 119/59 136/69 136/69 143/68 129/58B/P MeanPulse Ox 96 95 95 96 95O2 DeliveryO2 Flow KjvvPuO69311/21440 1448 1548 1655Temp 97.9 97.9 97.4 97.4Pulse 66 72 74 81Resp 18 18 20 17B/P 141/58 129/58 119/59 119/59B/P MeanPulse Ox 95 99 96 96O2 Delivery Nasal cannulaO2 Flow Rate 9LQlQ0Hwtote/OutputIntake/Output Summary 24 hours11/20 1900 11/21 0700Intake Total [...] normal speechPsych/Mental Status mood neutralResultsLaboratory DataRecent Labs-24 hours06/796676XnnvpotydXgqbja (136 - 147 mmol/L) 143Potassium (3.5 - [...] rce(s) Supporting Document(s) ID Date Data Source [id number] 11/21/2020 03:43:00 AM EDT [facility] ([facility] ) Name Value Range Interpretation Code Description Data Rylie rce(s) Supporting Document(s) Glucose [Mass/volume] in Serum or Plasma 95 mg/dL 70-110 [facility] ([facility] ) Patients taking Sulfasalazine may have f alsely depressed Glucose levels. Patients taking Sulfapyridine may have falsely elevated Glucose levels. Patients should be drawn for Glucose before the initial administration of either drug. Urea nitrogen [Mass/volume] in Serum or Plasma 11 mg/dL 7-23 [facility] ([facility] ) Glomerular filtration rate/1.73 sq M.pre dicted [Volume Rate/Area] in Serum or Plasma by Creatinine-based formula (MDRD) Laboratory test result [facility] ([facility] ) Creatinine [Mass/volume] in Serum or Plasma 0.616 mg/dL 0.500-1.300 [facility] ([facility] ) Chloride [Moles/volume] in Serum or Plasma 106 mmol/L 99-110 [facility] ([facility] ) Sodium [Moles/volume] in Serum or Plasma 143 mmol/L 136-147 [facility] ([facility] ) Potassium [Moles/volume] in Serum or Plasma 4.4 mmol/L 3.5-5.1 [facility] ([facility] ) Bicarbonate [Moles/volume] in Blood 31 mmol/L 20-33 [facility] ([facility] ) Anion gap in Serum or Plasma 10.4 10.0-20.0 [facility] ([facility] ) CA 8.8 mg/dL 8.3-10.7 [facility] Alkaline phosphatase [Enzymatic activity/volume] in Serum or Plasma 68 U/L 45-117 [facility] ([facility] ) Protein [Mass/volume] in Serum or Plasma 5.4 g/dL 6.0-7.8 [facility] ([facility] ) Globulin [Mass/volume] in Serum by calculation 2.7 g/dL 2.3-3.5 [facility] ([facility] ) Albumin [Mass/volume] in Serum or Plasma 2.7 g/dL 3.5-5.0 [facility] ([facility] ) ESRD Dialysis patient Albumin reference range: 2.9-4.4 g/dL Bilirubin.total [Mass/volume] in Serum or Plasma 0.6 mg/dL 0.1-1.1 [facility] ([facility] ) The Dimension [place] Total Bilirubin is n ot recommended for patients undergoing treatment with eltrombopag (Promacta) due to the potential for falsely elevated results. Albumin/Globulin [Mass Ratio] in Serum or Plasma 1.0 1.0-2.5 [facility] ([facility] ) Aspartate aminotransferase [Enzymatic activity/volume] in Serum or Plasma 14 U/L 6-38 [facility] ([facility] Patients taking Sulfasalazine and/or Sul fapyridine may have falsely depressed AST levels. Patients should be drawn for AST before the initial administration of either drug. Alanine aminotransferase [Enzymatic activity/volume] in Seru m or Plasma 12 U/L 6-54 [facility] ([facility] ) Patients taking Sulfasalazine and/or Sul fapyridine may have falsely depressed ALT levels. Patients should be drawn for ALT before the initial administration of either drug. ID Date Data Source [id number] 11/21/2020 03:43:00 AM EDT [facility] ([facility] ) Name Value Range Interpretation Code Description Data Rylie rce(s) Supporting Document(s) Leukocytes [#/volume] in Blood by Automated count 10.37 x10E3/uL 4.0- 10.5 [facility] ([facility] ) Erythrocytes [#/volume] in Blood by Automated count 2.83 x10E6/uL 4.2 0-5.40 [facility] ([facility] ) Hemoglobin [Mass/volume] in Blood 8.7 g/dL 12.0-16.0 [facility] Hematocrit [Volume Fraction] of Blood by Automated count 26.6 % 3 7.0-47.0 [facility] ([facility] ) MCV 94.0 fL 81.0-99.0 [facility] ([facility] ) MCH 30.7 pg 27.0-31.0 [facility] MCHC 32.7 g/dL 32.7-35.6 [facility] ([facility]) RDW 12.8 % 11.5-14.0 [facility] ([facility]) MPV 11.3 fl 6.9-9.5 [facility] ([facility]) Platelets [#/volume] in Blood by Automated count 198 x10E3/uL 150-450 [facility]) Neutrophils 70.3 % 34-64 [facility] Lymphocytes 18.7 % 25-45 [facility] ([facility]) Monocytes 9.0 % 1.7-10.6 [facility] ([facility]) Basophils 0.4 % 0.1-2.0 [facility] ([facility]) Eosinophils 1.0 % 0.4-7.0 [facility] Abs. Neutro. 7.30 x10E3/uL 1.2-7.6 [facility] ([facility]) Imm. Gran. 0.6 % 0.1-2.0 [facility] ([facility]) Abs. Lymph. 1.94 x10E3/uL 1.0-3.5 [facility] ([facility]) Abs. Allen. 0.93 x10E3/uL 0.1-1.0 [facility] Abs. Baso. 0.04 x10E3/uL 0.0-0.1 [facility]) Abs. Eosin. 0.10 x10E3/uL 0.1-0.7 [facility] ([facility]) Abs. Imm. Gran. 0.06 x10E3/uL 0.0-0.1 [facility] Laboratory test finding (navigational concept) 0 % [facility] ([facility]) ID Date Data Source [id number] 11/21/2020 05:06:00 AM EDT [facility] arianna Name Value Range Interpretation Code Description Data Rylie rce(s) Supporting Document(s) GLU 95 mg/dL 70-110 N [facility] Patients taking Sulfasalazine may have f alsely depressedGlucose levels. Patients taking Sulfapyridine may havefalsely elevated Glucose levels. Patients should be drawnfor Glucose before the initial administration of eitherdrug. BUN 11 mg/dL 7-23 [facility] CRE 0.616 mg/dL 0.500-1.300 [facility] GFR > 60 mL/min [facility] CHLORIDE 106 mmol/L 99-110 [facility] NA 143 mmol/L 136-147 [facility] POTASSIUM 4.4 mmol/L 3.5-5.1 [facility] TCO2 31 mmol/L 20-33 [facility] ANION GAP 10.4 10.0-20.0 [facility] CA 8.8 mg/dL 8.3-10.7 [facility] ALKALINE PHOS 68 U/L 45-117 [facility] TP 5.4 g/dL 6.0-7.8 [facility] ALB 2.7 g/dL 3.5-5.0 [facility] ESRD Dialysis patient Albumin reference range: 2.9-4.4 g/dL GL 2.7 g/dL 2.3-3.5 [facility] A/G 1.0 1.0-2.5 [facility] T. BILIRUBIN 0.6 mg/dL 0.1-1.1 [facility] The Dim[facility] [place] Total Bilirubin is n ot recommended forpatients undergoing treatment with eltrombopag (Promacta)due to the potential for falsely elevated results. ALTI 12 U/L 6-54 [facility] Patients taking Sulfasalazine and/or Sul fapyridine may havefalsely depressed ALT levels. Patients should be drawn forALT before the initial administration of either drug. AST 14 U/L 6-38 [facility] Patients taking Sulfasalazine and/or Sul fapyridine may havefalsely depressed AST levels. Patients should be drawn forAST before the initial administration of either drug. ID Date Data Source [id number] 11/21/2020 04:55:00 AM EDT [facility] Name Value Range Interpretation Code Description Data Rylie rce(s) Supporting Document(s) WBC 10.37 x10E3/uL 4.0-10.5 [facility] l RBC 2.83 x10E6/uL 4.20-5.40 L [facility] Hemoglobin 8.7 g/dL 12.0-16.0 L [facility] Hematocrit 26.6 % 37.0-47.0 L [facility] MCV 94.0 fL 81.0-99.0 [facility] MCH 30.7 pg 27.0-31.0 N [facility] MCHC 32.7 g/dL 32.7-35.6 [facility] RDW 12.8 % 11.5-14.0 N [facility] Platelet count 198 x10E3/uL 150-450 N [facility] ital MPV 11.3 fl 6.9-9.5 H [facility] Neutrophils 70.3 % 34-64 H [facility] Lymphocytes 18.7 % 25-45 L [facility] Monocytes 9.0 % 1.7-10.6 N [facility] Eosinophils 1.0 % 0.4-7.0 N [facility] Basophils 0.4 % 0.1-2.0 N [facility] Imm. Gran. 0.6 % 0.1-2.0 N [facility] Abs. Neutro. 7.30 x10E3/uL 1.2-7.6 N [facility] Abs. Lymph. 1.94 x10E3/uL 1.0-3.5 [facility] Abs. Allen. 0.93 x10E3/uL 0.1-1.0 [facility] Abs. Eosin. 0.10 x10E3/uL 0.1-0.7 [facility] Abs. Baso. 0.04 x10E3/uL 0.0-0.1 N [facility] Abs. Imm. Gran. 0.06 x10E3/uL 0.0-0.1 [facility] ANRBC% 0 % 0 N [facility] ID Date Data Source [id number] 11/20/2020 03:32:00 PM EDT [facility] [address] [id number] NOTEPATIENT NAME: GEORGETTE GIL PHYSICIAN: TREMAINE OLIVERAAUTHOR: Julio C Morgan JANE-IRINA. DATE: MR#: [id number] NOTE DATE: 11/20/20 RM#: [id number] TIME: 1540 [...] 95 99 96 98 98O2 DeliveryO2 Flow NoapLuC86611/19200 2219 2300 0147 0212Temp 98.5 98.5 98.4 98.4Pulse 70 68 71 67Resp 18 14 16 18B/P 119/64 122/57 124/60 124/60B/P MeanPulse Ox 95 95 90 95O2 Delivery Nasal cannula Nasal cannulaO2 Flow Rate 1L 4EQBKPQcR28111/[id number] 3745 0506 0508 0746Temp 98.4 97.9 98.0 98.0Pulse 70 70 68 70 73Resp 16 14 14 16B/P 124/56 119/52 108/48 108/48 106/50B/P MeanPulse Ox 95 95 95 94O2 DeliveryO2 Flow BqvzTfG37711/20372896 3260 1059 1525Temp 98.0 98.0 97.4 97.9Pulse 72 72 70 74Resp 18 17 16 18B/P 118/45 118/45 96/58 127/52B/P MeanPulse Ox 91 91 93 92O2 DeliveryO2 Flow TwiaDtV4Xjmrdm/OutputIntake/Output Summary 24 1900 11/20 0700Intake Total 885 450Output TotalBalance [...] dry, intactPsych/Mental Status mood neutralResultsLaboratory DataRecent Labs-24 [id number] (136 - 147 mmol/L) 141Potassium (3.5 - [...] related to oral analgesicAgree with switching to Allen from PercocetCould also try a dose of IV TylenolResuscitation status Full codePlan discussed with patientCase discussed with family service caseworker, nursing staff, orthopedicsVTE ProphylaxisVTE Prophylaxis: Continue with XareltoDATE SIGNED: 11/20/20 Electronically SignedTIME SIGNED: 1540 JULIO C MORGAN Name Value Range Interpretation Code Description Data Rylie rce(s) Supporting Document(s) ID Date Data Source [id number] 11/20/2020 11:01:00 AM EDT [facility] [address] [id number] PROGRESS NOTEPATIENT NAME: GEORGETTE GIL PHYSICIAN: TREMAINE Plata M.D. FISHAUTHOR: Fer Bobby. DATE: MR#: [id number] NOTE DATE: 11/20/20 RM#: [id number] TIME: 1104 [...] 11/20 0432Potassium (3.5 - 5.1 mmol/L) 4.3 / 0432Chloride (99 - 110 mmol/L) 106 / 0432Serum Bicarbonate (20 - 33 mmol/L) 29 11/20 0432Anion Gap (10.0 - 20.0) 10.3 / 0432BUN (7 - 23 mg/dL) 12 11/20 0432Creatinine (0.500 - 1.300 mg/dL) 0.620 / 0432Estimated GFR/1.73 m2 (mL/min) > 60 / 0432Glucose (70 - 110 mg/dL) 109 / 0432Calcium (8.3 - 10.7 mg/dL) 9.0 / 0432Total Bilirubin (0.1 - 1.1 mg/dL) 0.6 11/20 0432AST (6 - 38 U/L) 14 11/20 0432ALT (6 - 54 U/L) 13 11/20 0432Alkaline Ph osphatase (45 - 117 U/L) 65 11/20 0432Total Protein (6.0 - 7.8 g/dL) 5.2 L 11/20 0432Albumin (3.5 - 5.0 g/dL) 2.8 L 11/20 0432Globulin (2.3 - 3.5 g/dL) 2.4 / 0432Albumin/Globulin Ratio (1.0 - 2.5) 1.2 11/20 [...] rce(s) Supporting Document(s) ID Date Data Source [id number] 11/20/2020 04:32:00 AM EDT [facility] Serum or Plasma 65 U/L 45-117 [facility] ([facility] ) Anion gap in Serum or Plasma 10.3 10.0-20.0 [facility] ([facility] ) CA 9.0 mg/dL 8.3-10.7 [facility] ([facility] ) Albumin [Mass/volume] in Serum or Plasma 2.8 g/dL 3.5-5.0 [facility] ([facility] ) ESRD Dialysis patient Albumin reference range: 2.9-4.4 g/dL Protein [Mass/volume] in Serum or Plasma 5.2 g/dL 6.0-7.8 [facility] ([facility] ) Bilirubin.total [Mass/volume] in Serum or Plasma 0.6 mg/dL 0.1-1.1 [facility] ([facility] ) The Dimension [place] Total Bilirubin is n ot recommended for patients undergoing treatment with eltrombopag (Promacta) due to the potential for falsely elevated results. Globulin [Mass/volume] in Serum by calculation 2.4 g/dL 2.3-3.5 [facility] ([facility] ) Albumin/Globulin [Mass Ratio] in Serum or Plasma 1.2 1.0-2.5 [facility] ([facility] ) Aspartate aminotransferase [Enzymatic activity/volume] in Serum or Plasma 14 U/L 6-38 [facility] ([facility] ) Patients taking Sulfasalazine and/or Sul fapyridine may have falsely depressed AST levels. Patients should be drawn for AST before the initial administration of either drug. Alanine aminotransferase [Enzymatic activity/volume] in Seru m or Plasma 13 U/L 6-54 [facility] Patients taking Sulfasalazine and/or Sul fapyridine may have falsely depressed ALT levels. Patients should be drawn for ALT before the initial administration of either drug. ID Date Data Source [id number] 11/20/2020 05:26:00 AM EDT [facility] arianna Name Value Range Interpretation Code Description Data Rylie rce(s) Supporting Document(s) GLU 109 mg/dL 70-110 [facility] Patients taking Sulfasalazine may have f alsely depressedGlucose levels. Patients taking Sulfapyridine may havefalsely elevated Glucose levels. Patients should be drawnfor Glucose before the initial administration of eitherdrug. BUN 12 mg/dL 7-23 [facility] CRE 0.620 mg/dL 0.500-1.300 [facility] GFR > 60 mL/min [facility] CHLORIDE 106 mmol/L 99-110 [facility] NA 141 mmol/L 136-147 [facility] POTASSIUM 4.3 mmol/L 3.5-5.1 [facility] TCO2 29 mmol/L 20-33 [facility] ANION GAP 10.3 10.0-20.0 [facility] CA 9.0 mg/dL 8.3-10.7 [facility] ALKALINE PHOS 65 U/L 45-117 [facility] TP 5.2 g/dL 6.0-7.8 [facility] ALB 2.8 g/dL 3.5-5.0 [facility] ESRD Dialysis patient Albumin reference range: 2.9-4.4 g/dL GL 2.4 g/dL 2.3-3.5 [facility] A/G 1.2 1.0-2.5 [facility] T. BILIRUBIN 0.6 mg/dL 0.1-1.1 [facility] The Dimension [place] Total Bilirubin is n ot recommended forpatients undergoing treatment with eltrombopag (Promacta)due to the potential for falsely elevated results. ALTI 13 U/L 6-54 [facility] Patients taking Sulfasalazine and/or Sul fapyridine may havefalsely depressed ALT levels. Patients should be drawn forALT before the initial administration of either drug. AST 14 U/L 6-38 [facility] Patients taking Sulfasalazine and/or Sul fapyridine may havefalsely depressed AST levels. Patients should be drawn forAST before the initial administration of either drug. ID Date Data Source [id number] 11/19/2020 05:17:00 PM EDT [address] [id number] AND PHYSICALPATIENT NAME: GEORGETTE GIL MR#: [id number] PHYSICIAN: TREMAINE Plata M.D. FISHAUTHOR: Julio C Morgan DATE: 11/18/20 #: 2EASTHISTORY & PHYSICAL DATE: 11/19/20 : 44EVALUATION TIME: 1717HistoryChief Complaint/Admit Reasonsevere osteoarthritis of right knee requiring right total knee replacementarthroplastyHistory of Presenting IllnessThis is a 75-year-old female fairly independent with a past medicalhistory of hypertension, hyperlipidemia and osteoarthritis of bilateral knee.[facility] to undergoa [...] Musculoskeletal, Derick, Endocrine,Neurology, Psych, Allergy/ImmunologyExamVital SignsVital Signs-24 HRS11/[id number] 3794 0556 0615 0700Temp 98.0 98.0 97.9 98.0Pulse 66 71 64 67Resp 18 14 15 14B/P 114/56 111/59 111/59 104/60B/P MeanPulse Ox 94 92 96 93O2 Delivery Nasal cannula Nasal cannula Nasal cannulaO2 Flow Rate 2L 2L 9MPxP25511/[id number] 0075 1015 1038 1325Temp 97.9 97.9 98.0 97.5Pulse 71 71 67 68 56Resp 14 16 16 16B/P 111/54 111/54 111/54 116/49 104/43B/P MeanPulse Ox 93 94 93 94O2 DeliveryO2 Flow RqkiCgR05611/[id number] 9014 1748Temp 97.9 97.7 97.7Pulse 71 73 72Resp 15 18 13B/P 115/55 124/51 124/51B/P MeanPulse Ox 95 99 96O2 DeliveryO2 Flow YkqaFcQ6Mxngmbhk ExaminationGeneral Appearance no acute distress, alert, awake, [...] speechPsych/Mental Status mood neutralData ReviewLaboratory DataRecent Labs-48 hours06/488574VldtzbuetXlwtsx (136 - 147 mmol/L) 143Potassium (3.5 - [...] 3.5 g/dL) 2.3Albumin/Globulin Ratio (1.0 - 2.5) 1.3Foccold9/23/21 Xray: total knee prothesisAssessment/PlanDiagnosis/Problem1. Knee joint replacement [...] Full codePlan discussed with patientCase discussed with family service caseworker, nursing staffVTE ProphylaxisVTE Prophylaxis: xareltoCQM VTE HISTORYVTE HISTORYPrior VTE? NoDATE SIGNED: 11/19/20 Electronically SignedTIME SIGNED: 1846 JULIO C JANE-C CATHY Name Value Range Interpretation Code Description Data Rylie rce(s) Supporting Document(s) ID Date Data Source [id number] 11/19/2020 09:45:00 AM EDT [address] [id number] PROGRESS NOTEPATIENT NAME: GEORGETTE GIL PHYSICIAN: TREMAINE OLIVERAAUTHOR: Vipin Olivera MD. DATE: MR#: [id number] NOTE DATE: 11/19/20 RM#: [id number] TIME: 946 [...] rce(s) Supporting Document(s) ID Date Data Source [id number] 11/19/2020 04:25:00 AM EDT [facility] [...] Serum or Plasma 4.2 mmol/L 3.5-5.1 [facility] ([facility]) Bicarbonate [Moles/volume] in Blood 29 mmol/L 20-33 [facility] ([facility]) CA 8.7 mg/dL 8.3-10.7 [facility] ([facility] ) Anion gap in Serum or Plasma 10.2 10.0-20.0 [facility] ([facility]) Alkaline phosphatase [Enzymatic activity/volume] in Serum or Plasma 62 U/L 45-117 [facility] ([facility] ) Albumin [Mass/volume] in Serum or Plasma 2.8 g/dL 3.5-5.0 [facility] ([facility]) ESRD Dialysis patient Albumin reference range: 2.9-4.4 g/dL Protein [Mass/volume] in Serum or Plasma 5.1 g/dL 6.0-7.8 [facility] ([facility]) Bilirubin.total [Mass/volume] in Serum or Plasma 0.5 mg/dL 0.1-1.1 [facility] ([facility]) The Dimension [place] Total Bilirubin is n ot recommended for patients undergoing treatment with eltrombopag (Promacta) due to the potential for falsely elevated results. Albumin/Globulin [Mass Ratio] in Serum or Plasma 1.2 1.0-2.5 [facility] ([facility]) Globulin [Mass/volume] in Serum by calculation 2.3 g/dL 2.3-3.5 [facility] ([facility]) Aspartate aminotransferase [Enzymatic activity/volume] in Serum or Plasma 14 U/L 6-38 [facility] ([facility]) Patients taking Sulfasalazine and/or Sul fapyridine may have falsely depressed AST levels. Patients should be drawn for AST before the initial administration of either drug. Alanine aminotransferase [Enzymatic activity/volume] in Seru m or Plasma 15 U/L 6-54 [facility] Patients taking Sulfasalazine and/or Sul fapyridine may have falsely depressed ALT levels. Patients should be drawn for ALT before the initial administration of either drug. ID Date Data Source [id number] 11/19/2020 04:59:00 AM [facility] Name Value Range Interpretation Code Description Data Rylie rce(s) Supporting Document(s) GLU 117 mg/dL 70-110 [facility] Patients taking Sulfasalazine may have f alsely depressedGlucose levels. Patients taking Sulfapyridine may havefalsely elevated Glucose levels. Patients should be drawnfor Glucose before the initial administration of eitherdrug. BUN 15 mg/dL 7-23 [facility] CRE 0.850 mg/dL 0.500-1.300 [facility] GFR > 60 mL/min [facility] [facility] CHLORIDE 108 mmol/L 99-110 [facility] NA 143 mmol/L 136-147 [facility] POTASSIUM 4.2 mmol/L 3.5-5.1 [facility] TCO2 29 mmol/L 20-33 [facility] ANION GAP 10.2 10.0-20.0 [facility] CA 8.7 mg/dL 8.3-10.7 [facility] ALKALINE PHOS 62 U/L 45-117 [facility] TP 5.1 g/dL 6.0-7.8 L [facility] ALB 2.8 g/dL 3.5-5.0 L [facility] ESRD Dialysis patient Albumin reference range: 2.9-4.4 g/dL GL 2.3 g/dL 2.3-3.5 [facility] A/G 1.2 1.0-2.5 [facility] T. BILIRUBIN 0.5 mg/dL 0.1-1.1 [facility] [place] Total Bilirubin is n ot recommended forpatients undergoing treatment with eltrombopag (Promacta)due to the potential for falsely elevated results. ALTI 15 U/L 6-54 [facility] Patients taking Sulfasalazine and/or Sul fapyridine may havefalsely depressed ALT levels. Patients should be drawn forALT before the initial administration of either drug. AST 14 U/L 6-38 [facility] Patients taking Sulfasalazine and/or Sul fapyridine may havefalsely depressed AST levels. Patients should be drawn forAST before the initial administration of either drug. ID Date Data Source [id number] 11/18/2020 10:13:00 PM EDT [address] [id number] CONSULT REPORTPATIENT NAME: GEORGETTE GIL MR#: [id number] PHYSICIAN: TREMAINE Plata M.D. FISHCONSULTING PHYSICIAN: Young Rodrigues MDS. DATE: 11/18/20 RM#: [id number] DATE: 11/18/20 : 44EVALUATION TIME: 2212HistoryReason for consultmedical management post operativelyRequested byDr. Olivera (orthopedics)Chief Complaint/Admit Reasonsevere osteoarthritis of right knee requiring right total knee replacementarthrop lastyHistory of Presenting IllnessThis is a 75-year-old female fairly independent with a past medicalhistory of hypertension, hyperlipidemia and osteoarthritis of bilateral knee.[facility] to undergoa [...] recreational drug use,retired, lives with family (in [place]), marriedReview of SystemsConstitutionalDenies: Pain, Fever, Chills, [...] 11/18 2226B/P 114/56 11/18 222Temp 98.0 11/18 2226Pulse 66 11/18 2226Resp 18 11/18 222Physical ExaminationGeneral [...] Full codePlan discussed with patientCase discussed with computer aided design drafter- EmilyAdvance Care Planning* [3 ] minutes of vhfe-ie-koxw time spent for Advance Care Planning inexplanation/discussion of Advance Directives.* Decisions reached: [FULL CODE ].VTE ProphylaxisVTE Prophylaxis: [Xarelto ].DATE SIGNED: 11/19/20 Electronically SignedTIME SIGNED: 0127 CHAPARRO RODRIGUES MD Name Value Range Interpretation Code Description Data Rylie rce(s) Supporting Document(s) ID Date Data Source [id number] 11/18/2020 12:11:00 PM EDT [facility] Exam Number: [id number] OF EXAMINATIO N: 11/18/2020 9:56 EDTHISTORY: Total [...] rce(s) Supporting Document(s) ID Date Data Source [id number] 11/18/2020 09:58:00 AM EDT [facility] [address] [id number] OPERATIVE REPORTPATIENT NAME: GEORGETTE GIL MR#: [id number] PHYSICIAN: TREMAINE KILGORE: Tremaine Olivera MD DATE: RM#: [id number] DATE: PATIENT : 44Operative ReportOperative ReportOPERATION: Right total knee replacement arthroplasty.PREOPERATIVE DIAGNOSIS: Right knee osteoarthritisPOSTOPERATIVE DIAGNOSIS: Same.Surgeon: Dr. Freeman Smash Piecer: Nirmal Broderickthesia: GeneralEBL: 50PROCEDURE: Patient was seen and examined [...] the bone was removed. Erika used a heel burnisher to remove soft tissue and osteophytes from [...] removethe trial components irrigated copiously as the news production assistant prepared the bonecement on the back [...] known complications. The plan will beroutine postop.The news production assistant was instrumental in holding retractors, mixing the bone cementand assisting in wound closure.Copy to Dr. Tremaine Lopez [facility] Provider REASON,AKIL Gil MDDATE SIGNED: 11/18/20 Electronically SignedTIME SIGNED: 1000 TREMAINE OLIVERA Name Value Range Interpretation Code Description Data Rylie e(s) Supporting Document(s) ID Date Data Source [id number] 11/13/2020 12:08:00 PM EDT [facility] Exam Number: [id number] OF EXAMINATION : 11/13/2020 10:12 EDTCHEST, TWO VIEWSHISTORY: PreopTECHNIQUE: PA and lateral radiographs of the chestFINDINGS:Calcified granulomas are seen throughout both lungs. Cardiacsilhouette and pulmonary vascularity is within normal limits. Alsoseen are calcified mediastinal hilar lymph nodes. There is nopneumonia or effusion. Heart is normal in size.IMPRESSION:Findings consistent with prior granulomatous disease.Electronically signed in PS360 by: Salena Truong M.D. 111:56 EDT Reported By: - A. GHARAGOZLOO, M.D. Signed By: Gena TRUONG M.D. Name Value Range Interpretation Code Description Data Rylie rce(s) Supporting Document(s) ID Date Data Source [id number] 11/13/2020 11:32:00 AM EDT [facility]) Name Value Range Interpretation Code Description Data Rylie rce(s) Supporting Document(s) Laboratory test finding (navigational concept) Laboratory test result [facility] ([facility]) ID Date Data Source [id number] 11/13/2020 01:56:00 PM EDT [facility] Name Value Range Interpretation Code Description Data Rylie rce(s) Supporting Document(s) BLOOD TYPE AB NEGATIVE [facility] ID Date Data Source [id number] 11/13/2020 11:30:00 AM EDT [facility] ([facility]) Name Value Range Interpretation Code Description Data Rylie rce(s) Supporting Document(s) Blood Type Laboratory test result [facility] ([facility]) Antibody Screen Laboratory test result [facility] ([facility]) ID Date Data Source [id number] 11/13/2020 01:56:00 PM EDT [facility] Is patient going to surgery? Y: NHave you ever had a blood transfusion? NHave you had a blood transfusion within the last 3 months? NWhen is the date of your surgery? 11/18/20 Name Value Range Interpretation Code Description Data Rylie rce(s) Supporting Document(s) BLOOD TYPE AB NEGATIVE [facility] ANTIBODY SCREEN NEGATIVE N [facility] ID Date Data Source [id number] 11/13/2020 09:30:00 AM EDT [facility] ([facility]) Name Value Range Interpretation Code Description Data Rylie rce(s) Supporting Document(s) [id number] Rhe[employer]ix Laboratory test result [facility] [...] Emergency Use Authorization. ID Date Data Source [id number] 11/13/2020 09:30:00 AM EDT [facility] Name Value Range Interpretation Code Description Data Rylie rce(s) Supporting Document(s) LCOVID-19 RHEONIX ASSAY Negative [facility] This lab was ordered by [facility] and reported by [facility]. ID Date Data Source [id number] 11/14/2020 09:12:00 AM EDT [facility] COMMENTS TO LAB: 44LAB Con't: PREOP TESTINGIs patient suspicious of Covid NShould patient be placed on Covid precautions N Name Value Range Interpretation Code Description Data Rylie rce(s) Supporting Document(s) COVID19 [facility]HEONIX Negative NEGATIVE N [facility] The Rheonix COVID-19 MDx Assay is an end point RT-PCR assayintended for the qualitative detection of nucleic acid [id number]-6 virus. Positive results are indicative of thepresence of SARS-CoV-2 RNA; clinical correlation withpatient history and other diagnostic information isnecessary to determine patient infection status. Negativeresults do not preclude SARS-CoV-2 infection and should notbe used as the sole basis for patient management decisions. The Rheonix MDx Assay is only for use under the Food andDrug Administration's Emergency Use Authorization. ID Date Data Source [id number] 10/27/2020 10:39:00 AM EDT [facility] Name Value Range Interpretation Code Description Data Rylie rce(s) Supporting Document(s) Sodium 146 mmol/L 136-145 Above high normal [facility] Potassium 3.5-5.1 Above high normal [facility] ospital Chloride 109 mmol/L 98-107 Above high normal [facility] Carbon Dioxide CO2 21-32 Normal (applies to non-numer ic results) [facility] Anion Gap 5.0-16.0 Normal (applies to non-numeric resul ts) [facility] BUN 18 mg/dL 7-18 Normal (applies to non-numeric results) [facility] Creatinine,Serum 0.7-1.2 Normal (applies to non-numeric results) [facility] GFR >60 Normal (applies to non-numeric results) [facility] Glucose Level 88 mg/dL 60-99 Normal (applies to non-numeric re sults) [facility] Reference range is only applicable when patient is fasting Note the following drug interference: Sulfasalazine Sulfapyridine Can see falsely depressed Can see falsely elevated result with up to 17% results with up to 11% decrease in measurement increase in measurement Recommend patients be collected for this test prior to administration of either drug. Calcium 8.5-10.1 Normal (applies to non-numeric resul ts) [facility] Bilirubin,Total 0.1-1.9 Normal (applies to non-numeric results) [facility] SGOT(AST) 18 U/L 15-37 Normal (applies to non-numeric resul ts) [facility] Note the following drug interference: Sulfasalazine Sulfapyridine Can see falsely depressed Can see falsely elevated result with up to 10% results with up to 10% decrease in measurement increase in measurement Recommend patients be collected for this test prior to administration of either drug. SGPT(ALT) 24 U/L 12-78 Normal (applies to non-numeric resul ts) [facility] Note the following drug interference: Sulfasalazine Sulfapyridine Can see falsely depressed Can see falsely elevated result with up to 29% results with up to 10% decrease in measurement increase in measurement Recommend patients be collected for this test prior to administration of either drug. Alkaline Phosphatase 79 U/L 38-126 Normal (applies to non-num umang results) [facility] can increase Alkaline Phosp le vels up to 2 times the normal adult value. Normal values for children and adolescents are 2 to 3 times the normal adult value. Total Protein 6.0-8.2 Normal (applies to non-numeric re sults) [facility] Albumin Level 3.4-5.0 Normal (applies to non-numeric re sults) [facility] ID Date Data Source [id number] 10/27/2020 10:24:00 AM EDT [facility] Name Value Range Interpretation Code Description Data Rylie rce(s) Supporting Document(s) Erythrocyte Sedimentation rate 10 mm/hr 0-20 N ormal (applies to non-numeric results) [facility] ID Date Data Source [id number] 10/27/2020 10:24:00 AM EDT [facility] Name Value Range Interpretation Code Description Data Rylie rce(s) Supporting Document(s) White Blood Count 3.5-10.5 Normal (applies to non-numeri c results) [facility] Red Blood Count 3.90-5.00 Normal (applies to non-numeric results) [facility] Hemoglobin 12.0-15.5 Normal (applies to non-numeric resul ts) [facility] Hematocrit 34.9-44.5 Normal (applies to non-numeric resul ts) [facility] Mean Corpuscular Volume 81.2-95.1 Normal (applies to non- numeric results) [facility] Mean Corpuscular Hgb 25.6-32.2 Normal (applies to non-num umang results) [facility] Mean Corpuscular Hgb Conc 32.0-36.0 Normal (applies to no n-numeric results) [facility] Red Cell Distribution Width 11.9-15.5 Normal (appli es to non-numeric results) [facility] Platelet Count 268 x10 3/uL 150-450 Normal (applies to non-numeric results) [facility] Mean Platelet Volume 9.4-12.4 Normal (applies to non-num umang results) [facility] Neutrophils% (Auto) 31.0-71.0 Normal (applies to non-nume jose results) [facility] Lymphocytes% (Auto) 20.0-55.0 Normal (applies to non-nume jose results) [facility] Monocytes% (Auto) 4.0-12.0 Normal (applies to non-numeri c results) [facility] Eosinophils% (Auto) 1.0-8.0 Normal (applies to non-nume jose results) [facility] Basophils% (Auto) 0.0-2.0 Normal (applies to non-numeri c results) [facility] Immature Granulocytes% (Auto) 0.0-2.0 Normal (denise lies to non-numeric results) [facility] Neutrophils# (Auto) 1.50-6.20 Normal (applies to non-nume jose results) [facility] Lymphocytes# (Auto) 1.20-4.00 Normal (applies to non-nume jsoe results) [facility] Monocytes# (Auto) 0.00-0.90 Normal (applies to non-numeri c results) [facility] Eosinophils# (Auto) 0.00-0.50 Normal (applies to non-nume jose results) [facility] Basophils# (Auto) 0.00-0.20 Normal (applies to non-numeri c results) [facility] Immature Granulocytes# (Auto) 0.00-7.00 No rmal (applies to non-numeric results) [facility] ID Date Data Source [id number] 10/27/2020 10:23:00 AM EDT [facility] Name Value Range Interpretation Code Description Data Rylie rce(s) Supporting Document(s) PT 9.3-11.3 Below low normal [facility] spital INR Normal (applies to non-numeric results) [facility] The use of INR is restricted to patients on stable oral anticoagulant. Therapeutic Range: 2.0 - 3.0 High Risk Range: 2.5 - 3.5 ID Date Data Source [id number] 08/05/2020 04:32:00 PM EST [facility] Name Value Range Interpretation Code Description Data Rylie rce(s) Supporting Document(s) Free Retinol(Vit A) result 32.5-78.0 Normal (applie s to non-numeric results) [facility] ADDITIONAL INFORMATIO N This test was developed and its performance characteristics determined by [facility] in a manner consistent with CLIA requirements. This test has not been cleared or approved by the U.S. Food and Drug Administration. Test Performed by: [facility] [address] [employer]bering Machine Operator: Mitch Dumont M.D. Ph.D.; CLIA# [id number] ID Date Data Source [id number] 08/05/2020 04:32:00 PM [facility] Name Value Range Interpretation Code Description Data [facility] rce(s) Supporting Document(s) Thiamine (Vitamin B1) result 267 nmol/L 70-180 Kristi y abnormal (applies to non- numeric units [facility] ADDITIONAL INFORMATIO N This test was developed and its performance characteristics determined by [facility] in a manner consistent with CLIA requirements. This test has not been cleared or approved by the U.S. Food and Drug Administration. Test Performed by: [facility] [address] [employer] Operator: Mitch Dumont M.D. Ph.D.; CLIA# [id number] ID Date Data Source [id number] 08/05/2020 04:28:00 PM [facility] Name Value Range Interpretation Code Description Data [facility] rce(s) Supporting Document(s) Free Retinol(Vit A) result 32.5-78.0 Normal (applie s to non-numeric results) [facility] ADDITIONAL INFORMATIO N This test was developed and its performance characteristics determined by [facility] in a manner consistent with CLIA requirements. This test has not been cleared or approved by the U.S. Food and Drug Administration. Test Performed by: [place] [address] [employer] Operator: Mitch Dumont M.D. Ph.D.; CLIA# [id number] ID Date Data Source [id number] 08/05/2020 04:28:00 PM [facility] Name Value Range Interpretation Code Description Data [facility] rce(s) Supporting Document(s) Thiamine (Vitamin B1) result 267 nmol/L 70-180 Doyle [facility] ADDITIONAL INFORMATIO N This test was developed and its performance characteristics determined by [facility] in a manner consistent with CLIA requirements. This test has not been cleared or approved by the U.S. Food and Drug Administration. Test Performed by: [facility] [address] [employer]ing Machine Operator: Mitch Dumont M.D. Ph.D.; CLIA# [id number] ID Date Data Source [id number] 07/30/2020 03:07:00 PM [facility] Value Range Interpretation Code Description Data [facility] Supporting Document(s) FESAT Iron result 71 ug/dL 37-170 Normal (applies to non-numeri c results) [facility] Test Performed By: [facility] [address] [place] [address] Director: Ruben Cordoba MD FESAT TIBC result 311 ug/dL 265-497 Normal (applies to non-numeri c results) [facility] Test Performed By: [facility] [address] [place] [address] Director: Ruben Cordoba MD FESAT %Iron Saturation result 12.0-55.0 No rmal (applies to non-numeric results) [facility] Test Performed By: [facility] [address] [place] [address] Director: Ruben Cordoba MD ID Date Data Source [id number] 07/30/2020 03:07:00 PM [facility] Name Value Range Interpretation Code Description Data [facility] rce(s) Supporting Document(s) Ferritin result 105 ng/mL 11.1-264.0 Normal (applies to non-numeric results) [facility] Test Performed By: [facility] [address] [place] [address] Director: Ruben Cordoba MD ID Date Data Source [id number] 07/30/2020 03:07:00 PM [facility] Value Range Interpretation Code Description Data Rylie rce(s) Supporting Document(s) Vitamin B12 result 193-[address] [facility] Test Performed By: [facility] [address] [place] [address] Director: Ruben Cordoba MD ID Date Data Source [id number] 07/30/2020 03:07:00 PM [facility] Value Range Interpretation Code Description Data Rylie rce(s) Supporting Document(s) Folate result 2.76-20.0 Doyle [facility] Test Performed By: [facility] [address] [place] [address] Director: Ruben Cordoba MD ID Date Data Source [id number] 07/30/2020 01:48:00 PM [facility] Value Range Interpretation Code Description Data Rylie rce(s) Supporting Document(s) CPK result 55 U/L 26-192 Normal (applies to non-numeric resul ts) [facility] Test Performed By: [facility] [address] [place] [address] Director: Ruben Cordoba MD ID Date Data Source [id number] 07/30/2020 10:15:00 AM [facility] Value Range Interpretation Code Description Data Rylie rce(s) Supporting Document(s) Vitamin D, Total 30.0-100.0 Normal (applies to non-numeric results) [facility] ID Date Data Source [id number] 07/30/2020 10:09:00 AM [facility] Name Value Range Interpretation Code Description Data Rylie rce(s) Supporting Document(s) Triglycerides 106 mg/dL <150 Normal (applies to non-numeric re sults) [facility] Cholesterol 171 mg/dL 100-200 Normal (applies to non-numeric resu lts) [facility] LDL Cholesterol Calculated 82 0-130 Normal (applies to n on-numeric results) [facility] HDL Cholesterol 68 mg/dL 40-60 Above high normal [facility] Cholesterol/HDL Ratio 3.6-6.7 Below low normal [facility] ID Date Data Source [id number] 07/30/2020 10:09:00 AM EST [facility] Name Value Range Interpretation Code Description Data Rylie rce(s) Supporting Document(s) Sodium 143 mmol/L 136-145 Normal (applies to non-numeric resul ts) [facility] Potassium 3.5-5.1 Normal (applies to non-numeric resul ts) [facility] Chloride 105 mmol/L 98-107 Normal (applies to non-numeric resul ts) [facility] Carbon Dioxide CO2 21-32 Normal (applies to non-numer ic results) [facility] Anion Gap 5.0-16.0 Normal (applies to non-numeric resul ts) [facility] BUN 22 mg/dL 7-18 Above high normal [facility] ospital Creatinine,Serum 0.7-1.2 Normal (applies to non-numeric results) [facility] GFR >60 Normal (applies to non-numeric results) [facility] Glucose Level 92 mg/dL 60-99 Normal (applies to non-numeric re sults) [facility] Reference range is only applicable when patient is fasting Note the following drug interference: Sulfasalazine Sulfapyridine Can see falsely depressed Can see falsely elevated result with up to 17% results with up to 11% decrease in measurement increase in measurement Recommend patients be collected for this test prior to administration of either drug. Calcium 8.5-10.1 Normal (applies to non-numeric resul ts) [facility] Bilirubin,Total 0.1-1.9 Normal (applies to non-numeric results) [facility] SGOT(AST) 19 U/L 15-37 Normal (applies to non-numeric resul ts) [facility] Note the following drug interference: Sulfasalazine Sulfapyridine Can see falsely depressed Can see falsely elevated result with up to 10% results with up to 10% decrease in measurement increase in measurement Recommend patients be collected for this test prior to administration of either drug. SGPT(ALT) 26 U/L 12-78 Normal (applies to non-numeric resul ts) [facility] Note the following drug interference: Sulfasalazine Sulfapyridine Can see falsely depressed Can see falsely elevated result with up to 29% results with up to 10% decrease in measurement increase in measurement Recommend patients be collected for this test prior to administration of either drug. Alkaline Phosphatase 86 U/L 38-126 Normal (applies to non-num umang results) [facility] can increase Alkaline Phosp le vels up to 2 times the normal adult value. Normal values for children and adolescents are 2 to 3 times the normal adult value. Total Protein 6.0-8.2 Normal (applies to non-numeric re sults) [facility] Albumin Level 3.4-5.0 Normal (applies to non-numeric re sults) [facility] ID Date Data Source [id number] 07/30/2020 10:09:00 AM EST [facility] Name Value Range Interpretation Code Description Data Rylie rce(s) Supporting Document(s) Thyroid Stimulate Hormone TSH 0.358-3.74 Above high normal [facility] ID Date Data Source [id number] 07/30/2020 10:09:00 AM [facility] Name Value Range Interpretation Code Description Data Rylie rce(s) Supporting Document(s) Free T4 (Free Thyroxine) 0.76-1.46 Normal (applies to non -numeric results) [facility] ID Date Data Source [id number] 07/30/2020 09:23:00 AM [facility] Name Value Range Interpretation Code Description Data Rylie rce(s) Supporting Document(s) White Blood Count 3.5-10.5 Normal (applies to non-numeri c results) [facility] Red Blood Count 3.90-5.00 Normal (applies to non-numeric results) [facility] Hemoglobin 12.0-15.5 Normal (applies to non-numeric resul ts) [facility] Hematocrit 34.9-44.5 Normal (applies to non-numeric resul ts) [facility] Mean Corpuscular Volume 81.2-95.1 Normal (applies to non- numeric results) [facility] Mean Corpuscular Hgb 25.6-32.2 Normal (applies to non-num umang results) [facility] Mean Corpuscular Hgb Conc 32.0-36.0 Normal (applies to no n-numeric results) [facility] Red Cell Distribution Width 11.9-15.5 Normal (appli es to non-numeric results) [facility] Platelet Count 250 x10 3/uL 150-450 Normal (applies to non-numeric results) [facility] Mean Platelet Volume 9.4-12.4 Normal (applies to non-num umang results) [facility] Neutrophils% (Auto) 31.0-71.0 Normal (applies to non-nume jose results) [facility] Lymphocytes% (Auto) 20.0-55.0 Normal (applies to non-nume jose results) [facility] Monocytes% (Auto) 4.0-12.0 Normal (applies to non-numeri c results) [facility] Eosinophils% (Auto) 1.0-8.0 Normal (applies to non-nume jose results) [facility] Basophils% (Auto) 0.0-2.0 Normal (applies to non-numeri c results) [facility] Immature Granulocytes% (Auto) 0.0-2.0 Normal (denise lies to non-numeric results) [facility] Neutrophils# (Auto) 1.50-6.20 Normal (applies to non-nume jose results) [facility] Lymphocytes# (Auto) 1.20-4.00 Normal (applies to non-nume jose results) [facility] Monocytes# (Auto) 0.00-0.90 Normal (applies to non-numeri c results) [facility] Eosinophils# (Auto) 0.00-0.50 Normal (applies to non-nume jose results) [facility] Basophils# (Auto) 0.00-0.20 Normal (applies to non-numeri c results) [facility] Immature Granulocytes# (Auto) 0.00-7.00 No rmal (applies to non-numeric results) [facility] ID Date Data Source [id number] 07/30/2020 02:35:00 PM EST [facility] Name Value Range Interpretation Code Description Data Rylie rce(s) Supporting Document(s) Iron FE Level 71 ug/dL 37-170 Normal (applies to non-numeric re sults) [facility] Test Performed By: [facility] [address] [place] [address] Director: Ruben Cordoba MD Total Iron Binding Capacity 311 ug/dL 265-497 Norm al (applies to non-numeric results) [facility] Test Performed By: [facility] [address] [place] [address] Director: Ruben Cordoba MD %Iron Saturation 12.0-55.0 Normal (applies to non-numeric results) [facility] Test Performed By: [facility] [address] [place] [address] Director: Ruben Cordoba MD ID Date Data Source [id number] 07/30/2020 02:35:00 PM EST [facility] Name Value Range Interpretation Code Description Data Rylie rce(s) Supporting Document(s) Ferritin 105 ng/mL 11.1-264.0 Normal (applies to non-numeric resul ts) [facility] [address] [place] [address] Director: Ruben Cordoba MD ID Date Data Source [id number] 07/30/2020 02:35:00 PM EST [facility] Name Value Range Interpretation Code Description Data Rylie rce(s) Supporting Document(s) Vitamin B12 193-986 Above high normal [facility] Test [facility]formed By: [facility] [address] [place] [address] Director: Ruben Cordoba MD ID Date Data Source [id number] 07/30/2020 02:35:00 PM [facility] Name Value Range Interpretation Code Description Data Rylie rce(s) Supporting Document(s) Folate 2.76-20.0 Above high normal [facility] Test Performed By: [facility] [address] [place] [address] Director: Ruben Cordoba MD ID Date Data Source [id number] 07/30/2020 01:27:00 PM [facility] Name Value Range Interpretation Code Description Data Rylie rce(s) Supporting Document(s) CPK 55 U/L 26-192 Normal (applies to non-numeric resul ts) [facility] Test Performed By: [facility] [address] [place] [address] Director: Ruben Cordoba MD ID Date Data Source [id number] 07/18/2020 11:28:00 AM [facility] Imaging Services Department Imaging Report [address] [address] Name: GEORGETTE GIL : 1945 Age/Sex: 74F Ordering Provider: Akil Ricci DO Med Rec #: [id number] Date of Service: 07/17/20 Report Number: [id number] cc: Akil Ricci DO Send Report To: [id number] MAMMOSCR/Screening Digtl Silvano w Hever CAD Reason [...] Date/Time: 07/17/20 1248 Transcribed Date/Time: 07/18/20 1128 Fisher Hand Line: ONESIMO Name Value Range Interpretation Code Description Data Rylie rce(s) Supporting Document(s) ID Date Data Source [id number] 05/12/2020 04:32:00 AM EST [facility] Name Value Range Interpretation Code Description Data Rylie rce(s) Supporting Document(s) SARS-CoV-2 TAMIKA result Not Detected Very abnor mal (applies to non-numeric units [facility] This nucleic acid amplification test was developed and its performance characteristics determined by [employer]. Nucleic acid amplification tests include PCR and [...] detected) result in this assay. Performed at: [facility] [address] [facility], [place], [place] [id number] [employer] Machine Operator: Pavithra Pruitt PhD, Phone: [phone] THIS IS A STATE REPORTABLE COMMUNICABLE DISEASE. Results called 04/29/20 353,DR ROSENTHAL read back information to [facility] ID Date Data Source [id number] 04/27/2020 02:10:00 PM EST [facility] Name Value Range Interpretation Code Description Data Rylie rce(s) Supporting Document(s) SARS coronavirus 2 RNA [facility] This lab was ordered by Raf[facility] and reported by [employer]. ID Date Data Source [id number] 04/29/2020 06:22:00 PM [facility] Name Value Range Interpretation Code Description Data Rylie rce(s) Supporting Document(s) COVID-19 Result Not Detected Very abnormal (applies to non -numeric units [facility] Tamia Burroughs RN read back critical inform ation 04/29/20 1821 [facility] This nucleic acid amplification test was developed and its performance characteristics determined by [employer]. Nucleic acid amplification tests include PCR and [...] detected) result in this assay. Performed at: [facility] [address] [facility], [place], [place] [id number] [employer] Operator: Pavithra Pruitt PhD, Phone: [phone] THIS IS A STATE REPORTABLE COMMUNICABLE DISEASE. Results called 04/29/201748,DR ROSENTHAL read back information to [facility] Procedure Social History Code Duration Value Status Description Data Source(s ) Smoking 04/14/2021 12:00:00 AM EST Patient has never smoked co mpleted Patient has never smoked [facility] Vital Signs ID Date Data Source UNK Name Value Range Interpretation Code Description Data Source(s) Systolic blood pressure 140 mm[Hg] 140 mm[Hg] [facility] ([facility], ) Oxygen saturation in Arterial blood by Pulse oximetry 94 % 94 % [facility] ([facility]) Room Air Diastolic blood pressure 70 mm[Hg] 70 mm[Hg] [facility] ([facility]) Heart rate 78 /min 78 /min [facility] ([facility]) Body mass index (BMI) [Ratio] 34.8 kg/m2 34.8 k g/m2 [facility] ([facility]) [facility]ura body weight 105 [lb_av] 105 [lb_av] [facility] Body weight 83.462 kg 83.462 kg [facility] ([facility]) Body height 61 [in_i] 61 [in_i] [facility] ([facility]) 5'1" Body surface area Derived from formula 1.82 m2 1.82 m2 [facility] ([facility]) Body weight 184.00 [lb_av] 184.00 [lb_av] [facility] Systolic blood pressure 132 mm[Hg] 132 mm[Hg] M [facility] ([facility]) Diastolic blood pressure 72 mm[Hg] 72 mm[Hg] [facility] ([facility]) Body mass index (BMI) [Ratio] 29.5 kg/m2 29.5 k g/m2 [facility] ([facility]) Dulzura body weight 105 [lb_av] 105 [lb_av] [facility] ([facility]) Body weight 70.762 kg 70.762 kg [facility] ([facility]) Body surface area Derived from formula 1.70 m2 1.70 m2 [facility] ([facility]) Heart rate 94 /min 94 /min [facility] ([facility]) Oxygen saturation in Arterial blood by Pulse oximetry 92 % 92 % [facility] ([facility]) Room Air Body height 61 [in_i] 61 [in_i] [facility] ([facility]) 5'1" Body weight 156.00 [lb_av] 156.00 [lb_av] [facility] ([facility]) Systolic blood pressure 102 mm[Hg] 102 mm[Hg] M [facility] ([facility]) Diastolic blood pressure 70 mm[Hg] 70 mm[Hg] [facility] Dulzura body weight 105 [lb_av] 105 [lb_av] [facility] ([facility]) Body weight 74.390 kg 74.390 kg [facility] ([facility]) Body surface area Derived from formula 1.74 m2 1.74 m2 [facility] ([facility]) Heart rate 86 /min 86 /min [facility] ([facility]) Oxygen saturation in Arterial blood by Pulse oximetry 92 % 92 % [facility] ([facility]) Room Air Body height 61 [in_i] 61 [in_i] [facility] ([facility]) 5'1" Body weight 164.00 [lb_av] 164.00 [lb_av] [facility] ([facility]) Body mass index (BMI) [Ratio] 31.0 kg/m2 31.0 k g/m2 [facility] ([facility]) Diastolic blood pressure 74 mm[Hg] 74 mm[Hg] [facility] ([facility]) Oxygen saturation in Arterial blood by Pulse oximetry 92 % 92 % [facility] ([facility]) Room Air Heart rate 80 /min 80 /min [facility] ([facility]) Body height 61 [in_i] 61 [in_i] [facility] ([facility]) 5'1" Systolic blood pressure 124 mm[Hg] 124 mm[Hg] M [facility] ([facility]) Body weight 173.00 [lb_av] 173.00 [lb_av] [facility] ([facility]) Body mass index (BMI) [Ratio] 32.7 kg/m2 32.7 k g/m2 [facility] ([facility]) Dulzura body weight 105 [lb_av] 105 [lb_av] [facility] ([facility]) Body weight 78.473 kg 78.473 kg [facility] ([facility]) Body surface area Derived from formula 1.78 m2 1.78 m2 [facility] ([facility]) Body temperature 97.5 [degF] 97.5 [degF] [facility] ([facility]) Diastolic blood pressure 80 mm[Hg] 80 mm[Hg] [facility] ([facility]) Heart rate 39 /min 39 /min [facility] ([facility]) Body temperature 97.5 [degF] 97.5 [degF] [facility] ([facility]) Body height 59.50 [in_i] 59.50 [in_i] [facility] 4'11.50" Body weight 170.00 [lb_av] 170.00 [lb_av] [facility] ([facility]) Body mass index (BMI) [Ratio] 33.8 kg/m2 33.8 k g/m2 [facility] ([facility]) Systolic blood pressure 120 mm[Hg] 120 mm[Hg] [facility] Respiratory rate 14 /min 14 /min [facility] ( [facility]) ID Date Data Source [id number] 12/04/2020 10:57:00 AM EDT [facility] Name Value Range Interpretation Code Description Data Source(s) WEIGHT 80.45 kilos 80.45 kilos [facility] HEIGHT 151.13 centimeters 151.13 centimeter s [facility]
[2021-04-28] MEDS ORDERED: dexameTHASONE 4 MG/ML 1ML VIAL (J1100 PER 1MG) As Ordered ONE (07:17)
[2021-04-28] MEDS ORDERED: ONDANSETRON 4MG/2ML VIAL As Ordered ONE (07:17)
[2021-04-28] MEDS ORDERED: LIDOCAINE 2% 100MG/5ML SDV (FOR ANES.) As Ordered ONE (07:17)
[2021-04-28] MEDS ORDERED: propofoL 200 MG/20 ML VIAL As Ordered ONE (07:17)
[2021-04-28] MEDS ORDERED: MIDAZOLAM INJ 2MG/2ML VIAL (J2250 PER 1MG) As Ordered ONE (07:17)
[2021-04-28] MEDS ORDERED: KETOROLAC 60MG 2ML VIAL As Ordered ONE (07:17)
[2021-04-28] MEDS ORDERED: fentaNYL 100 MCG/2 ML INJECTION (J3010) As Ordered ONE (07:18)
[2021-04-28] MEDS ORDERED: LIDOCAINE 1% SDV 30ML VIAL As Ordered ONE (07:21)
--- NOTE | 2021-04-28 08:12 | ROOPDOC ---
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 erasto betts ANESTHESIA: Local lidocaine with IV fentanyl 25 mcg and Versed 1 mg COMPLICATIONS: None. INDICATION FOR PROCEDURE: Nondraining Pleurx catheter for approximately 1 month DESCRIPTION OF PROCEDURE: The patient was brought to the operating room and placed left lateral decubitus on the operating table. Intravenous sedation was administered without complications. The right chest and upper abdomen were prepped and draped in the usual sterile fashion. Lidocaine 1% was used to infiltrate the exit site of the catheter circumferentially. Using blunt dissection with Sandy forceps the cuff of the indwelling catheter was released from the subcutaneous tissue. The Pleurx catheter was then removed successfully and with ease. The exit site of the catheter was closed using Monocryl stitch, 2 sutures were placed. The patient tolerated the procedure well without any complications. The patient was transferred to the recovery room in stable condition. Sponge and needle count was correct at the end of the case. Follow- up plan is with me in the office in 1 to 2 weeks for suture removal and chest x- ray prior to visit. ERASTO BETTS MD Apr 28, 2021 08:12
[2021-04-28 08:45] VITALS: BP 136/69
== END 2021-04-28 08:45 | disposition home or self-care (01) ==
LOC: M SDC 06:33
PROVIDERS: ATTEND Internal Medicine Pulmonary Disease
DX: Z46.82 Encounter for fitting and adjustment of non-vascular catheter (principal); J91.0 Malignant pleural effusion; C34.90 Malignant neoplasm of unspecified part of unspecified bronchus or lung; Z86.16 Personal history of COVID-19; Z79.899 Other long term (current) drug therapy; Z79.82 Long term (current) use of aspirin; Z88.5 Allergy status to narcotic agent; Z79.84 Long term (current) use of oral hypoglycemic drugs; I10 Essential (primary) hypertension; E78.5 Hyperlipidemia, unspecified; E03.9 Hypothyroidism, unspecified
CPT/HCPCS: 32552; J2250; J3010; U0002

== ENCOUNTER → 2021-05-12 | Outpatient (CLI) | payer MEDICARE, BC ==
[~2021-05-12] MED LIST changes: +FURO20TA2 PO
--- NOTE | 2021-05-12 13:05 | REP ---
INDICATION: MALIGNANT PLEURAL EFFUSION COMPARISON: 03/27/2021 TECHNIQUE: PA and lateral. FINDINGS: Opacity involving the right mid to lower lung zone consistent with pleural effusion and underlying elements of consolidation/atelectasis. Visualized portions of the cardiac silhouette and mediastinum are stable. Left hemithorax is relatively clear and without discrete focal consolidation or effusion. Skeletal structures are intact. IMPRESSION: 1. Opacification of the right mid to lower lung zone suggesting effusion and elements of consolidation/atelectasis. <Electronically signed by Abdelrahman Wang > 05/12/21 3314
== END ==
LOC: M PLALAB 12:13
PROVIDERS: ATTEND Internal Medicine Pulmonary Disease
DX: R91.8 Other nonspecific abnormal finding of lung field (principal); J91.0 Malignant pleural effusion

== ENCOUNTER → 2021-07-13 | Outpatient (CLI) | payer MEDICARE, BC ==
[~2021-07-13] MED LIST changes: -CEFD1CAP8 PO; +CEFD300C41 PO; +ISOVUE-370 76% 100ML VIAL As Ordered ONE
== END ==
LOC: M RAD 11:00
PROVIDERS: ATTEND Specialist
DX: C34.11 Malignant neoplasm of upper lobe, right bronchus or lung (principal)
CPT/HCPCS: 71260; Q9967

== ENCOUNTER → 2021-10-18 | Outpatient (CLI) | payer MEDICARE, BC ==
[~2021-10-18] MED LIST changes: +[UNRECOGNIZED DRUG - CODE] PO
== END ==
LOC: M RAD 12:36
PROVIDERS: ATTEND Specialist
DX: C34.91 Malignant neoplasm of unspecified part of right bronchus or lung (principal); C34.92 Malignant neoplasm of unspecified part of left bronchus or lung; C77.3 Secondary and unspecified malignant neoplasm of axilla and upper limb lymph nodes; J98.11 Atelectasis; J90 Pleural effusion, not elsewhere classified
CPT/HCPCS: 71260; Q9967

== ENCOUNTER → 2022-01-26 | Outpatient (CLI) | payer MEDICARE, BC | LOC: M RAD 11:13 | PROVIDERS: ATTEND Nurse Practitioner | DX: D64.9 Anemia, unspecified (principal); R91.8 Other nonspecific abnormal finding of lung field | CPT/HCPCS: 71260; Q9967 ==

== ENCOUNTER → 2022-02-23 | Outpatient (CLI) | payer MEDICARE, BC ==
[~2022-02-23] MED LIST changes: -ISOVUE-370 76% 100ML VIAL As Ordered ONE
== END ==
LOC: M ONCR 08:45
PROVIDERS: ATTEND General Practice
DX: C34.90 Malignant neoplasm of unspecified part of unspecified bronchus or lung (principal); D49.2 Neoplasm of unspecified behavior of bone, soft tissue, and skin; E03.9 Hypothyroidism, unspecified; E78.5 Hyperlipidemia, unspecified; I10 Essential (primary) hypertension; M19.90 Unspecified osteoarthritis, unspecified site; M51.24 Other intervertebral disc displacement, thoracic region; Z79.1 Long term (current) use of non-steroidal anti-inflammatories (NSAID); Z79.82 Long term (current) use of aspirin; Z79.890 Hormone replacement therapy; Z79.899 Other long term (current) drug therapy; Z80.52 Family history of malignant neoplasm of bladder; Z82.49 Family history of ischemic heart disease and other diseases of the circulatory system; Z84.1 Family history of disorders of kidney and ureter; Z86.16 Personal history of COVID-19; Z88.5 Allergy status to narcotic agent; Z90.710 Acquired absence of both cervix and uterus; Z98.84 Bariatric surgery status

== ENCOUNTER → 2022-04-26 | Outpatient (CLI) | payer MEDICARE, BC ==
[~2022-04-26] MED LIST changes: +GASTROGRAFIN SOLUTION 30ML As Ordered ONE; +ISOVUE-370 76% 100ML VIAL As Ordered ONE; +LEVO75TA4 PO
== END ==
LOC: M RAD 11:19
PROVIDERS: ATTEND Internal Medicine Hematology & Oncology
DX: C34.90 Malignant neoplasm of unspecified part of unspecified bronchus or lung (principal); D73.89 Other diseases of spleen
CPT/HCPCS: 70491; 71260; 74177; Q9963; Q9967

== ENCOUNTER → 2022-05-03 | Outpatient (CLI) | payer MEDICARE, BC ==
[~2022-05-03] MED LIST changes: -GASTROGRAFIN SOLUTION 30ML As Ordered ONE; -ISOVUE-370 76% 100ML VIAL As Ordered ONE; +[UNRECOGNIZED DRUG - CODE] PO
== END ==
LOC: M EKG 12:04
PROVIDERS: ATTEND Internal Medicine Hematology & Oncology
DX: C34.90 Malignant neoplasm of unspecified part of unspecified bronchus or lung (principal)

== ENCOUNTER 2022-05-27 13:20 | Emergency (ER) | payer MEDICARE, BC ==
[~2022-05-27] VITALS: Ht 152.4 cm; Wt 73.2 kg
[2022-05-27 15:22] LABS: BASO # 0.1 10^3/uL (0.0-0.2); BASO % 0.5 % (0.0-1.0); EOS # 0.3 10^3/uL (0.0-0.5); EOS % 1.3 % (0.0-3.0); HEMATOCRIT 31.6 % (36.0-47.0); HEMOGLOBIN 10.2 g/dl (12.0-15.5); LYMPH # 1.5 10^3/uL (1.5-5.0); MEAN CORPUSCULAR HEMOGLOBIN 29.1 pg (27.0-33.0); MEAN CORPUSCULAR HGB CONC 32.3 g/dl (32.0-36.5); MEAN CORPUSCULAR VOLUME 90.3 fl (80.0-96.0); MONO % 7.8 % (2.0-8.0); NEUTROPHILS % 82.1 % (36.0-66.0); PLATELET COUNT, AUTOMATED 544 10^3/uL (150-450); WHITE BLOOD COUNT 24.4 10^3/uL (4.0-10.0)
[2022-05-27 15:26] LABS: MONO # 1.9 10^3/uL (0.0-0.8)
[2022-05-27 16:06] LABS: CALCIUM LEVEL 9.2 MG/DL (8.3-10.6); CREATININE FOR GFR 0.97 MG/DL (0.55-1.30); GLOMERULAR FILTRATION RATE 59.3 (>39); POTASSIUM SERUM 4.7 MMOL/L (3.5-5.1)
[2022-05-27] MEDS ORDERED: NS 500 ML IV ONE (21:20)
[2022-05-27 21:57] VITALS: BP 136/65
[2022-05-27] MEDS ORDERED: traMADol 50 MG TAB PO ONE (22:00)
[2022-05-27 22:27] LABS: CK-MB VALUE MASS < 1.0 NG/ML (<3.6)
[2022-05-27 22:29] LABS: CPK CREATINE PHOSPHOKINASE 31 U/L (34-145); MB/CK RELATIVE INDEX 3.22 (< OR =4)
[2022-05-27] MEDS ORDERED: cefTRIAXone SOD 1 GM in D5W MINI-BAG PLUS 50 ML IV ONE (22:50)
[2022-05-27 23:48] LABS: CK-MB VALUE MASS < 1.0 NG/ML (<3.6); CPK CREATINE PHOSPHOKINASE 23 U/L (34-145); MB/CK RELATIVE INDEX 4.34 (< OR =4)
[2022-05-28] MEDS ORDERED: CEPH500C PO (00:02)
[2022-05-31] MEDS ORDERED: ONDA4TAB6 PO (13:29)
== END 2022-05-28 00:44 | disposition home or self-care (01) ==
LOC: M ED 13:20
DX: N39.0 Urinary tract infection, site not specified (principal); K62.5 Hemorrhage of anus and rectum; C34.00 Malignant neoplasm of unspecified main bronchus; C78.7 Secondary malignant neoplasm of liver and intrahepatic bile duct; C79.51 Secondary malignant neoplasm of bone; Z98.84 Bariatric surgery status; Z88.5 Allergy status to narcotic agent; Z79.82 Long term (current) use of aspirin; Z79.811 Long term (current) use of aromatase inhibitors; Z79.899 Other long term (current) drug therapy
CPT/HCPCS: 71045; 80048; 81000; 81015; 82550; 82553; 84484; 85025; 87086; 93005; 96374; 99285; J0696

== ENCOUNTER → 2022-06-10 | Outpatient (CLI) | payer MEDICARE, BC ==
[~2022-06-10] MED LIST changes: +CEPH500C PO; +DEXA4TA PO; +FOLI1TAB11 PO; +ONDA4TAB6 PO
== END ==
LOC: M RAD 10:43
PROVIDERS: ATTEND Radiology Radiation Oncology
DX: C79.51 Secondary malignant neoplasm of bone (principal)

== ENCOUNTER → 2022-06-10 | Outpatient (CLI) | payer MEDICARE, BC | LOC: M ONCR 09:24 | PROVIDERS: ATTEND Radiology Radiation Oncology | DX: C34.90 Malignant neoplasm of unspecified part of unspecified bronchus or lung (principal); C78.7 Secondary malignant neoplasm of liver and intrahepatic bile duct; C79.51 Secondary malignant neoplasm of bone; E03.9 Hypothyroidism, unspecified; I10 Essential (primary) hypertension; M19.90 Unspecified osteoarthritis, unspecified site; Z79.52 Long term (current) use of systemic steroids; Z79.82 Long term (current) use of aspirin; Z79.890 Hormone replacement therapy; Z79.891 Long term (current) use of opiate analgesic; Z80.52 Family history of malignant neoplasm of bladder; Z82.49 Family history of ischemic heart disease and other diseases of the circulatory system; Z84.1 Family history of disorders of kidney and ureter; Z88.5 Allergy status to narcotic agent; Z86.16 Personal history of COVID-19; Z98.84 Bariatric surgery status | CPT/HCPCS: 71101; G0463 ==

== ENCOUNTER 2022-06-13 12:57 | Outpatient (RCR) | payer MEDICARE, BC ==
[2022-06-17] MEDS ORDERED: DEXA4TA PO (08:37)
[2022-06-17] MEDS ORDERED: FOLI1TAB11 PO (08:37)
== END 2022-06-20 ==
LOC: M ONCR 12:57
PROVIDERS: ATTEND General Practice
DX: C79.51 Secondary malignant neoplasm of bone (principal)

== ENCOUNTER → 2022-06-13 | Outpatient (CLI) | payer MEDICARE, BC | LOC: M LABSMTC 09:18 | PROVIDERS: ATTEND Anesthesiology | DX: Z01.812 Encounter for preprocedural laboratory examination (principal); Z11.52 Encounter for screening for COVID-19 ==

== ENCOUNTER → 2022-06-16 | Outpatient (CLI) | payer MEDICARE, BC ==
[~2022-06-16] MED LIST changes: +LIDOCAINE 1% MDV 20ML VIAL As Ordered ONE; +MIDAZOLAM INJ 2MG/2ML VIAL As Ordered ONE; +NS 1,000 ML IV SCH; +ONDANSETRON 4MG 2ML VIAL As Ordered ONE; +ONDANSETRON 4MG 2ML VIAL IV ONE; +ceFAZolin 2 GM/D5W 50 ML IV BAG As Ordered ONE; +ceFAZolin SOD 2 GM in IV 1 EA IV ONE; +diphenhydrAMINE 50MG/ML VIAL As Ordered ONE; +fentaNYL 100 MCG/2 ML INJECTION As Ordered ONE
[2022-06-16 13:15] VITALS: BP 134/79
== END ==
LOC: M IRPRO 10:04
PROVIDERS: ATTEND Specialist
DX: C34.91 Malignant neoplasm of unspecified part of right bronchus or lung (principal)

== ENCOUNTER 2022-06-18 14:35 | Inpatient (IN) | payer MEDICARE, BC ==
[~2022-06-18] VITALS: Ht 152.4 cm; Wt 64.5 kg
[~2022-06-18 14:35] MED LIST changes: -LIDOCAINE 1% MDV 20ML VIAL As Ordered ONE; -MIDAZOLAM INJ 2MG/2ML VIAL As Ordered ONE; -NS 1,000 ML IV SCH; -ONDANSETRON 4MG 2ML VIAL As Ordered ONE; -ONDANSETRON 4MG 2ML VIAL IV ONE; -ceFAZolin 2 GM/D5W 50 ML IV BAG As Ordered ONE; -ceFAZolin SOD 2 GM in IV 1 EA IV ONE; -diphenhydrAMINE 50MG/ML VIAL As Ordered ONE; -fentaNYL 100 MCG/2 ML INJECTION As Ordered ONE
[2022-06-18] MEDS ORDERED: NS 1,000 ML IV SCH ×2 (14:55→19:00)
[2022-06-18] MEDS ORDERED: IPRATROPIUM 0.5MG/ALBUTEROL 2.5MG INH SOL UD 3ML (DUONEB) NEB PRN (14:55)
[2022-06-18] MEDS ORDERED: ASPIRIN 81MG CHEW TABLET PO ONE (14:55)
[2022-06-18 15:16] LABS: ABG BASE EXCESS -0.8 (-2.0-2.0); ABG HCO3 22.2 MEQ/L (22.0-26.0); ABG O2 SATURATION 94.2 % (95.0-99.0); ABG PARTIAL PRESSURE CO2 30.8 mmHg (35.0-45.0); ABG PARTIAL PRESSURE O2 73.2 mmHg (75.0-100.0); ABG STANDARD HCO3 23.7 MEQ/L (22.0-26.0); ABG TOTAL CO2 23.2 MEQ/L (23.0-31.0); ABG pH (ARTERIAL) 7.476 UNITS (7.350-7.450)
[2022-06-18 15:36] LABS: HEMATOCRIT 25.6 % (36.0-47.0); HEMOGLOBIN 8.3 g/dl (12.0-15.5); MEAN CORPUSCULAR HGB CONC 32.4 g/dl (32.0-36.5); MEAN CORPUSCULAR VOLUME 89.5 fl (80.0-96.0); PLATELET COUNT, AUTOMATED 404 10^3/uL (150-450); RED BLOOD COUNT 2.86 10^6/uL (4.00-5.40)
[2022-06-18 15:57] LABS: BILIRUBIN,DIRECT 0.8 MG/DL (<0.4); CPK CREATINE PHOSPHOKINASE 71 U/L (34-145)
[2022-06-18 16:12] LABS: INR 1.41; PROTHROMBIN TIME 17.5 SECONDS (12.5-14.5)
[2022-06-18 16:17] LABS: ALBUMIN 1.7 G/DL (3.2-5.2); ALKALINE PHOSPHATASE 1576 U/L (46-116); ALT/SGPT 31 U/L (7.0-40); AST/SGOT 134 U/L (<34); BILIRUBIN,TOTAL 1.2 MG/DL (0.3-1.2); BLOOD UREA NITROGEN 75 MG/DL (9-23); CALCIUM LEVEL 8.6 MG/DL (8.3-10.6); CARBON DIOXIDE LEVEL 23 MMOL/L (20-31); CHLORIDE LEVEL 104 MMOL/L (98-107); CK-MB VALUE MASS < 1.0 NG/ML (<3.6); CREATININE FOR GFR 1.48 MG/DL (0.55-1.30); GLOMERULAR FILTRATION RATE 36.4 (>39); GLUCOSE, FASTING 117 MG/DL (74-106); POTASSIUM SERUM 5.2 MMOL/L (3.5-5.1); SODIUM LEVEL 138 MMOL/L (136-145); TOTAL PROTEIN 4.9 G/DL (5.7-8.2); WHITE BLOOD COUNT 59.9 10^3/uL (4.0-10.0)
[2022-06-18] MEDS ORDERED: fentaNYL 100 MCG/2 ML INJECTION IV ONE (16:25)
[2022-06-18 16:37] LABS: LYMPHOCYTES 3 % (16-44); METAMYELOCYTES 1 % (0-0); MONOCYTES 6 % (0-5); MYELOCYTES 3 % (0-0); NEUTROPHILS 83 % (28-66); NUCLEATED RED BLOOD CELL 1 % (0-0)
[2022-06-18 16:38] LABS: PLATELET ESTIMATE INCREASED (NORMAL); POLYCHROMASIA 1+; TARGET CELLS 1+
[2022-06-18 17:23] LABS: CK-MB VALUE MASS < 1.0 NG/ML (<3.6)
[2022-06-18 17:26] LABS: CPK CREATINE PHOSPHOKINASE 70 U/L (34-145); MB/CK RELATIVE INDEX 1.42 (< OR =4)
[2022-06-18] MEDS ORDERED: HOME MED LIST COMPLETE! XX SCH (17:50)
[2022-06-18] MEDS ORDERED: ONDANSETRON 4MG ORAL DISINTEGRATING TAB PO PRN (18:10)
[2022-06-18] MEDS ORDERED: traMADol 50 MG TAB PO PRN (18:10)
[2022-06-18] MEDS ORDERED: VANCOMYCIN HCL 1,000 MG, VIAL MATE ADAPTER 1 EACH in NS 250 ML IV SCH (19:20)
[2022-06-18] MEDS ORDERED: VANCOMYCIN HCL 750 MG, VIAL MATE ADAPTER 1 EACH in D5W 250 ML IV ONE (20:00)
[2022-06-18 20:08] LABS: CK-MB VALUE MASS < 1.0 NG/ML (<3.6)
[2022-06-18 20:09] LABS: CPK CREATINE PHOSPHOKINASE 59 U/L (34-145); MB/CK RELATIVE INDEX 1.69 (< OR =4)
[2022-06-18] MEDS ORDERED: ROSUVASTATIN 10 MG TAB (CRESTOR) PO SCH (21:00)
[2022-06-18] MEDS ORDERED: HEPARIN SOD (PORCINE) 5000UNITS/ML 1ML VIAL/SYRINGE SC SCH (21:00)
[2022-06-18] MEDS ORDERED: VANCOMYCIN HCL 500 MG in D5W MINI-BAG PLUS 100 ML IV ONE (21:00)
[2022-06-18 21:30] VITALS: BP 115/58
[2022-06-18] MEDS ORDERED: PILL CUTTER 1 EACH XX PRN (21:30)
[2022-06-18] MEDS: DOCUSATE SODIUM 100MG CAPSULE PO SCH (21:52)
[2022-06-18] MEDS: FERROUS SULFATE 325MG TAB PO SCH (21:52)
[2022-06-18 23:00] VITALS: O2SAT 94
[2022-06-18 23:42] VITALS: BP 102/55
[2022-06-18] MEDS: PIPERACILLIN/TAZOBACTAM SOD 3.375 GM in D5W MINI-BAG PLUS 50 ML IV SCH (23:47)
[2022-06-19] VITALS (23 sets, daily range): BP systolic 98–114; BP diastolic 57–65; O2SAT 86–94
[2022-06-19] MEDS: APIXABAN 5 MG TAB (ELIQUIS) PO SCH ×3 (00:47→09:41)
[2022-06-19 01:43] LABS: CK-MB VALUE MASS < 1.0 NG/ML (<3.6)
[2022-06-19 01:44] LABS: CPK CREATINE PHOSPHOKINASE 58 U/L (34-145); MB/CK RELATIVE INDEX 1.72 (< OR =4)
[2022-06-19] MEDS: PIPERACILLIN/TAZOBACTAM SOD 3.375 GM in D5W MINI-BAG PLUS 50 ML IV SCH ×2 (05:32→11:00)
[2022-06-19 05:38] LABS: HEMATOCRIT 22.4 % (36.0-47.0); HEMOGLOBIN 7.3 g/dl (12.0-15.5); MEAN CORPUSCULAR HEMOGLOBIN 29.4 pg (27.0-33.0); MEAN CORPUSCULAR HGB CONC 32.6 g/dl (32.0-36.5); MEAN CORPUSCULAR VOLUME 90.3 fl (80.0-96.0); PLATELET COUNT, AUTOMATED 321 10^3/uL (150-450); RED BLOOD COUNT 2.48 10^6/uL (4.00-5.40)
[2022-06-19 05:59] LABS: MAGNESIUM LEVEL 1.9 MG/DL (1.8-2.4)
[2022-06-19 06:13] LABS: LYMPHOCYTES 4 % (16-44); METAMYELOCYTES 2 % (0-0); MONOCYTES 1 % (0-5); MYELOCYTES 7 % (0-0); NEUTROPHILS 72 % (28-66); PLATELET ESTIMATE NORMAL (NORMAL)
[2022-06-19 06:14] LABS: ANISOCYTOSIS 3+
[2022-06-19 06:15] LABS: POLYCHROMASIA 1+; SCHISTOCYTES 1+
[2022-06-19 06:18] LABS: ALBUMIN 1.5 G/DL (3.2-5.2); BILIRUBIN,TOTAL 1.3 MG/DL (0.3-1.2); CALCIUM LEVEL 8.2 MG/DL (8.3-10.6); CREATININE FOR GFR 1.63 MG/DL (0.55-1.30); GLOMERULAR FILTRATION RATE 32.6 (>39); POTASSIUM SERUM 4.9 MMOL/L (3.5-5.1); TOTAL PROTEIN 4.1 G/DL (5.7-8.2)
[2022-06-19 08:55] LABS: THYROID STIMULATING HORMONE 14.55 uIU/ML (0.55-4.78)
[2022-06-19] MEDS: DOCUSATE SODIUM 100MG CAPSULE PO SCH ×3 (09:00→20:09)
[2022-06-19] MEDS: MULTIVITAMINS/MINERALS THERAP 1 TAB PO SCH ×2 (09:00→09:41)
[2022-06-19] MEDS: FERROUS SULFATE 325MG TAB PO SCH ×2 (09:00→09:42)
[2022-06-19] MEDS: CYANOCOBALAMIN 500 MCG TAB PO SCH ×2 (09:00→09:41)
[2022-06-19] MEDS: FOLIC ACID 1MG TAB PO SCH ×2 (09:00→09:42)
[2022-06-19] MEDS: ASPIRIN 81MG ENTERIC TABLET PO SCH ×2 (09:00→09:41)
[2022-06-19] MEDS ORDERED: atenoloL 50 MG TAB PO SCH (09:00)
[2022-06-19 13:12] LABS: HEMATOCRIT 22.8 % (36.0-47.0); HEMOGLOBIN 7.4 g/dl (12.0-15.5)
[2022-06-19 13:45] LABS: CK-MB VALUE MASS < 1.0 NG/ML (<3.6)
[2022-06-19 13:47] LABS: CPK CREATINE PHOSPHOKINASE 47 U/L (34-145); MB/CK RELATIVE INDEX 2.12 (< OR =4)
[2022-06-19 14:48] LABS: FREE T4 0.7 NG/DL (0.89-1.76)
[2022-06-19] MEDS ORDERED: VANCOMYCIN HCL 1,000 MG, VIAL MATE ADAPTER 1 EACH in D5W 250 ML IV SCH (16:00)
[2022-06-19] MEDS: LORazepam 2 MG/ML 1ML VIAL IV PRN (16:39)
[2022-06-19] MEDS: MORPHINE 2 MG/ML 1ML VIAL IV PRN ×3 (16:39→22:15)
[2022-06-20] MEDS: MORPHINE 2 MG/ML 1ML VIAL IV PRN ×3 (01:35→08:03)
[2022-06-20] MEDS: LORazepam 2 MG/ML 1ML VIAL IV PRN ×2 (03:57→08:03)
== END 2022-06-20 11:05 | disposition expired | DRG 189 ==
LOC: EDBD 14:35 → M ED 16:20 → M ED INP 18:17 → M PCU 21:27
PROVIDERS: ADMIT Internal Medicine; ATTEND Internal Medicine
DX: J96.01 Acute respiratory failure with hypoxia (principal); A41.9 Sepsis, unspecified organism; I26.99 Other pulmonary embolism without acute cor pulmonale; I21.A1 Myocardial infarction type 2; C79.51 Secondary malignant neoplasm of bone; C34.91 Malignant neoplasm of unspecified part of right bronchus or lung; N17.9 Acute kidney failure, unspecified; I82.411 Acute embolism and thrombosis of right femoral vein; C78.7 Secondary malignant neoplasm of liver and intrahepatic bile duct; J91.0 Malignant pleural effusion; I10 Essential (primary) hypertension; D50.9 Iron deficiency anemia, unspecified; E03.9 Hypothyroidism, unspecified; E78.5 Hyperlipidemia, unspecified